=== PATIENT | male | born 1970 | race Hispanic/Latino ===

== ENCOUNTER 2018-09-16 02:08 | Emergency (ER) | payer OTHER ==
--- OUTSIDE RECORDS SUMMARY | 2018-09-16 02:10 | XMS REPORT ---
:1970 [facility] [address] [place] [address] Dr. Garcia [address] [place] [id number] Care Team Providers Name Role Phone UNKNOWN, REFFERING Primary Care Provider Unavailable TJ JAIN M.D. Unavailable Unavailable Problems This patient has no known problems. Allergies, Adverse Reactions, Alerts This patient has no known allergies or adverse reactions. Medications This patient has no known medications. Encounters Start End Encounter Admission Attending Care Care Encounter Date/Time Date/Time Type Type Clinicians Facility Department ID 2017-08-27 2017-08-28 [id number]:40:00 12:00:00 Danelle SPENCER Results Test Description Test Time Test Comments Text Results Atomic Results Result Comments POC Glucose, Blood 2017-08-28 09:29:00 Test Item Value Reference Range Comments POC Glucose (test code=POCGLUC) 194 mg/dL 70-115 Notify RN or MDIf you consider your patient critically ill, the Ruel Accu-Chek InformII metershould not be used for Glucose determinations.Draw a venous Glucose and send to the Main Lab for Analysis. [id number] 07:49:00 Test Item Value Reference Range Comments Phosphorus (test code=PO4) 3.1 mg/dL 2.70-4.50 Magnesium, [id number] 07:49:00 Test Item Value Reference Range Comments Magnesium (test code=MG) 2.0 mg/dL 1.7-2.5 Basic Metabolic [id number] 22:21:00 Test Item Value Reference Range Comments Sodium (test code=NA) 135 mmol/L 135-145 Potassium (test code=K) 3.6 mmol/L 3.5-5.1 Chloride (test code=CL) 97 mmol/L 98-105 Carbon Dioxide (test 29 mmol/L 22-29 code=CO2) Glucose (test code=GLU) 189 mg/dL 70-115 Blood Urea Nitrogen 26 mg/dL 6-20 (test code=BUN) Creatinine (test 0.9 mg/dL 0.7-1.2 code=CREAT) Calcium (test code=CA) 9.1 mg/dL 8.3-10.5 BUN/Creatinine Ratio 28.9 (test code=BCRATIO) Anion Gap (test 9 mmol/L 7-16 code=AGAP) Estimated GFR (test >60 mL/min/1.73m2 eGFR (estimated Glomerular code=GFR) Filtration Rate) is an estimated value,calculated from the patient's serum creatinine using the MDRD equation.It is NOT the patient's actual GFR. The eGFR provides a more clinicallyuseful measure of kidney disease than serum creatinine alone.This calculation takes sex and race into account, if the informationis provided. If the race is not provided, and the patient isAfrican-[place], multiply by 1.212. If sex is not provided, and thepatient is female, multiply by 0.742. Results for patients <18 years ofage have not been validated by the MDRD study and should be interpretedwith caution.eGFR Result Interpretation:eGFR > or=60 is in the Normal RangeeGFR < 60 may mean kidney diseaseeGFR < 15 may mean kidney failureRanges recommended by the National Kidney Foundation,http://nkdep.nih .gov POC Glucose, [id number] 20:51:00 Test Item Value Reference Range Comments POC Glucose (test 211 mg/dL 70-115 Notify RN or MDIf you consider code=POCGLUC) your patient critically ill, the Ruel Accu-Chek InformII metershould not be used for Glucose determinations.Draw a venous Glucose and send to the Main Lab for Analysis. [id number] 19:19:36LOCATION: [id number]: 47-year-old male with acute kidney injury. Clinical concern ishydronephrosis.COMMENT:Sonographic imaging of this patient's retroperitoneum was obtained andlimited fashion. The urinary bladder was not included in theexamination.The right kidney measures 11.8 x 6.2 x 5.4 cm with a 22 mm corticalthickness. The left kidney measures 12.0 x 6.6 x 6.0 cm with a 19 mmcortical thickness.There is no evidence of cyst , masses,calcifications, or evidence of hydronephrosis. Cortical echotexture inthe kidneys is unremarkable.IMPRESSION:Unremarkable sonographic examination of the kidneys.POC Glucose, [id number] 17:15:00 Test Item Value Reference Range Comments POC Glucose (test 214 mg/dL 70-115 Notify RN or MDIf you consider code=POCGLUC) your patient critically ill, the Ruel Accu-Chek InformII metershould not be used for Glucose determinations.Draw a venous Glucose and send to the Main Lab for Analysis. Basic Metabolic [id number] 15:06:00 Test Item Value Reference Range Comments Sodium (test code=NA) 136 mmol/L 135-145 Potassium (test code=K) 3.7 mmol/L 3.5-5.1 Chloride (test code=CL) 99 mmol/L 98-105 Carbon Dioxide (test 26 mmol/L 22-29 code=CO2) Glucose (test code=GLU) 153 mg/dL 70-115 Blood Urea Nitrogen 29 mg/dL 6-20 (test code=BUN) Creatinine (test 1.0 mg/dL 0.7-1.2 code=CREAT) Calcium (test code=CA) 9.2 mg/dL 8.3-10.5 BUN/Creatinine Ratio 29.0 (test code=BCRATIO) Anion Gap (test 11 mmol/L 7-16 code=AGAP) Estimated GFR (test >60 mL/min/1.73m2 eGFR (estimated Glomerular code=GFR) Filtration Rate) is an estimated value,calculated from the patient's serum creatinine using the MDRD equation.It is NOT the patient's actual GFR. The eGFR provides a more clinicallyuseful measure of kidney disease than serum creatinine alone.This calculation takes sex and race into account, if the informationis provided. If the race is not provided, and the patient isAfrican-B[place], multiply by 1.212. If sex is not provided, and thepatient is female, multiply by 0.742. Results for patients <18 years ofage have not been validated by the MDRD study and should be interpretedwith caution.eGFR Result Interpretation:eGFR > or=60 is in the Normal RangeeGFR < 60 may mean kidney diseaseeGFR < 15 may mean kidney failureRanges recommended by the National Kidney Foundation,http://nkdep.nih .gov POC Glucose, [id number] 11:25:00 Test Item Value Reference Range Comments POC Glucose (test 175 mg/dL 70-115 Notify RN or MDIf you consider code=POCGLUC) your patient critically ill, the Ruel Accu-Chek InformII metershould not be used for Glucose determinations.Draw a venous Glucose and send to the Main Lab for Analysis. POC Glucose, [id number] 08:09:00 Test Item Value Reference Range Comments POC Glucose (test 139 mg/dL 70-115 Notify RN or MDIf you consider code=POCGLUC) your patient critically ill, the Ruel Accu-Chek InformII metershould not be used for Glucose determinations.Draw a venous Glucose and send to the Main Lab for Analysis. Sed Rate ESR ([place])2017-08-27 07:44:00 Test Item Value Reference Range Comments ESR (test code=HESR) 20 mm/Hr 0-9 Thyroid Stimulating Hormone (TSH)2017-08-27 06:59:00 Test Item Value Reference Range Comments TSH (test code=TSH) 1.10 mIU/mL 0.270-4.200 CBC with [id number] 06:57:00 Test Item Value Reference Range Comments WBC (test code=WBC) 7.5 K/cumm 4.4-10.5 RBC (test code=RBC) 4.63 M/cumm 4.10-5.70 Hemoglobin (test code=HGB) 13.2 gm/dL 13.4-17.4 Hematocrit (test code=HCT) 39.3 % 38.7-52.0 MCV (test code=MCV) 84.9 fL 80-100 MCH (test code=MCH) 28.6 pg 27.0-32.5 MCHC (test code=MCHC) 33.7 g/dL 32.0-37.5 RDW (test code=RDW) 13.0 % 11.5-14.5 Platelet Count (test code=PLTCT) 268 K/cumm 140-440 MPV (test code=MPV) 7.4 fL Diff Method (test code=DIFFM) Auto Neutrophil (test code=NEUT) 63.0 % 36-70 Lymphocyte (test code=LYMPH) 25.7 % 12-44 Monocyte (test code=MONO) 8.4 % 0-11 Eosinophil (test code=EOS) 2.4 % 0-7 Basophil (test code=BASO) 0.5 % 0-2 Neutro Abs (test code=ANEUT) 4.7 K/cumm 1.6-7.4 Lymph Abs (test code=ALYMPH) 1.9 K/cumm 0.5-4.6 Waller Abs (test code=AMONO) 0.6 K/cumm 0.0-1.2 Eos Abs (test code=AEOS) 0.18 K/cumm 0.00-0.74 Baso Abs (test code=ABASO) 0.0 K/cumm 0.00-0.21 CK [id number] 06:56:00 Test Item Value Reference Range Comments CK (test code=CK) 320 U/L 39-308 Comprehensive Metabolic [id number] 06:56:00 Test Item Value Reference Range Comments Sodium (test code=NA) 137 mmol/L 135-145 Potassium (test code=K) 3.6 mmol/L 3.5-5.1 Chloride (test code=CL) 102 mmol/L 98-105 Carbon Dioxide (test 22 mmol/L 22-29 code=CO2) Glucose (test code=GLU) 151 mg/dL 70-115 Blood Urea Nitrogen (test 40 mg/dL 6-20 code=BUN) Creatinine (test 1.4 mg/dL 0.7-1.2 code=CREAT) Calcium (test code=CA) 9.1 mg/dL 8.3-10.5 Prot Total (test code=TP) 6.3 g/dL 6.4-8.3 Albumin (test code=ALB) 4.2 g/dL 3.5-5.2 A/G Ratio (test 2.0 Ratio code=AGRATIO) Globulin (test code=GLOB) 2.1 2.9-3.1 Bili Total (test 0.7 mg/dL 0.1-0.9 code=TBIL) Alk Phos (test 60 U/L 40-129 code=APHOS) AST (test code=AST) 15 U/L 1-40 ALT (test code=ALT) 14 U/L 1-41 BUN/Creatinine Ratio 28.6 (test code=BCRATIO) Anion Gap (test 13 mmol/L 7-16 code=AGAP) Estimated GFR (test 57 mL/min/1.73m2 eGFR (estimated Glomerular code=GFR) Filtration Rate) is an estimated value,calculated from the patient's serum creatinine using the MDRD equation.It is NOT the patient's actual GFR. The eGFR provides a more clinicallyuseful measure of kidney disease than serum creatinine alone.This calculation takes sex and race into account, if the informationis provided. If the race is not provided, and the patient isAfrican-[place], multiply by 1.212. If sex is not provided, and thepatient is female, multiply by 0.742. Results for patients <18 years ofage have not been validated by the MDRD study and should be interpretedwith caution.eGFR Result Interpretation:eGFR > or=60 is in the Normal RangeeGFR < 60 may mean kidney diseaseeGFR < 15 may mean kidney failureRanges recommended by the National Kidney Foundation,http://nkdep.nih .gov [id number] 06:56:00 Test Item Value Reference Range Comments Phosphorus (test code=PO4) 5.0 mg/dL 2.70-4.50 Magnesium, [id number] 06:56:00 Test Item Value Reference Range Comments Magnesium (test code=MG) 2.1 mg/dL 1.7-2.5 CK [id number] 06:56:00 Test Item Value Reference Range Comments CK (test code=CK) 320 U/L 39-308 CKMB (test code=CKMB) 5.5 ng/mL 0.0-4.9 CKMB% (test code=CKMBP) 1.7 % 0.0-3.4 C-Reactive Protein, [id number] 06:56:00 Test Item Value Reference Range Comments CRP (test code=CRP) 5.5 mg/L 0.0-5.0 Troponin [id number] 06:56:00 Test Item Value Reference Range Comments Troponin T (test code=SHAYY) <0.010 ng/mL 0.000-0.090 Glycosylated [id number] 06:36:00 Test Item Value Reference Range Comments HBA1c (test code=HBA1C) 7.1 % 4.8-5.9 POC Glucose, [id number] 01:20:00 Test Item Value Reference Range Comments POC Glucose (test 122 mg/dL 70-115 Notify RN or MDIf you consider code=POCGLUC) your patient critically ill, the Ruel Accu-Chek InformII metershould not be used for Glucose determinations.Draw a venous Glucose and send to the Main Lab for Analysis. Urinalysis [id number] 00:01:00 Test Item Value Reference Range Comments Color (test code=COLOR) Yellow Yellow,Straw,Pl yellow Clarity (test code=CLAR) Clear Clear Specific [place] (test code=SPGR) 1.010 1.001-1.035 pH (test code=PH) 5.0 5.0-9.0 Ketone (test code=KET) Negative mg/dL Negative Glucose (test code=GLUCUR) 50 mg/dL Negative Protein (test code=PROT) Negative mg/dL Negative Bilirubin (test code=BILI) Negative mg/dL Negative Occult Blood (test code=UDOB) Negative Negative Urobilinogen (test code=UROB) 0.2 mg/dL 0.2-1.0 Nitrite (test code=NIT) Negative Negative Leuk Esterase (test code=LEUK) Negative Negative Micros Exam (test code=MEXAM) Indicated Epithelial Cells (test code=EPI) None /LPF 0-30 WBC, Urine (test code=UWBC) 0-1 /HPF 0-5 RBC, Urine (test code=URBC) None Seen /HPF 0-5 Bacteria (test code=BACT) Few /HPF XR CHEST 1 [id number] 23:33:27LOCATION: [id number]: 47-year-old male who presents with malaise.COMMENT: After-hours service at 11:33 p.m.The examination was obtained at the bedside at 10:15 p.m.The lungs are clear, and well-aerated. The cardiac silhouette, lenore, andmediastinum are unremarkable. The skeleton and soft tissues areunremarkable. residential monitor leads are present.IMPRESSION: Unremarkable portable examination of the chest.CK [id number] 22:20:00 Test Item Value Reference Range Comments CK (test code=CK) 424 U/L 39-308 CBC with [id number] 21:38:00 Test Item Value Reference Range Comments WBC (test code=WBC) 12.5 K/cumm 4.4-10.5 RBC (test code=RBC) 4.67 M/cumm 4.10-5.70 Hemoglobin (test code=HGB) 13.6 gm/dL 13.4-17.4 Hematocrit (test code=HCT) 40.0 % 38.7-52.0 MCV (test code=MCV) 85.5 fL 80-100 MCH (test code=MCH) 29.0 pg 27.0-32.5 MCHC (test code=MCHC) 33.9 g/dL 32.0-37.5 RDW (test code=RDW) 13.0 % 11.5-14.5 Platelet Count (test code=PLTCT) 281 K/cumm 140-440 MPV (test code=MPV) 8.2 fL Diff Method (test code=DIFFM) Auto Neutrophil (test code=NEUT) 84.4 % 36-70 Lymphocyte (test code=LYMPH) 10.3 % 12-44 Monocyte (test code=MONO) 4.7 % 0-11 Eosinophil (test code=EOS) 0.3 % 0-7 Basophil (test code=BASO) 0.3 % 0-2 Neutro Abs (test code=ANEUT) 10.5 K/cumm 1.6-7.4 Lymph Abs (test code=ALYMPH) 1.3 K/cumm 0.5-4.6 Waller Abs (test code=AMONO) 0.6 K/cumm 0.0-1.2 Eos Abs (test code=AEOS) 0.03 K/cumm 0.00-0.74 Baso Abs (test code=ABASO) 0.0 K/cumm 0.00-0.21 Comprehensive Metabolic [id number] 21:04:00 Test Item Value Reference Range Comments Sodium (test code=NA) 133 mmol/L 135-145 Potassium (test code=K) 4.4 mmol/L 3.5-5.1 Chloride (test code=CL) 94 mmol/L 98-105 Carbon Dioxide (test 21 mmol/L 22-29 code=CO2) Glucose (test code=GLU) 203 mg/dL 70-115 Blood Urea Nitrogen (test 44 mg/dL 6-20 code=BUN) Creatinine (test 3.0 mg/dL 0.7-1.2 code=CREAT) Calcium (test code=CA) 9.8 mg/dL 8.3-10.5 Prot Total (test code=TP) 6.9 g/dL 6.4-8.3 Albumin (test code=ALB) 4.6 g/dL 3.5-5.2 A/G Ratio (test 2.0 Ratio code=AGRATIO) Globulin (test code=GLOB) 2.3 2.9-3.1 Bili Total (test 0.6 mg/dL 0.1-0.9 code=TBIL) Alk Phos (test 64 U/L 40-129 code=APHOS) AST (test code=AST) 21 U/L 1-40 ALT (test code=ALT) 17 U/L 1-41 BUN/Creatinine Ratio 14.7 (test code=BCRATIO) Anion Gap (test 18 mmol/L 7-16 code=AGAP) Estimated GFR (test 24 mL/min/1.73m2 eGFR (estimated Glomerular code=GFR) Filtration Rate) is an estimated value,calculated from the patient's serum creatinine using the MDRD equation.It is NOT the patient's actual GFR. The eGFR provides a more clinicallyuseful measure of kidney disease than serum creatinine alone.This calculation takes sex and race into account, if the informationis provided. If the race is not provided, and the patient isAfrican-[place], multiply by 1.212. If sex is not provided, and thepatient is female, multiply by 0.742. Results for patients <18 years ofage have not been validated by the MDRD study and should be interpretedwith caution.eGFR Result Interpretation:eGFR > or=60 is in the Normal RangeeGFR < 60 may mean kidney diseaseeGFR < 15 may mean kidney failureRanges recommended by the National Kidney Foundation,http://nkdep.nih .gov Magnesium, [id number] 21:04:00 Test Item Value Reference Range Comments Magnesium (test code=MG) 2.0 mg/dL 1.7-2.5 Troponin [id number] 21:04:00 Test Item Value Reference Range Comments Troponin T (test code=SHAYY) <0.010 ng/mL 0.000-0.090 POC Glucose, [id number] 20:29:00 Test Item Value Reference Range Comments POC Glucose (test 230 mg/dL 70-115 If you consider your patient code=POCGLUC) critically ill, the Ruel Accu-Chek InformII metershould not be used for Glucose determinations.Draw a venous Glucose and send to the Main Lab for Analysis.
--- OUTSIDE RECORDS SUMMARY | 2018-09-16 02:11 | XMS REPORT ---
:1970 Author Care Team Providers Name Role Phone LEONIDES BUCHANAN MD Orthopedic Surgeon [phone] JESÚS GILL MD Primary Care Provider [phone] LUIS PHILLIPS MD Annealing Operator [phone] TAURUS OROZCO DPM Filament Coil Winder [phone] ALICIA KRISHNAMURTHY MDmanager of corporate communications [phone] ZACHERY GAN Paper Novelty Maker [phone] Allergies Code Code System Name Reaction Severity Status Onset NKDA Medications Name Status Start Date Stop Date amlodipine 5 mg tablet Active Not available Take 1 tablet every day by oral route. Bromfed DM 2 mg-30 mg-10 mg/5 mL syrup Completed 07/23/2017 Take 10 mL 4 times a day by oral route for 5 days. Farxiga 10 mg tablet Active Not available TAKE 1 TABLET BY MOUTH EVERY DAY FOR 30 DAYS ibuprofen 600 mg tablet Active Not available Take 1 tablet 3 times a day by oral route. Janumet XR 50 mg-1,000 mg tablet,extended release Active Not available TAKE 1 TABLET BY MOUTH TWICE A DAY Janumet XR 50 mg-500 mg tablet,extended release Completed 05/13/2017 Take 1 tablet twice a day by oral route. Keflex 500 mg capsule Completed 07/23/2017 Take 1 capsule 3 times a day by oral route for 10 days. lisinopril 20 mg tablet Completed 09/03/2017 TAKE 1 TABLET BY MOUTH EVERY DAY Lyrica 75 mg capsule Active Not available Take 1 capsule twice a day by oral route. [place] 7.5 mg-325 mg tablet Active Not available Take 1 tablet every 4 hours by oral route. simvastatin 20 mg tablet Active Not available TAKE 1 TABLET BY MOUTH EVERY DAY simvastatin 40 mg tablet Active Not available Take 1 tablet every day by oral route. tramadol 50 mg tablet Active Not available Take 1 tablet every 4 hours by oral route. Problems Name Status Onset Date Source Acne Vulgaris Active 08/16/2015 Excessive Thirst Active 08/16/2015 Elevated Blood-pressure Reading without Active 08/16/2015 Diagnosis of Hypertension Type 2 Diabetes Mellitus Active 09/11/2015 Type 2 Diabetes Mellitus with Peripheral Unknown 09/11/2015 Angiopathy Onychomycosis of Toenails Active 11/30/2015 Bereavement Active 11/30/2015 Chronic Back Pain Active Procedures Date Name Performed by Knee Surgery Information not available Notes: Right Notes: MENISCUS REPAIR - RIGHT KNEE- 02/2015 STEROID INJECTION - L SPINE- 06/2015 Lab Results Date Name Specimen Result Interpretation Description Value Range Status Address 09/24/2017 CMP, Serum Alt 21 U/L 0-55 Final [place] or Plasma U/L [facility] Laboratory: [address] [place] Ast 20 U/L 5-34 Final [place] U/L [facility] Practice Laboratory: [address], [place] Bun 13.3 mg/dL 8.9-20 Final [place] .6 Family mg/dL Practice Laboratory: [address] [place] Alk Phos 74 unit/L 40-150 Final [place] unit/L Family Practice Laboratory: [address] [place] High Glucose 190 mg/dL 70-99 Final [place] mg/dL Family Practice Laboratory: [address] [place] Albumin 4.0 g/dL 3.5-5. Final [place] 0 g/dL Family Practice Laboratory: [address] [place] Creatinine 0.82 mg/dL 0.72-1 Final [place] .25 Family mg/dL Practice Laboratory: [address] [place] eGFR >60 >60 Final [place] Non- mL/min/1.7 mL/min Family Croatian 3m2 /1.73m Practice 2 Laboratory: [address] [place] Total 0.4 mg/dL 0.2-1. Final [place] Bilirubin 2 Family mg/dL Practice Laboratory: [address] [place] eGFR - >60 >60 Final [place] Croatian mL/min/1.7 mL/min Family 3m2 /1.73m Practice 2 Laboratory: [address] [place] Sodium 141 mEq/L 136-14 Final [place] 5 Family mEq/L Practice Laboratory: [address] [place] Potassium 4.4 mEq/L 3.5-5. Final [place] 1 Family mEq/L Practice Laboratory: [address] Chloride 107 mmol/L 98-107 Final [place] mmol/L Family Practice Laboratory: [address] [place] [address], [place] Total Protein 7.2 g/dL 6.4-8. Final [place] 3 g/dL Family Practice Laboratory: [address] Calcium 9.5 mg/dL 8.4-10 Final [place] .2 Family mg/dL Practice Laboratory: [address] [place] [address], [place] Co2 28.3 22.0-2 Final [place] mmol/L 9.0 Family mmol/L Practice Laboratory: [address] Anion Gap 6 calc Final [facility] Family Practice Laboratory: [address] cam[address] 09/24/2017 Lipid Hdl 41 mg/dL 40-60 Final [place] Panel, mg/dL Family Serum [facility] Laboratory: [facility]055 [facility] [address] High Triglyceride 170 mg/dL 0-149 Final [place] mg/dL Family Practice Laboratory: 9055 [facility] [address] VLDL Calc. 34 mg/dL Final [facility] Family Practice Laboratory: [address] cholesterol/HD 4.0 mg/dL Final [place] L Ratio Family Practice Laboratory: 9055 [facility] [address] non-HDL 124 mg/dL 0-160 Final [place] Cholesterol mg/dL Family Calc. Practice Laboratory: [address] Cholesterol 165 mg/dL 0-199 Final [place] mg/dL Family Practice Laboratory: [address] LDL Calc. 90 mg/dL 0-130 Final [place] mg/dL Family Practice Laboratory: [address] 09/24/2017 HbA1C High A1C W/eag 7.3 % 1.0-5. Final [place] (Hemoglobi 7 % Family n a1C), Practice Blood Laboratory: [address] Average Blood 163 mg/dL Final [facility] Glucose Family Practice Laboratory: [address] 09/03/2017 CK Normal Creatine 89 U/L 44-196 Final [place] (Creatine Kinase, Total U/L Family Kinase), Practice Total, Laboratory: Serum [address]055 [address] cam[address] 09/03/2017 CMP, Serum Alt 26 U/L 0-55 Final [place] or Plasma U/L Family Practice Laboratory: [address] [facility], [place] Ast 18 U/L 5-34 Final [place] U/L Family Practice Laboratory: [address], [place] Bun 16.3 mg/dL 8.9-20 Final [place] .6 Family mg/dL Practice Laboratory: [address], [place] Alk Phos 86 unit/L 40-150 Final [place] unit/L Family Practice Laboratory: [address], [place] High Glucose 152 mg/dL 70-99 Final [place] mg/dL Family Practice Laboratory: [address], [place] Albumin 4.3 g/dL 3.5-5. Final [place] 0 g/dL Family Practice Laboratory: [address], [place] Creatinine 0.80 mg/dL 0.72-1 Final [place] .25 Family mg/dL Practice Laboratory: [address], [place] eGFR >60 >60 Final [place] Non- mL/min/1.7 mL/min Family Croatian 3m2 /1.73m Practice 2 Laboratory: [address], [place] Total 0.4 mg/dL 0.2-1. Final [place] Bilirubin 2 Family mg/dL Practice Laboratory: [address], [place] eGFR - >60 >60 Final [place] Croatian mL/min/1.7 mL/min Family 3m2 /1.73m Practice 2 Laboratory: [address], [place] Sodium 138 mEq/L 136-14 Final [place] 5 Family mEq/L Practice Laboratory: [address], [place] Potassium 4.6 mEq/L 3.5-5. Final [place] 1 Family mEq/L Practice Laboratory: [address], [place] Chloride 104 mmol/L 98-107 Final [place] mmol/L Family Practice Laboratory: [address], [place] Total Protein 7.6 g/dL 6.4-8. Final [place] 3 g/dL Family Practice Laboratory: [address], [place] Calcium 9.5 mg/dL 8.4-10 Final [place] .2 Family mg/dL Practice Laboratory: [address], [place] Co2 22.6 22.0-2 Final [place] mmol/L 9.0 Family mmol/L Practice Laboratory: [address] [place] Anion Gap 11 calc Final [place] Family Practice Laboratory: [address] [place] 07/15/2017 CMP, Serum Alt 17 U/L 0-55 Final [place] or Plasma U/L Family Practice Laboratory: [address] [place], [place] Ast 14 U/L 5-34 Final [place] U/L Family Practice Laboratory: [address] [place] Bun 17.5 mg/dL 8.9-20 Final [place] .6 Family mg/dL Practice Laboratory: [address] Alk Phos 81 unit/L 40-150 Final [place] unit/L Family Practice Laboratory: [address] [place] High Glucose 289 mg/dL 70-99 Final [place] mg/dL Family Practice Laboratory: [address] Dunbar [place] Albumin 3.8 g/dL 3.5-5. Final [place] 0 g/dL Family Practice Laboratory: [address] [place] [address] [place] Creatinine 0.98 mg/dL 0.72-1 Final [place] .25 Family mg/dL Practice Laboratory: [address] [facility] eGFR >60 >60 Final [place] Non- mL/min/1.7 mL/min Family Croatian 3m2 /1.73m Practice 2 Laboratory: [address] [place] Total 0.8 mg/dL 0.2-1. Final [place] Bilirubin 2 Family mg/dL Practice Laboratory: [address] Dunbar [place] eGFR - >60 >60 Final [place] Croatian mL/min/1.7 mL/min Family 3m2 /1.73m Practice 2 Laboratory: [address] [facility] Sodium 139 mEq/L 136-14 Final [place] 5 Family mEq/L Practice Laboratory: [address] Potassium 4.4 mEq/L 3.5-5. Final [place] 1 Family mEq/L Practice Laboratory: [address] [place] Chloride 104 mmol/L 98-107 Final [place] mmol/L Family Practice Laboratory: [address] Olivoc[address] Dunbar [place] Total Protein 6.7 g/dL 6.4-8. Final [place] 3 g/dL Family Practice Laboratory: [address] Pallav[address]bar [place] Calcium 9.4 mg/dL 8.4-10 Final [place] .2 Family mg/dL Practice Laboratory: [address] Co2 24.5 22.0-2 Final [place] mmol/L 9.0 Family mmol/L Practice Laboratory: [address] Anion Gap 11 calc Final [place] Family Practice Laboratory: 9055 [facility] [place] [address], [place] 07/15/2017 Lipid Low Hdl 36 mg/dL 40-60 Final [place] Panel, mg/dL Family Serum Practice Laboratory: [address] High Triglyceride 256 mg/dL 0-149 Final [place] mg/dL Family Practice Laboratory: [address] VLDL Calc. 51 mg/dL Final [facility] Family Practice Laboratory: [address] cholesterol/HD 5.6 mg/dL Final [place] L Ratio Family Practice Laboratory: [address] High non-HDL 167 mg/dL 0-160 Final [place] Cholesterol mg/dL Family Calc. Practice Laboratory: 9055 [facility] [address] High Cholesterol 203 mg/dL 0-199 Final [place] mg/dL Family Practice Laboratory: [address] LDL Calc. 116 mg/dL 0-130 Final [place] mg/dL Family Practice Laboratory: 9055 [facility] [address] 07/15/2017 TSH, Serum Tsh 1.107 0.350- Final [place] or Plasma uIU/mL 4.940 Family uIU/mL Practice Laboratory: [address] 07/15/2017 HbA1C High A1C W/eag 9.2 % 1.0-5. Final [place] (Hemoglobi 7 % Family n a1C), Practice Blood Laboratory: [address] Average Blood 217 mg/dL Final [facility] Glucose Family Practice Laboratory: [address] 05/13/2017 Magnesium, Normal Magnesium 2.1 mg/dL 1.5-2. Final [place] Serum or 5 Family Plasma mg/dL Practice Laboratory: 9055 [facility] [address] 05/13/2017 CMP, Serum Alt 25 U/L 0-55 Final [place] or Plasma U/L Family Practice Laboratory: [address] Ast 17 U/L 5-34 Final [place] U/L Family Practice Laboratory: [address] [place] High Bun 22.1 mg/dL 8.9-20 Final [place] .6 Family mg/dL Practice Laboratory: [address], [place] Alk Phos 72 unit/L 40-150 Final [place] unit/L Family Practice Laboratory: [address], [place] High Glucose 261 mg/dL 70-99 Final [place] mg/dL Family Practice Laboratory: [address] [place], [place] Albumin 4.2 g/dL 3.5-5. Final [place] 0 g/dL Family Practice Laboratory: [address], [place] Creatinine 0.97 mg/dL 0.72-1 Final [place] .25 Family mg/dL Practice Laboratory: [address] [place], [place] eGFR >60 >60 Final [place] Non- mL/min/1.7 mL/min Family Croatian 3m2 /1.73m Practice 2 Laboratory: [address] [place] Total 0.8 mg/dL 0.2-1. Final [place] Bilirubin 2 Family mg/dL Practice Laboratory: [address] [place] eGFR - >60 >60 Final [place] Croatian mL/min/1.7 mL/min Family 3m2 /1.73m Practice 2 Laboratory: [address] [place] Sodium 137 mEq/L 136-14 Final [place] 5 Family mEq/L Practice Laboratory: [address], [place] Potassium 4.6 mEq/L 3.5-5. Final [place] 1 Family mEq/L Practice Laboratory: [address]ato [address] [place] Chloride 103 mmol/L 98-107 Final [place] mmol/L Family Practice Laboratory: [address] [place], [place] Total Protein 7.2 g/dL 6.4-8. Final [place] 3 g/dL Family Practice Laboratory: [address] Renato [address] [place] Calcium 9.5 mg/dL 8.4-10 Final [place] .2 Family mg/dL Practice Laboratory: [address] [place] Kumar, [place] Low Co2 21.5 22.0-2 Final [place] mmol/L 9.0 Family mmol/L Practice Laboratory: [address] [place] Anion Gap 13 calc Final [place] Family Practice Laboratory: [address] Pall[address] [place] 03/25/2017 CMP, Serum Alt 28 U/L 0-55 Final [place] or Plasma U/L Family Practice Laboratory: [address] [place], [place] Ast 18 U/L 5-34 Final [place] U/L Family Practice Laboratory: [address], [place] Bun 12.0 mg/dL 8.9-20 Final [place] .6 Family mg/dL Practice Laboratory: [address], [place] Alk Phos 99 unit/L 40-150 Final [place] unit/L Family Practice Laboratory: [address], [place] High Glucose 313 mg/dL 70-99 Final [place] mg/dL Family Practice Laboratory: [address], [place] Albumin 4.1 g/dL 3.5-5. Final [place] 0 g/dL Family Practice Laboratory: [address], [place] Creatinine 0.81 mg/dL 0.72-1 Final [place] .25 Family mg/dL Practice Laboratory: [address] [place] Kumar, [place] eGFR >60 >60 Final [place] Non- mL/min/1.7 mL/min Family Croatian 3m2 /1.73m Practice 2 Laboratory: [address], [place] Total 0.8 mg/dL 0.2-1. Final [place] Bilirubin 2 Family mg/dL Practice Laboratory: [address], [place] eGFR - >60 >60 Final [place] Croat[place] mL/min/1.7 mL/min Family 3m2 /1.73m Practice 2 Laboratory: [address] [place], [place] Low Sodium 135 mEq/L 136-14 Final [place] 5 Family mEq/L Practice Laboratory: [address], [place] Potassium 4.4 mEq/L 3.5-5. Final [place] 1 Family mEq/L Practice Laboratory: [address] Olivoc[address] [place], [place] Chloride 101 mmol/L 98-107 Final [place] mmol/L Family Practice Laboratory: [address], [place] Total Protein 6.8 g/dL 6.4-8. Final [place] 3 g/dL Family Practice Laboratory: [address] Oliv[address] [place], [place] Calcium 9.4 mg/dL 8.4-10 Final [place] .2 Family mg/dL Practice Laboratory: [address], [place] Co2 22.6 22.0-2 Final [place] mmol/L 9.0 Family mmol/L Practice Laboratory: [address] [place] Anion Gap 11 calc Final [facility] Family Practice Laboratory: [address] [place] 03/25/2017 HbA1C High A1C W/eag 12.5 % 1.0-5. Final [place] (Hemoglobi 7 % Family n a1C), Practice Blood Laboratory: [address] [place] Average Blood 312 mg/dL Final [facility] Glucose Family Practice Laboratory: [address] [place] 02/12/2017 CBC W/ Normal White Blood 7.0 3.8-10 Final [facility] Auto Diff Cell Count thousand/u .8 Family L thousa Practice nd/uL Laboratory: [address] [place] High Red Blood Cell 5.84 4.20-5 Final [facility] Count million/uL .80 Family millio Practice n/uL Laboratory: [address] [place] Normal Hemoglobin 15.5 g/dL 13.2-1 Final [place] 7.1 Family g/dL Practice Laboratory: [address] [place] Normal Hematocrit 48.3 % 38.5-5 Final [place] 0.0 % Family Practice Laboratory: [address] [place] Normal Mcv 82.7 fL 80.0-1 Final [place] 00.0 Family fL Practice Laboratory: [address] [place] Low Mch 26.6 pg 27.0-3 Final [facility] 3.0 pg Family Practice Laboratory: [address] [place] Normal Mchc 32.2 g/dL 32.0-3 Final [place] 6.0 Family g/dL Practice Laboratory: [address] [place] Normal Rdw 13.9 % 11.0-1 Final [place] 5.0 % Family Practice Laboratory: [address] [place] Normal Platelet Count 296 140-40 Final [facility] thousand/u 0 Family L thousa Practice nd/uL Laboratory: [address] [place] Normal Mpv 9.8 fL 7.5-12 Final [place] .5 fL Family Practice Laboratory: [address] [place] Normal Absolute 4676 1500-7 Final [place] Neutrophils cells/uL 800 Family cells/ Practice uL Laboratory: [address] Et[place] Kumar [place] Normal Absolute 1547 850-39 Final [facility] Lymphocytes cells/uL 00 Family cells/ Practice uL Laboratory: [address] [place] Normal Absolute 539 200-95 Final [facility] Monocytes cells/uL 0 Family cells/ Practice uL Laboratory: [address] [place] Normal Absolute 210 15-500 Final [facility] Eosinophils cells/uL cells/ Family uL Practice Laboratory: [address] [place] Normal Absolute 28 0-200 Final [facility] Basophils cells/uL cells/ Family uL Practice Laboratory: [address] [place] Normal Neutrophils 66.8 % Final [facility] Practice Laboratory: [address] [place] Normal Lymphocytes 22.1 % Final [facility] Practice Laboratory: [address] [place] Normal Monocytes 7.7 % Final [facility] Practice Laboratory: [address] [place] Normal Eosinophils 3.0 % Final [facility] Practice Laboratory: [address] [place] Normal Basophils 0.4 % Final [facility] Practice Laboratory: [address] [place] 02/12/2017 CMP, Serum Alt 30 U/L 0-55 Final [place] or Plasma U/L Family Practice Laboratory: [address] [facility] Ast 17 U/L 5-34 Final [facility] U/L Family Practice Laboratory: [address] [place] Bun 12 mg/dL 9-21 Final [place] mg/dL Family Practice Laboratory: [address] [place] Alk Phos 110 unit/L 40-150 Final [place] unit/L Family Practice Laboratory: [address] Renato [address] [place] High Glucose 316 mg/dL 70-99 Final [place] mg/dL Family Practice Laboratory: [address] [facility] Albumin 3.9 g/dL 3.5-5. Final [place] 0 g/dL Family Practice Laboratory: [address] [place] Creatinine 0.83 mg/dL 0.72-1 Final [place] .25 Family mg/dL Practice Laboratory: [address] Renato [address] eGFR >60 >60 Final [facility] Non- mL/min/1.7 mL/min Family Croatian 3m2 /1.73m Practice 2 Laboratory: [address] [place] Total 0.7 mg/dL 0.2-1. Final [place] Bilirubin 2 Family mg/dL Practice Laboratory: [address] Renato [place] [facility], [place] eGFR - >60 >60 Final Village [place] mL/min/1.7 mL/min Family 3m2 /1.73m Practice 2 Laboratory: [address], [place] Sodium 137 mEq/L 136-14 Final [place] 5 Family mEq/L Practice Laboratory: [address] [place] [address], [place] Potassium 4.5 mEq/L 3.5-5. Final [place] 1 Family mEq/L Practice Laboratory: [address] [place], [place] Chloride 102 mmol/L 98-107 Final [place] mmol/L Family Practice Laboratory: [address] [place] [address], [place] Total Protein 6.7 g/dL 6.4-8. Final [place] 3 g/dL Family Practice Laboratory: [address], [place] Calcium 9.4 mg/dL 8.4-10 Final [place] .2 Family mg/dL Practice Laboratory: [address] [place], [place] Co2 22.1 22.0-2 Final [place] mmol/L 9.0 Family mmol/L Practice Laboratory: [address] Anion Gap 13 calc Final [facility] Family Practice Laboratory: [address], [place] 02/12/2017 Lipid Hdl 45 mg/dL 40-60 Final [place] Panel, mg/dL Family Serum Practice Laboratory: [address] [facility] Triglyceride 125 mg/dL 0-149 Final [place] mg/dL Family Practice Laboratory: [address] VLDL Calc. 25 mg/dL Final [facility] Family Practice Laboratory: [address] [facility] cholesterol/HD 4 mg/dL Final [place] L Ratio Family Practice Laboratory: [address] [place] [address], [place] non-HDL 150 mg/dL 0-160 Final [facility] Cholesterol mg/dL Family Calc. Practice Laboratory: [address] [place] Cholesterol 195 mg/dL 0-199 Final [place] mg/dL Family Practice Laboratory: [address] [facility] LDL Calc. 125 mg/dL 0-130 Final [place] mg/dL Family Practice Laboratory: [address], [place] 02/12/2017 TSH, Serum Tsh 2.106 0.350- Final [place] or Plasma uIU/mL 4.940 Family uIU/mL Practice Laboratory: [address] 02/12/2017 PSA, Serum PSA, Total 0.33 NG/mL <4.00 Final [facility] or Plasma NG/mL [facility] Laboratory: [address] 02/12/2017 HbA1C High A1C W/eag 11.2 % 1.0-5. Final [facility] (Hemoglobi 7 % [facility] n a1C), Practice Blood Laboratory: [address] Average Blood 275 mg/dL Final [facility] Glucose [facility] Laboratory: [address] [place] [address], [place] Albumin:cr Type Urine 30 mg/L [facility] [place]ine Microlalbumin [place]: [address] [address], [place] Type Urine 200 mg/dL [facility] Creatinine [place]: [address], [place] Type A:C Ratio <30 mg/g [facility] (Normal) [place]: [address], [place] Albumin:cr Type Urine 150 mg/L [facility] [place]ine Microlalbumin [place]: [address] Ratio, [address], [place] Type Urine 200 mg/dL [facility] Creatinine [place]: [address], [place] Type A:C Ratio 30-300 [facility] mg/g [place]: [address] (Abnormal) [address], [place] Urinalysis Color Color yellow [facility] , Dipstick [place]: [address], [place] Color clear [facility] Appearance [place]: [address], [place] Color Glucose 500 [facility]: [address] Color negative [facility] Bilirubin [place]: [address], [place] Color Ketones negative [facility]: [address], [place] Color Specific 1.020 [facility] [place]: [address], [place] Color Blood negative [facility]: [address], [place] Color PH 5.5 [facility]: [address], [place] Color Protein 30 [facility]: [address], [place] Color 0.2 [facility] Urobilinogen [place]: [address], [place] Color Nitrites negative [facility]: [address], [place] Color negative [facility] Leukocytes [place]: [address], [place] Past Encounters 01/14/2018 [facility]: [address], [address], [place] [address], Ph. 12/17/2017 [facility]: [address], [address], [place] [address], Ph. [phone] 11/12/2017 Type 2 Diabetes Mellitus; Bereavement [facility]: [address], [address], [place] [address], Ph. [phone] 10/15/2017 [facility]: [address] [place], [address], [place] [address], Ph. 09/24/2017 Type 2 Diabetes Mellitus; Hypercholesterolemia; Body Mass Index 30+ - Obesity Jesús Gill MD: [id number], [facility] [address], [place] [address], Ph. 09/10/2017 Type 2 Diabetes Mellitus with Peripheral Angiopathy; Elevated Blood-pressure Reading without Diagnosis of Hypertension [facility]: [address] Melodie Air Button, [facility] [address], [place] [address], Ph. [phone] 09/09/2017 Renal Impairment Jesús Gill MD: [id number] [address], [facility] [address], [place] [address], Ph. 09/03/2017 Chronic Back Pain; Type 2 Diabetes Mellitus with Peripheral Angiopathy; Essential Hypertension; Hyperlipidemia; Renal Impairment Jesús Gill MD: [id number] [address], [facility] [address], [place] [address], Ph. 08/13/2017 Type 2 Diabetes Mellitus; Benign Essential Hypertension Scarlet Slo: [id number] [place], [facility] [address], [place] [address], Ph. 07/23/2017 Type 2 Diabetes Mellitus with Peripheral Angiopathy; Hyperlipidemia Jesús Gill MD: [id number] [facility], [facility] [address], [place] [address], Ph. 07/16/2017 Type 2 Diabetes Mellitus with Peripheral Angiopathy; Bereavement Scarlet Sol: [id number] [facility], [facility] [address], [place] [address], Ph. 07/15/2017 Chronic Back Pain; Type 2 Diabetes Mellitus with Peripheral Angiopathy; Elevated Blood-pressure Reading without Diagnosis of Hypertension; Body Mass Index 30+ - Obesity; Influenza Vaccination; Hyperlipidemia; Acute Maxillary Sinusitis Jesús Gill MD: [id number], [facility] [address], [place] [address], Ph. 06/25/2017 Type 2 Diabetes Mellitus; Elevated Blood-pressure Reading without Diagnosis of Hypertension Scarlet Sol: [id number] [facility], [address], [place] [address], Ph. 05/13/2017 Orthostatic Hypotension; Hypomagnesemia Jesús Gill MD: [id number] [facility], [facility] [address], [place] [address], Ph. 04/24/2017 Zo Moore: [id number] [facility] [address], [place] [address], Ph. 03/25/2017 Type 2 Diabetes Mellitus; Essential Hypertension; Hyperlipidemia Jesús Gill MD: [id number] [facility], [facility] [address], [place] [address], Ph. 02/12/2017 Adult Health Examination; Type 2 Diabetes Mellitus with Peripheral Angiopathy; Hyperlipidemia; Essential Hypertension Jesús Gill MD: [id number] [facility], [facility] [address], [place] [address], Ph. Social History Smoking Status Former Smoker Notes: occasional when drinking Vaccine List Vaccine Type Influenza, injectable, MDCK, quadrivalent 07/15/20170.5 mL Notes: 02/12/2017 patient did not have a flu shot this season - ([facility]) Plan of Care Patient Instructions Hypertension Problem: The patient has a diagnosis of Hypertension Goal: The patients condition will be managed in the outpatient setting and blood pressure will be within normal limits goal of <140/80. Interventions: 1. Encourage patient to monitor blood pressure and keep a log with readings. Bring readings to next scheduled appointment. 2. Encourage pt to exercise regularly 3-5 times a week for 30 min. Educate to stay at a healthy weight. Losing weight can lower your blood pressure 3. Educate patient/caregiver on dietary changes to make for hypertension such as limit/decrease sodium intake, limit/avoid processed or canned foods, pre- packaged foods, frozen dinners, fast food, and caffeinated drinks. Problem: The patient has a diagnosis of DIABETES Goal:The patients condition will be managed in the outpatient setting and the patients blood sugar will be within normal range. Interventions: -Explain risk factors of meterman complications of uncontrolled diabetes, which include: nerve damage to extremities, amputations, skin infections, kidney and heart dysfunction, dementia, cataracts and pneumonia. -Educate on an exercise routine. At least 30 min of aerobic exercise, 3-5 times a week. (unless an activity restriction from the provider) Problem: The patient has a diagnosis of DIABETES Goal:The patients condition will be managed in the outpatient setting and the patients blood sugar will be within normal range. Interventions: -Explain risk factors of mcc complications of uncontrolled diabetes, which include: nerve damage to extremities, amputations, skin infections, kidney and heart dysfunction, dementia, cataracts and pneumonia. -Educate on an exercise routine. At least 30 min of aerobic exercise, 3-5 times a week. (unless an activity restricted. -Educate patient to eat a low glycemic diet, divide your plate into 3 sections , 50% vegetables such as broccoli, lettuce, 1/4 protein such as chicken, fish, and 1/4 carbohydrates such as pasta, potatoes. Reminders Provider Appointments None recorded. Lab None recorded. Referral None recorded. Procedures None recorded. Surgeries None recorded. Imaging None recorded. Vitals 09/24/2017 04:15PM Est Patient Height Weight BMI Blood Pressure 6 ft 1 in 239 lbs 31.5 kg/m2 136/86 mm[Hg] 09/09/2017 03:45PM Est Patient Height Weight BMI Blood Pressure 6 ft 1 in 237 lbs 31.3 kg/m2 130/98 mm[Hg] 09/03/2017 09:00AM Est Patient Height Weight BMI Blood Pressure 6 ft 1 in 237 lbs 31.3 kg/m2 141/94 mm[Hg] 07/23/2017 04:15PM Work In Same Day Height Weight BMI Blood Pressure 6 ft 1 in 231 lbs 30.5 kg/m2 110/98 mm[Hg] 07/15/2017 03:00PM Est Patient Height Weight BMI Blood Pressure 6 ft 1 in 242 lbs 31.9 kg/m2 130/90 mm[Hg] 05/13/2017 04:00PM Est Patient Height Weight BMI Blood Pressure 6 ft 1 in 231 lbs 30.5 kg/m2 110/74 mm[Hg] 03/25/2017 11:30AM Work In Same Day Height Weight BMI Blood Pressure 6 ft 1 in 234 lbs 30.9 kg/m2 122/94 mm[Hg] 02/12/2017 08:45AM POINT OF CARE SPECIALIST/EST CPX Height Weight BMI Blood Pressure 6 ft 1 in 239 lbs 31.5 kg/m2 136/88 mm[Hg] 11/30/2015 Height Weight BMI Blood Pressure 6 ft 1 in 228 lbs 30.08 kg/m2 134/82 mm[Hg] 09/11/2015 Height Weight BMI Blood Pressure 6 ft 1 in 224 lbs 29.55 kg/m2 128/80 mm[Hg] 08/16/2015 Height Weight BMI Blood Pressure 6 ft 1 in 225 lbs 29.68 kg/m2 140/88 mm[Hg]
--- NOTE | 2018-09-16 03:27 | ER ---
Nurse's Notes [facility] Name: Delfino Benjamin Age: 48 yrs Sex: Male : 1970 Arrival Date: 09/16/2018 Time: 02:11 Bed 18 Private MD: Diagnosis: Sprain of other specified parts of right knee Presentation: 09/16 02:25 Presenting complaint: Patient states: fall from standing with impact to right knee, pt la1 weight bearing with limp. Transition of care: patient was not received from another setting of care. Onset of symptoms was September 16, 2018. Risk Assessment: Do you want to hurt yourself or someone else? Patient reports no desire to harm self or others. Initial Sepsis Screen: Does the patient meet any 2 criteria? No. Patient's initial sepsis screen is negative. Does the patient have a suspected source of infection? No. Patient's initial sepsis screen is negative. Care prior to arrival: None. 02:25 Method Of Arrival: Ambulatory la1 02:25 Acuity: MAKENZIE 4 la1 Historical: - Allergies: 02:27 No Known Allergies; la1 02:26 No Known Allergies; la1 - PMHx: 02:27 Diabetes - NIDDM; High Cholesterol; Hypertension; la1 02:26 Diabetes - NIDDM; High Cholesterol; Hypertension; la1 - Immunization history:: Adult Immunizations up to date, Adult Immunizations. - Social history:: Smoking status: Patient/guardian denies using tobacco, Smoking status: Patient/guardian denies using tobacco. - Ebola Screening: : No symptoms or risks identified at this time No symptoms or risks identified at this time. Screenin:28 Abuse screen: Denies threats or abuse. Denies injuries from another. Nutritional la1 screening: No deficits noted. Tuberculosis screening: No symptoms or risk factors identified. Fall Risk None identified. Assessment: 02:28 General: Appears in no apparent distress. Behavior is calm, cooperative. Pain: la1 Complains of pain in right knee. Neuro: Level of Consciousness is awake, alert, obeys commands, Oriented to person, place, time, situation. Cardiovascular: Capillary refill < 3 seconds Patient's skin is warm and dry. Respiratory: Airway is patent Trachea midline Respiratory effort is even, unlabored, Respiratory pattern is regular, symmetrical, Breath sounds are clear bilaterally. GI: No signs and/or symptoms were reported involving the gastrointestinal system. : No signs and/or symptoms were reported regarding the genitourinary system. Vital Signs: 02:27 BP 157 / 95; Pulse 98; Resp 16; Temp 97.3; Pulse Ox 98% on R/A; Weight 108.86 kg; la1 Height 6 ft. 1 in. (185.42 cm); Pain 5/10; 03:37 BP 155 / 74; Pulse 74; Resp 16; Pulse Ox 97% on R/A; la1 02:27 Body Mass Index 31.66 (108.86 kg, 185.42 cm) la1 ED Course: 02:11 Patient arrived in ED. ds1 02:13 Armin Paris MD is Attending Physician. 02:24 Isak Reyna RN is Primary Nurse. la1 02:26 Triage completed. la1 02:28 Arm band placed on right wrist. la1 02:28 Bed in low position. Call light in reach. la1 02:28 No provider procedures requiring assistance completed. Patient did not have IV access la1 during this emergency room visit. 03:04 Knee Right 3 View XRAY In Process Unspecified. EDMS 03:27 Dano Solomon MD is Referral Physician. Administered Medications: No medications were administered Outcome: 03:27 Discharge ordered by . 03:37 Discharged to home ambulatory. la1 03:37 Condition: stable 03:37 Discharge instructions given to patient, Instructed on discharge instructions, follow up and referral plans. Demonstrated understanding of instructions, follow-up care. 03:38 Patient left the ED. la1 Signatures: Dispatcher [employer] [facility] HassanBettina cooley ds Isak Reyna RN RN la1 Armin Paris MD MD
--- NOTE | 2018-09-16 03:27 | EDPHYS ---
Physician Documentation [facility] Name: Delfino Benjamin Age: 48 yrs Sex: Male : 1970 Arrival Date: 09/16/2018 Time: 02:11 Bed 18 Private MD: ED Physician Armin Paris HPI: 09/16 03:24 This 48 yrs old Male presents to ER via Ambulatory with complaints of Fall gs Injury, Knee Pain. 03:24 The patient presents with an injury. The complaints affect the right knee. Onset: The gs symptoms/episode began/occurred yesterday, at 19:00. Modifying factors: the symptoms are aggravated by movement, bending knee. Associated signs and symptoms: Pertinent negatives calf tenderness, numbness. Severity of symptoms: At their worst the symptoms were moderate, in the emergency department the symptoms are unchanged. The patient has not experienced similar symptoms in the past. 03:24 Context: resulted from the patient falling, while walking. gs Historical: - Allergies: 02:27 No Known Allergies; la1 02:26 No Known Allergies; la1 - PMHx: 02:27 Diabetes - NIDDM; High Cholesterol; Hypertension; la1 02:26 Diabetes - NIDDM; High Cholesterol; Hypertension; la1 - Immunization history:: Adult Immunizations up to date, Adult Immunizations. - Social history:: Smoking status: Patient/guardian denies using tobacco, Smoking status: Patient/guardian denies using tobacco. - Ebola Screening: : No symptoms or risks identified at this time No symptoms or risks identified at this time. ROS: 03:24 All other systems are negative. gs Exam: 03:24 Head/Face: Normocephalic, atraumatic. Eyes: Pupils equal round and reactive to light, gs extra-ocular motions intact. Lids and lashes normal. Conjunctiva and sclera are non-icteric and not injected. Cornea within normal limits. Periorbital areas with no swelling, redness, or edema. ENT: Nares patent. No nasal discharge, no septal abnormalities noted. Tympanic membranes are normal and external auditory canals are clear. Oropharynx with no redness, swelling, or masses, exudates, or evidence of obstruction, uvula midline. Mucous membranes moist. Cardiovascular: Regular rate and rhythm with a normal S1 and S2. No gallops, murmurs, or rubs. Normal PMI, no JVD. No pulse deficits. Respiratory: Lungs have equal breath sounds bilaterally, clear to auscultation and percussion. No rales, rhonchi or wheezes noted. No increased work of breathing, no retractions or nasal flaring. Abdomen/GI: Soft, non-tender, with normal bowel sounds. No distension or tympany. No guarding or rebound. No evidence of tenderness throughout. Skin: Warm, dry with normal turgor. Normal color with no rashes, no lesions, and no evidence of cellulitis. Neuro: Awake and alert, GCS 15, oriented to person, place, time, and situation. Cranial nerves II-XII grossly intact. Motor strength 5/5 in all extremities. Sensory grossly intact. Cerebellar exam normal. Normal gait. 03:24 Constitutional: The patient appears alert, awake. 03:24 Musculoskeletal/extremity: ROM: full active range of motion, full passive range of motion, Circulation is intact in all extremities. Sensation intact. Joints: tenderness. Vital Signs: 02:27 BP 157 / 95; Pulse 98; Resp 16; Temp 97.3; Pulse Ox 98% on R/A; Weight 108.86 kg; la1 Height 6 ft. 1 in. (185.42 cm); Pain 5/10; 03:37 BP 155 / 74; Pulse 74; Resp 16; Pulse Ox 97% on R/A; la1 02:27 Body Mass Index 31.66 (108.86 kg, 185.42 cm) la1 MDM: 02:37 Patient medically screened. gs 03:24 Differential diagnosis: closed fracture, contusion, tendonitis. Data reviewed: vital gs signs, nurses notes. Response to treatment: the patient's symptoms have mildly improved after treatment, and as a result, I will discharge patient. 09/16 02:38 Order name: Knee Right 3 View XRAY gs Administered Medications: No medications were administered Disposition: 09/16/18 03:27 Discharged to Home. Impression: Sprain of other specified parts of right knee. - Condition is Stable. - Discharge Instructions: Knee Sprain, [id number]. - Work release form, Medication Reconciliation Form, Thank You Letter, Antibiotic Education, Prescription Opioid Use form. - Follow up: Dano Solomon MD; When: 2 - 3 days; Reason: Re-evaluation by your physician. Signatures: Dispatcher [employer] EDMS Isak Reyna RN RN la1 Armin Paris MD MD gs Corrections: (The following items were deleted from the chart) 03:38 03:27 09/16/2018 03:27 Discharged to Home. Impression: Sprain of other specified parts la1 of right knee. Condition is Stable. Forms are Medication Reconciliation Form, Thank You Letter, Antibiotic Education, Prescription Opioid Use. Follow up: Dano Solomon; When: 2 - 3 days; Reason: Re-evaluation by your physician. gs
--- NOTE | 2018-09-16 07:39 | RAD REPORT ---
EXAM DESCRIPTION: RAD - Knee Right 3 View - 09/16/2018 3:04 am CLINICAL HISTORY: Right knee pain status post fall FINDINGS: 13 millimeter bony/calcific density lies adjacent to the medial femur. Likely is the seque la of trauma and could be acute or chronic. If clinically indicated further evaluation with MRI could be obtained. Otherwise no fracture or dislocation seen
[2018-09-16 12:46] VITALS: TEMP 97.3
[2018-09-16 12:47] VITALS: BP 155/74; O2SAT 97
== END 2018-09-16 03:38 | disposition home or self-care (01) ==
LOC: ER 02:08
DX: S83.8X1A Sprain of other specified parts of right knee, initial encounter (principal); W19.XXXA Unspecified fall, initial encounter; Y93.01 Activity, walking, marching and hiking; Y92.9 Unspecified place or not applicable; I10 Essential (primary) hypertension
CPT/HCPCS: 99283

== ENCOUNTER 2018-12-03 01:17 | Emergency (ER) | payer OTHER ==
--- OUTSIDE RECORDS SUMMARY | 2018-12-03 01:20 | XMS REPORT ---
:1970 [facility] [address] [place] [address] [address] [place] [address] Care Team Providers Name Role Phone UNKNOWN, [...] Facility Department ID 2017-08-27 2017-08-28 [facility] [id number] 00:40:00 12:00:00 Danelle SPENCER Results Test Description [...] send to the Main Lab for Analysis. [id number] 07:49:00 Test Item Value Reference Range Comments Phosphorus (test code=PO4) 3.1 mg/dL 2.70-4.50 Magnesium, [id number] 07:49:00 Test Item Value Reference Range Comments Magnesium (test code=MG) 2.0 mg/dL 1.7-2.5 Basic Metabolic [id number] 22:21:00 Test Item Value Reference Range Comments [...] race is not provided, and the patient isAfrican-Niuean, multiply by 1.212. If sex is not [...] the National Kidney Foundation,http://nkdep.nih .gov POC Glucose, [id number] 20:51:00 Test Item Value Reference Range Comments POC Glucose (test 211 mg/dL 70-115 Notify RN or MDIf you consider code=POCGLUC) your patient critically ill, the Ruel Accu-Chek InformII metershould not be used for Glucose determinations.Draw a venous Glucose and send to the Main Lab for Analysis. [id number] 19:19:36LOCATION: [id number]: 47-year-old male with acute kidney injury. Clinical [...] unremarkable.IMPRESSION:Unremarkable sonographic examination of the kidneys.POC Glucose, [id number] 17:15:00 Test Item Value Reference Range Comments POC Glucose (test 214 mg/dL 70-115 Notify RN or MDIf you consider code=POCGLUC) your patient critically ill, the Ruel Accu-Chek InformII metershould not be used for Glucose determinations.Draw a venous Glucose and send to the Main Lab for Analysis. Basic Metabolic [id number] 15:06:00 Test Item Value Reference Range Comments [...] race is not provided, and the patient isAfrican-Niuean, multiply by 1.212. If sex is not [...] the National Kidney Foundation,http://nkdep.nih .gov POC Glucose, [id number] 11:25:00 Test Item Value Reference Range Comments POC Glucose (test 175 mg/dL 70-115 Notify RN or MDIf you consider code=POCGLUC) your patient critically ill, the Ruel Accu-Chek InformII metershould not be used for Glucose determinations.Draw a venous Glucose and send to the Main Lab for Analysis. POC Glucose, [id number] 08:09:00 Test Item Value Reference Range Comments [...] (test code=TSH) 1.10 mIU/mL 0.270-4.200 CBC with [id number] 06:57:00 Test Item Value Reference Range Comments [...] Lymph Abs (test code=ALYMPH) 1.9 K/cumm 0.5-4.6 Pershing Abs (test code=AMONO) 0.6 K/cumm 0.0-1.2 Eos Abs (test code=AEOS) 0.18 K/cumm 0.00-0.74 Baso Abs (test code=ABASO) 0.0 K/cumm 0.00-0.21 CK [id number] 06:56:00 Test Item Value Reference Range Comments CK (test code=CK) 320 U/L 39-308 Comprehensive Metabolic [id number] 06:56:00 Test Item Value Reference Range Comments [...] race is not provided, and the patient isAfrican-Niuean, multiply by 1.212. If sex is not provided, and thepatient is female, multiply by 0.742. Results for patients <18 years ofage have not been validated by the MDRD study and should be interpretedwith caution.eGFR Result Interpretation:eGFR > or=60 is in the Normal RangeeGFR < 60 may mean kidney diseaseeGFR < 15 may mean kidney failureRanges recommended by the National Kidney Foundation,http://nkdep.nih .gov [id number] 06:56:00 Test Item Value Reference Range Comments Phosphorus (test code=PO4) 5.0 mg/dL 2.70-4.50 Magnesium, [id number] 06:56:00 Test Item Value Reference Range Comments Magnesium (test code=MG) 2.1 mg/dL 1.7-2.5 CK [id number] 06:56:00 Test Item Value Reference Range Comments CK (test code=CK) 320 U/L 39-308 CKMB (test code=CKMB) 5.5 ng/mL 0.0-4.9 CKMB% (test code=CKMBP) 1.7 % 0.0-3.4 C-Reactive Protein, [id number] 06:56:00 Test Item Value Reference Range Comments CRP (test code=CRP) 5.5 mg/L 0.0-5.0 Troponin [id number] 06:56:00 Test Item Value Reference Range Comments Troponin T (test code=SHAYY) <0.010 ng/mL 0.000-0.090 Glycosylated [id number] 06:36:00 Test Item Value Reference Range Comments HBA1c (test code=HBA1C) 7.1 % 4.8-5.9 POC Glucose, [id number] 01:20:00 Test Item Value Reference Range Comments POC Glucose (test 122 mg/dL 70-115 Notify RN or MDIf you consider code=POCGLUC) your patient critically ill, the Ruel Accu-Chek InformII metershould not be used for Glucose determinations.Draw a venous Glucose and send to the Main Lab for Analysis. Urinalysis [id number] 00:01:00 Test Item Value Reference Range Comments Color (test code=COLOR) Yellow Yellow,Straw,Pl yellow Clarity (test code=CLAR) Clear Clear Specific [place] (test code=SPGR) 1.010 1.001-1.035 pH (test code=PH) [...] (test code=BACT) Few /HPF XR CHEST 1 [id number] 23:33:27LOCATION: [id number]: 47-year-old male who presents with malaise.COMMENT: After-hours service at 11:33 p.m.The examination was obtained at the bedside at 10:15 p.m.The lungs are clear, and well-aerated. The cardiac silhouette, lenore, andmediastinum are unremarkable. The skeleton and soft tissues areunremarkable. playground monitor leads are present.IMPRESSION: Unremarkable portable examination of the chest.CK [id number] 22:20:00 Test Item Value Reference Range Comments CK (test code=CK) 424 U/L 39-308 CBC with [id number] 21:38:00 Test Item Value Reference Range Comments [...] Lymph Abs (test code=ALYMPH) 1.3 K/cumm 0.5-4.6 Pershing Abs (test code=AMONO) 0.6 K/cumm 0.0-1.2 Eos Abs (test code=AEOS) 0.03 K/cumm 0.00-0.74 Baso Abs (test code=ABASO) 0.0 K/cumm 0.00-0.21 Comprehensive Metabolic [id number] 21:04:00 Test Item Value Reference Range Comments [...] race is not provided, and the patient isAfrican-Niuean, multiply by 1.212. If sex is not provided, and thepatient is female, multiply by 0.742. Results for patients <18 years ofage have not been validated by the MDRD study and should be interpretedwith caution.eGFR Result Interpretation:eGFR > or=60 is in the Normal RangeeGFR < 60 may mean kidney diseaseeGFR < 15 may mean kidney failureRanges recommended by the National Kidney Foundation,http://nkdep.nih .gov Magnesium, [id number] 21:04:00 Test Item Value Reference Range Comments Magnesium (test code=MG) 2.0 mg/dL 1.7-2.5 Troponin [id number] 21:04:00 Test Item Value Reference Range Comments Troponin T (test code=SHAYY) <0.010 ng/mL 0.000-0.090 POC Glucose, [id number] 20:29:00 Test Item Value Reference Range Comments POC Glucose (test 230 mg/dL 70-115 If you consider your patient code=POCGLUC) critically ill, the Ruel Accu-Chek InformII metershould not be used for Glucose determinations.Draw a venous Glucose and send to the Main Lab for Analysis.
--- NOTE | 2018-12-03 03:06 | ER ---
Nurse's Notes [facility] Name: Delfino Benjamin Age: 48 yrs Sex: Male : 1970 Arrival Date: 12/03/2018 Time: 01:55 Bed 16 Private MD: Diagnosis: Influenza due to identified novel influenza A virus Presentation: 12/03 02:00 Presenting complaint: Patient states: that for 3 days he has had worsening of cough, fc congestion, nasal congestion and pain to his sinus area. Nasal drainage is clear. Transition of care: patient was not received from another setting of care. Onset of symptoms was November 30, 2018. Risk Assessment: Do you want to hurt yourself or someone else? Patient reports no desire to harm self or others. Initial Sepsis Screen: Does the patient meet any 2 criteria? HR > 90 bpm. Yes Does the patient have a suspected source of infection? No. Patient's initial sepsis screen is negative. Care prior to arrival: None. 02:00 Method Of Arrival: Ambulatory fc 02:00 Acuity: MAKENZIE 4 fc Triage Assessment: 02:15 General: Appears in no apparent distress. comfortable, Behavior is calm, cooperative, cc3 appropriate for age. Pain: Denies pain. EENT: No signs and/or symptoms were reported regarding the EENT system. Neuro: Level of Consciousness is awake, alert, obeys commands, Oriented to person, place, time, situation, Appropriate for age. Cardiovascular: Denies chest pain, Patient's skin is warm and dry. Respiratory: Airway is patent Respiratory effort is even, unlabored, Respiratory pattern is regular, symmetrical. GI: Abdomen is round non-distended. : No signs and/or symptoms were reported regarding the genitourinary system. Derm: No signs and/or symptoms reported regarding the dermatologic system. Musculoskeletal: Circulation, motion, and sensation intact. Range of motion: intact in all extremities. Historical: - Allergies: 02:04 No Known Allergies; fc - Home Meds: 02:04 Janumet XR 50-1,000 mg Oral TM24 1 tab twice a day [Active]; amlodipine 5 mg tab 1 tab fc once daily [Active]; [place] 10-325 mg Oral tab 1 tab tid prn [Active]; - PMHx: 02:04 Diabetes - NIDDM; Hypertension; High Cholesterol; Back pain; fc - PSHx: 02:04 knee surg; - Immunization history:: Last tetanus immunization: unknown, Flu vaccine is up to date. - Social history:: Smoking status: Patient/guardian denies using tobacco, Patient/guardian denies using alcohol, street drugs. - Ebola Screening: : Patient negative for fever greater than or equal to 101.5 degrees Fahrenheit, and additional compatible Ebola Virus Disease symptoms Patient denies exposure to infectious person Patient denies travel to an Ebola-affected area in the 21 days before illness onset. Screenin:05 Abuse screen: Denies threats or abuse. Nutritional screening: No deficits noted. Tuberculosis screening: No symptoms or risk factors identified. Fall Risk None identified. Assessment: 02:15 General: see triage assessment. cc3 03:30 Reassessment: Patient appears in no apparent distress at this time. Patient and/or cc3 family updated on plan of care and expected duration. Pain level reassessed. Patient is alert, oriented x 3, equal unlabored respirations, skin warm/dry/pink. Dr. Freitas discharged the patient home with prescription given. No IV cannula in situ. Patient left ER vitally stable and ambulatory. Vital Signs: 02:04 BP 141 / 84; Pulse 101; Resp 18; Temp 98.9(O); Pulse Ox 97% on R/A; Weight 108.86 kg (R); Height 6 ft. 1 in. (185.42 cm) (R); Pain 8/10; 03:15 BP 140 / 87; Pulse 98; Resp 19 S; Pulse Ox 97% on R/A; cc3 02:04 Body Mass Index 31.66 (108.86 kg, 185.42 cm) ED Course: 01:55 Patient arrived in ED. ag3 02:03 Triage completed. 02:04 Arm band placed on Patient placed in an exam room, on a stretcher. 02:05 Patient has correct armband on for positive identification. Bed in low position. Call light in reach. 02:06 Flu and/or RSV swab sent to lab. 02:15 Divina Lloyd is Primary Nurse. cc3 02:35 Phillip Freitas MD is Attending Physician. [facility] 03:30 No provider procedures requiring assistance completed. Patient did not have IV access cc3 during this emergency room visit. Administered Medications: 03:15 Drug: Tamiflu 75 mg Route: PO; cc3 03:30 Follow up: Response: No adverse reaction cc3 03:15 Drug: Motrin 600 mg Route: PO; cc3 03:30 Follow up: Response: No adverse reaction cc3 Outcome: 03:06 Discharge ordered by . lorraine 03:30 Discharged to home ambulatory. cc3 03:30 Condition: stable 03:30 Discharge instructions given to patient, Instructed on discharge instructions, follow up and referral plans. medication usage, Demonstrated understanding of instructions, follow-up care, medications, Prescriptions given X 3. 03:40 Patient left the ED. cc3 Signatures: Phillip Freitas MD MD cha Chretien, Felicia, RN RN Divina Lezama cc3 Lori Hendricks 3
--- NOTE | 2018-12-03 03:06 | EDPHYS ---
Physician Documentation [facility] Name: Delfino Benjamin Age: 48 yrs Sex: Male : 1970 Arrival Date: 12/03/2018 Time: 01:55 Bed 16 Private MD: ED Physician Phillip Freitas HPI: 12/03 03:00 This 48 yrs old Male presents to ER via Ambulatory with complaints of Cold lorraine Symptoms. 03:00 This 48 yrs old Male presents to ER via Ambulatory with complaints of Cold lorraine Symptoms. 03:00 The patient has experienced near-syncope, felt dizzy. The patient has experienced lorraine near-syncope. Onset: The symptoms/episode began/occurred just prior to arrival. Onset: The symptoms/episode began/occurred acutely, suddenly, gradually. Duration: This was a single episode, that lasted an unknown period of time. Context: occurred at home, occurred while the patient was asleep, at rest. Associated injury: The patient did not suffer any apparent associated injury, Head/face: Neck:. Historical: - Allergies: 02:04 No Known Allergies; fc - Home Meds: 02:04 Janumet XR 50-1,000 mg Oral TM24 1 tab twice a day [Active]; amlodipine 5 mg tab 1 tab fc once daily [Active]; [place] 10-325 mg Oral tab 1 tab tid prn [Active]; - PMHx: 02:04 Diabetes - NIDDM; Hypertension; High Cholesterol; Back pain; fc - PSHx: 02:04 knee surg; fc - Immunization history:: Last tetanus immunization: unknown, Flu vaccine is up to date. - Social history:: Smoking status: Patient/guardian denies using tobacco, Patient/guardian denies using alcohol, street drugs. - Ebola Screening: : Patient negative for fever greater than or equal to 101.5 degrees Fahrenheit, and additional compatible Ebola Virus Disease symptoms Patient denies exposure to infectious person Patient denies travel to an Ebola-affected area in the 21 days before illness onset. ROS: 03:01 Constitutional: Negative for fever, chills, and weight loss. lorraine 03:01 Eyes: Negative for injury, pain, redness, and discharge, ENT: Negative for injury, pain, and discharge, Neck: Negative for injury, pain, and swelling, Cardiovascular: Negative for chest pain, palpitations, and edema, Respiratory: Negative for shortness of breath, cough, wheezing, and pleuritic chest pain, Back: Negative for injury and pain, : Negative for injury, bleeding, discharge, and swelling, MS/Extremity: Negative for injury and deformity. 03:01 Constitutional: Positive for body aches, chills, fatigue. Exam: 03:01 Constitutional: This is a well developed, well nourished patient who is awake, alert, lorraine and in no acute distress. Head/Face: Normocephalic, atraumatic. Neck: Trachea midline, no thyromegaly or masses palpated, and no cervical lymphadenopathy. Supple, full range of motion without nuchal rigidity, or vertebral point tenderness. No Meningismus. Chest/axilla: Normal chest wall appearance and motion. Nontender with no deformity. No lesions are appreciated. Respiratory: Lungs have equal breath sounds bilaterally, clear to auscultation and percussion. No rales, rhonchi or wheezes noted. No increased work of breathing, no retractions or nasal flaring. Vital Signs: 02:04 BP 141 / 84; Pulse 101; Resp 18; Temp 98.9(O); Pulse Ox 97% on R/A; Weight 108.86 kg fc (R); Height 6 ft. 1 in. (185.42 cm) (R); Pain 8/10; 03:15 BP 140 / 87; Pulse 98; Resp 19 S; Pulse Ox 97% on R/A; cc3 02:04 Body Mass Index 31.66 (108.86 kg, 185.42 cm) MDM: 02:36 Patient medically screened. [facility] 03:01 Data reviewed: vital signs, nurses notes, lab test result(s), EKG, radiologic studies. [facility] 12/03 02:06 Order name: Flu; Complete Time: 02:59 Administered Medications: 03:15 Drug: Tamiflu 75 mg Route: PO; cc3 03:30 Follow up: Response: No adverse reaction cc3 03:15 Drug: Motrin 600 mg Route: PO; cc3 03:30 Follow up: Response: No adverse reaction cc3 Disposition: 12/03/18 03:06 Discharged to Home. Impression: Influenza due to identified novel influenza A virus. - Condition is Stable. - Discharge Instructions: Influenza, Adult. - Prescriptions for Cheratussin AC 10- 100 mg/5 mL Oral liquid - take 10 milliliter by ORAL route every 4 hours; 150 milliliter. Zithromax Z- Chalo 250 mg Oral Tablet - take 1 tablet by ORAL route as directed for 5 days Day 1 - take two (2) tablets one time. Day 2, 3, 4 , 5 take one (1) tablet once daily.; 6 tablet. Tamiflu 75 mg Oral Capsule - take 1 tablet by ORAL route every 12 hours for 5 days; 14 tablet. - Medication Reconciliation Form, Thank You Letter, Antibiotic Education, Prescription Opioid Use form. - Follow up: Private Physician; When: 2 - 3 days; Reason: Recheck today's complaints, Continuance of care, Re-evaluation by your physician. - Problem is new. - Symptoms have improved. Signatures: Dispatcher [employer] EDPhillip Brownlee MD MD cha Chretien, Felicia RN RN Divina Lezama cc3 Corrections: (The following items were deleted from the chart) 03:40 03:06 12/03/2018 03:06 Discharged to Home. Impression: Influenza due to identified cc3 novel influenza A virus. Condition is Stable. Forms are Medication Reconciliation Form, Thank You Letter, Antibiotic Education, Prescription Opioid Use. Follow up: Private Physician; When: 2 - 3 days; Reason: Recheck today's complaints, Continuance of care, Re-evaluation by your physician. Problem is new. Symptoms have improved. lorraine
[2018-12-03] MEDS ORDERED: OSELTAMIVIR 75 MG CAP ONE (03:15)
[2018-12-03] MEDS ORDERED: IBUPROFEN 200 MG TAB PO ONE (03:23)
[2018-12-03] MEDS ORDERED: IBUPROFEN 400 MG TAB ONE (03:23)
[2018-12-03 06:27] VITALS: BP 141/84; TEMP 98.9; O2SAT 97
== END 2018-12-03 03:40 | disposition home or self-care (01) ==
LOC: ER 01:17
DX: J10.1 Influenza due to other identified influenza virus with other respiratory manifestations (principal); I10 Essential (primary) hypertension; E78.00 Pure hypercholesterolemia, unspecified; E11.9 Type 2 diabetes mellitus without complications
CPT/HCPCS: 87804; 99283

== ENCOUNTER 2019-04-04 12:49 | Emergency (ER) | payer OTHER ==
--- OUTSIDE RECORDS SUMMARY | 2019-04-04 12:52 | XMS REPORT ---
:1970 [facility] [address] [place] [address] Dr. Garcia [address] [place] [id number] Care Team Providers Name Role Phone UNKNOWN, [...] Facility Department ID 2017-08-27 2017-08-28 [id number]:40:00 12:00:00 Danelle SPENCER Results Test Description [...] send to the Main Lab for Analysis. [id number] 07:49:00 Test Item Value Reference Range Comments Phosphorus (test code=PO4) 3.1 mg/dL 2.70-4.50 Magnesium, [id number] 07:49:00 Test Item Value Reference Range Comments Magnesium (test code=MG) 2.0 mg/dL 1.7-2.5 Basic Metabolic [id number] 22:21:00 Test Item Value Reference Range Comments [...] race is not provided, and the patient isAfrican-St Helenian, multiply by 1.212. If sex is not [...] the National Kidney Foundation,http://nkdep.nih .gov POC Glucose, [id number] 20:51:00 Test Item Value Reference Range Comments POC Glucose (test 211 mg/dL 70-115 Notify RN or MDIf you consider code=POCGLUC) your patient critically ill, the Ruel Accu-Chek InformII metershould not be used for Glucose determinations.Draw a venous Glucose and send to the Main Lab for Analysis. [id number] 19:19:36LOCATION: [id number]: 47-year-old male with acute kidney injury. Clinical [...] unremarkable.IMPRESSION:Unremarkable sonographic examination of the kidneys.POC Glucose, [id number] 17:15:00 Test Item Value Reference Range Comments POC Glucose (test 214 mg/dL 70-115 Notify RN or MDIf you consider code=POCGLUC) your patient critically ill, the Ruel Accu-Chek InformII metershould not be used for Glucose determinations.Draw a venous Glucose and send to the Main Lab for Analysis. Basic Metabolic [id number] 15:06:00 Test Item Value Reference Range Comments [...] race is not provided, and the patient isAfrican-St Helen[place], multiply by 1.212. If sex is not [...] the National Kidney Foundation,http://nkdep.nih .gov POC Glucose, [id number] 11:25:00 Test Item Value Reference Range Comments POC Glucose (test 175 mg/dL 70-115 Notify RN or MDIf you consider code=POCGLUC) your patient critically ill, the Ruel Accu-Chek InformII metershould not be used for Glucose determinations.Draw a venous Glucose and send to the Main Lab for Analysis. POC Glucose, [id number] 08:09:00 Test Item Value Reference Range Comments [...] (test code=TSH) 1.10 mIU/mL 0.270-4.200 CBC with [id number] 06:57:00 Test Item Value Reference Range Comments [...] Lymph Abs (test code=ALYMPH) 1.9 K/cumm 0.5-4.6 Bryan Abs (test code=AMONO) 0.6 K/cumm 0.0-1.2 Eos Abs (test code=AEOS) 0.18 K/cumm 0.00-0.74 Baso Abs (test code=ABASO) 0.0 K/cumm 0.00-0.21 CK [id number] 06:56:00 Test Item Value Reference Range Comments CK (test code=CK) 320 U/L 39-308 Comprehensive Metabolic [id number] 06:56:00 Test Item Value Reference Range Comments [...] race is not provided, and the patient isAfrican-St Helenian, multiply by 1.212. If sex is not provided, and thepatient is female, multiply by 0.742. Results for patients <18 years ofage have not been validated by the MDRD study and should be interpretedwith caution.eGFR Result Interpretation:eGFR > or=60 is in the Normal RangeeGFR < 60 may mean kidney diseaseeGFR < 15 may mean kidney failureRanges recommended by the National Kidney Foundation,http://nkdep.nih .gov [id number] 06:56:00 Test Item Value Reference Range Comments Phosphorus (test code=PO4) 5.0 mg/dL 2.70-4.50 Magnesium, [id number] 06:56:00 Test Item Value Reference Range Comments Magnesium (test code=MG) 2.1 mg/dL 1.7-2.5 CK [id number] 06:56:00 Test Item Value Reference Range Comments CK (test code=CK) 320 U/L 39-308 CKMB (test code=CKMB) 5.5 ng/mL 0.0-4.9 CKMB% (test code=CKMBP) 1.7 % 0.0-3.4 C-Reactive Protein, [id number] 06:56:00 Test Item Value Reference Range Comments CRP (test code=CRP) 5.5 mg/L 0.0-5.0 Troponin [id number] 06:56:00 Test Item Value Reference Range Comments Troponin T (test code=SHAYY) <0.010 ng/mL 0.000-0.090 Glycosylated [id number] 06:36:00 Test Item Value Reference Range Comments HBA1c (test code=HBA1C) 7.1 % 4.8-5.9 POC Glucose, [id number] 01:20:00 Test Item Value Reference Range Comments POC Glucose (test 122 mg/dL 70-115 Notify RN or MDIf you consider code=POCGLUC) your patient critically ill, the Ruel Accu-Chek InformII metershould not be used for Glucose determinations.Draw a venous Glucose and send to the Main Lab for Analysis. Urinalysis [id number] 00:01:00 Test Item Value Reference Range Comments Color (test code=COLOR) Yellow Yellow,Straw,Pl yellow Clarity (test code=CLAR) Clear Clear Specific [place] (test code=SPGR) 1.010 1.001-1.035 pH (test code=PH) [...] (test code=BACT) Few /HPF XR CHEST 1 [id number] 23:33:27LOCATION: [id number]: 47-year-old male who presents with malaise.COMMENT: After-hours service at 11:33 p.m.The examination was obtained at the bedside at 10:15 p.m.The lungs are clear, and well-aerated. The cardiac silhouette, lenore, andmediastinum are unremarkable. The skeleton and soft tissues areunremarkable. monitoring manager leads are present.IMPRESSION: Unremarkable portable examination of the chest.CK [id number] 22:20:00 Test Item Value Reference Range Comments CK (test code=CK) 424 U/L 39-308 CBC with [id number] 21:38:00 Test Item Value Reference Range Comments [...] Lymph Abs (test code=ALYMPH) 1.3 K/cumm 0.5-4.6 Bryan Abs (test code=AMONO) 0.6 K/cumm 0.0-1.2 Eos Abs (test code=AEOS) 0.03 K/cumm 0.00-0.74 Baso Abs (test code=ABASO) 0.0 K/cumm 0.00-0.21 Comprehensive Metabolic [id number] 21:04:00 Test Item Value Reference Range Comments [...] race is not provided, and the patient isAfrican-[place] Helenian, multiply by 1.212. If sex is not provided, and thepatient is female, multiply by 0.742. Results for patients <18 years ofage have not been validated by the MDRD study and should be interpretedwith caution.eGFR Result Interpretation:eGFR > or=60 is in the Normal RangeeGFR < 60 may mean kidney diseaseeGFR < 15 may mean kidney failureRanges recommended by the National Kidney Foundation,http://nkdep.nih .gov Magnesium, [id number] 21:04:00 Test Item Value Reference Range Comments Magnesium (test code=MG) 2.0 mg/dL 1.7-2.5 Troponin [id number] 21:04:00 Test Item Value Reference Range Comments Troponin T (test code=SHAYY) <0.010 ng/mL 0.000-0.090 POC Glucose, [id number] 20:29:00 Test Item Value Reference Range Comments POC Glucose (test 230 mg/dL 70-115 If you consider your patient code=POCGLUC) critically ill, the Ruel Accu-Chek InformII metershould not be used for Glucose determinations.Draw a venous Glucose and send to the Main Lab for Analysis.
--- NOTE | 2019-04-04 14:29 | RAD REPORT ---
EXAM DESCRIPTION: RAD - Foot Left 3 View - 04/04/2019 1:55 pm CLINICAL HISTORY: Left Foot pain FINDINGS: Deformity involves the first distal phalanx perhaps secondary to an old fracture. No acute fracture noted. Evaluation of the first IP joint is suboptimal on the lateral view secondary to overlying bony struct ures. If the patient has pain in this region then lateral view with better visualization of this kelly on would be recommended
--- NOTE | 2019-04-04 14:46 | EDPHYS ---
Physician Documentation [facility] Name: Delfino Benjamin Age: 48 yrs Sex: Male : 1970 Arrival Date: 04/04/2019 Time: 12:54 Bed 10 Private MD: ED Physician Armin Paris HPI: 04/04 13:58 This 48 yrs old Male presents to ER via Ambulatory with complaints of Left pm1 Great Toe Injury. 13:58 The patient presents with pain, that is acute. The complaints affect the left foot. pm1 Context: The problem was sustained at home, resulted from stubbing toe on the patient can fully bear weight, the patient is able to ambulate. Onset: The symptoms/episode began/occurred 2 day(s) ago. Modifying factors: The symptoms are alleviated by nothing, the symptoms are aggravated by Touching area. Associated signs and symptoms: Pertinent positives: Bruising, Pertinent negatives: numbness. Severity of symptoms: in the emergency department the symptoms are unchanged. The patient has experienced a previous episode, many years ago. The patient has not recently seen a physician. Pain to tip of his left great toe. Patient able to move L great toe full range of motion. Historical: - Allergies: 13:03 No Known Allergies; la1 - PMHx: 13:03 Back pain; Diabetes - NIDDM; High Cholesterol; Hypertension; la1 - Immunization history:: Adult Immunizations up to date. - Social history:: Smoking status: Patient/guardian denies using tobacco. - Ebola Screening: : No symptoms or risks identified at this time. ROS: 14:17 MS/extremity: Positive for pain, bruising to the tip of left great toe. Has deformed pm1 left great toe nail that is his baseline for damage many years ago, of the left first toe, Negative for decreased range of motion. 14:17 Constitutional: Negative for fever, chills, and weight loss, Eyes: Negative for injury, pain, redness, and discharge, ENT: Negative for injury, pain, and discharge, Neck: Negative for injury, pain, and swelling, Cardiovascular: Negative for chest pain, palpitations, and edema, Respiratory: Negative for shortness of breath, cough, wheezing, and pleuritic chest pain, Abdomen/GI: Negative for abdominal pain, nausea, vomiting, diarrhea, and constipation, Back: Negative for injury and pain, Skin: Negative for injury, rash, and discoloration, Neuro: Negative for headache, weakness, numbness, tingling, and seizure. Exam: 14:17 Constitutional: This is a well developed, well nourished patient who is awake, alert, pm1 and in no acute distress. Head/Face: Normocephalic, atraumatic. Neck: Trachea midline, no thyromegaly or masses palpated, and no cervical lymphadenopathy. Supple, full range of motion without nuchal rigidity, or vertebral point tenderness. No Meningismus. Chest/axilla: Normal chest wall appearance and motion. Nontender with no deformity. No lesions are appreciated. Cardiovascular: Regular rate and rhythm with a normal S1 and S2. No gallops, murmurs, or rubs. Normal PMI, no JVD. No pulse deficits. Respiratory: Lungs have equal breath sounds bilaterally, clear to auscultation and percussion. No rales, rhonchi or wheezes noted. No increased work of breathing, no retractions or nasal flaring. Abdomen/GI: Soft, non-tender, with normal bowel sounds. No distension or tympany. No guarding or rebound. No evidence of tenderness throughout. Back: No spinal tenderness. No costovertebral tenderness. Full range of motion. 14:17 Skin: Warm, dry with normal turgor. Normal color with no rashes, no lesions, and no evidence of cellulitis. 14:17 Musculoskeletal/extremity: Extremities: noted in the left first toe: bruising to the tip of left great toe, There is no evidence of decreased ROM, laceration, puncture, the left first toe Sensation intact. 14:17 Neuro: Orientation: is normal, Motor: is normal, moves all fours, Sensation: is normal, no obvious gross deficits. Vital Signs: 13:03 BP 157 / 99; Pulse 110; Resp 18; Temp 97.3; Pulse Ox 98% on R/A; Weight 108.86 kg; la1 Height 6 ft. 1 in. (185.42 cm); 13:03 Body Mass Index 31.66 (108.86 kg, 185.42 cm) la1 MDM: 13:31 Patient medically screened. pm1 14:27 Data reviewed: vital signs. Data interpreted: Pulse oximetry: on room air is 98 %. pm1 Interpretation: normal. 14:28 ED course: Patient offered pain medications, patient refused. pm1 14:42 ED course: Reviewed interpretation by radiologist. No pain present to left great toe IP pm1 joint, therefore no re-imaging required. Patient with pain to distal tip of left great toe. 14:42 Counseling: I had a detailed discussion with the patient and/or guardian regarding: the pm1 historical points, exam findings, and any diagnostic results supporting the discharge/admit diagnosis, radiology results, the need for outpatient follow up, to return to the emergency department if symptoms worsen or persist or if there are any questions or concerns that arise at home. 04/04 13:05 Order name: Foot Left 3 View XRAY; Complete Time: 14:41 la1 Administered Medications: No medications were administered Disposition: 15:23 Co-signature as Attending Physician, Armin Paris MD. Disposition: 04/04/19 14:46 Discharged to Home. Impression: Contusion of left great toe without damage to nail. - Condition is Stable. - Discharge Instructions: Foot Contusion. - Medication Reconciliation Form, Thank You Letter, Antibiotic Education, Prescription Opioid Use form. - Follow up: Emergency Department; When: As needed; Reason: Worsening of condition. Follow up: Mike Parikh DPM; When: 2 - 3 days; Reason: Recheck today's complaints, Continuance of care, Re-evaluation by your physician. - Problem is new. - Symptoms have improved. Signatures: Dispatcher [employer] EDMS Beena Zuluaga RN RN iw Isak Reyna RN RN la1 Karlos Medina, PRESIDENT AND CMO PRESIDENT AND CMO pm1 Armin Paris MD MD Corrections: (The following items were deleted from the chart) 15:06 14:46 04/04/2019 14:46 Discharged to Home. Impression: Contusion of left great toe iw without damage to nail. Condition is Stable. Forms are Medication Reconciliation Form, Thank You Letter, Antibiotic Education, Prescription Opioid Use. Follow up: Emergency Department; When: As needed; Reason: Worsening of condition. Follow up: Dr. Mike Parikh; When: 2 - 3 days; Reason: Recheck today's complaints, Continuance of care, Re-evaluation by your physician. Problem is new. Symptoms have improved. pm1
--- NOTE | 2019-04-04 14:46 | ER ---
Nurse's Notes [facility] Name: Delfino Benjamin Age: 48 yrs Sex: Male : 1970 Arrival Date: 04/04/2019 Time: 12:54 Bed 10 Private MD: Diagnosis: Contusion of left great toe without damage to nail Presentation: 04/04 13:03 Presenting complaint: Patient states: On Friday I stubbed my left great toe. Transition la1 of care: patient was not received from another setting of care. Onset of symptoms was April 04, 2019. Risk Assessment: Do you want to hurt yourself or someone else? Patient reports no desire to harm self or others. Initial Sepsis Screen: Does the patient meet any 2 criteria? No. Patient's initial sepsis screen is negative. Does the patient have a suspected source of infection? No. Patient's initial sepsis screen is negative. Care prior to arrival: None. 13:03 Method Of Arrival: Ambulatory la1 13:03 Acuity: MAKENZIE 4 la1 Historical: - Allergies: 13:03 No Known Allergies; la1 - PMHx: 13:03 Back pain; Diabetes - NIDDM; High Cholesterol; Hypertension; la1 - Immunization history:: Adult Immunizations up to date. - Social history:: Smoking status: Patient/guardian denies using tobacco. - Ebola Screening: : No symptoms or risks identified at this time. Screenin:05 Abuse screen: Denies threats or abuse. Nutritional screening: No deficits noted. la1 Tuberculosis screening: No symptoms or risk factors identified. Fall Risk None identified. Assessment: 13:04 General: Appears in no apparent distress. Behavior is calm, cooperative. Pain: la1 Complains of pain in left first toe and Left first toenail. Neuro: Level of Consciousness is awake, alert, obeys commands. Cardiovascular: Patient's skin is warm and dry. Respiratory: Airway is patent Respiratory effort is even, unlabored, Respiratory pattern is regular, symmetrical. GI: No signs and/or symptoms were reported involving the gastrointestinal system. : No signs and/or symptoms were reported regarding the genitourinary system. Musculoskeletal: Circulation, motion, and sensation intact. Capillary refill < 3 seconds, is brisk, Range of motion: intact in all extremities. Vital Signs: 13:03 BP 157 / 99; Pulse 110; Resp 18; Temp 97.3; Pulse Ox 98% on R/A; Weight 108.86 kg; la1 Height 6 ft. 1 in. (185.42 cm); 13:03 Body Mass Index 31.66 (108.86 kg, 185.42 cm) la1 ED Course: 12:54 Patient arrived in ED. as 13:03 Triage completed. la1 13:04 Arm band placed on left wrist. la1 13:05 Patient has correct armband on for positive identification. la1 13:30 Karlos Medina NP is PHCP. pm1 13:30 Armin Paris MD is Attending Physician. pm1 13:57 Foot Left 3 View XRAY In Process Unspecified. EDMS 14:45 Mike Parikh DPM is Referral Physician. pm1 15:06 Beena Zuluaga, RN is Primary Nurse. iw Administered Medications: No medications were administered Outcome: 14:46 Discharge ordered by MD. pm1 15:06 Patient left the ED. iw Signatures: Dispatcher [employer] EDMS Betsy Rutherford Irene, RN RN iw Isak Reyna RN RN la1 Karlos Medina NP B[employer]ING AND JOINING SUPERVISOR pm1
[2019-04-04 15:33] VITALS: BP 157/99; TEMP 97.3; O2SAT 98
== END 2019-04-04 15:06 | disposition home or self-care (01) ==
LOC: ER 12:49
DX: S90.112A Contusion of left great toe without damage to nail, initial encounter (principal); W22.8XXA Striking against or struck by other objects, initial encounter; Y93.89 Activity, other specified; Y92.009 Unspecified place in unspecified non-institutional (private) residence as the place of occurrence of the external cause; I10 Essential (primary) hypertension
CPT/HCPCS: 99282

== ENCOUNTER 2019-11-06 20:47 | Observation (INO) | payer OTHER ==
--- OUTSIDE RECORDS SUMMARY | 2019-11-06 20:50 | XMS REPORT ---
:1970 [facility] Address [address] [place] [address] Dr. Garcia [address] [place] [id number] Care Team Providers Name Role Phone UNKNOWN, [...] Facility Department ID 2017-08-27 2017-08-28 [id number] 00:40:00 12:00:00 Danelle SPENCER Results Test Description [...] send to the Main Lab for Analysis. [id number] 07:49:00 Test Item Value Reference Range Comments Phosphorus (test code=PO4) 3.1 mg/dL 2.70-4.50 Magnesium, [id number] 07:49:00 Test Item Value Reference Range Comments Magnesium (test code=MG) 2.0 mg/dL 1.7-2.5 Basic Metabolic [id number] 22:21:00 Test Item Value Reference Range Comments [...] race is not provided, and the patient isAfrican-Zambian, multiply by 1.212. If sex is not [...] the National Kidney Foundation,http://nkdep.nih .gov POC Glucose, [id number] 20:51:00 Test Item Value Reference Range Comments POC Glucose (test 211 mg/dL 70-115 Notify RN or MDIf you consider code=POCGLUC) your patient critically ill, the Ruel Accu-Chek InformII metershould not be used for Glucose determinations.Draw a venous Glucose and send to the Main Lab for Analysis. [id number] 19:19:36LOCATION: [id number]: 47-year-old male with acute kidney injury. Clinical [...] unremarkable.IMPRESSION:Unremarkable sonographic examination of the kidneys.POC Glucose, [id number] 17:15:00 Test Item Value Reference Range Comments POC Glucose (test 214 mg/dL 70-115 Notify RN or MDIf you consider code=POCGLUC) your patient critically ill, the Ruel Accu-Chek InformII metershould not be used for Glucose determinations.Draw a venous Glucose and send to the Main Lab for Analysis. Basic Metabolic [id number] 15:06:00 Test Item Value Reference Range Comments [...] race is not provided, and the patient isAfrican-Zambian, multiply by 1.212. If sex is not [...] the National Kidney Foundation,http://nkdep.nih .gov POC Glucose, [id number] 11:25:00 Test Item Value Reference Range Comments POC Glucose (test 175 mg/dL 70-115 Notify RN or MDIf you consider code=POCGLUC) your patient critically ill, the Ruel Accu-Chek InformII metershould not be used for Glucose determinations.Draw a venous Glucose and send to the Main Lab for Analysis. POC Glucose, [id number] 08:09:00 Test Item Value Reference Range Comments [...] (test code=TSH) 1.10 mIU/mL 0.270-4.200 CBC with [id number] 06:57:00 Test Item Value Reference Range Comments [...] Lymph Abs (test code=ALYMPH) 1.9 K/cumm 0.5-4.6 Leon Abs (test code=AMONO) 0.6 K/cumm 0.0-1.2 Eos Abs (test code=AEOS) 0.18 K/cumm 0.00-0.74 Baso Abs (test code=ABASO) 0.0 K/cumm 0.00-0.21 CK [id number] 06:56:00 Test Item Value Reference Range Comments CK (test code=CK) 320 U/L 39-308 Comprehensive Metabolic [id number] 06:56:00 Test Item Value Reference Range Comments [...] race is not provided, and the patient isAfrican-Zambian, multiply by 1.212. If sex is not provided, and thepatient is female, multiply by 0.742. Results for patients <18 years ofage have not been validated by the MDRD study and should be interpretedwith caution.eGFR Result Interpretation:eGFR > or=60 is in the Normal RangeeGFR < 60 may mean kidney diseaseeGFR < 15 may mean kidney failureRanges recommended by the National Kidney Foundation,http://nkdep.nih .gov [id number] 06:56:00 Test Item Value Reference Range Comments Phosphorus (test code=PO4) 5.0 mg/dL 2.70-4.50 Magnesium, [id number] 06:56:00 Test Item Value Reference Range Comments Magnesium (test code=MG) 2.1 mg/dL 1.7-2.5 CK [id number] 06:56:00 Test Item Value Reference Range Comments CK (test code=CK) 320 U/L 39-308 CKMB (test code=CKMB) 5.5 ng/mL 0.0-4.9 CKMB% (test code=CKMBP) 1.7 % 0.0-3.4 C-Reactive Protein, [id number] 06:56:00 Test Item Value Reference Range Comments CRP (test code=CRP) 5.5 mg/L 0.0-5.0 Troponin [id number] 06:56:00 Test Item Value Reference Range Comments Troponin T (test code=SHAYY) <0.010 ng/mL 0.000-0.090 Glycosylated [id number] 06:36:00 Test Item Value Reference Range Comments HBA1c (test code=HBA1C) 7.1 % 4.8-5.9 POC Glucose, [id number] 01:20:00 Test Item Value Reference Range Comments POC Glucose (test 122 mg/dL 70-115 Notify RN or MDIf you consider code=POCGLUC) your patient critically ill, the Ruel Accu-Chek InformII metershould not be used for Glucose determinations.Draw a venous Glucose and send to the Main Lab for Analysis. Urinalysis [id number] 00:01:00 Test Item Value Reference Range Comments Color (test code=COLOR) Yellow Yellow,Straw,Pl yellow Clarity (test code=CLAR) Clear Clear Specific [place] (test code=SPGR) 1.010 1.001-1.035 pH (test code=PH) [...] (test code=BACT) Few /HPF XR CHEST 1 [id number] 23:33:27LOCATION: [id number]: 47-year-old male who presents with malaise.COMMENT: After-hours service at 11:33 p.m.The examination was obtained at the bedside at 10:15 p.m.The lungs are clear, and well-aerated. The cardiac silhouette, lenore, andmediastinum are unremarkable. The skeleton and soft tissues areunremarkable. surveillance system monitor leads are present.IMPRESSION: Unremarkable portable examination of the chest.CK [id number] 22:20:00 Test Item Value Reference Range Comments CK (test code=CK) 424 U/L 39-308 CBC with [id number] 21:38:00 Test Item Value Reference Range Comments [...] Lymph Abs (test code=ALYMPH) 1.3 K/cumm 0.5-4.6 Leon Abs (test code=AMONO) 0.6 K/cumm 0.0-1.2 Eos Abs (test code=AEOS) 0.03 K/cumm 0.00-0.74 Baso Abs (test code=ABASO) 0.0 K/cumm 0.00-0.21 Comprehensive Metabolic [id number] 21:04:00 Test Item Value Reference Range Comments [...] race is not provided, and the patient isAfrican-Zambian, multiply by 1.212. If sex is not provided, and thepatient is female, multiply by 0.742. Results for patients <18 years ofage have not been validated by the MDRD study and should be interpretedwith caution.eGFR Result Interpretation:eGFR > or=60 is in the Normal RangeeGFR < 60 may mean kidney diseaseeGFR < 15 may mean kidney failureRanges recommended by the National Kidney Foundation,http://nkdep.nih .gov Magnesium, [id number] 21:04:00 Test Item Value Reference Range Comments Magnesium (test code=MG) 2.0 mg/dL 1.7-2.5 Troponin [id number] 21:04:00 Test Item Value Reference Range Comments Troponin T (test code=SHAYY) <0.010 ng/mL 0.000-0.090 POC Glucose, [id number] 20:29:00 Test Item Value Reference Range Comments POC Glucose (test 230 mg/dL 70-115 If you consider your patient code=POCGLUC) critically ill, the [place]uel Accu-Chek InformII metershould not be used for Glucose determinations.Draw a venous Glucose and send to the Main Lab for Analysis.
--- OUTSIDE RECORDS SUMMARY | 2019-11-06 20:51 | XMS REPORT | Encounter Summary ---
:1970 Author Care Team Providers Name Role Phone Jesús Brambila MD Primary Care Provider [phone] Berry Lal MD Bobbin Washer [phone] Yareli Soriano Lard Mixer [phone] Yoseph Neal DPIsak Machine Installer [phone] Robbin Macedo MD Orthopedic Surgeon [phone] Reason for Visit Chronic kidney disease due to type 2 diabetes mellitus; blood in urine Instructions 1. Blood in urine urinalysis, dipstick urinalysis complete, reflex culture 2. Type 2 diabetes mellitus with multiple complications Janumet XR 50 mg-1,000 mg tablet,extended release Farxiga 10 mg tablet microalbumin/creatinine, ratio, urine HbA1c (hemoglobin A1c), blood BMP, serum or plasma 3. Screening for malignant neoplasm of colon colonoscopy referral 4. Chronic kidney disease due to type 2 diabetes mellitus 5. Chronic back pain 6. Influenza vaccination Flublok Quad [id number] (PF) 180 mcg (45 mcg x 4)/0.5 mL IM syringe 7. Pneumococcal vaccination Pneumovax 23 25 mcg/0.5 mL injection syringe 8. Type 2 diabetes mellitus with peripheral angiopathy Discussion Note: None recorded.Patient educational handouts: No information available. Plan of Care Reminders Provider Appointments Est Patient Lacey Galan 09/29/2019 MD Vinh 8:30AM Lab Urinalysis, [facility] Family Dipstick 06/28/2019 Practice ([facility]) [place] Urinalysis [facility] Complete, Reflex Culture 06/28/2019 Practice Laboratory [facility] Family Microalbumin/creatinine, 06/28/2019 Practice Laboratory Ratio, Urine HbA1C [facility] (Hemoglobin a1C), Blood 06/28/2019 Practice Laboratory BMP, Serum or [facility] Plasma 06/28/2019 Practice Laboratory Referral Colonoscopy Referral 06/28/2019 Procedures None recorded. Surgeries None recorded. Imaging None recorded. Medications Name Start Date amlodipine 5 mg tablet Take 1 tablet every day by oral route. Farxiga 10 mg tablet TAKE 1 TABLET BY MOUTH EVERY DAY ibuprofen 600 mg tablet Take 1 tablet 3 times a day by oral route. Janumet XR 50 mg-1,000 mg tablet,extended release TAKE 1 TABLET BY MOUTH TWICE A DAY [place] 7.5 mg-325 mg tablet Take 1 tablet every 4 hours by oral route. OneTouch Delica Lancets 30 gauge USE ONCE DAILY OneTouch Ultra Blue Test Strip USE ONCE A DAY prednisone 5 mg tablet 06/28/2019 Take 1 po daily simvastatin 20 mg tablet TAKE 1 TABLET BY MOUTH ONCE A DAY Medications Administered None recorded. Vitals Height Weight BMI Blood Pressure 6 ft 1 in 233 lbs 30.7 kg/m2 128/80 mm[Hg] Lab Results Date Name Specimen Result Interpretation Description Value Range Status Address Urinalysis, Color Color dark yellow [facility] Dipstick [facility] ([facility]) [place]: [address], [place] Color cloudy [facility] Appearance [facility] [place]: [address], [place] Color Glucose 500 [facility] ([facility]) [place]: [address], [place] Color Bilirubin negative [facility] ([facility]) [place]: [address], [place] Color Ketones negative [facility] ([facility]) [place]: [address], [place] Color Specific 1.[address] [facility] ([facility]) [place]: [address] [place] Color Blood trace [facility] ([facility] [place]: [address] [place] Color PH 5.5 [facility] ([facility] [place]: [address] [place] Color Protein 100 [facility] ([facility] [place]: [address], [place] Color [address] [facility] Urobilinogen [facility] [place]: [address], [place] Color Nitrites negative [facility] ([facility]) [place]: [address], [place] Color negative [facility] ([facility]) [place]: [address], [place] Allergies Code Code System Name Reaction Severity Status Onset NKDA Problems Name Status Onset Date Source Acne Vulgaris Active 08/16/2015 Type 2 Diabetes Mellitus Active 09/11/2015 Onychomycosis of Toenails Active 11/30/2015 Diabetic Peripheral Neuropathy Active 07/31/2018 Type 2 Diabetes Mellitus with Multiple Active 07/31/2018 Complications Type 2 Diabetes Mellitus with Peripheral Active 07/31/2018 Angiopathy Chronic Kidney Disease Due to Type 2 Diabetes Active 07/31/2018 Mellitus Mixed Hyperlipidemia Active 06/28/2019 Hypertensive Disorder Active 06/28/2019 Chronic Back Pain Active Procedures Date Name Performed by Knee Surgery Information not available Vaccine List Vaccine Type Influenza, injectable, MDCK, quadrivalent 07/15/20170.5 mL influenza, injectable, quadrivalent, preservative free 07/31/20180.5 mL influenza, recombinant, quadrIvalent,injectable, preservative free 06/28/20190.5 mL pneumococcal polysaccharide PPV23 06/28/20190.5 mL Social History Tobacco Smoking Status Former Smoker (1 PPW) Past Encounters 06/28/2019 Blood in Urine; Type 2 Diabetes Mellitus with Multiple Complications; Screening for Malignant Neoplasm of Colon; Chronic Kidney Disease Due to Type 2 Diabetes Mellitus; Chronic Back Pain; Influenza Vacc ination; Pneumococcal Vaccination; Type 2 Diabetes Mellitus with Peripheral Angiopathy Lacey Justice MD: [id number], [address], [place] [address], Ph. History of Present Illness Note: Pt had hematuria/protenuria found in urine during physical. He cannot be cleared yet. Form to befilled out. <div>
</div><div& gt;Pt is not fasting. Medication refills. (Pt wants to speak with you in regards to vaccines.)</div>Review of Systems: ROS as noted in the HPI Review of Systems None recorded. Physical Exam Brief Abdominal Pain Exam Reported By: Patient Notes: General: well developed, well nourished, in no acute distress.

Eyes: PERRL/EOM intact, no conjunctival erythema/discharge/edema.

Ears: grossly normal hearing.

Lungs: clear bilaterally to auscultation without wheezing or rhonchi, good aeration. No retractions

CV: RRR, nl s1s2, no M/R/G

Extremities: no LE edema

Psych: mood congruent affect. Answers questions appropiately
--- OUTSIDE RECORDS SUMMARY | 2019-11-06 20:51 | XMS REPORT | Encounter Summary ---
:1970 Author Care Team Providers Name Role Phone Jesús Brambila MD Primary Care Provider [phone] Berry Lal MD Multimedia Production Assistant [phone] Yareli Soriano Multiple Knife Edge Trimmer Operator [phone] Yoseph Neal DPIsak Director Of Intercollegiate Athletics [phone] Robbin Macedo MD Orthopedic Surgeon [phone] Reason for Visit sinus symptoms; skin problem/rash Instructions 1. Upper respiratory infection fluticasone propionate 50 mcg/actuation nasal spray,suspension codeine 10 mg-guaifenesin 100 mg/5 mL oral liquid 2. Tinea corporis nystatin-triamcinolone 100,000 unit/g-0.1 % topical cream 3. Type 2 diabetes mellitus with multiple complications Farxiga 10 mg tablet Trulicity 0.75 mg/0.5 mL subcutaneous pen injector Discussion Note: None recorded.Patient educational handouts: No information available. Plan of Care Reminders Provider Appointments Est Patient Lacey Galan 09/29/2019 MD Vinh 8:30AM Lab None recorded. Referral None recorded. Procedures None recorded. Surgeries None recorded. Imaging None recorded. Medications Name Start Date amlodipine 5 mg tablet Take 1 tablet every day by oral route. codeine 10 mg-guaifenesin 100 mg/5 mL oral liquid Take 10 mL every 4 hours by oral route. Farxiga 10 mg tablet TAKE 1 TABLET BY MOUTH EVERY DAY fluticasone propionate 50 mcg/actuation nasal spray,suspension [place] 2 sprays every day by intranasal route. prn congestion ibuprofen 600 mg tablet Take 1 tablet 3 times a day by oral route. Janumet XR 50 mg-1,000 mg tablet,extended release TAKE 1 TABLET BY MOUTH TWICE A DAY [place] 7.5 mg-325 mg tablet Take 1 tablet every 4 hours by oral route. nystatin-triamcinolone 100,000 unit/g-0.1 % topical cream APPLY TO THE AFFECTED AREA(S) BY TOPICAL ROUTE 2 TIMES PER DAY IN THEMORNING AND EVENING prn rash OneTouch Delica Lancets 30 gauge USE ONCE DAILY OneTouch Ultra Blue Test Strip USE ONCE A DAY prednisone 5 mg tablet 06/28/2019 Take 1 po daily simvastatin 20 mg tablet TAKE 1 TABLET BY MOUTH ONCE A DAY Trulicity 0.75 mg/0.5 mL subcutaneous pen injector Inject 0.5 mL every week by subcutaneous route. Medications Administered None recorded. Vitals Height Weight BMI Blood Pressure 6 ft 1 in 234.8 lbs 31 kg/m2 126/80 mm[Hg] Lab Results Date Name Specimen Result Interpretation Description Value Range Status Address 06/28/2019 Microalbumin/creatinine, Microalbumin [address] [place] Ratio, Urine Random Urine ug/mL Family Practice Laboratory: [address] [place], Normal Norm Creatinine 110.3 20.0 Final [facility] al Random Urine mg/dL -370 Family .0 Practice mg/d Laboratory: L [address] [place] Normal High Microalbumin 251 Final [facility] /creatinine mcg/mg Family (Random creat Practice Urine) Ratio Laboratory: Calculated [address] [place] [place] 06/28/2019 Urinalysis Complete, Norm Color yellow yell Final [facility] Reflex Culture al ow Family Practice Laboratory: [address] [place], Normal Norm Appearance clear [place] Final [facility] al r Family Practice Laboratory: [address] [place], Normal Norm Specific 1.034 1.00 Final [facility] al [place] 1-1. [facility] 035 Practice Laboratory: [address] [place] Normal Norm Ph < or=5.0 5.0- Final [place] al 8.0 Family Practice Laboratory: [address] [place], Normal ABNO Glucose 3+ nega Final [facility] [address] [place], Normal Norm Bilirubin negative nega Final [facility] al tive [facility] Practice Laboratory: [address] [place], Normal Norm Ketones negative nega Final [facility] al tive [facility] Practice Laboratory: [address] [place], Normal Norm Occult Blood negative nega Final [facility]: [address] [place], Normal ABNO Protein 1+ nega Final [facility] Practice Laboratory: [address] [place], Normal Norm Nitrite negative nega [place] al tive Family Practice Laboratory: [address] [place], Normal Norm Leukocyte negative nega [place] al Esterase tive Family Practice Laboratory: [address] [facility], Normal Norm Wbc none < Final [place] al seen or=5 Family /hpf /hpf Practice Laboratory: [address] [facility] Norm Rbc none < Final [place] al seen or=2 Family /hpf /hpf Practice Laboratory: [address] [place], Normal Norm Squamous none < Final [place] al Epithelial seen or=5 Family Cells /hpf /hpf Practice Laboratory: [address] Normal Norm Bacteria none none [place] al seen seen Family /hpf /hpf Practice Laboratory: [address] [facility], Normal Norm Hyaline Cast none none [facility] [place] al seen seen Family /lpf /lpf Practice Laboratory: [address] [place] [address] Reflexive no [place] Urine Culture culture Family indicate Practice d Laboratory: [address] [facility] 06/28/2019 BMP, Serum or Plasma Bun 9.9 8.4- [place] mg/dL 25.0 Family mg/d Practice L Laboratory: [address] [place] [address] High Glucose 216 70-9 Final [place] mg/dL 9 Family mg/d Practice L Laboratory: [address] [place] [address] Creatinine 0.76 0.72 [facility] [place] mg/dL -1.2 Family 5 Practice mg/d Laboratory: L [address] [place] [address] eGFR >60 [facility] [place] Non- mL/min/1 Family [place] .73m2 Practice Laboratory: [address] [facility] eGFR - >60 [place] mL/min/1 Family [place] .73m2 Practice Laboratory: [address] [place] [address] Sodium 137 135- Final [place] mEq/L 145 Family mEq/ Practice L Laboratory: [address] Etienne KumarFormerly [facility] Potassium 4.2 3.5- [place] mEq/L 5.1 Family mEq/ Practice L Laboratory: [address] [facility] Chloride 104 98-1 [facility] [place] mmol/L 10 Family mmol Practice /L Laboratory: [address] [place] [address] Calcium 9.4 8.6- [place] mg/dL 10.4 Family mg/d Practice L Laboratory: [address] Co2 21.8 20.0 Final [facility] mmol/L -32. Family 0 Practice mmol Laboratory: /L [address] [place] [address], Normal Anion Gap 11 calc Final [facility] Laboratory: [address] [place] [address], Normal 06/28/2019 HbA1C (Hemoglobin a1C), High A1C W/eag 10.2 % 1.0- Final [facility] Blood 5.7 [facility] Practice Laboratory: [address] [place] [address], Normal Average 246 Final [facility] Blood Glucose mg/dL [facility] Laboratory: [address] [place] [address], Normal Urinalysis, Dipstick Color Color dark [facility] [place]: [address], [place] Color cloudy [facility] Appearance [place]: [address], [place] Color 500 [facility] Glucose [place]: [address], [place] Color negative [facility] Bilirubin [place]: [address] [place] Color negative [facility] Ketones [place]: [address], [place] Color 1.020 [facility] Specific [place]: [address] [place] Color Blood trace [facility]: [address], [place] Color PH 5.5 [facility]: [address] [place] Color 100 [facility] Protein [place]: [address] [place] Color 1 [facility] Urobilinogen [place]: [address] [place] Color negative [facility] Nitrites [place]: [address], [place] Color negative [facility] Leukocytes [place]: [address], [place] Allergies Code Code System Name Reaction Severity [...] Status Former Smoker (1 PPW) Past Encounters 07/02/2019 Upper Respiratory Infection; Tinea Corporis; Type 2 Diabetes Mellitus with Multiple Complications Lacey Justice MD: [id number] [facility], [address], [place] [address], Ph. 06/28/2019 Blood in Urine; Type 2 Diabetes Mellitus with Multiple Complications; Screening for Malignant Neoplasm of Colon; Chronic Kidney Disease Due to Type 2 Diabetes Mellitus; Chronic Back Pain; Influenza Vacc ination; Pneumococcal Vaccination; Type 2 Diabetes Mellitus with Peripheral Angiopathy Lacey Justice MD: [id number] [facility], [address], [place] [address], Ph. History of Present Illness Note: Pt c/o above x 1-2day(s)
+ nasal congestion, nasal/post drainage, cough
Deniesfever, productive cough, myalgia, sinus pressure/ pain, SOB/wheezing,
no sick contacts
flu vaccine UTD
<div>
</div><div>Pt c/o red, flaky, itchy areas on lower abd x 2 wks. looks better now.</div><div>same 4 mo. ago</ div>Review of Systems: ROS as noted in the HPI Review of Systems None recorded. Physical Exam Upper Respiratory Infection Exam Comprehensive Reported By: Patient Notes: General: well developed, well nourished, in no acute distress, alert.
<div>Eyes: PERRL/EOM intact, no conjunctival erythema/discharge/edema.
</div><div>Ears: grossly normal hearing.
</div><div>Nose: no deformity, (_y, clear) discharge noted, (y) nasal turbinate swelling
</div><div>Mouth: (n) post-nasal drip, (n) posterior pharyngeal erythema, no exudate/edema
</div><div>Neck: (n) cervical nodes, supple.
</div><div>Lungs: clear bilaterally to auscultation without wheezing or rhonchi, good aeration. No retractions
</div><div>CV: RRR, nl s1s2, no M/R/G
</div><div>Skin: erythematous patches w/ thin scaling along lower abd fold. </div>
--- OUTSIDE RECORDS SUMMARY | 2019-11-06 20:51 | XMS REPORT | Encounter Summary ---
:1970 Author Care Team Providers Name Role Phone Jesús Brambila MD Primary Care Provider [phone] Berry Lal MD Bar Steward [phone] Yareli Soriano Accounts Payable Clerk [phone] Yoseph Neal DPM [employer] [phone] Robbin Macedo MD Orthopedic Surgeon [phone] Reason for Visit Annual physical - male with PSA; chronic conditions Instructions 1. Adult health examination CBC w/ auto diff CMP, serum or plasma lipid panel, serum 2. Diabetic peripheral neuropathy 3. Type 2 diabetes mellitus with multiple complications HbA1c (hemoglobin A1c), blood 4. Body mass index 30+ - obesity body mass index: care instructions learning about healthy weight 5. Screening for malignant neoplasm of prostate PSA, serum or plasma 6. Vaccination for diphtheria, pertussis, and tetanus Adacel (Tdap Adolesn/Adult)(PF)2 Lf-(2.5-5-3-5)-5 Lf/0.5 mL IM syringe Discussion Note: None recorded. Plan of Care Reminders Provider Appointments Est 01/05/2020 Lacey Galan Patient 8:30AM MD Vinh Est on or around Lacey Fernandeza Patient 03/29/2020 MD Vinh Est CPX on or around Lacey Gtzolara 09/29/2020 MD Vinh Lab CBC W/ 09/29/2019 [facility] Auto Diff Practice Laboratory CMP, Serum 09/29/2019 [facility] or Plasma Practice Laboratory Lipid 09/29/2019 [facility] Panel, Serum Practice Laboratory PSA, Serum 09/29/2019 [facility] or Plasma Practice Laboratory HbA1C 09/29/2019 [facility] (Hemoglobin a1C), Practice Laboratory Blood Referral None recorded. Procedures None recorded. Surgeries None recorded. Imaging None recorded. Medications Name Start Date amlodipine 5 mg tablet Take 1 tablet every day by oral route. Farxiga 10 mg tablet TAKE 1 TABLET BY MOUTH EVERY DAY fluticasone propionate 50 mcg/actuation nasal spray,suspension SPRAY 2 SPRAYS INTO EACH NOSTRIL EVERY DAY Janumet XR 50 mg-1,000 mg tablet,extended release TAKE 1 TABLET BY MOUTH TWICE A DAY lisinopril 10 mg tablet Take 1 tablet every day by oral route. [place] 10 mg-325 mg tablet Take 1 tablet every 4 hours by oral route. nystatin-triamcinolone 100,000 unit/g-0.1 % topical cream APPLY TO THE AFFECTED AREA(S) BY TOPICAL ROUTE 2 TIMES PER DAY IN THEMORNING AND EVENING prn rash OneTouch Delica Lancets 30 gauge USE ONCE DAILY OneTouch Ultra Blue Test Strip USE ONCE A DAY simvastatin 20 mg tablet TAKE 1 TABLET BY MOUTH ONCE A DAY Trulicity 0.75 mg/0.5 mL subcutaneous pen injector INJECT 0.5 ML EVERY WEEK BY SUBCUTANEOUS ROUTE. Medications Administered None recorded. Vitals Height Weight BMI Blood Pressure 6 ft 1 in 237.2 lbs 31.3 kg/m2 132/86 mm[Hg] Results Lab Results None recorded. Allergies Code Code System Name Reaction Severity [...] 06/28/20190.5 mL pneumococcal polysaccharide PPV23 06/28/20190.5 mL Tdap 09/29/20190.5 mL Social History Tobacco Smoking Status Former Smoker (1 PPW) Past Encounters 09/29/2019 Adult Health Examination; Diabetic Peripheral Neuropathy; Type 2 Diabetes Mellitus with Multiple Complications; Body Mass Index 30+ - Obesity; Screening for Malignant Neoplasm of Prostate; Vaccination for Diphtheria, Pertussis, and Tetanus Lacey Justice MD: [id number] [facility], [address], [place] [address], Ph. History of Present Illness Note: pt presents for follow up of chronic conditions. pt is fasting. per pt tingling in feet.
Pt here for PE.
Eye exam- UTD, normal. & lt;/div><div>Pt mood is stable.</div><div></div>Pt doing well; no complaints.Review of Systems: ROS as noted in the HPI Review of Systems Comprehensive General Adult ROS Reported By: Patient Notes: Constitutional Symptoms: no fever, no weight loss, no weight gain, no fatigue, no malaiseEyes: no diplopia, no blurred vision, no redness, no discharge, no loss of visionEars, Nose, Mouth, Throat: no dysphagia, no otalgia, no deafness, no rhinorrheaCardiovascular: no chest pain, no SOB, exercise tolerated, no palpitationsRespiratory: same as CVS, no cough, no hemoptysisGastrointestinal: no NVD, no BPR, no dark stool, no constipation, no abdominal painGenitourinary: no dysuria, no frequency, no urgency, no nocturia, no incontinenceMusculoskeletal: no arthralgia, no myalgiaIntegumentary: (skin and/or breast): no rash, no hives, no breast pain, no mass, no nipple dcNeurological: no weakness, no headache, no seizure, no dizziness, no tingling, no numbnessPsychiatric: no anxiety, no depression, no insomniaEndocrine: no polyuria, no fatigue, no weight loss, no weight gainHematologic/Lymphatic: no bleeding, no bruising, no edema, no lumps (axilla neck)Allergic/Immunologic: no rash, no allergies, no fever, no chills Physical Exam Notes: General Appearance: Well appearing, well developed, well nourished, overwgt well hydrated, good color, and in no acute distress

Head: Normocephalic atraumatic

Eyes: Pupils equal/round/reactive to light, no scleral icterus, extraocular movements intact, no erythema, no discharge, normal RR, alignment within normal limits

Ears: Normal external shape, normal position, normal tympanic membranes, tympanic membranes flat, and normal landmarks

Nose: Nares patent and no discharge

Mouth: Moist mucous membranes, tongue normal, gingiva normal, palate normal, tonsils normal

Neck: Supple, FROM, no thyromegaly, no masses, no cervical lymphadenopathy

Chest Wall: No retractions

Lungs: CTA bilaterally, no wheezes/rales/rhonchi, and good air entry

Heart: Regular rate and regular rhythm, no murmur

Abdomen: soft, non-tender, non-distended, no HSM, and no mass

Musculoskeletal: No obvious deformity. Moves all 4 extremities, stable gait.

Extremities: Symmetric, no obvious defect, and no cyanosis/clubbing/edema. 2+ pulses in bilaterally

Neurologic: Alert/appropriate, normal strength, normal tone. Clear speech, aao x 3.

Skin: No rash. No jaundice.

Psych: Mood congruent affect, responds appropriately to questions.
[2019-11-06 21:30] LABS: Absolute Lymphocytes (CBC) 2.2 K/uL (0.7-4.9); Basophils % 1.1 % (0-1.3); Hematocrit 46.2 % (39.6-49.0); MPV 9.1 fL (7.6-11.3); RBC Red Blood Cell Count 5.58 M/uL (4.33-5.43)
[2019-11-06 21:48] LABS: ALT/SGPT 32 U/L (12-78); AST/SGOT 18 U/L (15-37); Albumin 3.7 g/dL (3.4-5.0); Alkaline Phosphatase 85 U/L (45-117); BUN Blood Urea Nitrogen 15 mg/dL (7-18); Bicarbonate 28 mmol/L (21-32); Bilirubin Direct 0.1 mg/dL (0-0.2); Bilirubin Total 0.3 mg/dL (0.2-1.0); Glucose Level 139 mg/dL (74-106); Lipase 919 U/L (73-393); Magnesium 1.9 mg/dL (1.8-2.4); Potassium 3.9 mmol/L (3.5-5.1); Protein, Total 7.3 g/dL (6.4-8.2); Sodium Level 139 mmol/L (136-145); Troponin (Emerg Dept Use Only) < 0.02 ng/mL (0.0-0.045)
[2019-11-06 21:48] LABS: Urine Blood 1+ (NEG); Urine Glucose 2+ (NEG); Urine Protein 2+ (NEG); Urine pH 5.5 (5.0-7.0)
[2019-11-06] MEDS ORDERED: KETOROLAC 30 MG/ML INJ ONE (22:06)
[2019-11-06] MEDS ORDERED: NA CHLORIDE 0.9% 1,000 ML ONE (22:06)
[2019-11-06] MEDS ORDERED: ONDANSETRON 4 MG/2 ML VIAL ONE (22:06)
[2019-11-06] MEDS ORDERED: FAMOTIDINE 20 MG/2 ML VIAL IV ONE (23:00)
--- NOTE | 2019-11-07 00:20 | EDPHYS ---
Physician Documentation [facility] Name: Delfino Benjamin Age: 49 yrs Sex: Male : 1970 Arrival Date: 11/06/2019 Time: 20:50 Bed 20 Private MD: out of town, doctor ED Physician Phillip Freitas HPI: 11/06 21:13 This 49 yrs old Male presents to ER via Ambulatory with complaints of Flank lorraine Pain, Pain under rib. 21:13 The patient complains of pain in the right mid back. The pain does not radiate. Onset: lorraine The symptoms/episode began/occurred today. Modifying factors: The symptoms are alleviated by nothing. the symptoms are aggravated by movement. Associated signs and symptoms: The patient has no apparent associated signs or symptoms. Severity of pain: At its worst the pain was moderate in the emergency department the pain is unchanged. The patient has experienced similar episodes in the past, a few times. Historical: - Allergies: 21:06 No Known Allergies; dm5 - Home Meds: 21:06 amlodipine 5 mg tab 1 tab once daily [Active]; Janumet XR 50-1,000 mg Oral TM24 1 tab dm5 twice a day [Active]; [place] 10-325 mg Oral tab 1 tab TID prn [Active]; simvastatin 20 mg Oral tab 1 tab once daily [Active]; Trulicity subcutaneous subcutaneous [Active]; - PMHx: 21:06 Back pain; Diabetes - NIDDM; High Cholesterol; Hypertension; dm5 - PSHx: 21:06 None; dm5 - Immunization history:: Adult Immunizations up to date. - Social history:: Smoking status: Patient/guardian denies using. - Family history:: not pertinent. - Ebola Screening: : Patient negative for fever greater than or equal to 101.5 degrees Fahrenheit, and additional compatible Ebola Virus Disease symptoms Patient denies exposure to infectious person. ROS: 21:13 Constitutional: Negative for fever, chills, and weight loss, Eyes: Negative for injury, lorraine pain, redness, and discharge, ENT: Negative for injury, pain, and discharge, Neck: Negative for injury, pain, and swelling, Cardiovascular: Negative for chest pain, palpitations, and edema, Respiratory: Negative for shortness of breath, cough, wheezing, and pleuritic chest pain, : Negative for injury, bleeding, discharge, and swelling, MS/Extremity: Negative for injury and deformity, Skin: Negative for injury, rash, and discoloration, Neuro: Negative for headache, weakness, numbness, tingling, and seizure. 21:13 Abdomen/GI: Positive for abdominal pain, of the anterior aspect of right lateral abdomen, posterior aspect of right lateral abdomen and right upper quadrant. Exam: 21:13 Constitutional: This is a well developed, well nourished patient who is awake, alert, lorraine and in no acute distress. Head/Face: Normocephalic, atraumatic. Eyes: Pupils equal round and reactive to light, extra-ocular motions intact. Lids and lashes normal. Conjunctiva and sclera are non-icteric and not injected. Cornea within normal limits. Periorbital areas with no swelling, redness, or edema. ENT: Nares patent. No nasal discharge, no septal abnormalities noted. Tympanic membranes are normal and external auditory canals are clear. Oropharynx with no redness, swelling, or masses, exudates, or evidence of obstruction, uvula midline. Mucous membranes moist. Neck: Trachea midline, no thyromegaly or masses palpated, and no cervical lymphadenopathy. Supple, full range of motion without nuchal rigidity, or vertebral point tenderness. No Meningismus. Chest/axilla: Normal chest wall appearance and motion. Nontender with no deformity. No lesions are appreciated. Cardiovascular: Regular rate and rhythm with a normal S1 and S2. No gallops, murmurs, or rubs. Normal PMI, no JVD. No pulse deficits. Abdomen/GI: Soft, non-tender, with normal bowel sounds. No distension or tympany. No guarding or rebound. No evidence of tenderness throughout. Male : Normal genitalia with no discharge or lesions. Skin: Warm, dry with normal turgor. Normal color with no rashes, no lesions, and no evidence of cellulitis. MS/ Extremity: Pulses equal, no cyanosis. Neurovascular intact. Full, normal range of motion. Neuro: Awake and alert, GCS 15, oriented to person, place, time, and situation. Cranial nerves II-XII grossly intact. Motor strength 5/5 in all extremities. Sensory grossly intact. Cerebellar exam normal. Normal gait. Psych: Awake, alert, with orientation to person, place and time. Behavior, mood, and affect are within normal limits. 21:13 Back: pain, that is mild, ROM is painful, normal spinal alignment noted, CVA tenderness, is absent, vertebral tenderness, is not appreciated. 22:20 Musculoskeletal/extremity: DVT Exam: No signs of deep vein thrombosis. no pain, no lorraine swelling, no tenderness, negative Homans' sign noted on exam, no appreciated bluish discoloration, no erythema, no increased warmth. Vital Signs: 21:06 BP 180 / 105; Pulse 87; Resp 18; Temp 97.8(TE); Pulse Ox 100% on R/A; Weight 104.33 kg dm5 (R); Height 6 ft. 1 in. (185.42 cm); Pain 8/10; 21:40 BP 167 / 98; Pulse 87; Resp 18; Pulse Ox 100% on R/A; wh 23:30 BP 172 / 88; Pulse 84; Resp 18; Pulse Ox 99% on R/A; wh 11/07 00:30 BP 159 / 93; Pulse 72; Resp 18; Pulse Ox 99% ; 11/06 21:06 Body Mass Index 30.34 (104.33 kg, 185.42 cm) dm5 MDM: 11/06 20:53 Patient medically screened. [facility] 21:13 Data reviewed: vital signs, nurses notes, lab test result(s), EKG, radiologic studies, lorraine plain films. 11/06 21:12 Order name: Basic Metabolic Panel; Complete Time: 21:59 [facility] 11/06 21:12 Order name: CBC with Diff; Complete Time: 21:59 [facility] 11/06 21:12 Order name: LFT's; Complete Time: 21:59 [facility] 11/06 21:12 Order name: Magnesium; Complete Time: 21:59 [facility] 11/06 21:12 Order name: Troponin (emerg Dept Use Only); Complete Time: 21:59 [facility] 11/06 21:12 Order name: Lipase; Complete Time: 21:59 [facility] 11/06 21:13 Order name: Urine Culture [facility] 11/06 21:45 Order name: Urine Dipstick--Ancillary (enter results); Complete Time: 21:59 lt1 11/07 01:09 Order name: Basic Metabolic Panel [facility]TN 11/07 01:09 Order name: Basic Metabolic Panel [facility] 11/07 01:09 Order name: CBC with Automated Diff [facility] 11/07 01:09 Order name: CBC with Automated Diff [facility] 11/07 01:09 Order name: Lipase [facility] 11/07 01:09 Order name: Lipase [facility] 11/06 21:12 Order name: XRAY Chest (1 view) [facility] 11/06 21:12 Order name: EKG; Complete Time: 21:13 [facility] 11/06 21:12 Order name: Cardiac monitoring; Complete Time: 21:35 [facility] 11/06 22:02 Order name: CT Abd/Pelvis - PO and IV Contrast [facility] 11/07 01:09 Order name: NPO [facility] 11/07 01:09 Order name: Liver (Hepatic) Function [facility] 11/07 01:09 Order name: Liver (Hepatic) Function [facility] 11/07 08:24 Order name: Glucose, Ancillary Testing [facility] 11/07 11:05 Order name: Glucose, Ancillary Testing [facility] 11/06 21:12 Order name: EKG - Nurse/Tech; Complete Time: 21:35 [facility] 11/06 21:12 Order name: IV Saline Lock; Complete Time: 21:33 [facility] 11/06 21:12 Order name: Labs collected and sent; Complete Time: 21:33 [facility] 11/06 21:12 Order name: O2 Per Protocol; Complete Time: 21:33 [facility] 11/06 21:12 Order name: O2 Sat Monitoring; Complete Time: 21:33 [facility] 11/06 21:13 Order name: Urine Dipstick-Ancillary (obtain specimen); Complete Time: 21:35 [facility] Administered Medications: 22:03 Drug: NS 0.9% 1000 ml Route: IV; Rate: 1 bolus; Site: right antecubital; 11/07 00:47 Follow up: Response: No adverse reaction; IV Status: Completed infusion 00:49 Follow up: Response: No adverse reaction; IV Status: Completed infusion 11/06 22:05 Drug: TORadol 30 mg Route: IVP; Site: right antecubital; 11/07 00:49 Follow up: Response: No adverse reaction; Pain is decreased 11/06 22:07 Drug: Zofran 4 mg Route: IVP; Site: right antecubital; 11/07 00:49 Follow up: Response: No adverse reaction; Pain is decreased 00:49 Follow up: Response: No adverse reaction; Nausea is decreased 11/06 23:03 Drug: Pepcid 20 mg Route: IVP; Site: right antecubital; 11/07 00:48 Follow up: Response: No adverse reaction 00:46 Drug: Zosyn 3.375 grams Route: IVPB; Infused Over: 60 mins; Site: left antecubital; 00:50 Follow up: Response: No adverse reaction; IV Status: Infusion continued upon admission 00:48 Not Given (Patient Refused): morphine 2 mg IVP once; (PAIN>8) RASS on ADMN: Combtv4, wh Very Agttd3, Agttd2, Rstlss1, AlertClm0, Drwsy-1, LtSdtn-2, ModSdtn-3, DpSdtn-4, UnArsble-5 x2 00:48 Not Given (Patient Refused): Zofran 4 mg IVP once; over 2 minutes Disposition: 11/07/19 00:20 Hospitalization ordered by Shayne Porter for Observation. Preliminary diagnosis are Cholelithiasis, Abdominal tenderness, Type 2 diabetes mellitus. - Bed requested for Telemetry/MedSurg (observation). - Status is Observation. bp - Condition is Stable. - Problem is new. - Symptoms have improved. UTI on Admission? No Signatures: Dispatcher [employer] EDMS Patricia Barney, RN RN dm5 Paula Zeng RN RN dw Tiffany Vallecillo RN RN aa1 Phillip Freitas MD MD cha Habalo, Winsy Mike Choudhary RN RN bp Corrections: (The following items were deleted from the chart) 00:20 00:20 Hospitalization Ordered by Shayne Porter MD for Observation. Preliminary aa1 diagnosis is Cholelithiasis; Abdominal tenderness; Type 2 diabetes mellitus. Bed requested for Telemetry/MedSurg (observation). Status is Observation. Condition is Stable. Problem is new. Symptoms have improved. UTI on Admission? No. lorraine 12:49 00:20 11/07/2019 00:20 Hospitalization Ordered by Shayne Porter MD for Observation. dw Preliminary diagnosis is Cholelithiasis; Abdominal tenderness; Type 2 diabetes mellitus. Bed requested for [facility] ER HOLD. Status is Observation. Condition is Stable. Problem is new. Symptoms have improved. UTI on Admission? No. aa1 14:54 12:49 11/07/2019 00:20 Hospitalization Ordered by Shayne Porter MD for Observation. bp Preliminary diagnosis is Cholelithiasis; Abdominal tenderness; Type 2 diabetes mellitus. Bed requested for Telemetry/MedSurg (observation). Status is Observation. Condition is Stable. Problem is new. Symptoms have improved. UTI on Admission? No. dw
--- NOTE | 2019-11-07 00:20 | ER ---
Nurse's Notes [facility] Name: Delfino Benjamin Age: 49 yrs Sex: Male : 1970 Arrival Date: 11/06/2019 Time: 20:50 Bed 20 Private MD: out of town, doctor Diagnosis: Cholelithiasis;Abdominal tenderness;Type 2 diabetes mellitus Presentation: 11/06 21:01 Presenting complaint: Patient states: pain in right flank for 2 days, worse today after dm5 work. Pain rated at 8/10. Pt also reports pain in anterior chest on left side. States this feels like when his gallbladder was hurting. Pt has known gall stone and is schedule to have surgery related to this. Pt denies nausea, vomiting or urinary symptoms. 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 Transition of care: patient was not received from another setting of care. Onset of symptoms was November 04, 2019. Risk Assessment: Do you want to hurt yourself or someone else? Patient reports no desire to harm self or others. Initial Sepsis Screen: Does the patient meet any 2 criteria? No. Patient's initial sepsis screen is negative. Does the patient have a suspected source of infection? No. Patient's initial sepsis screen is negative. 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 21:01 Method Of Arrival: Ambulatory dm5 21:01 Acuity: MAKENZIE 3 dm5 Historical: - Allergies: 21:06 No Known Allergies; dm5 - Home Meds: 21:06 amlodipine 5 mg tab 1 tab once daily [Active]; Janumet XR 50-1,000 mg Oral TM24 1 tab dm5 twice a day [Active]; [place] 10-325 mg Oral tab 1 tab TID prn [Active]; simvastatin 20 mg Oral tab 1 tab once daily [Active]; Trulicity subcutaneous subcutaneous [Active]; - PMHx: 21:06 Back pain; Diabetes - NIDDM; High Cholesterol; Hypertension; dm5 - PSHx: 21:06 None; dm5 - Immunization history:: Adult Immunizations up to date. - Social history:: Smoking status: Patient/guardian denies using. - Family history:: not pertinent. - Ebola Screening: : Patient negative for fever greater than or equal to 101.5 degrees Fahrenheit, and additional compatible Ebola Virus Disease symptoms Patient denies exposure to infectious person. Screenin:37 Abuse screen: Denies threats or abuse. Denies injuries from another. Nutritional wh screening: No deficits noted. Tuberculosis screening: No symptoms or risk factors identified. Fall Risk None identified. Assessment: 21:35 General: Appears in no apparent distress. Behavior is calm, cooperative, appropriate wh for age. Pain: Complains of pain in diaphragm and right mid back Pain radiates to right mid back Pain currently is 6 out of 10 on a pain scale. Quality of pain is described as aching, Pain began 2-3 days ago. Neuro: Level of Consciousness is awake, alert, obeys commands, Oriented to person, place, time, situation, Appropriate for age. Cardiovascular: Heart tones S1 S2 Rhythm is regular. Respiratory: Airway is patent Respiratory effort is even, unlabored, Respiratory pattern is regular, symmetrical, Breath sounds are clear bilaterally. GI: Abdomen is flat, non-distended, Abd is soft and non tender X 4 quads. : No signs and/or symptoms were reported regarding the genitourinary system. EENT: No signs and/or symptoms were reported regarding the EENT system. Derm: Skin is intact, is healthy with good turgor, Skin is pink, warm \T\ dry. normal. Musculoskeletal: Circulation, motion, and sensation intact. 22:55 Reassessment: Patient appears in no apparent distress at this time. No changes from previously documented assessment. Patient and/or family updated on plan of care and expected duration. Pain level reassessed. Patient is alert, oriented x 3, equal unlabored respirations, skin warm/dry/pink. 11/07 00:25 Reassessment: Patient appears in no apparent distress at this time. No changes from previously documented assessment. Patient and/or family updated on plan of care and expected duration. Pain level reassessed. Patient is alert, oriented x 3, equal unlabored respirations, skin warm/dry/pink. Patient denies pain at this time. Patient states feeling better. Patient states symptoms have improved. Vital Signs: 11/06 21:06 BP 180 / 105; Pulse 87; Resp 18; Temp 97.8(TE); Pulse Ox 100% on R/A; Weight 104.33 kg dm5 (R); Height 6 ft. 1 in. (185.42 cm); Pain 8/10; 21:40 BP 167 / 98; Pulse 87; Resp 18; Pulse Ox 100% on R/A; 23:30 BP 172 / 88; Pulse 84; Resp 18; Pulse Ox 99% on R/A; 11/07 00:30 BP 159 / 93; Pulse 72; Resp 18; Pulse Ox 99% ; 11/06 21:06 Body Mass Index 30.34 (104.33 kg, 185.42 cm) 5 ED Course: 11/06 20:50 Patient arrived in ED. es 20:50 out of town, doctor is Private Physician. es 20:53 Phillip Freitas MD is Attending Physician. lorraine 21:03 Ash Abraham is Primary Nurse. 21:04 Triage completed. dm5 21:06 Arm band placed on Patient placed in an exam room. dm5 21:33 Inserted saline lock: 20 gauge in right antecubital area, using aseptic technique. jd2 Blood collected. 21:40 Patient has correct armband on for positive identification. Bed in low position. Call light in reach. Side rails up X 1. pvc monitor on. Pulse ox on. NIBP on. 21:43 XRAY Chest (1 view) In Process Unspecified. EDMS 23:31 CT Abd/Pelvis - PO and IV Contrast In Process Unspecified. EDMS 11/07 00:19 Shayne Porter MD is Hospitalizing Provider. lorraine 00:52 No provider procedures requiring assistance completed. Patient admitted, IV remains in place. Administered Medications: 11/06 22:03 Drug: NS 0.9% 1000 ml Route: IV; Rate: 1 bolus; Site: right antecubital; 11/07 00:47 Follow up: Response: No adverse reaction; IV Status: Completed infusion 00:49 Follow up: Response: No adverse reaction; IV Status: Completed infusion 11/06 22:05 Drug: TORadol 30 mg Route: IVP; Site: right antecubital; 11/07 00:49 Follow up: Response: No adverse reaction; Pain is decreased 11/06 22:07 Drug: Zofran 4 mg Route: IVP; Site: right antecubital; 11/07 00:49 Follow up: Response: No adverse reaction; Pain is decreased 00:49 Follow up: Response: No adverse reaction; Nausea is decreased 11/06 23:03 Drug: Pepcid 20 mg Route: IVP; Site: right antecubital; 11/07 00:48 Follow up: Response: No adverse reaction 00:46 Drug: Zosyn 3.375 grams Route: IVPB; Infused Over: 60 mins; Site: left antecubital; 00:50 Follow up: Response: No adverse reaction; IV Status: Infusion continued upon admission 00:48 Not Given (Patient Refused): morphine 2 mg IVP once; (PAIN>8) RASS on ADMN: Combtv4, wh Very Agttd3, Agttd2, Rstlss1, AlertClm0, Drwsy-1, LtSdtn-2, ModSdtn-3, DpSdtn-4, UnArsble-5 x2 00:48 Not Given (Patient Refused): Zofran 4 mg IVP once; over 2 minutes Outcome: 00:20 Decision to Hospitalize by Provider. lorraine 00:52 Admitted to ER Hold. Please see [facility] for further documentation. 00:52 Condition: stable 00:52 Instructed on the need for admit. 14:54 Patient left the ED. bp Signatures: Dispatcher [employer] Patricia Samuels, RN RN Phillip Cooper MD MD cha Salyer, Edna es Donley, Jonika jd2 Habalo, Winsy Mike Choudhary RN RN bp
[2019-11-07] MEDS ORDERED: PIPER/TAZO/NS 3.375gm 3.375 GM/100 ML BAG ONE ×3 (00:56→12:36)
[2019-11-07] MEDS ORDERED: D50W 25 GM/50 ML SYRINGE/VIAL IV PRN (01:07)
[2019-11-07] MEDS ORDERED: ONDANSETRON 4 MG/2 ML VIAL IV PRN (01:07)
[2019-11-07] MEDS ORDERED: ACETAMINOPHEN 325 MG TABLET PO PRN (01:07)
[2019-11-07] MEDS: NA CHLORIDE 0.9% 1,000 ML IV SCH ×2 (01:07→09:07)
[2019-11-07] MEDS ORDERED: GLUCAGON 1 MG/VIAL IM PRN (01:07)
[2019-11-07] MEDS ORDERED: MORPHINE 4 MG/ML SYR IV PRN ×2 (01:07→16:29)
[2019-11-07 01:48] VITALS: BMI 30.3
[2019-11-07] MEDS ORDERED: NA CHLORIDE 0.9% 1,000 ML ONE ×2 (03:36→10:34)
[2019-11-07] MEDS: PIPER/TAZO/NS 3.375gm 3.375 GM/100 ML BAG IVPB SCH ×4 (05:52→18:32)
[2019-11-07] MEDS: INSULIN -REGULAR HUMAN 50 UNIT/0.5 ML ML SQ SCH ×2 (07:30→11:01)
[2019-11-07] MEDS ORDERED: FAMOTIDINE 20 MG/2 ML VIAL IV SCH (09:00)
--- NOTE | 2019-11-07 09:06 | RAD REPORT ---
EXAM DESCRIPTION: RAD - Chest Single View - 11/06/2019 9:43 pm CLINICAL HISTORY: Chest pain COMPARISON: April 2017 TECHNIQUE: AP portable chest image was obtained 2 hours . FINDINGS: Lung volumes are low. No focal lung parenchymal process seen. Heart and vasculature are no rmal. No measurable pleural effusion and no pneumothorax. No acute bony abnormality seen. No acute ao rtic findings suspected. IMPRESSION: Limited shallow inspiration film showing no acute cardiopulmonary finding.
[2019-11-07] MEDS ORDERED: FAMOTIDINE 20 MG/2 ML VIAL IV ONE (10:34)
--- NOTE | 2019-11-07 14:00 | EKG ---
Test Date: 2019-11-06 Test Time: 21:34:21 Technical Sourcing Recruiter: MARLON MEASUREMENT RESULTS: Intervals: Rate: 85 NM: 156 QRSD: 98 QT: 376 QTc: 447 [place]: P: 8 NM: 156 QRS: 0 T: 36 INTERPRETIVE STATEMENTS: Sinus rhythm with frequent premature ventricular complexes Otherwise normal ECG Compared to ECG 05/12/2017 20:46:38 ST (T wave) deviation no longer present Electronically Signed On 11-07-19 13:58:56 LARD REFINER by Juma Haynes
--- NOTE | 2019-11-07 14:11 | P.HP ---
Date of Service: 11/07/19 PC: This 49-year-old male presents emergency room with severe right upper quadrant abdominal pain for diagnosis and treatment. HPC: Patient been having this pain off and on for last few years. Pain intensified to the point Re could no longer stand it had the seek medical attention. PMH: Type 2 diabetes, back issues PSHx: Negative SOC: No known allergies SYS REVIEW: No cough, wheeze, shortness of breath. No chest pain or palpitations. Denies any urinary complaints O/E awake alert vital signs are stable HEENT: Nonicteric Chest: Chest movement equal bilaterally ABD: Mild right upper quadrant tenderness at the moment LOCO: Intact DATA: CT scan demonstrates large stone in neck of gallbladder IMPRESSION: Cholecystitis with cholelithiasis, biliary colic PLAN: I will take him to the operating room for laparoscopic possible open cholecystectomy with a cholangiogram. The risks of this procedure have been discussed. The possibility of bleeding, infection, injury to bile ducts blood vessels intestines has been described. The possible need for an open and/or further surgeries and procedures was discussed. He understands and wants us to proceed.
[2019-11-07] MEDS ORDERED: propofoL 200 MG/20 ML VIAL IV ONE (14:32)
[2019-11-07] MEDS ORDERED: FENTANYL CITR 100 MCG/2 ML ONE (14:35)
[2019-11-07] MEDS ORDERED: LIDOCAINE 2% MPF 5 ML VIAL ONE ×2 (14:36)
[2019-11-07] MEDS ORDERED: ROCURONIUM 50 MG/5 ML VIAL IV ONE (14:36)
[2019-11-07] MEDS ORDERED: KETOROLAC 30 MG/ML INJ ONE (15:00)
[2019-11-07] MEDS ORDERED: ONDANSETRON 4 MG/2 ML VIAL ONE (15:00)
[2019-11-07] MEDS ORDERED: dexAMETHasone 10 MG/ML VIAL ONE (15:00)
[2019-11-07] MEDS ORDERED: GLYCOPYRROLATE 0.2 MG/ML SYR ONE (15:40)
[2019-11-07] MEDS ORDERED: NEOSTIGMINE 1 MG/ML -5 ML ONE (15:40)
[2019-11-07] MEDS ORDERED: Ringers Lactate 1,000 ML IV ONE (16:05)
--- NOTE | 2019-11-07 16:19 | P.OP ---
Preoperative diagnosis: Cholecystitis with cholelithiasis, biliary, Postoperative diagnosis: The same Primary procedure: Laparoscopic cholecystectomy Secondary procedure: Cholangiogram Anesthesia: General Estimated blood loss: Less than 20 cc Specimen: 1 gallbladder and contents Operative Technique: The patient was brought to the operating room placed supine on the table. After the induction of adequate general endotracheal anesthesia, the area of the abdomen is prepped with a DuraPrep solution, and draped in the usual aseptic manner. A subumbilical incision was made. This brought down through the skin and subcutaneous tissue. The Visiport was used to enter the peritoneal cavity and created pneumoperitoneum to approximately 12 mm of mercury. Under direct vision a 5 mm trocar was placed in the upper midline, and 2 other 5 mm trocars on the right lateral side. The patient's head was then elevated and rolled towards the chain forming machine operator's side. We could see a markedly distended gallbladder. There was a stone visible and Rahat's pouch. It was necessary to aspirate the contents from the gallbladder so that we could place a grasper on the gallbladder itself.. A grasper was placed on the fundus of the gallbladder. Another 1 was placed down by Rahat's pouch. Applying lateral traction we were able to dissect and expose the cystic duct and artery. The artery was dealt with 1st. It was clipped and divided in the usual manner. A clip was then placed between the gallbladder and the cystic duct. An opening was made into the cystic duct. We attempted then to pass the cholangiocath into the cystic duct. There were some valve set at there were we cut out. We finally got the catheter in. A cholangiogram demonstrated good flow contrast into the duodenum, no filling defects were noted. Clips were now placed on the distal portion of the cystic duct. The cystic duct was then divided. The gallbladder was now dissected free from the liver bed, placed into an Endo-Catch, and brought out through the umbilical trocar site. It was necessary to cut the fascia at the umbilical trocar site due to the size of the stone. The gallbladder fossa was inspected to ensure adequate hemostasis. It was irrigated with a saline solution and the irrigant aspirated from the peritoneal cavity. 0.25% Marcaine was aerosolized into the right upper quadrant and the gallbladder fossa. The umbilical trocar site was now approximated with an Endo Close and an absorbable sutures. It was necessary to use for sutures to pull this together. The pneumoperitoneum was then collapsed, the suture tied, and bryanna applied to the skin. A further 0.25% Marcaine was injected around are incision sites. At the end of the procedure the patient was in a stable condition when sent to the recovery room. Needle sponge instrument count were correct. 1 specimen was sent for histopathology. Complications: None Transferred to: Recovery Room Condition: Good
[2019-11-07] MEDS ORDERED: HYDROCODONE/APAP 7.5/325 MG TAB PO PRN (16:29)
--- NOTE | 2019-11-07 18:51 | RAD REPORT ---
EXAM DESCRIPTION: RAD - Cholangiogram Oper-Xray Or - 11/07/2019 5:44 pm FINDINGS: There were 2 portable C-arm views submitted from an intraoperative cholangiogram. No suspi cious or unexpected finding. Assessment is limited when only selected images are available. Fluoro time was 0.2 minutes.
[2019-11-08] MEDS: PIPER/TAZO/NS 3.375gm 3.375 GM/100 ML BAG IVPB SCH ×2 (00:27→09:11)
[2019-11-08 09:32] VITALS: O2SAT 97
--- NOTE | 2019-11-08 14:24 | RAD REPORT ---
EXAM DESCRIPTION: CT - Abdomen Pelvis W Contrast - 11/06/2019 11:31 pm CLINICAL HISTORY: 49 years Male ABD PAIN COMPARISON: None TECHNIQUE: Images were obtained in axial, sagittal, and coronal planes. Intravenous contrast was adm inistered. Oral contrast was administered. This exam was performed according to our departmental dose-optimization program which includes use of Automated Exposure Control, adjustment of the mA and/or kV according to patient size and/or use of i terative reconstruction technique. FINDINGS: No abnormality involving the liver, spleen, pancreas, or adrenal glands bilaterally. 2.2 c m gallstone in region of the neck of gallbladder. No obstructing renal calcifications bilaterally. No hydronephrosis bilaterally. Unremarkable bladder. Mildly enlarged prostate gland. Mildly distended appendix with no secondary signs for appendicitis. Air is seen within the appendix. No bowel obstruction, perforation, or inflammation. Marked constipation. Calcification abdominal aorta with no dilatation seen. No adenopathy or abnormal fluid collections se en. Atelectatic change right lung base. No acute osseous abnormality. IMPRESSION: Large 2.2 cm gallstone in region of the neck of gallbladder. No obstructing renal calcifications bilaterally. No hydronephrosis bilaterally. Mildly distended appendix with no inflammatory changes noted. Electronically signed by: Chela Cooper MD 11/06/2019 11:56 PM TICKET SELLER Due to temporary technical issues with the PACS/Fluency reporting system, reports are being signed by the in house radiologist as a courtesy to ensure prompt reporting. The interpreting radiologist is f ully responsible for the content of the report.
[2019-11-08 14:37] VITALS: BP 137/75; TEMP 99.1
== END 2019-11-08 13:42 | disposition home or self-care (01) ==
LOC: ER 20:47 → ERHOLD 11-07 00:25 → 2ND 11-07 13:38
PROVIDERS: ADMIT Surgery; ATTEND Surgery
PROC: BF00YZZ Plain Radiography of Bile Ducts using Other Contrast (ICD-10-PCS; 2019-11-07)
PROC: 0FT44ZZ Resection of Gallbladder, Percutaneous Endoscopic Approach (ICD-10-PCS; principal; 2019-11-07 15:00)
DX: K80.10 Calculus of gallbladder with chronic cholecystitis without obstruction (principal); E11.9 Type 2 diabetes mellitus without complications
CPT/HCPCS: 96361; 93005; 87088; 85025; 87086; 80048; 36415; 83735; 82947 ×6; 80076; 88304; 81003; 84484; 83690; 74177; 74300; 71045; 96375; 96374; 99285; 47563; Q9967; J2704; J3010; J2543 ×4; J1100; J2710; G0378 ×4; J7120; J7030 ×3; J2405 ×2

== ENCOUNTER 2020-06-03 08:56 | Emergency (ER) | payer OTHER ==
--- OUTSIDE RECORDS SUMMARY | 2020-06-03 08:58 | XMS REPORT | Clinical Summary ---
:1970 Author Organization [facility] Address [address] [place] [address] Care Team Providers Name Role Phone Lacey Justice MD Primary Care Provider Allergies No Known Allergies Medications Medication Sig Dispensed Refills Start Date End Date Status simvastatin Take 20 mg by 0 Acti ve (ZOCOR) 20 MG mouth nightly. tablet SITagliptin-metf Take 1 tablet by 0 Active ormin (Janumet mouth 2 (two) XR) 50-1,000 mg times a day. tablet, ER multiphase 24 hr lisinopriL Take 10 mg by 0 Activ e (PRINIVIL) 10 mg mouth daily. tablet HYDROcodone-acet Take 1 tablet by 0 01/21/2020 Active aminophen mouth every 8 (NORCO) 10-325 (eight) hours as mg per tablet needed. Trulicity 0.75 INJECT 0.5 ML 0 11/25/2019 Active mg/0.5 mL pen EVERY WEEK BY injector SUBCUTANEOUS ROUTE. NIFEdipine XL Take 1 tablet (60 90 tablet 3 03/09/2020 0 Active (PROCARDIA XL) mg total) by 21 60 MG 24 hr mouth daily. tablet amLODIPine Take 5 mg by 0 03/07/20 Discon tinued (NORVASC) 5 mg mouth daily. 20 tablet NIFEdipine XL Take 1 tablet (60 30 tablet 11 03/07/2020 0 Discontinued (PROCARDIA XL) mg total) by 20 (R eorder) 60 MG 24 hr mouth daily. 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 Last Assessment & Plan: Given presentation and risk factors will proceed with stress testing Encounters Date Type Specialty Care Team Description 03/09/2020 Refill Cardiology Mina Howard Reftoro Humphrey MA 03/07/2020 Office Visit Aaron Morfin, Shortness of breath (Primary Dx); Essential hyper tension, benign; Pure hyperchole sterolemia 03/07/2020 Travel 02/22/2020 Office Visit Aaron Morfin, Dyspnea, u nspecified type (Primary Dx); 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 ) after 06/03/2019 Social History Tobacco Use Types Packs/Day Years Used Date Former Smoker Smokeless Tobacco: Never Used Alcohol Use Drinks/Week oz/Week Comments Yes occasional Alcohol Habits Answer Date Recorded How often do you have a drink containing alcohol? Never 02/22/2020 How many drinks containing alcohol do you have on a typical Not asked day when you are drinking? How often do you have six or more drinks on one occasion? No t asked Sex Assigned at Date Recorded Not on file Job Start Date Occupation Industry Not on file Not on file Not on file Travel History Travel Start Travel End No recent travel history available. Last Filed Vital Signs Vital Sign Reading Time Taken Comments Blood Pressure 149/90 03/07/2020 10:32 AM CDT [facility] Pulse 96 03/07/2020 10:32 AM CDT Temperature - - Respiratory Rate - - Oxygen Saturation - - Inhaled Oxygen Concentration - - Weight 108 kg (237 lb) 03/07/2020 10:31 AM CDT Height 185.4 cm (6' 1") 03/07/2020 10:31 AM CDT Body Mass Index 31.27 03/07/2020 10:31 AM CDT Plan of Treatment Health Maintenance Due Date Last Done Comments DIABETIC RETINAL EYE EXAM 1970 DIABETIC FOOT EXAM 1979 URINE MICROALBUMIN 1979 COLONOSCOPY SCREENING 2019 SHINGLES VACCINES (#1) 2019 INFLUENZA VACCINE 06/20/2020 Procedures Procedure Name Priority Date/Time Associated Diagnosis Comme nts NM MYOCARDIAL Routine 03/07/2020 10:20 Atherosclerosis of Resu lts for this PERFUSION REST AM CDT galena coronary artery pro cedure are in STRESS 1 DAY of galena heart with the res ults angina pectoris with section . documented spasm (HCC) CV STRESS TEST Routine 03/07/2020 10:20 Atherosclerosis of NUCLEAR CARDIO AM CDT galena coronary artery of galena heart with angina pectoris with documented spasm (HCC) TTE COMPLETE, WO Routine 03/07/2020 8:56 Shortness of breath Results for this CONTRAST, W DOPPLER AM CDT procedur e are in ([id number]) the results section. ECG 12-LEAD Routine 02/22/2020 10:04 Dyspnea, unspecified Res ults for this AM CDT type procedure are i n the results section. [id number] Routine 01/05/2020 after 06/03/2019 Results Nm myocardial perfusion (03/07/2020 10:20 AM CDT) Pathologist Sig nature Target HR 170.00 bpm [facility] Exercise duration (sec) 0 sec [facility] Resting HR 74 BPM [facility] Resting BP 178/93 mmHg [facility] Percent HR 90.00 % [facility] Exercise duration (min) 9 min [facility] Estimated workload 10.4 METS [facility] Post Peak HR 153 bpm [facility] Post Peak BP 226/103 mmHg [facility] Max Predicted Heart Rate 170 BPM [facility] Angina Score 0.[address] Deviation (Except aVR) 0.0 mm [facility] Graham TM Score Calc 9.00 [facility] Stress Exercise Time Mins 9.0 mins [facility] Specimen Narrative Performed At This result has an attachment that is no t available. [facility] Study Quality: good. There are no perfusion defects. The study is normal. This study result indicates a low risk of cardiac d eath, or nonfatal infarction, over the ensuing year. SPECT images demonstrate a normal perfusion study. Normal left ventricular systolic function. No evidence of ischemia. Normal LV systolic function. Performing Organization Address City/State/Zipcode Phone Number [facility] [address] [place] [address] Transthoracic Echocardiogram Complete, (w Contrast, Strain and 3D if needed) (03/07/2020 8:56 AM CDT) Pathologist Sig nature IVS,d 1.11 cm [facility] EF 53.91 % [facility] LVPWD,d 1.02 cm [facility] MV valve area p 1/2 method 4.15 cm2 [facility] E/A ratio 1.08 [facility] E wave decelartion time 183.00 msec [facility] LVOT Diam,S 2.60 cm [facility] LVOT area 5.31 cm2 [facility] MV Peak E Lonnie 0.67 m/s [facility] MV stenosis pressure 1/2 time 53.07 ms [facility] MV Peak A Lonnie 0.62 m/s [facility] BSA 2.30 m2 [facility] BSA Mora 2.37 m2 [facility] BSA Haycock 2.37 m2 [facility] IVS/LVPW,2D 1.09 [facility] LV,d 5.50 cm [facility] LV,s 3.95 cm [facility] BMI 31.00 kg/m2 [facility] MV E A ratio 1.07 [facility] LV SYS VOL 67.94 ml [facility] LV MENDOZA VOL 147.42 ml [facility] LA Vol MOD A4C 47.50 ml [facility] LV SI Teich 2D 34.49 ml/m2 [facility] LV SV Teich 2D 79.48 ml [facility] LV Vol s Teich PSAX 67.94 ml [facility] AoV Cusp sep 2.30 [facility] Aortic Root 3.50 cm [facility] LA Ao Ratio Mmode 1.23 [facility] LV FS Cube 2D 28.18 [facility] LV FS Teich 2D 28.18 [facility] LV EF,2D 62.96 % [facility] MV AE ratio 0.93 [facility] Pt Size 185.42 [facility] Pt Wt 106.60 [facility] LV SI Cube 2D 45.45 ml/m2 [facility] LV SV Cube 2D 104.75 ml [facility] LV vol d cube 2D 166.38 ml [facility] LV vol s cube 2D 61.63 ml [facility] Specimen Narrative Performed At This result has an attachment that is no t available. [facility] Left ventricular systolic function is normal. Left Ventricular ejection fraction is 60 - 65%. Normal left ventricular size with preserved systolic a nd diastolic function and no regionality. Normal right sided chambe rs. Performing Organization Address [facility] Phone Number [facility] [address] [place] [address] ECG 12 lead (02/22/2020 10:04 AM CDT) Pathologist Sig nature Ventricular rate 76 [facility] Atrial rate 76 [facility] LA interval 170 [facility] QRSD interval 100 [facility] QT interval 382 [facility] QTC interval 429 [facility] P axis 1 24 [facility] QRS axis 1 29 [facility] T wave axis 21 [facility] EKG impression Sinus rhythm with [facility] occasional premature ventricular complexes-Otherwise normal ECG-No previous ECGs available-Electronicall y Signed By Aaron Diaz MD (2024) on 02/22/2020 11:48:25 AM Specimen Narrative Performed At This result has an attachment that is no t available. Performing Organization Address [facility] Phone Number [employer] [facility] [address] [place] [address] Miscellaneous Lab Result (01/05/2020) Specimen Blood Narrative Performed At This result has an attachment that is no t available. after 06/03/2019 Advance Directives For more information, please contact: [phone] Type Date Recorded Patient Client Experience Specialist Explanati on Advance Directives, Living Will and Medical Power of Dental Hygienist Mobile Coordinator
--- OUTSIDE RECORDS SUMMARY | 2020-06-03 09:00 | XMS REPORT | Continuity of Care Document ---
:1970 Author Organization [facility] t Address [address] [place] [address] Care Team Providers Name Role Phone UNKNOWN Primary Care Physician Unavailable Lee CHENEY Attending Clinician Unavailable Joe GUZMAN Attending Clinician Provider Attending Clinician TJ JAIN M.D. Attending Clinician Unavailable TJ JAIN M.D. Admitting Clinician Unavailable Payers Payer Name Policy Type Policy Number Effective Date Expiration Date S walt CIGNACIGNA OPEN xxxxxxxxxxx 2010 [facility] ACCESS/NETWORKxx 00:00:00 Methodis t 1-PresentHMO Problems Condition Condition Condition Status Onset Resolution Last Treating Co mments Source Name Details Category Date Date Treatment Clinician Date Shortness Shortness Disease Active Last Sylvester ston of breath of breath 5-05 Assessmen M ethodi 00:00: t & Plan: Noninvasi ve testing is unremarka ble Essential Essential Disease Active Last Sylvester ston hypertensi hypertensi 5-05 Assessmen Methodi on, benign on, benign 00:00: t & Plan: I have discussed the case with his nephrolog ist (Yareli Christianson) who suggested switching amlodipin e to nifedical 60 mg and continue same dose of lisinopri l Pure Pure Disease Active [facility] hyperchole hyperchole 5-05 Assessmen Methodi sterolemia sterolemia 00:00: t & Plan: On statin Anxiety Anxiety Problem Active [facility] attack Attack 3-18 Family 00:00: Practic 00 e Dyspnea at Dyspnea at Problem Active [facility] rest Rest 3-18 Family 00:00: Practic 00 e Body mass Body Mass Problem Active Jono emil index 30+ Index 30+ 1-23 Fami ly - obesity - Obesity 00:00: Prac tic 00 e History of History of Problem Active [facility] cholecyste Cholecyste 1- Christine piña ctomy ctomy 00:00: Practic 00 e Mixed Mixed Problem Active [facility] hyperlipid Hyperlipid 06-28 Christine piña emia emia 00:00: Practic 00 e Hypertensi Hypertensi Problem Active [facility] ve ve 06-28 Family disorder Disorder 00:00: Practi c 00 e Diabetic Diabetic Problem Active 2017-10 [facility] peripheral Peripheral 0-12 Christine piña neuropathy Neuropathy 00:00: Pr actic 00 e Type 2 Type 2 Problem Active 2017-10 [facility] diabetes Diabetes 0-12 Family mellitus Mellitus 00:00: Practi c with with 00 e multiple Multiple complicati Complicati ons ons Type 2 Type 2 Problem Active 2017-10 [facility] diabetes Diabetes 0-12 Family mellitus Mellitus 00:00: Practi c with with 00 e peripheral Peripheral angiopathy Angiopathy Chronic Chronic Problem Active 2017-10 [facility] kidney Kidney 0-12 Family disease Disease 00:00: Practic due to Due to 00 e type 2 Type 2 diabetes Diabetes mellitus Mellitus 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 of sis of 2-11 Family toenails Toenails 00:00: Practi c 00 e Type 2 Type 2 Problem Active 2014-10 [facility] diabetes Diabetes 1-23 Family mellitus Mellitus 00:00: Practi c 00 e Acne Acne Problem Active 2014-10 [facility] vulgaris Vulgaris 0-28 Family 00:00: Practic 00 e Chronic Chronic Problem Active [facility] back pain Back Pain Fami ly Practic e History of Past Illness Condition Condition Condition Status Onset Resolution Last Treating Co mments Source Name Details Category Date Date Treatment Clinician Date Atheroscle Atheroscle Disease Resolve 2020-03-07 2020-03-07 Maikol rossis of d 5-05 00:00:00 11:08:17 [place]: st coronary coronary 00 artery of artery of [place] heart with heart with angina angina pectoris pectoris with with documented documented spasm spasm Allergies, Adverse Reactions, Alerts This patient has no known allergies or adverse reactions. Social History Social Habit Start Date Stop Date Quantity Comments Source History [facility] Alcohol Std Cheondoism Drinks History [facility] Alcohol Binge [place]ism Sex Assigned At [facility] Alcohol intake 2020-03-07 2020-03-07 Current drinker of Parveen jacob 00:00:00 00:00:00 alcohol (finding) Methodi st History SDAR 2020-02-22 2020-02-22 1 [facility] Alcohol Frequency 00:00:00 00:00:[address] Alcohol Comment 2020-02-22 2020-02-22 occasional Lassiter 00:00:00 00:00:00 Cheondoism Smoking Status Start Date Stop Date Source Former smoker 2020-03-07 00:00:00 2020-03-07 00:00:00 [facility] Medications Ordered Filled Start Stop Current Ordering Indication Dosage Frequency Signature Comments Components Source Medication Medication Date Date Medication? Clinician (SIG) Name Name NIFEdipine 2020- Yes 60mg QD Take 1 [place] XL 5-21 -21 tablet (60 Methodi (PROCARDIA 00:00: 23:59 mg total) s t XL) 60 MG 00 :00 by mouth 24 hr daily. tablet amLODIPine 2019- No 5mg QD Take 5 mg [place] (NORVASC) 5 -07 03-19 by mouth Met hodi mg tablet 11:14: 00:[address] 12 :00 NIFEdipine 2020- No 60mg QD Take 1 [place] XL -19 -21 tablet (60 Methodi (PROCARDIA 00:00: 00:00 mg total) s t XL) 60 MG 00 :00 by mouth 24 hr daily. tablet lisinopriL Yes 10mg QD Take 10 mg [place] (PRINIVIL) 5-05 by mouth Metho di 10 mg 10:17: daily. st tablet 12 SITagliptin 2019-0 Yes 1{tbl} Q.5D Take 1 Parveen jacob -metformin 5-05 tablet by Meth kennedy (Janumet 10:00: mouth 2 st XR) 26 (two) 50-1,000 mg times a tablet, ER day. multiphase 24 hr simvastatin 2019-0 Yes 20mg QD Take 20 mg Lassiter (ZOCOR) 20 5-05 by mouth Metho di MG tablet 10:00: nightly. st 16 HYDROcodone 2019-0 Yes 1{tbl} Q8H Take 1 [place] -acetaminop 4-03 tablet by Met myriam vu (NORCO) 00:00: mouth st 10-325 mg 00 every 8 per tablet (eight) hours as needed. Trulicity 2019-0 Yes INJECT 0.5 [place] 0.75 mg/0.5 2-06 ML EVERY Meth kennedy mL pen 00:00: WEEK BY st injector 00 SUBCUTANEO US ROUTE. amlodipine amlodipine No amlodipine [facility] 5 mg tablet 5 mg tablet 5 mg F amily Take 1 Take 1 tablet Practic tablet tablet Take 1 e every day every day tablet by oral by oral every day route. route. by oral route. codeine 10 codeine 10 No 10mL Q4H codeine 10 [facility] mg-guaifene mg-guaifene mg-guaifen Family sin 100 sin 100 esin 100 Pract ic mg/5 mL mg/5 mL mg/5 mL e oral liquid oral liquid oral Take 10 mL Take 10 mL liquid every 4 every 4 Take 10 mL hours by hours by every 4 oral route. oral route. hours by prn cough prn cough oral route. prn cough Farxiga 10 Farxiga 10 No Farxiga 10 [facility] mg tablet mg tablet mg tablet Family TAKE 1 TAKE 1 TAKE 1 Practic TABLET BY TABLET BY TABLET BY e MOUTH EVERY MOUTH EVERY MOUTH DAY DAY EVERY DAY fluticasone fluticasone No fluticason [facility] propionate propionate e Fam erik 50 50 propionate Practic mcg/actuati mcg/actuati 50 e on nasal on nasal mcg/actuat spray,suspe spray,suspe ion nasal nsion SPRAY nsion SPRAY spray,susp 2 SPRAYS 2 SPRAYS ension INTO EACH INTO EACH SPRAY 2 NOSTRIL NOSTRIL SPRAYS EVERY DAY EVERY DAY INTO EACH NOSTRIL EVERY DAY Janumet XR Janumet XR No Janumet XR [facility] 50 mg-1,000 50 mg-1,000 50 F amily mg mg mg-1,000 Practic tablet,exte tablet,exte mg e nded nded tablet,ext release release ended TAKE 1 TAKE 1 release TABLET BY TABLET BY TAKE 1 MOUTH TWICE MOUTH TWICE TABLET BY A DAY A DAY MOUTH TWICE A DAY lisinopril lisinopril No 1 Q1D lisinopril [facility] 10 mg 10 mg 10 mg Family tablet Take tablet Take tablet Practic 1 tablet 1 tablet Take 1 e every day every day tablet by oral by oral every day route. route. by oral route. [place] 10 [place] 10 No 1 Q4H [place] 10 Jono emil mg-325 mg mg-325 mg mg-325 mg Family tablet Take tablet Take tablet Practic 1 tablet 1 tablet Take 1 e every 4 every 4 tablet hours by hours by every 4 oral route. oral route. hours by oral route. nystatin-tr nystatin-tr No nystatin-t [facility] iainolone iainolone riainolo Family 100,000 100,000 ne 100,000 Pra ctic unit/g-0.1 unit/g-0.1 unit/g-0.1 e % topical % topical % topical cream APPLY cream APPLY cream TO THE TO THE APPLY TO AFFECTED AFFECTED THE AREA(S) BY AREA(S) BY AFFECTED TOPICAL TOPICAL AREA(S) BY ROUTE 2 ROUTE 2 TOPICAL TIMES PER TIMES PER ROUTE 2 DAY IN DAY IN TIMES PER THEMORNING THEMORNING DAY IN AND EVENING AND EVENING THEMORNING prn rash prn rash AND EVENING prn rash OneTouch OneTouch No OneTouch Jono emil Delica Delica Delica Family Lancets 30 Lancets 30 Lancets 30 Practic gauge USE gauge USE gauge USE e ONCE DAILY ONCE DAILY ONCE DAILY OneTouch OneTouch No OneTouch Jnoo emil Ultra Blue Ultra Blue Ultra Blue Family Test Strip Test Strip Test Strip Practic USE ONCE A USE ONCE A USE ONCE A e DAY DAY DAY simvastatin simvastatin No simvastati [facility] 20 mg 20 mg n 20 mg Family tablet TAKE tablet TAKE tablet Practic 1 TABLET BY 1 TABLET BY TAKE 1 e MOUTH ONCE MOUTH ONCE TABLET BY A DAY A DAY MOUTH ONCE A DAY Trulicity Trulicity No ulicity [facility] 0.75 mg/0.5 0.75 mg/0.5 0.75 F amily mL mL mg/0.5 mL Practic subcutaneou subcutaneou subcutaneo e s pen s pen us pen injector injector injector INJECT 0.5 INJECT 0.5 INJECT 0.5 ML EVERY ML EVERY ML EVERY WEEK BY WEEK BY WEEK BY SUBCUTANEOU SUBCUTANEOU SUBCUTANEO S ROUTE. S ROUTE. US ROUTE. Immunizations Ordered Immunization Filled Immunization Date Status Commen ts Source Name Name Tdap Tdap 2019-09-29 Completed [facility] Family 10:43:16 Practice pneumococcal pneumococcal 2019-06-28 Completed [facility] Fa ayana polysaccharide PPV23 polysaccharide PPV23 10:36:33 Practice influenza, influenza, 2019-06-28 Completed [facility] Family recombinant, recombinant, 10:35:56 Practice quadrIvalent,injectab quadrIvalent,injectab le, preservative free le, preservative free influenza, influenza, 2018-07-31 Completed [facility] injectable, injectable, 17:15:59 Practice quadrivalent, quadrivalent, preservative free preservative free Influenza, Influenza, 2017-07-15 Completed [facility] injectable, MDCK, injectable, MDCK, 16:38:00 Practice quadrivalent quadrivalent Vital Signs Vital Name Observation Time Observation Value Comments Source BP Diastolic 2020-01-05 00:00:00 82 mm[Hg] [facility] Height 2020-01-05 00:00:00 73 [in_i] [facility] BMI (Body Mass 2020-01-05 00:00:00 31.3 kg/m2 [facility] BP Systolic 2020-01-05 00:00:00 130 mm[Hg] [facility] Body Weight 2020-01-05 00:00:00 237 [lb_av] [facility] BP Diastolic 2019-11-11 00:00:00 96 mm[Hg] [facility] Height 2019-11-11 00:00:00 73 [in_i] [facility] BMI (Body Mass 2019-11-11 00:00:00 31.5 kg/m2 [facility] BP Systolic 2019-11-11 00:00:00 158 mm[Hg] [facility] Body Weight 2019-11-11 00:00:00 239 [lb_av] [facility] BP Diastolic 2019-09-29 00:00:00 86 mm[Hg] [facility] Height 2019-09-29 00:00:00 73 [in_i] [facility] BMI (Body Mass 2019-09-29 00:00:00 31.3 kg/m2 [facility] BP Systolic 2019-09-29 00:00:00 132 mm[Hg] [facility] Body Weight 2019-09-29 00:00:00 237.2 [lb_av] [facility] BP Diastolic 2019-07-02 00:00:00 80 mm[Hg] [facility] Height 2019-07-02 00:00:00 73 [in_i] [facility] BMI (Body Mass 2019-07-02 00:00:00 31 kg/m2 [facility] BP Systolic 2019-07-02 00:00:00 126 mm[Hg] [facility] Body Weight 2019-07-02 00:00:00 234.8 [lb_av] [facility] BP Diastolic 2019-06-28 00:00:00 80 mm[Hg] [facility] Height 2019-06-28 00:00:00 73 [in_i] [facility] BMI (Body Mass 2019-06-28 00:00:00 30.7 kg/m2 [facility] BP Systolic 2019-06-28 00:00:00 128 mm[Hg] [facility] Body Weight 2019-06-28 00:00:00 233 [lb_av] [facility] Systolic blood 2020-03-07 10:32:00 149 mm[Hg] [facility] [place] pressure Diastolic blood 2020-03-07 10:32:00 90 mm[Hg] [facility] [place] pressure Heart rate 2020-03-07 10:32:00 96 /min [facility] Body height 2020-03-07 10:31:00 185.4 cm [facility] Body weight 2020-03-07 10:31:00 107.502 kg [facility] [place] BMI 2020-03-07 10:31:00 31.27 kg/m2 [facility] BP Diastolic 2017-09-24 00:00:00 86 mm[Hg] [facility] Height 2017-09-24 00:00:00 73 [in_i] [facility] BMI (Body Mass 2017-09-24 00:00:00 31.5 kg/m2 [facility] BP Systolic 2017-09-24 00:00:00 136 mm[Hg] [facility] Body Weight 2017-09-24 00:00:00 239 [lb_av] [facility] BP Diastolic 2017-09-09 00:00:00 98 mm[Hg] [facility] Height 2017-09-09 00:00:00 73 [in_i] [facility] BMI (Body Mass 2017-09-09 00:00:00 31.3 kg/m2 [facility] BP Systolic 2017-09-09 00:00:00 130 mm[Hg] [facility] Body Weight 2017-09-09 00:00:00 237 [lb_av] [facility] BP Diastolic 2017-09-03 00:00:00 94 mm[Hg] [facility] Height 2017-09-03 00:00:00 73 [in_i] [facility] BMI (Body Mass 2017-09-03 00:00:00 31.3 kg/m2 [facility] BP Systolic 2017-09-03 00:00:00 141 mm[Hg] [facility] Body Weight 2017-09-03 00:00:00 237 [lb_av] [facility] BP Diastolic 2017-07-23 00:00:00 98 mm[Hg] [facility] Height 2017-07-23 00:00:00 73 [in_i] [facility] BMI (Body Mass 2017-07-23 00:00:00 30.5 kg/m2 [facility] BP Systolic 2017-07-23 00:00:00 110 mm[Hg] [facility] Body Weight 2017-07-23 00:00:00 231 [lb_av] [facility] BP Diastolic 2017-07-15 00:00:00 90 mm[Hg] [facility] Height 2017-07-15 00:00:00 73 [in_i] [facility] BMI (Body Mass 2017-07-15 00:00:00 31.9 kg/m2 [facility] BP Systolic 2017-07-15 00:00:00 130 mm[Hg] [facility] Body Weight 2017-07-15 00:00:00 242 [lb_av] [facility] BP Diastolic 2017-05-13 00:00:00 74 mm[Hg] [facility] Height 2017-05-13 00:00:00 73 [in_i] [facility] BMI (Body Mass 2017-05-13 00:00:00 30.5 kg/m2 [facility] BP Systolic 2017-05-13 00:00:00 110 mm[Hg] [facility] Body Weight 2017-05-13 00:00:00 231 [lb_av] [facility] BP Diastolic 2017-03-25 00:00:00 94 mm[Hg] [facility] Height 2017-03-25 00:00:00 73 [in_i] [facility] BMI (Body Mass 2017-03-25 00:00:00 30.9 kg/m2 [facility] BP Systolic 2017-03-25 00:00:00 122 mm[Hg] [facility] Body Weight 2017-03-25 00:00:00 234 [lb_av] [facility] BP Diastolic 2017-02-12 00:00:00 88 mm[Hg] [facility] Height 2017-02-12 00:00:00 73 [in_i] [facility] BMI (Body Mass 2017-02-12 00:00:00 31.5 kg/m2 [facility] BP Systolic 2017-02-12 00:00:00 136 mm[Hg] [facility] Body Weight 2017-02-12 00:00:00 239 [lb_av] [facility] BP Diastolic 2015-11-30 00:00:00 82 mm[Hg] [facility] Height 2015-11-30 00:00:00 73 [in_i] [facility] BMI (Body Mass 2015-11-30 00:00:00 30.08 kg/m2 [facility] BP Systolic 2015-11-30 00:00:00 134 mm[Hg] [facility] Body Weight 2015-11-30 00:00:00 228 [lb_av] [facility] BP Diastolic 2015-09-11 00:00:00 80 mm[Hg] [facility] Height 2015-09-11 00:00:00 73 [in_i] [facility] BMI (Body Mass 2015-09-11 00:00:00 29.55 kg/m2 [facility] BP Systolic 2015-09-11 00:00:00 128 mm[Hg] [facility] Body Weight 2015-09-11 00:00:00 224 [lb_av] [facility] BP Diastolic 2015-08-16 00:00:00 88 mm[Hg] [facility] Height 2015-08-16 00:00:00 73 [in_i] [facility] BMI (Body Mass 2015-08-16 00:00:00 29.68 kg/m2 [facility] BP Systolic 2015-08-16 00:00:00 140 mm[Hg] [facility] Body Weight 2015-08-16 00:00:00 225 [lb_av] [facility] Procedures Procedure Date / Time Performing Clinician Source Performed CV STRESS TEST NUCLEAR 2020-03-07 10:20:26 Aaron Diaz CARDIO NM MYOCARDIAL PERFUSION 2020-03-07 10:20:26 Aaron Diaz Sylvester ston Cheondoism REST STRESS 1 DAY TTE COMPLETE, WO CONTRAST, 2020-03-07 08:56:01 Aaron Diaz W DOPPLER ([id number]) ECG 12-LEAD 2020-02-22 10:04:51 Aaron Diaz Met hodist [id number] 2020-01-05 00:00:00 ProviderVladimir Laparoscopic 2019-11-07 00:00:00 [facility] Tavon landers Cholecystectomy Practice Gastrointestinal Surgery 2019-10-20 00:00:00 Jono [facility] Knee Surgery [facility] Plan of Care Planned Activity Planned Date Details Comments Source Future Scheduled Test 2020-06-20 INFLUENZA VACCINE H el Mayes 00:00:00 [code = INFLUENZA VACCINE] Diagnostic Test 2020-01-09 TSH, serum or plasma [facility] Pending 00:00:00 [code = TSH, serum or Practi ce plasma] Diagnostic Test 2020-01-05 CMP, serum or plasma Vill [facility] Family Pending 00:00:00 [code = CMP, serum or Practi ce plasma] Diagnostic Test 2020-01-05 HbA1c (hemoglobin [facility] Pending 00:00:00 A1c), blood [code = Practice HbA1c (hemoglobin A1c), blood] Diagnostic Test 2020-01-05 lipase, serum or [facility] Family Pending 00:00:00 plasma [code = Practice lipase, serum or plasma] Diagnostic Test 2020-01-05 CBC w/ auto diff [facility] Pending 00:00:00 [code = CBC w/ auto Practice diff] Future Scheduled Test 2019 COLONOSCOPY SCREENING Lass[facility] 00:00:00 [code = COLONOSCOPY SCREENING] Future Scheduled Test 2019 SHINGLES VACCINES H el Mayes 00:00:00 (#1) [code = SHINGLES VACCINES (#1)] Future Scheduled Test 1979 DIABETIC FOOT EXAM Maikol Mayes 00:00:00 [code = DIABETIC FOOT EXAM] Future Scheduled Test 1979 URINE MICROALBUMIN [facility] 00:00:00 [code = URINE MICROALBUMIN] Future Scheduled Test 1969 DIABETIC RETINAL EYE [facility] 00:00:00 EXAM [code = DIABETIC RETINAL EYE EXAM] Future Appointment 2020-10-04 Sajan Boateng 08:15:00 [id number] [facility]; Practice [address], [place] [address] Encounters Start End Encounter Admission Attending Care Care Encounter Source Date/Time Date/Time Type Type Clinicians Facility Department ID 2020-03-07 2020-03-07 Outpatient JOE, [facility] [id number] [facility] 00:00:00 00:00:[id number] 2020-03-07 2020-03-07 Outpatient JOE, [facility] [id number] 00:00:00 00:00:00 AARON [address] 2020-03-07 2020-03-07 [facility] [id number] 00:00:00 00:00:[address] AARON [address] 2020-02-22 2020-02-22 Outpatient JOE, [facility] [id number] [facility] 00:00:00 00:00:[address] 2020-01-05 2020-01-05 [place] [facility] [place] - [id number] [facility] 00:00:00 00:00:00 Angelia Justice [facility] - Pract amarilis MD: [id number] [facility], [address], [place] [address] , Ph. 2019-11-11 2019-11-11 [place] [facility] [place] - [id number] [facility] 00:00:00 00:00:00 Angelia Guerrero [facility] Vinh Medical - Pract amarilis MD: [id number] [facility], [address], [place] [address] , Ph. 2019-09-29 2019-09-29 [place] [facility] [place] - [id number] [facility] 00:00:00 00:00:00 Angelia Justice [facility] - Pract amarilis MD: [id number] ALFORDHOU_[address] [facility], [address], [place] [address] , Ph. 2019-07-02 2019-07-02 [facility] [place] - [id number] [facility] 00:00:00 00:00:00 [facility] Vinh, Family Practic MD: [id number] Practice - e [facility], [place] [address], [place] [address] , Ph. 2019-06-28 2019-06-28 [place] [facility] [place] - [id number] [facility] 00:00:00 00:00:00 [facility] Vinh, Family Practic MD: [id number] Practice - e [facility], [place] [address], [place] [address] , Ph. 2018-01-14 2018-01-14 [facility] [place] - [id number] V illage 00:00:00 00:00:00 Sol: [facility] [address], Practice - e [address], [facility] [address] , Ph. 2017-12-17 2017-12-17 [facility] [place] - [id number] V illage 00:00:00 00:00:00 Sol: [facility] [address], Practice - e [address], Care [facility] [place] [address] , Ph. 2017-11-12 2017-11-12 [facility] [place] - [id number] V illage 00:00:00 00:00:00 Sol: [facility] [address], Practice - e [address], [facility] [place] [place] [address] , Ph. 2017-10-15 2017-10-15 [facility] [place] - [id number] V illage 00:00:00 00:00:00 Sol: [facility] [address], Practice - e [address], [facility] [place] [address] , Ph. 2017-09-24 2017-09-24 Jesús GONZALEZ [place] - [id number] V illage 00:00:00 00:00:00 Yolanda Brambila MD: [id number] Family Practi c Practice - [address], [facility] [address], [place] [address] , Ph. 2017-09-10 2017-09-10 Scarlet [facility] [place] - [id number] V illage 00:00:00 00:00:00 Sol: Yolanda Famil y [address], Practice - e [address] [place] [address] , Ph. 2017-09-09 2017-09-09 Jesús GONZALEZ [place] - [id number] V illage 00:00:00 00:00:00 Yolanda Brambila MD: [id number] Family Practi c Practice - [address], [facility] [address], [place] [address] , Ph. 2017-09-03 2017-09-03 Jesús GONZALEZ [place] - [id number] V illage 00:00:00 00:00:00 Yolanda Brambila MD: [id number] Family Practi c Practice - [address], [facility], [place] [address] , Ph. 2017-08-27 2017-08-28 [facility] [id number] 00:40:00 12:00:00 TJ alfred M.D. [facility] 2017-08-13 2017-08-13 Scarlet [facility] [place] - [id number] V illage 00:00:00 00:00:00 Sol: Yolanda Famil y [address], Practice - e [address] [address] , Ph. 2017-07-23 2017-07-23 Jesús GONZALEZ [place] - [id number] V illage 00:00:00 00:00:00 Kosta, Yolanda landers MD: [id number] Family Practi c [address] Practice - [address], [facility] [address], [place] [address] , Ph. 2017-07-16 2017-07-16 Scarlet [facility] [place] - [id number] V illage 00:00:00 00:00:00 Sol: [facility] [address], Practice - e [address], [facility] [address] , Ph. 2017-07-15 2017-07-15 Jesús Mathur [facility] [place] - [id number] V illage 00:00:00 00:00:00 KostaYolanda MD: [id number] Family Practi c SW Practice - [address], [place], [place] [address] , Ph. 2017-06-25 2017-06-25 Scarlet [facility] [place] - [id number] V illage 00:00:00 00:00:00 Sol: [facility] [address], Practice - e [address], [facility] [address] , Ph. 2017-05-13 2017-05-13 Jesús Mathur [facility] [place] - [id number] V illage 00:00:00 00:00:00 Yolanda Brambila MD: [id number] Family Practi c SW [address] - [address], [facility] [address], [place] [address] , Ph. 2017-04-24 2017-04-24 Zo [facility] [place] - [id number] [facility] 00:00:00 00:00:00 Oscar: [facility] [address], Practice - e [address], [place] [address] , Ph. 2017-03-25 2017-03-25 Jesús Mathur [facility] [place] - [id number] V illage 00:00:00 00:00:00 Yolanda Brambila MD: [id number] [facility] caden [facility] [address], [place] [address] , Ph. 2017-02-12 2017-02-12 Jesús Mathur [facility] - [id number] V illage 00:00:00 00:00:00 Yolanda Brambila MD: [id number] [facility] - [facility] [address], [place] [address] , Ph. Results Test Description Test Time Test Comments Results Result Comments Source ECG 12 lead 2020-02-22 11:48:26 Test Item Value Reference Range Interpretation Comme nts Ventricular rate (test code = 253) 76 Atrial rate (test code = 255) 76 GA interval (test code = 266) 170 QRSD interval (test code = 260) 100 QT interval (test code = 264) 382 QTC interval (test code = 265) 429 P axis 1 (test code = 267) 24 QRS axis 1 (test code = 268) 29 T wave axis (test code = 270) 21 EKG impression (test code = 273) Sinus rhythm with occasional marcial ture ventricular complexes-Otherwise normal ECG-No previous ECGs available- [facility] Reflex Culture panel - [id number] 00:00:00 Test Item Value Reference Range Interpretation Comments color (test code = yellow yellow color) appearance (test code = clear clear appearance) specific gravity (test 1.034 1.001-1.035 code = specific gravity) pH (test code = pH) < or = 5.0 5.0-8.0 glucose (test code = 3+ negative A glucose) bilirubin (test code = negative negative bilirubin) ketones (test code = negative negative ketones) occult blood (test code negative negative = occult blood) protein (test code = 1+ negative A protein) nitrite (test code = negative negative nitrite) leukocyte esterase (test negative negative code = leukocyte esterase) WBC (test code = WBC) none seen < or = 5 RBC (test code = RBC) none seen < or = 2 squamous epithelial none seen < or = 5 cells (test code = squamous epithelial cells) bacteria (test code = none seen none seen bacteria) hyaline cast (test code none seen none seen = hyaline cast) reflexive urine culture no culture indicated (test code = reflexive urine culture) [facility] metabolic 2000 panel - Serum or [id number] 00:00:00 Test Item Value Reference Range Interpretation Comments BUN (test code = BUN) 9.9 mg/dL 8.4-25.0 glucose (test code = glucose) 216 mg/dL 70-99 H creatinine (test code = 0.76 mg/dL 0.72-1.25 creatinine) eGFR non- (test >60 code = eGFR non-) eGFR - (test >60 code = eGFR - ) sodium (test code = sodium) 137 mEq/L 135-145 potassium (test code = potassium) 4.2 mEq/L 3.5-5.1 chloride (test code = chloride) 104 mmol/L 98-110 calcium (test code = calcium) 9.4 mg/dL 8.6-10.4 CO2 (test code = CO2) 21.8 mmol/L 20.0-32.0 anion gap (test code = anion gap) 11 calc [facility] Ratio[facility] in [id number] 00:00:00 Test Item Value Reference Range Interpretation Comments microalbumin random urine 277 ug/mL (test code = microalbumin random urine) creatinine random urine 110.3 mg/dL 20.0-370.0 (test code = creatinine random urine) microalbumin/creatinine 251 mcg/mg creat H (random urine) ratio calculated (test code = microalbumin/creatinine (random urine) ratio calculated) [facility]/Hemoglobin.total in [id number] 00:00:00 Test Item Value Reference Range Interpretation Comments Hemoglobin A1c/Hemoglobin.total in 10.2 % 1.0-5.7 H Blood (test code = 4548-4) average blood glucose (test code = 246 mg/dL average blood glucose) [facility]/Hemoglobin.total in [id number] 18:01:00 Test Item Value Reference Range Interpretation Comments A1C w/EAG (test code = A1C w/EAG) 7.3 % 1.0-5.7 H average blood glucose (test code = 163 mg/dL average blood glucose) [facility] 1999 [facility] - Serum or Plasma 2017-09-25 17:45:00 Test Item Value Reference Range Interpretation Comments ALT (test code = ALT) 21 U/L 0-55 AST (test code = AST) 20 U/L 5-34 BUN (test code = BUN) 13.3 mg/dL 8.9-20.6 alk phos (test code = alk phos) 74 unit/L 40-150 glucose (test code = glucose) 190 mg/dL 70-99 H albumin (test code = albumin) 4.0 g/dL 3.5-5.0 creatinine (test code = 0.82 mg/dL 0.72-1.25 creatinine) eGFR non- (test >60 >60 code = eGFR non-) total bilirubin (test code = 0.4 mg/dL 0.2-1.2 total bilirubin) eGFR - (test >60 >60 code = eGFR - ) sodium (test code = sodium) 141 mEq/L 136-145 potassium (test code = potassium) 4.4 mEq/L 3.5-5.1 chloride (test code = chloride) 107 mmol/L 98-107 total protein (test code = total 7.2 g/dL 6.4-8.3 protein) calcium (test code = calcium) 9.5 mg/dL 8.4-10.2 CO2 (test code = CO2) 28.3 mmol/L 22.0-29.0 anion gap (test code = anion gap) 6 calc [facility] - Serum or [id number] 17:45:00 Test Item Value Reference Range Interpretation Comments HDL (test code = HDL) 41 mg/dL 40-60 triglyceride (test code = 170 mg/dL 0-149 H triglyceride) VLDL calc. (test code = VLDL calc.) 34 mg/dL cholesterol/HDL ratio (test code = 4.0 mg/dL cholesterol/HDL ratio) non-HDL cholesterol calc. (test 124 mg/dL 0-160 code = non-HDL cholesterol calc.) cholesterol (test code = 165 mg/dL 0-199 cholesterol) LDL calc. (test code = LDL calc.) 90 mg/dL 0-130 [facility] kinase [Enzymatic activity/volume] in Serum or [id number] 05:49:00 Test Item Value Reference Range Interpretation Comments creatine kinase, total (test code = 89 U/L 44-196 creatine kinase, total) [facility] 2000 [facility] - Serum or Plasma 2017-09-03 17:44:00 Test Item Value Reference Range Interpretation Comments ALT (test code = ALT) 26 U/L 0-55 AST (test code = AST) 18 U/L 5-34 BUN (test code = BUN) 16.3 mg/dL 8.9-20.6 alk phos (test code = alk phos) 86 unit/L 40-150 glucose (test code = glucose) 152 mg/dL 70-99 H albumin (test code = albumin) 4.3 g/dL 3.5-5.0 creatinine (test code = 0.80 mg/dL 0.72-1.25 creatinine) eGFR non- (test >60 >60 code = eGFR non-) total bilirubin (test code = 0.4 mg/dL 0.2-1.2 total bilirubin) eGFR - (test >60 >60 code = eGFR - ) sodium (test code = sodium) 138 mEq/L 136-145 potassium (test code = potassium) 4.6 mEq/L 3.5-5.1 chloride (test code = chloride) 104 mmol/L 98-107 total protein (test code = total 7.6 g/dL 6.4-8.3 protein) calcium (test code = calcium) 9.5 mg/dL 8.4-10.2 CO2 (test code = CO2) 22.6 mmol/L 22.0-29.0 anion gap (test code = anion gap) 11 calc [facility]POC Glucose, [id number] 09:29:00 Test Item Value Reference Range Interpretation Comments POC Glucose (test 194 mg/dL 70-115 H Notify RN or MDIf you code = POCGLUC) consider you r patient critically ill, the Ruel Accu-Chek InformII metershould not be used for Glucose determinations. Draw a venous Glucose and send to the Main Lab for Analysis. [id number] 07:49:00 Test Item Value Reference Range Interpretation Comments Phosphorus (test code = PO4) 3.1 mg/dL 2.70-4.50 N Magnesium, [id number] 07:49:00 Test Item Value Reference Range Interpretation Comments Magnesium (test code = MG) 2.0 mg/dL 1.7-2.5 N Basic Metabolic [id number] 22:21:00 Test Item Value Reference Range Interpretation Comments Sodium (test code = 135 mmol/L 135-145 N NA) Potassium (test 3.6 mmol/L 3.5-5.1 N code = K) Chloride (test code 97 mmol/L 98-105 L = CL) Carbon Dioxide 29 mmol/L 22-29 N (test code = CO2) Glucose (test code 189 mg/dL 70-115 H = GLU) Blood Urea Nitrogen 26 mg/dL 6-20 H (test code = BUN) Creatinine (test 0.9 mg/dL 0.7-1.2 N code = CREAT) Calcium (test code 9.1 mg/dL 8.3-10.5 N = CA) BUN/Creatinine 28.9 Ratio (test code = BCRATIO) Anion Gap (test 9 mmol/L 7-16 N code = AGAP) Estimated GFR (test >60 eGFR (es timated code = GFR) mL/min/1.73m2 Glomerular Rafiq tration Rate) is an est imated value,calculate d from the patient's s aurelia creatinine usin g the MDRD equation.I t is NOT the patient 's actual GFR. The eGFR provides a more clinicallyusefu l measure of kidn ey disease than se rum creatinine alone.This calculation jeovany es sex and race into account, if the informationis provided. If th e race is not provided , and the patient isAfrican-Ameri can, multiply by 1.2 12. If sex is not prov ided, and thepatient is female, multipl y by 0.742. Results for patients <18 ye ars ofage have not been validated by th e MDRD study and shoul d be interpretedwith caution.eGFR Re sult Interpretation: eGFR > or = 60 is in t he Normal RangeeGF R < 60 may mean kidney diseaseeGFR < 1 5 may mean kidney failureRange s recommended by the National Kidney Foundation,http ://nkd ep.nih.gov POC Glucose, [id number] 20:51:00 Test Item Value Reference Range Interpretation Comments POC Glucose (test 211 mg/dL 70-115 H Notify RN or MDIf you code = POCGLUC) consider you r patient critically ill, the Ruel Accu-Chek InformII metershould not be used for Glucose determinations. Draw a venous Glucose and send to the Main Lab for Analysis. [id number] 19:19:36LOCATION: [id number]: 47-year-old male with acute kidney injury. Clinical concern ishydronephrosis.COMMENT:Sonographic imaging of this patient's retroperitoneum was obtained andlimited fashion. The urinary bladder was not included in theexamination.The right kidney measures 11.8 x 6.2 x 5.4 cm with a 22 mm corticalthickness. The left kidney measures 12.0 x 6.6 x 6.0 cm with a 19 mmcortical thickness.There is no evidence of cyst, masses,calcifications, or evidence of hydronephrosis. Cortical echotexture inthe kidneys is unremarkable.IMPRESSION:Unremarkable sonographic examination of the kidneys.POC Glucose, [id number] 17:15:00 Test Item Value Reference Range Interpretation Comments POC Glucose (test 214 mg/dL 70-115 H Notify RN or MDIf you code = POCGLUC) consider you r patient critically ill, the Ruel Accu-Chek InformII metershould not be used for Glucose determinations. Draw a venous Glucose and send to the Main Lab for Analysis. Basic Metabolic [id number] 15:06:00 Test Item Value Reference Range Interpretation Comments Sodium (test code = 136 mmol/L 135-145 N NA) Potassium (test 3.7 mmol/L 3.5-5.1 N code = K) Chloride (test code 99 mmol/L 98-105 N = CL) Carbon Dioxide 26 mmol/L 22-29 N (test code = CO2) Glucose (test code 153 mg/dL 70-115 H = GLU) Blood Urea Nitrogen 29 mg/dL 6-20 H (test code = BUN) Creatinine (test 1.0 mg/dL 0.7-1.2 N code = CREAT) Calcium (test code 9.2 mg/dL 8.3-10.5 N = CA) BUN/Creatinine 29.0 Ratio (test code = BCRATIO) Anion Gap (test 11 mmol/L 7-16 N code = AGAP) Estimated GFR (test >60 eGFR (es timated code = GFR) mL/min/1.73m2 Glomerular Rafiq tration Rate) is an est imated value,calculate d from the patient's s aurelia creatinine usin g the MDRD equation.I t is NOT the patient 's actual GFR. The eGFR provides a more clinicallyusefu l measure of kidn ey disease than se rum creatinine alone.This calculation jeovany es sex and race into account, if the informationis provided. If th e race is not provided , and the patient isAfrican-Ameri can, multiply by 1.2 12. If sex is not prov ided, and thepatient is female, multipl y by 0.742. Results for patients <18 ye ars ofage have not been validated by th e MDRD study and shoul d be interpretedwith caution.eGFR Re sult Interpretation: eGFR > or = 60 is in t he Normal RangeeGF R < 60 may mean kidney diseaseeGFR < 1 5 may mean kidney failureRange s recommended by the National Kidney Foundation,http ://nkd ep.nih.gov POC Glucose, [id number] 11:25:00 Test Item Value Reference Range Interpretation Comments POC Glucose (test 175 mg/dL 70-115 H Notify RN or MDIf you code = POCGLUC) consider you r patient critically ill, the Ruel Accu-Chek InformII metershould not be used for Glucose determinations. Draw a venous Glucose and send to the Main Lab for Analysis. POC Glucose, [id number] 08:09:00 Test Item Value Reference Range Interpretation Comments POC Glucose (test 139 mg/dL 70-115 H Notify RN or MDIf you code = POCGLUC) consider you r patient critically ill, the Ruel Accu-Chek InformII metershould not be used for Glucose determinations. Draw a venous Glucose and send to the Main Lab for Analysis. Sed Rate ESR ([place])2017-08-27 07:44:00 Test Item Value Reference Range Interpretation Comments ESR (test code = HESR) 20 mm/Hr 0-9 H Thyroid Stimulating Hormone (TSH)2017-08-27 06:59:00 Test Item Value Reference Range Interpretation Comments TSH (test code = TSH) 1.10 mIU/mL 0.270-4.200 N CBC with [id number] 06:57:00 Test Item Value Reference Range Interpretation Comments WBC (test code = WBC) 7.5 K/cumm 4.4-10.5 N RBC (test code = RBC) 4.63 M/cumm 4.10-5.70 N Hemoglobin (test code = HGB) 13.2 gm/dL 13.4-17.4 L Hematocrit (test code = HCT) 39.3 % 38.7-52.0 N MCV (test code = MCV) 84.9 fL 80-100 N MCH (test code = MCH) 28.6 pg 27.0-32.5 N MCHC (test code = MCHC) 33.7 g/dL 32.0-37.5 N RDW (test code = RDW) 13.0 % 11.5-14.5 N Platelet Count (test code = 268 K/cumm 140-440 N PLTCT) MPV (test code = MPV) 7.4 fL Diff Method (test code = DIFFM) Auto Neutrophil (test code = NEUT) 63.0 % 36-70 N Lymphocyte (test code = LYMPH) 25.7 % 12-44 N Monocyte (test code = MONO) 8.4 % 0-11 N Eosinophil (test code = EOS) 2.4 % 0-7 N Basophil (test code = BASO) 0.5 % 0-2 N Neutro Abs (test code = ANEUT) 4.7 K/cumm 1.6-7.4 N Lymph Abs (test code = ALYMPH) 1.9 K/cumm 0.5-4.6 N Terry Abs (test code = AMONO) 0.6 K/cumm 0.0-1.2 N Eos Abs (test code = AEOS) 0.18 K/cumm 0.00-0.74 N Baso Abs (test code = ABASO) 0.0 K/cumm 0.00-0.21 N CK [id number] 06:56:00 Test Item Value Reference Range Interpretation Comments CK (test code = CK) 320 U/L 39-308 H Comprehensive Metabolic [id number] 06:56:00 Test Item Value Reference Range Interpretation Comments Sodium (test code = 137 mmol/L 135-145 N NA) Potassium (test 3.6 mmol/L 3.5-5.1 N code = K) Chloride (test code 102 mmol/L 98-105 N = CL) Carbon Dioxide 22 mmol/L 22-29 N (test code = CO2) Glucose (test code 151 mg/dL 70-115 H = GLU) Blood Urea Nitrogen 40 mg/dL 6-20 H (test code = BUN) Creatinine (test 1.4 mg/dL 0.7-1.2 H code = CREAT) Calcium (test code 9.1 mg/dL 8.3-10.5 N = CA) Prot Total (test 6.3 g/dL 6.4-8.3 L code = TP) Albumin (test code 4.2 g/dL 3.5-5.2 N = ALB) A/G Ratio (test 2.0 Ratio code = AGRATIO) Globulin (test code 2.1 2.9-3.1 L = GLOB) Bili Total (test 0.7 mg/dL 0.1-0.9 N code = TBIL) Alk Phos (test code 60 U/L 40-129 N = APHOS) AST (test code = 15 U/L 1-40 N AST) ALT (test code = 14 U/L 1-41 N ALT) BUN/Creatinine 28.6 Ratio (test code = BCRATIO) Anion Gap (test 13 mmol/L 7-16 N code = AGAP) Estimated GFR (test 57 eGFR (es timated code = GFR) mL/min/1.73m2 Glomerular Rafiq tration Rate) is an est imated value,calculate d from the patient's s aurelia creatinine usin g the MDRD equation.I t is NOT the patient 's actual GFR. The eGFR provides a more clinicallyusefu l measure of kidn ey disease than se rum creatinine alone.This calculation jeovany es sex and race into account, if the informationis provided. If th e race is not provided , and the patient isAfrican-Ameri can, multiply by 1.2 12. If sex is not prov ided, and thepatient is female, multipl y by 0.742. Results for patients <18 ye ars ofage have not been validated by th e MDRD study and shoul d be interpretedwith caution.eGFR Re sult Interpretation: eGFR > or = 60 is in t he Normal RangeeGF R < 60 may mean kidney diseaseeGFR < 1 5 may mean kidney failureRange s recommended by the National Kidney Foundation,http ://nkd ep.nih.gov [id number] 06:56:00 Test Item Value Reference Range Interpretation Comments Phosphorus (test code = PO4) 5.0 mg/dL 2.70-4.50 H Magnesium, [id number] 06:56:00 Test Item Value Reference Range Interpretation Comments Magnesium (test code = MG) 2.1 mg/dL 1.7-2.5 N CK [id number] 06:56:00 Test Item Value Reference Range Interpretation Comments CK (test code = CK) 320 U/L 39-308 H CKMB (test code = CKMB) 5.5 ng/mL 0.0-4.9 H CKMB% (test code = CKMBP) 1.7 % 0.0-3.4 N C-Reactive Protein, [id number] 06:56:00 Test Item Value Reference Range Interpretation Comments CRP (test code = CRP) 5.5 mg/L 0.0-5.0 H Troponin [id number] 06:56:00 Test Item Value Reference Range Interpretation Comments Troponin T (test code = SHAYY) <0.010 ng/mL 0.000-0.090 N Glycosylated [id number] 06:36:00 Test Item Value Reference Range Interpretation Comments HBA1c (test code = HBA1C) 7.1 % 4.8-5.9 H POC Glucose, [id number] 01:20:00 Test Item Value Reference Range Interpretation Comments POC Glucose (test 122 mg/dL 70-115 H Notify RN or MDIf you code = POCGLUC) consider you r patient critically ill, the Ruel Accu-Chek InformII metershould not be used for Glucose determinations. Draw a venous Glucose and send to the Main Lab for Analysis. Urinalysis [id number] 00:01:00 Test Item Value Reference Range Interpretation Comments Color (test code = COLOR) Yellow Yellow,Straw,Pl N yellow Clarity (test code = Clear Clear N CLAR) Specific [place] (test 1.010 1.001-1.035 N code = SPGR) pH (test code = PH) 5.0 5.0-9.0 N Ketone (test code = KET) Negative mg/dL Negative N Glucose (test code = 50 mg/dL Negative A GLUCUR) Protein (test code = Negative mg/dL Negative N PROT) Bilirubin (test code = Negative mg/dL Negative N BILI) Occult Blood (test code = Negative Negative N UDOB) Urobilinogen (test code = 0.2 mg/dL 0.2-1.0 N UROB) Nitrite (test code = NIT) Negative Negative N Leuk Esterase (test code Negative Negative N = LEUK) Micros Exam (test code = Indicated MEXAM) Epithelial Cells (test None /LPF 0-30 A code = EPI) WBC, Urine (test code = 0-1 /HPF 0-5 A UWBC) RBC, Urine (test code = None Seen /HPF 0-5 A URBC) Bacteria (test code = Few /HPF BACT) XR CHEST 1 [id number] 23:33:27LOCATION: [id number]: 47-year-old male who presents with malaise.COMMENT: After-hours service at 11:33 p.m.The examination was obtained at the bedside at 10:15 p.m.The lungs are clear, and well-aerated. The cardiac silhouette, lenore, andmediastinum are unremarkable. The skeleton and soft tissues areunremarkable. licensed vocational nurse leads are present.IMPRESSION:Unremarkable portable examination of the chest.CK Total 2017-08-26 22:20:00 Test Item Value Reference Range Interpretation Comments CK (test code = CK) 424 U/L 39-308 H CBC with [id number] 21:38:00 Test Item Value Reference Range Interpretation Comments WBC (test code = WBC) 12.5 K/cumm 4.4-10.5 H RBC (test code = RBC) 4.67 M/cumm 4.10-5.70 N Hemoglobin (test code = HGB) 13.6 gm/dL 13.4-17.4 N Hematocrit (test code = HCT) 40.0 % 38.7-52.0 N MCV (test code = MCV) 85.5 fL 80-100 N MCH (test code = MCH) 29.0 pg 27.0-32.5 N MCHC (test code = MCHC) 33.9 g/dL 32.0-37.5 N RDW (test code = RDW) 13.0 % 11.5-14.5 N Platelet Count (test code = 281 K/cumm 140-440 N PLTCT) MPV (test code = MPV) 8.2 fL Diff Method (test code = DIFFM) Auto Neutrophil (test code = NEUT) 84.4 % 36-70 H Lymphocyte (test code = LYMPH) 10.3 % 12-44 L Monocyte (test code = MONO) 4.7 % 0-11 N Eosinophil (test code = EOS) 0.3 % 0-7 N Basophil (test code = BASO) 0.3 % 0-2 N Neutro Abs (test code = ANEUT) 10.5 K/cumm 1.6-7.4 H Lymph Abs (test code = ALYMPH) 1.3 K/cumm 0.5-4.6 N Terry Abs (test code = AMONO) 0.6 K/cumm 0.0-1.2 N Eos Abs (test code = AEOS) 0.03 K/cumm 0.00-0.74 N Baso Abs (test code = ABASO) 0.0 K/cumm 0.00-0.21 N Comprehensive Metabolic [id number] 21:04:00 Test Item Value Reference Range Interpretation Comments Sodium (test code = 133 mmol/L 135-145 L NA) Potassium (test 4.4 mmol/L 3.5-5.1 N code = K) Chloride (test code 94 mmol/L 98-105 L = CL) Carbon Dioxide 21 mmol/L 22-29 L (test code = CO2) Glucose (test code 203 mg/dL 70-115 H = GLU) Blood Urea Nitrogen 44 mg/dL 6-20 H (test code = BUN) Creatinine (test 3.0 mg/dL 0.7-1.2 H code = CREAT) Calcium (test code 9.8 mg/dL 8.3-10.5 N = CA) Prot Total (test 6.9 g/dL 6.4-8.3 N code = TP) Albumin (test code 4.6 g/dL 3.5-5.2 N = ALB) A/G Ratio (test 2.0 Ratio code = AGRATIO) Globulin (test code 2.3 2.9-3.1 L = GLOB) Bili Total (test 0.6 mg/dL 0.1-0.9 N code = TBIL) Alk Phos (test code 64 U/L 40-129 N = APHOS) AST (test code = 21 U/L 1-40 N AST) ALT (test code = 17 U/L 1-41 N ALT) BUN/Creatinine 14.7 Ratio (test code = BCRATIO) Anion Gap (test 18 mmol/L 7-16 H code = AGAP) Estimated GFR (test 24 eGFR (es timated code = GFR) mL/min/1.73m2 Glomerular Rafiq tration Rate) is an est imated value,calculate d from the patient's s aurelia creatinine usin g the MDRD equation.I t is NOT the patient 's actual GFR. The eGFR provides a more clinicallyusefu l measure of kidn ey disease than se rum creatinine alone.This calculation jeovany es sex and race into account, if the informationis provided. If th e race is not provided , and the patient isAfrican-Ameri can, multiply by 1.2 12. If sex is not prov ided, and thepatient is female, multipl y by 0.742. Results for patients <18 ye ars ofage have not been validated by th e MDRD study and shoul d be interpretedwith caution.eGFR Re sult Interpretation: eGFR > or = 60 is in t he Normal RangeeGF R < 60 may mean kidney diseaseeGFR < 1 5 may mean kidney failureRange s recommended by the National Kidney Foundation,http ://nkd ep.nih.gov Magnesium, [id number] 21:04:00 Test Item Value Reference Range Interpretation Comments Magnesium (test code = MG) 2.0 mg/dL 1.7-2.5 N Troponin [id number] 21:04:00 Test Item Value Reference Range Interpretation Comments Troponin T (test code = SHAYY) <0.010 ng/mL 0.000-0.090 N POC Glucose, [id number] 20:29:00 Test Item Value Reference Range Interpretation Comments POC Glucose (test 230 mg/dL 70-115 H If you con chrome 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 Draw a venous Glucose and send to the Main Lab for Analysis. Comprehensive metabolic 2000 panel - Serum or [id number] 10:39:00 Test Item Value Reference Range Interpretation Comments ALT (test code = ALT) 17 U/L 0-55 AST (test code = AST) 14 U/L 5-34 BUN (test code = BUN) 17.5 mg/dL 8.9-20.6 alk phos (test code = alk phos) 81 unit/L 40-150 glucose (test code = glucose) 289 mg/dL 70-99 H albumin (test code = albumin) 3.8 g/dL 3.5-5.0 creatinine (test code = 0.98 mg/dL 0.72-1.25 creatinine) eGFR non- (test >60 >60 code = eGFR non-) total bilirubin (test code = 0.8 mg/dL 0.2-1.2 total bilirubin) eGFR - (test >60 >60 code = eGFR - ) sodium (test code = sodium) 139 mEq/L 136-145 potassium (test code = potassium) 4.4 mEq/L 3.5-5.1 chloride (test code = chloride) 104 mmol/L 98-107 total protein (test code = total 6.7 g/dL 6.4-8.3 protein) calcium (test code = calcium) 9.4 mg/dL 8.4-10.2 CO2 (test code = CO2) 24.5 mmol/L 22.0-29.0 anion gap (test code = anion gap) 11 [facility] - Serum or [id number] 10:39:00 Test Item Value Reference Range Interpretation Comments HDL (test code = HDL) 36 mg/dL 40-60 L triglyceride (test code = 256 mg/dL 0-149 H triglyceride) VLDL calc. (test code = VLDL calc.) 51 mg/dL cholesterol/HDL ratio (test code = 5.6 mg/dL cholesterol/HDL ratio) non-HDL cholesterol calc. (test 167 mg/dL 0-160 H code = non-HDL cholesterol calc.) cholesterol (test code = 203 mg/dL 0-199 H cholesterol) LDL calc. (test code = LDL calc.) 116 mg/dL 0-130 [facility]Un[facility]/volume] in Serum or [id number] 10:39:00 Test Item Value Reference Range Interpretation Comments TSH (test code = TSH) 1.107 uIU/mL 0.350-4.940 [facility] HospitalHem[facility] A1c/Hemoglobin.total in [id number] 16:53:00 Test Item Value Reference Range Interpretation Comments A1C w/EAG (test code = A1C w/EAG) 9.2 % 1.0-5.7 H average blood glucose (test code = 217 mg/dL average blood glucose) [facility] 2000 [facility] - Serum or Plasma 2017-05-15 09:38:00 Test Item Value Reference Range Interpretation Comments ALT (test code = ALT) 25 U/L 0-55 AST (test code = AST) 17 U/L 5-34 BUN (test code = BUN) 22.1 mg/dL 8.9-20.6 H alk phos (test code = alk phos) 72 unit/L 40-150 glucose (test code = glucose) 261 mg/dL 70-99 H albumin (test code = albumin) 4.2 g/dL 3.5-5.0 creatinine (test code = 0.97 mg/dL 0.72-1.25 creatinine) eGFR non- (test >60 >60 code = eGFR non-) total bilirubin (test code = 0.8 mg/dL 0.2-1.2 total bilirubin) eGFR - (test >60 >60 code = eGFR - ) sodium (test code = sodium) 137 mEq/L 136-145 potassium (test code = potassium) 4.6 mEq/L 3.5-5.1 chloride (test code = chloride) 103 mmol/L 98-107 total protein (test code = total 7.2 g/dL 6.4-8.3 protein) calcium (test code = calcium) 9.5 mg/dL 8.4-10.2 CO2 (test code = CO2) 21.5 mmol/L 22.0-29.0 L anion gap (test code = anion gap) 13 calc [facility]] in Serum or [id number] 00:46:00 Test Item Value Reference Range Interpretation Comments magnesium (test code = magnesium) 2.1 mg/dL 1.5-2.5 [facility] A[facility]/Hemoglobin.total in [id number] 12:12:00 Test Item Value Reference Range Interpretation Comments A1C w/EAG (test code = A1C w/EAG) 12.5 % 1.0-5.7 H average blood glucose (test code = 312 mg/dL average blood glucose) [facility] metabolic 1999 panel - Serum or Plasma 2017-03-26 10:13:00 Test Item Value Reference Range Interpretation Comments ALT (test code = ALT) 28 U/L 0-55 AST (test code = AST) 18 U/L 5-34 BUN (test code = BUN) 12.0 mg/dL 8.9-20.6 alk phos (test code = alk phos) 99 unit/L 40-150 glucose (test code = glucose) 313 mg/dL 70-99 H albumin (test code = albumin) 4.1 g/dL 3.5-5.0 creatinine (test code = 0.81 mg/dL 0.72-1.25 creatinine) eGFR non- (test >60 >60 code = eGFR non-) total bilirubin (test code = 0.8 mg/dL 0.2-1.2 total bilirubin) eGFR - (test >60 >60 code = eGFR - ) sodium (test code = sodium) 135 mEq/L 136-145 L potassium (test code = potassium) 4.4 mEq/L 3.5-5.1 chloride (test code = chloride) 101 mmol/L 98-107 total protein (test code = total 6.8 g/dL 6.4-8.3 protein) calcium (test code = calcium) 9.4 mg/dL 8.4-10.2 CO2 (test code = CO2) 22.6 mmol/L 22.0-29.0 anion gap (test code = anion gap) 11 calc [facility] metabolic 1999 panel - Serum or Plasma 2017-02-13 09:43:00 Test Item Value Reference Range Interpretation Comments ALT (test code = ALT) 30 U/L 0-55 AST (test code = AST) 17 U/L 5-34 BUN (test code = BUN) 12 mg/dL 9-21 alk phos (test code = alk phos) 110 unit/L 40-150 glucose (test code = glucose) 316 mg/dL 70-99 H albumin (test code = albumin) 3.9 g/dL 3.5-5.0 creatinine (test code = 0.83 mg/dL 0.72-1.25 creatinine) eGFR non- (test >60 >60 code = eGFR non-) total bilirubin (test code = 0.7 mg/dL 0.2-1.2 total bilirubin) eGFR - (test >60 >60 code = eGFR - ) sodium (test code = sodium) 137 mEq/L 136-145 potassium (test code = potassium) 4.5 mEq/L 3.5-5.1 chloride (test code = chloride) 102 mmol/L 98-107 total protein (test code = total 6.7 g/dL 6.4-8.3 protein) calcium (test code = calcium) 9.4 mg/dL 8.4-10.2 CO2 (test code = CO2) 22.1 mmol/L 22.0-29.0 anion gap (test code = anion gap) 13 calc [facility]Lip[facility] 1996 panel - Serum or [id number] 09:43:00 Test Item Value Reference Range Interpretation Comments HDL (test code = HDL) 45 mg/dL 40-60 triglyceride (test code = 125 mg/dL 0-149 triglyceride) VLDL calc. (test code = VLDL calc.) 25 mg/dL cholesterol/HDL ratio (test code = 4 mg/dL cholesterol/HDL ratio) non-HDL cholesterol calc. (test 150 mg/dL 0-160 code = non-HDL cholesterol calc.) cholesterol (test code = 195 mg/dL 0-199 cholesterol) LDL calc. (test code = LDL calc.) 125 mg/dL 0-130 [facility] HospitalThyrotropin [Units/volume] in Serum or [id number] 09:43:00 Test Item Value Reference Range Interpretation Comments TSH (test code = TSH) 2.106 uIU/mL 0.350-4.940 [facility]Prostate specific Ag [Mass/volume] in Serum or Plasma 2017-02-13 09:43:00 Test Item Value Reference Range Interpretation Comments PSA, total (test code = PSA, 0.33 NG/mL <4.00 total) [facility]CBC [facility] Auto Differential panel - [id number] 06:29:00 Test Item Value Reference Range Interpretation Comments white blood cell count (test 7.0 thousand/uL 3.8-10.8 code = white blood cell count) red blood cell count (test 5.84 million/uL 4.20-5.80 H code = red blood cell count) hemoglobin (test code = 15.5 g/dL 13.2-17.1 hemoglobin) hematocrit (test code = 48.3 % 38.5-50.0 hematocrit) MCV (test code = MCV) 82.7 fL 80.0-100.0 MCH (test code = MCH) 26.6 pg 27.0-33.0 L MCHC (test code = MCHC) 32.2 g/dL 32.0-36.0 RDW (test code = RDW) 13.9 % 11.0-15.0 platelet count (test code = 296 thousand/uL 140-400 platelet count) MPV (test code = MPV) 9.8 fL 7.5-12.5 absolute neutrophils (test 4676 cells/uL 0956-4026 code = absolute neutrophils) absolute lymphocytes (test 1547 cells/uL 850-3900 code = absolute lymphocytes) absolute monocytes (test code 539 cells/uL 200-950 = absolute monocytes) absolute eosinophils (test 210 cells/uL 15-500 code = absolute eosinophils) absolute basophils (test code 28 cells/uL 0-200 = absolute basophils) neutrophils (test code = 66.8 % neutrophils) lymphocytes (test code = 22.1 % lymphocytes) monocytes (test code = 7.7 % monocytes) eosinophils (test code = 3.0 % eosinophils) basophils (test code = 0.4 % basophils) [facility] HospitalHemoglobin A1c/Hemoglobin.total in [id number] 16:32:00 Test Item Value Reference Range Interpretation Comments A1C w/EAG (test code = A1C w/EAG) 11.2 % 1.0-5.7 H average blood glucose (test code = 275 mg/dL average blood glucose) [facility]
[2020-06-03] MEDS ORDERED: IBUPROFEN 200 MG TAB PO ONE (09:28)
[2020-06-03] MEDS ORDERED: IBUPROFEN 400 MG TAB ONE (09:29)
--- NOTE | 2020-06-03 10:14 | EDPHYS ---
Physician Documentation [facility] Name: Delfino Benjamin Age: 50 yrs Sex: Male : 1970 Arrival Date: 06/03/2020 Time: 08:58 Bed 20 Private MD: out of town, doctor ED Physician Phillip Freitas HPI: 06/03 09:31 This 50 yrs old Male presents to ER via Ambulatory with complaints of Fall lorraine Injury. 09:31 Details of fall: The patient fell from an upright position, while walking. Onset: The lorraine symptoms/episode began/occurred just prior to arrival, this morning. Associated injuries: The patient sustained medial aspect of right knee, decreased range of motion, painful injury, swelling, medial aspect of left thigh and left quadriceps, contusion, decreased range of motion, swelling. Historical: - Allergies: 09:07 No Known Allergies; ss - PMHx: 09:07 Back pain; Diabetes - NIDDM; High Cholesterol; Hypertension; ss - PSHx: 09:07 None; ss - Immunization history:: Adult Immunizations unknown. - Social history:: Smoking status: Patient denies any tobacco usage or history of. ROS: 10:07 Constitutional: Negative for fever, chills, and weight loss, Eyes: Negative for injury, lorraine pain, redness, and discharge, ENT: Negative for injury, pain, and discharge, Neck: Negative for injury, pain, and swelling, Cardiovascular: Negative for chest pain, palpitations, and edema, Respiratory: Negative for shortness of breath, cough, wheezing, and pleuritic chest pain, Abdomen/GI: Negative for abdominal pain, nausea, vomiting, diarrhea, and constipation, Back: Negative for injury and pain, : Negative for injury, bleeding, discharge, and swelling, Skin: Negative for injury, rash, and discoloration, Neuro: Negative for headache, weakness, numbness, tingling, and seizure, Psych: Negative for depression, anxiety, suicide ideation, homicidal ideation, and hallucinations, Allergy/Immunology: Negative for hives, rash, and allergies, Endocrine: Negative for neck swelling, polydipsia, polyuria, polyphagia, and marked weight changes, Hematologic/Lymphatic: Negative for swollen nodes, abnormal bleeding, and unusual bruising. 10:07 MS/extremity: Positive for decreased range of motion, pain, swelling, tenderness, of the medial aspect of right knee, left distal medial thigh contusion. Exam: 10:08 Constitutional: This is a well developed, well nourished patient who is awake, alert, lorraine and in no acute distress. Head/Face: Normocephalic, atraumatic. Eyes: Pupils equal round and reactive to light, extra-ocular motions intact. Lids and lashes normal. Conjunctiva and sclera are non-icteric and not injected. Cornea within normal limits. Periorbital areas with no swelling, redness, or edema. ENT: Nares patent. No nasal discharge, no septal abnormalities noted. Tympanic membranes are normal and external auditory canals are clear. Oropharynx with no redness, swelling, or masses, exudates, or evidence of obstruction, uvula midline. Mucous membranes moist. Neck: Trachea midline, no thyromegaly or masses palpated, and no cervical lymphadenopathy. Supple, full range of motion without nuchal rigidity, or vertebral point tenderness. No Meningismus. Chest/axilla: Normal chest wall appearance and motion. Nontender with no deformity. No lesions are appreciated. Cardiovascular: Regular rate and rhythm with a normal S1 and S2. No gallops, murmurs, or rubs. Normal PMI, no JVD. No pulse deficits. Respiratory: Lungs have equal breath sounds bilaterally, clear to auscultation and percussion. No rales, rhonchi or wheezes noted. No increased work of breathing, no retractions or nasal flaring. Abdomen/GI: Soft, non-tender, with normal bowel sounds. No distension or tympany. No guarding or rebound. No evidence of tenderness throughout. Back: No spinal tenderness. No costovertebral tenderness. Full range of motion. Male : Normal genitalia with no discharge or lesions. Skin: Warm, dry with normal turgor. Normal color with no rashes, no lesions, and no evidence of cellulitis. Neuro: Awake and alert, GCS 15, oriented to person, place, time, and situation. Cranial nerves II-XII grossly intact. Motor strength 5/5 in all extremities. Sensory grossly intact. Cerebellar exam normal. Normal gait. Psych: Awake, alert, with orientation to person, place and time. Behavior, mood, and affect are within normal limits. 10:08 Musculoskeletal/extremity: ROM: full active range of motion, full passive range of motion, limited active range of motion due to pain, in the medial aspect of right knee, DVT Exam: negative Homans' sign noted on exam, no appreciated bluish discoloration, no erythema, no increased warmth, pain, swelling, tenderness. 10:15 Musculoskeletal/extremity: Extremities: grossly normal except: noted in the medial lorraine aspect of right knee: pain, swelling, tenderness, neg Vita, no lateral instability, nv intact. Vital Signs: 09:06 BP 191 / 112; Pulse 90; Resp 17; Temp 98.0(O); Pulse Ox 100% on R/A; Weight 61.23 kg; ss Height 6 ft. 1 in. (185.42 cm); Pain 8/10; 10:00 BP 161 / 96; Pulse 87; Resp 18; Pulse Ox 99% on R/A; em 09:06 Body Mass Index 17.81 (61.23 kg, 185.42 cm) ss MDM: 08:59 Patient medically screened. lorraine 10:09 Differential diagnosis: abrasion, contusion, fracture, multiple trauma, sprain, strain. lorraine Data reviewed: vital signs, nurses notes, radiologic studies, plain films. Data interpreted: patient monitor: rate is 90 beats/min, rhythm is regular, Pulse oximetry: on room air is 100 %. Test interpretation: by ED physician or midlevel provider: plain radiologic studies. Counseling: I had a detailed discussion with the patient and/or guardian regarding: the historical points, exam findings, and any diagnostic results supporting the discharge/admit diagnosis, the presence of at least one elevated blood pressure reading (>120/80) during this emergency department visit, radiology results, the need for outpatient follow up, for definitive care, a orthopedic surgeon. Medical screen evaluation completed. [facility] emergency medical condition absent. 06/03 09:05 Order name: XRAY Knee RIGHT 3 view 06/03 09:14 Order name: Ice pack; Complete Time: 09:18 06/03 10:07 Order name: Barron wrap-joint; Complete Time: 10:29 lorraine Administered Medications: 09:19 Drug: Motrin 600 mg Route: PO; em 10:29 Follow up: Response: No adverse reaction; Marked relief of symptoms; Pain is decreased em Disposition: 06/03/20 10:13 Discharged to Home. Impression: Essential (primary) hypertension, Type 2 diabetes mellitus, Pain in right knee, Pain in left leg - contusion. - Condition is Stable. - Discharge Instructions: Joint Pain, Type 2 Diabetes Mellitus, Diagnosis, Adult, Hypertension, Musculoskeletal Pain, Knee Pain, Hypertension, [id number], Type 2 Diabetes Mellitus, Diagnosis, Adult, Ekyn-mu-Bway, Knee Pain, Ytiy-fj-Dois, Joint Pain, [id number]. - Prescriptions for Ibuprofen 600 mg Oral Tablet - take 1 tablet by ORAL route every 8 hours As needed take with food; 21 tablet. Tylenol- Codeine #3 300-30 mg Oral Tablet - take 2 tablet by ORAL route every 6 hours As needed; 30 tablet. - Work release form, Medication Reconciliation Form, Thank You Letter, Antibiotic Education, Prescription Opioid Use form. - Follow up: Private Physician; When: 2 - 3 days; Reason: Recheck today's complaints, Continuance of care, Re-evaluation by your physician. Follow up: Jamarcus Herrera MD; When: 2 - 3 days; Reason: Recheck today's complaints, Re-evaluation by your physician. - Problem is new. - Symptoms have improved. Signatures: Dispatcher [employer] Phillip Bean MD MD cha Munoz, Edgar, RN RN em Smirch, Shelby, RN RN ss Corrections: (The following items were deleted from the chart) 10:30 10:13 06/03/2020 10:13 Discharged to Home. Impression: Essential (primary) em hypertension; Type 2 diabetes mellitus; Pain in right knee; Pain in left leg - contusion. Condition is Stable. Forms are Medication Reconciliation Form, Thank You Letter, Antibiotic Education, Prescription Opioid Use. Follow up: Private Physician; When: 2 - 3 days; Reason: Recheck today's complaints, Continuance of care, Re-evaluation by your physician. Follow up: Jamarcus Herrera; When: 2 - 3 days; Reason: Recheck today's complaints, Re-evaluation by your physician. Problem is new. Symptoms have improved. lorraine
--- NOTE | 2020-06-03 10:14 | ER ---
Nurse's Notes [facility] Name: Delfino Benjamin Age: 50 yrs Sex: Male : 1970 Arrival Date: 06/03/2020 Time: 08:58 Bed 20 Private MD: out of town, doctor Diagnosis: Essential (primary) hypertension;Type 2 diabetes mellitus;Pain in right knee;Pain in left leg-contusion Presentation: 06/03 09:06 Chief complaint: Patient states: R knee pain and L thigh pain after missing step on ss ladder 3 hours ago. PT ambulated with steady gait to exam room. Coronavirus screen: Client denies travel out of the [place] in the last 14 days. Ebola Screen: Patient denies exposure to infectious person. Patient denies travel to an Ebola-affected area in the 21 days before illness onset. Initial Sepsis Screen: Does the patient meet any 2 criteria? HR > 90 bpm. No. Patient's initial sepsis screen is negative. Does the patient have a suspected source of infection? No. Patient's initial sepsis screen is negative. Risk Assessment: Do you want to hurt yourself or someone else? Patient reports no desire to harm self or others. Onset of symptoms was June 03, 2020. 09:06 Method Of Arrival: Ambulatory ss 09:06 Acuity: MAKENZIE 4 ss Historical: - Allergies: 09:07 No Known Allergies; ss - PMHx: 09:07 Back pain; Diabetes - NIDDM; High Cholesterol; Hypertension; ss - PSHx: 09:07 None; ss - Immunization history:: Adult Immunizations unknown. - Social history:: Smoking status: Patient denies any tobacco usage or history of. Screenin:04 Abuse screen: Denies threats or abuse. Nutritional screening: No deficits noted. em Tuberculosis screening: No symptoms or risk factors identified. Fall Risk None identified. Assessment: 09:06 General: Appears in no apparent distress. comfortable, Behavior is calm, cooperative, em appropriate for age. Pain: Complains of pain in right knee and left quadriceps Pain currently is 8 out of 10 on a pain scale. Neuro: Level of Consciousness is awake, alert, obeys commands, Oriented to person, place, time, situation, Appropriate for age. Cardiovascular: Capillary refill < 3 seconds Patient's skin is warm and dry. Respiratory: Airway is patent Respiratory effort is even, unlabored, Respiratory pattern is regular, symmetrical. GI: Abdomen is flat. Derm: Skin is intact, is healthy with good turgor, Skin is pink, warm \T\ dry. Musculoskeletal: Capillary refill < 3 seconds, Range of motion: limited in right knee. 10:25 Reassessment: Patient appears in no apparent distress at this time. Patient and/or em family updated on plan of care and expected duration. Pain level reassessed. Patient is alert, oriented x 3, equal unlabored respirations, skin warm/dry/pink. Patient states feeling better. Vital Signs: 09:06 BP 191 / 112; Pulse 90; Resp 17; Temp 98.0(O); Pulse Ox 100% on R/A; Weight 61.23 kg; ss Height 6 ft. 1 in. (185.42 cm); Pain 8/10; 10:00 BP 161 / 96; Pulse 87; Resp 18; Pulse Ox 99% on R/A; em 09:06 Body Mass Index 17.81 (61.23 kg, 185.42 cm) ED Course: 08:58 Patient arrived in ED. ds1 08:58 out of town, doctor is Private Physician. ds1 08:59 Phillip Freitas MD is Attending Physician. [facility] 08:59 Conor Arambula, RN is Primary Nurse. em 09:04 Patient has correct armband on for positive identification. Call light in reach. Pulse em ox on. NIBP on. 09:04 No provider procedures requiring assistance completed. Patient did not have IV access em during this emergency room visit. 09:07 Triage completed. 09:07 Arm band placed on right wrist. 09:26 XRAY Knee RIGHT 3 view In Process Unspecified. EDMS 10:12 Jamarcus Herrera MD is Referral Physician. lorraine Administered Medications: 09:19 Drug: Motrin 600 mg Route: PO; em 10:29 Follow up: Response: No adverse reaction; Marked relief of symptoms; Pain is decreased em Outcome: 10:13 Discharge ordered by . lorraine 10:29 Discharged to home ambulatory. em 10:29 Condition: good 10:29 Discharge instructions given to patient, Instructed on discharge instructions, follow up and referral plans. no drinking with medication, no driving heavy equipment, medication usage, Demonstrated understanding of instructions, follow-up care, medications, Prescriptions given X 2. 10:30 Patient left the ED. em Signatures: Dispatcher [employer] Phillip Bean MD MD cha Munoz, Edgar, RN RN Bettina Hoff dsJamee Power RN RN ss
[2020-06-03 10:35] VITALS: TEMP 98
[2020-06-03 10:36] VITALS: BP 161/96; O2SAT 99
--- NOTE | 2020-06-03 12:18 | RAD REPORT ---
EXAM DESCRIPTION: RAD - Knee Right 3 View - 06/03/2020 9:26 am CLINICAL HISTORY: PAIN COMPARISON: Knee Right 3 View dated 09/16/2018; Knee Right 2 View dated 12/01/2014 FINDINGS: No acute fracture or dislocation seen. No suprapatellar joint effusion seen. Evidence of p revious MCL injury.
== END 2020-06-03 10:30 | disposition home or self-care (01) ==
LOC: ER 08:56
DX: S80.12XA Contusion of left lower leg, initial encounter (principal); I10 Essential (primary) hypertension; E11.9 Type 2 diabetes mellitus without complications; W19.XXXA Unspecified fall, initial encounter; Y93.01 Activity, walking, marching and hiking; Y92.9 Unspecified place or not applicable
CPT/HCPCS: 99284

== ENCOUNTER 2023-07-29 22:39 | Emergency (ER) | payer OTHER ==
--- OUTSIDE RECORDS SUMMARY | 2023-07-29 22:47 | XMS REPORT | Continuity of Care Document ---
:1970 Author Organization [facility] t Address [address] [facility] [address] [place] [address] Care Team Providers Name Role Phone Lacey Justice MD Primary Care Physician [phone] Doctor Unassigned, [place] Attending Clinician Unavailable NORMAN MCWILLIAMS Attending Clinician Unavailable NORMAN MCWILLIAMS Attending Clinician Unavailable Lise Anne Attending Clinician RADIOLOGY Attending Clinician Unavailable Radiology Attending Clinician Unavailable CATRINA POTTER Attending Clinician Unavailable CATRINA POTTER Attending Clinician Unavailable oCdy Corbett PT Attending Clinician Unavailable LEONIDES BUCHANAN Attending Clinician Unavailable ELISA GILBERT Attending Clinician Unavailable HIRAL BOSS Attending Clinician Unavailable LUIS DURHAM Attending Clinician Unavailable Luis Durham MD Attending Clinician Lacey Justice MD Attending Clinician Mirna Attending Clinician Unavailable Evelia Olmos MA Attending Clinician Unavailable Yandel Galindo MD Attending Clinician Joe GUZMAN, Aaron Attending Clinician Malik Ponce MD Attending Clinician MALIK PONCE Attending Clinician Unavailable MIRANDA AMEZCUA D.O. Attending Clinician Unavailable MAHAMED ANDERSON M.D. Attending Clinician Unavailable TJ JAIN M.D., Ney SPENCER RAJESH Koroma M.D. Admitting Clinician Unavailable CATRINA POTTER Admitting Clinician Unavailable HIRAL BOSS Admitting Clinician Unavailable Mirna Admitting Clinician Unavailable MALIK PONCE Admitting Clinician Unavailable TJ JAIN M.D., TJ Admitting Clinician Unavailable Payers Payer Name Policy Type Policy Number Effective Date Expiration Date Kirstin godoy CIGNA II [id number] 2020 00:00:00 CIGNA [facility] [id number] 2010 00:00:00 Problems Condition Condition Condition Status Onset Resolution Last Treating Co mments Source Name Details Category Date Date Treatment Clinician Date Tachycardi Tachycardi Disease Active Last M ethodi a a [address] 00:00: t & Plan: Hospita 00 Formattin l g of this note might be different from the original. Will substitut e lisinopri l with metoprolo l Localized Localized Disease Active Last Met hodi edema edema [address] 00:00: t & Plan: Hospita 00 Formattin l g of this note might be different from the original. He will undergo venous surgery in the near future Preop Preop Disease Active Last Methodi cardiovasc cardiovasc [address] ular exam ular exam 00:00: t & Plan: H ospita 00 Formattin l g of this note might be different from the original. OK to proceed with surgery at low periop CV risk; form completed ; see Media tab for details Tinea Tinea Problem Active [facility] corporis Corporis 4-14 Family 00:00: Practic 00 e Anxiety Anxiety Problem Active [facility] 4-14 Family 00:00: Practic 00 e Intermitte Intermitte Problem Active [facility] nt 4-14 Family dysphagia Dysphagia 00:00: Prac tic 00 e COVID-19 Covid-19 Problem Active [facility] 1-06 Family 00:00: Practic 00 e Obesity Obesity Problem Active 2019-10 [place] 2-16 Family 00:00: Practic 00 e Edema of Edema of Problem Active 2019-10 [place] [facility] lower leg Lower Leg 2-16 Fami ly 00:00: Practic 00 e Shortness Shortness Disease Active Last Met hodi of breath of breath 5-05 Assessmen s t 00:00: t & Plan: Hospita Formattin l g of this note might be different from the original. Noninvasi ve testing is unremarka ble Essential Essential Disease Active Last Met hodi hypertensi hypertensi 5-[address] on, benign on, benign 00:00: t & Plan: Hospita Formattin l g of this note might be different from the original. 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 On statin Anxiety Anxiety Problem Active [place] [...] of Problem Active [facility] cholecyste Cholecyste 1-23 Fa ayana ctomy ctomy 00:00: Practic 00 e Mixed Mixed Problem Active [facility] hyperlipid Hyperlipid 9- Fa ayana emia emia 00:00: Practic 00 e Hypertensi Hypertensi Problem Active [facility] ve ve 06-28 Family disorder Disorder 00:00: Practi c 00 e Diabetic Diabetic Problem Active 2017-10 [facility] peripheral Peripheral 0-12 Fa ayana neuropathy Neuropathy 00:00: Pr actic 00 e Multiple Multiple Problem Active 2017-10 [place] [facility] complicati Complicati 0-12 Fa ayana ons due to ons Due to 00:00: Pr actic type 2 Type 2 00 e diabetes Diabetes mellitus Mellitus Type 2 Type 2 Problem Active 2017-10 [facility] diabetes Diabetes 0-12 Family mellitus Mellitus 00:00: Practi c with with 00 e peripheral Peripheral angiopathy Angiopathy Chronic Chronic Problem Active 2017-10 [facility] kidney Kidney 0-12 Family disease Disease 00:00: Practic due to Due to 00 e type 2 Type 2 diabetes Diabetes mellitus Mellitus 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 of sis of 2-11 Family toenails Toenails 00:00: Practi c 00 e Acne Acne Problem Active 2014-10 [facility] vulgaris Vulgaris 0-28 Family 00:00: Practic 00 e Acute pain Acute pain Problem Active [facility] T of left of left Physici shoulder shoulder ans Periscapul Periscapul Problem Active U T ar pain ar pain Physici ans Cervical Cervical Problem Active [facility] pain pain Physici ans No known No known Disease Unive rs active active ity of problems problems [facility] Chronic Chronic Problem Active [place] back pain Back Pain Fami ly Practic e Allergies, Adverse Reactions, Alerts Allergy Allergy Status Severity Reaction(s) Onset Inactive Treating Comm ents Source Name Type Date Date Clinician NO KNOWN Drug Active Univers ALLERGIE Class ity of [facility] Social History Social Habit Start Date Stop Date Quantity Comments Source History SDOH [facility] Alcohol Std Drinks Hospit al History SDMI [facility]inge [facility] Gender identity [facility] [place] [facility] Sexual orientation [facility] History of tobacco Current smoker [facility] Tobacco use and 2023-05-02 2023-05-02 Smokeless tobacco Un iversity of exposure 00:00:00 00:00:00 non-user [facility] Exposure to 2022-12-09 2022-12-19 Not sure University SARS-CoV-2 (event) 00:00:00 03:17:00 [facility] History SDOH 2020-03-07 2020-03-07 1 [place] Alcohol Frequency 00:00:00 00:00:00 Hospita l Alcohol intake 2020-03-07 2020-03-07 Current drinker [facility] 00:00:00 00:00:00 of alcohol Hospital (finding) History of Social 2020-03-07 2020-03-[address] function 00:00:00 00:00:00 Hospital Alcohol Comment 2020-02-22 2020-02-22 occasional [facility] 00:00:00 00:00:00 Hospital Sex Ass[birth year] At [birth year] [facility] 00:00:00 00:00:00 Hospital Smoking Status Start Date Stop Date Source Tobacco smoking [facility] xa consumption unknown Medical Bran ch Never smoked tobacco [facility] Ex-smoker 2020-02-22 00:00:00 2020-02-[address] [place] 00:00:00 Medications Ordered Filled Start Stop Current Ordering Indication Dosage Frequency Signature Comments Components Source Medication Medication Date Date Medication? Clinician (SIG) Name Name NIFEdipine No 20mg 20 mg, Univ ers (ADALAT) 7 07-14 Oral, ONCE ity of capsule 20 21:00: 20:21 [place], [place] :[place] dose, On Medical Fri Branch 05/02/23 at 1600, Routine tamsulosin Yes Take by Univ ers 0.4 mg 24 7-14 mouth ity of hr capsule 14:06: daily. [address] tamsulosin 0 Yes Take by Univ ers 0.4 mg 24 7-14 mouth ity of hr capsule 14:06: daily. [address] tamsulosin Yes Take by Univ ers 0.4 mg 24 7-14 mouth ity of hr capsule 14:06: daily. [address] tamsulosin Yes Take by Univ ers 0.4 mg 24 7-14 mouth ity of hr capsule 14:06: daily. [address] albuterol Yes INHALE 2 Univ ers 90 7-14 PUFFS BY ity of mcg/actuati 13:53: MOUTH [place] on inhaler 39 EVERY 6 Medica l HOURS Branch NEEDED FOR WHEEZE/SANDRA RTNESS OF BREATH FOR 2 WEEKS HYDROcodone Yes TAKE 1 TO U nivers -acetaminop 7-14 2 TABLETS ity of hen 10-325 13:53: BY MOUTH [place] as mg tablet 39 EVERY 6 Medical HOURS Branch NEEDED FOR PAIN albuterol Yes INHALE 2 Univ ers 90 7-14 PUFFS BY ity of mcg/actuati 13:53: MOUTH [place] on inhaler 39 EVERY 6 Medica l HOURS Branch NEEDED FOR WHEEZE/SANDRA RTNESS OF BREATH FOR 2 WEEKS HYDROcodone Yes TAKE 1 TO U nivers -acetaminop 7-14 2 TABLETS ity of hen 10-325 13:53: BY MOUTH [place] as mg tablet 39 EVERY 6 Medical HOURS Branch NEEDED FOR PAIN albuterol 0 Yes INHALE 2 Univ ers 90 7-14 PUFFS BY ity of mcg/actuati 13:53: MOUTH [place] on inhaler 39 EVERY 6 Medica l HOURS Branch NEEDED FOR WHEEZE/SANDRA RTNESS OF BREATH FOR 2 WEEKS HYDROcodone 0 Yes TAKE 1 TO U nivers -acetaminop 7-14 2 TABLETS ity of hen 10-325 13:53: BY MOUTH [place] as mg tablet 39 EVERY 6 Medical HOURS Branch NEEDED FOR PAIN albuterol 0 Yes INHALE 2 Univ ers 90 7-14 PUFFS BY ity of mcg/actuati 13:53: MOUTH [place] on inhaler 39 EVERY 6 Medica l HOURS Branch NEEDED FOR WHEEZE/SANDRA RTNESS OF BREATH FOR 2 WEEKS HYDROcodone 0 Yes TAKE 1 TO U nivers -acetaminop 7-14 2 TABLETS ity of hen 10-325 13:53: BY MOUTH [place] as mg tablet 39 EVERY 6 Medical HOURS Branch NEEDED FOR PAIN cyclobenzap 0 Yes TAKE ONE Un [place] [facility] 10 mg 6-28 (1) ity of tablet 00:00: TABLET(S) BY MOUTH Medical THREE Branch TIMES A DAY NEEDED FOR SPASM. metoprolol 2022-0 Yes 50mg Take 1 Unive rs succinate 6-28 tablet by ity o f XL 50 mg 24 00:00: mouth [place] hr tablet 00 the Medical morning. Branch cyclobenzap Yes TAKE ONE Un [place] 10 mg 6-28 (1) ity of tablet 00:00: TABLET(S) 00 BY MOUTH Medical THREE Branch TIMES A DAY NEEDED FOR SPASM. metoprolol 2022-0 Yes 50mg Take 1 Unive rs succinate 6-28 tablet by ity o f XL 50 mg 24 00:00: [place] tablet 00 the Medical morning. Branch cyclobenzap 0 Yes TAKE ONE Un [place] [facility] 10 mg 6-28 (1) ity of tablet 00:00: TABLET(S) 00 BY MOUTH Medical THREE Branch TIMES A DAY NEEDED FOR SPASM. metoprolol 2023-0 Yes 50mg Take 1 Unive rs succinate 6-28 tablet by ity o f XL 50 mg 24 00:00: [place] tablet 00 the Medical morning. Branch cyclobenzap 0 Yes TAKE ONE Un [place] [facility] 10 mg 6-28 (1) ity of tablet 00:00: TABLET(S) 00 BY MOUTH Medical THREE Branch TIMES A DAY NEEDED FOR SPASM. metoprolol 0 Yes 50mg Take 1 Unive rs succinate 6-28 tablet by ity o f XL 50 mg 24 00:00: [place] tablet 00 the morning. Branch amitriptyli 0 Yes 10mg Take 1 Univ ers ne 10 mg 6-23 tablet by ity of tablet 00:00: mouth at [place] [address] bedtime. Medical Branch amitriptyli 2022-0 Yes 10mg Take 1 Univ ers ne 10 mg 6-23 tablet by ity of tablet 00:00: mouth at [place] [address] bedtime. Medical Branch amitriptyli 2022-0 Yes 10mg Take 1 Univ ers ne 10 mg 6-23 tablet by ity of tablet 00:00: mouth at [place] [address] bedtime. Medical Branch amitriptyli 0 Yes 10mg Take 1 Univ ers ne 10 mg 6-23 tablet by ity of tablet 00:00: mouth at [place] [address] bedtime. Medical Branch NOVOLOG Yes INJECT 20 Unive rs FLEXPEN 6-22 UNITS ity of U-100 00:00: UNDER THE [place] INSULIN 100 00 SKIN THREE Me dical unit/mL (3 TIMES A Branch mL) DAY BEFORE injection EACH MEAL TRESIBA Yes INJECT 92 Unive rs FLEXTOUCH 6-22 UNITS ity of U-200 200 00:00: UNDER THE [place] as unit/mL (3 00 SKIN EVERY Med ical mL) In DAY FOR 30 Branc h DAYS losartan 50 2022-0 Yes 50mg Take 1 Univ ers mg tablet 6-22 tablet by ity o f 00:00: mouth in [place] 00 the morning. Branch NOVOLOG Yes INJECT 20 Unive rs FLEXPEN 6-22 UNITS ity of U-100 00:00: UNDER THE [place] INSULIN 100 00 SKIN THREE Me dical unit/mL (3 TIMES A Branch mL) DAY BEFORE injection EACH MEAL TRESIBA Yes INJECT 92 Unive rs FLEXTOUCH 6-22 UNITS ity of U-200 200 00:00: UNDER THE [place] as unit/mL (3 00 SKIN EVERY Med ical mL) In DAY FOR 30 Branc h DAYS losartan 50 2022-0 Yes 50mg Take 1 Univ ers mg tablet 6-22 tablet by ity o f 00:00: mouth in [place] the Medical morning. Branch NOVOLOG Yes INJECT 20 Unive rs FLEXPEN 6-22 UNITS ity of U-100 00:00: UNDER THE [place] INSULIN 100 00 SKIN THREE Me dical unit/mL (3 TIMES A Branch mL) DAY BEFORE injection EACH MEAL TRESIBA Yes INJECT 92 Unive rs FLEXTOUCH 6-22 UNITS ity of U-200 200 00:00: UNDER THE [place] as unit/mL (3 00 SKIN EVERY Med ical mL) InPn DAY FOR 30 Branc h DAYS losartan 50 0 Yes 50mg Take 1 Univ ers mg tablet 6-22 tablet by ity o f 00:00: mouth in [place] 00 the Medical morning. Branch NOVOLOG Yes INJECT 20 Unive rs FLEXPEN 6-22 UNITS ity of U-100 00:00: UNDER THE [place] INSULIN 100 00 SKIN THREE Me dical unit/mL (3 TIMES A Branch mL) DAY BEFORE injection EACH MEAL TRESIBA Yes INJECT 92 Unive rs FLEXTOUCH 6-22 UNITS ity of U-200 200 00:00: UNDER THE [place] as unit/mL (3 00 SKIN EVERY Med ical mL) In DAY FOR 30 Branc h DAYS losartan 50 0 Yes 50mg Take 1 Univ ers mg tablet 6-22 tablet by ity o f 00:00: mouth in [place] the Medical morning. Branch gadobenate 2022- No [id number] .2mL/kg 0.2 mL/kg, Univers dimeglumine 02-16-30 Intravenou i ty of (MULTIHANCE 17:00: 17:00 s, ONCE, 1 [place] -20 mL) 00 :00 dose, On Medical injection Sun Branch 0.2 mL/kg 02/16/23 at 1200, Routine NaCl 0.9% 2022- No 1500mL at 999 Uni vers (NS) bolus 3-02 03-02 mL/hr, ity of infusion 11:45: 15:39 1,500 mL, Rich as 1,500 mL 00 :00 IV Medical Piggyback, Branch ONCE, 1 dose, On [place] 12/19/22 at 0545, STAT metoprolol 2022- No 25mg 25 mg, Univ ers tartrate 12-19 Oral, ity of (LOPRESSOR) 11:15: 13:13 ONCE, 1 [place] tablet 25 00 :00 dose, On Medica l mg [facility] 12/19/22 Branch at 0515, Routine labetaloL 2022- No 20mg 20 mg, Unive rs (NORMODYNE) 12-19 Slow IV ity of injection 10:30: 10:24 Push, [place] 20 mg 00 :00 ONCE, 1 Medical dose, On Branch Gwen 12/19/22 at 0430, ESTEBAN ondansetron 2022- No 4mg 4 mg, Slow Univers (ZOFRAN 12-19 IV Push, ity of (PF)) 10:15: 09:40 ONCE, 1 [place] injection 4 00 :00 dose, On Medi alyson mg [facility] 12/19/22 Branch at 0415, ESTEBAN iopamidol 2022- No [id number] 80mL 80 mL, Univers (ISOVUE 12-19 Intravenou ity o f 370-500 mL) 10:08: 10:09 s, ONCE, 1 [place] injection 00 :00 dose, On Medica l 80 mL [facility] 12/19/22 Branch at 0415, Routine morpHINE (4 No 4mg 4 mg, Slow Univers mg/mL) 12-19 IV Push, ity of injection 4 09:30: 09:39 ONCE, 1 [place] mg 00 :00 dose, On Medical [facility] 12/19/22 Branch at 0330, STAT ondansetron 2022- No [id number] 4mg Take 1 Univers 4 mg 12-19 tablet by ity of disintegrat 00:00: 04:59 [place] ing tablet 00 :00 every 8 Medica l (eight) Branch hours as needed for Nausea and Vomiting (N/V) for up to 30 days. metoprolol Yes 50mg QD Take 1 [facility] di succinate 8-26 tablet (50 st XL 13:19: mg total) Hospita (TOPROL-XL) 59 by mouth l 50 mg 24 hr daily. tablet fluticasone Yes Inhale. Met hodi /umeclidin/ - st vil[facility] 13:19: Hospita (TRELEGY 59 l ELLIPTA INHL) insulin Yes Inject Methodi aspart 06-[address] (NOVOLOG 13:19: skin. Hospita FLEXPEN 59 l U-100 INSULIN SUBQ) simvastatin Yes 20mg QD Take 20 mg [facility] (ZOCOR) 20 06-[address] MG tablet 13:12: nightly. Hosp pepe 13 l SITagliptin Yes 1{tbl} Q.5D Take 1 Me thodi -metformin 06-[address] (Janumet 13:12: mouth 2 Hospit a XR) 13 (two) l 50-1,000 mg times a tablet, ER day. multiphase 24 hr cyclobenzap Yes 5mg Take 5 mg M ethodi rine 06-[address] (FLEXERIL) 13:12: as needed Ho spita 5 mg tablet 13 for muscle l spasms. ketorolac 2021- No 30mg 30 mg, Unive rs (TORADOL) 06-01-13 Slow IV ity of injection 16:15: 15:07 Push, [place] 30 mg 00 :00 ONCE, 1 Medical dose, On Branch 06/01/22 at 1115, Routine ibuprofen 2021- No [id number] 800mg Take 1 Univers 800 mg 06-01 08-14 tablet by ity of tablet 00:00: 04:59 mouth [place] 00 :00 now for 1 Medical dose. [place] atorvastati Yes 40mg Take 1 Univ ers n 40 mg 7-26 tablet by ity of tablet 00:00: mouth. [address] atorvastati 0 Yes 40mg Take 1 Univ ers n 40 mg 7-26 tablet by ity of tablet 00:00: mouth. [address] atorvastati 0 Yes 40mg Take 1 Univ ers n 40 mg 7-26 tablet by ity of tablet 00:00: mouth. [address] atorvastati 0 Yes 40mg Take 1 Univ ers n 40 mg 7-26 tablet by ity of tablet 00:00: mouth. [address] atorvastati Yes 40mg QD Take 1 Meth kennedy n (LIPITOR) 7-26 tablet (40 st 40 mg 00:00: mg total) Hospita tablet 00 by mouth l daily. Tresiba Yes INJECT 92 Metho di FlexTouch 7-[address] U-200 200 00:00: UNDER THE Hos glenis unit/mL (3 00 SKIN EVERY l mL) DAY subcutaneou s pen loratadine Yes 10mg QD Take 1 Metho di (CLARITIN) 5-31 tablet (10 st 10 mg 00:00: mg total) Hospita tablet 00 by mouth l daily. losartan Yes 50mg QD Take 1 Methodi (COZAAR) 50 5-31 tablet (50 st MG tablet 00:00: mg total) Hos glenis 00 by mouth l daily. terbinafine Yes TAKE 1 Meth kennedy HCL 5-[address] (LamiSIL) 00:00: (250 MG) Hosp pepe 250 mg 00 BY ORAL l tablet ROUTE ONCE DAILY FOR TOENAILS furosemide Yes 40mg Q.5D Take 1 Metho di (LASIX) 40 5-19 tablet (40 st mg tablet 00:00: mg total) Hos glenis 00 by mouth 2 l (two) times a day. bromphenira Yes [id number] 5mL Take 5 mL Univers mine-pseudo 1-06 by mouth 4 it y of ephedrine-D 00:00: (four[place] M (BROMFED 00 times Medical DM) 2-30-10 daily as Bran ch mg/5 mL needed for syrup Cold symptoms. bromphenira 0 Yes [id number] 5mL Take 5 mL Univers mine-pseudo 1-06 by mouth 4 it y of ephedrine-D 00:00: (four[place] M (BROMFED 00 times Medical DM) 2-30-10 daily as Bran ch mg/5 mL needed for syrup Cold symptoms. bromphenira 0 Yes [id number] 5mL Take 5 mL Univers mine-pseudo 1-06 by mouth 4 it y of ephedrine-D 00:00: (four[place] M (BROMFED 00 times Medical DM) 2-30-10 daily as Bran ch mg/5 mL needed for syrup Cold symptoms. bromphenira 2-0 Yes [id number] 5mL Take 5 mL Univers mine-pseudo 1-06 by mouth 4 it y of ephedrine-D 00:00: (four[place] M (BROMFED 00 times Medical DM) 2-30-10 daily as Bran ch mg/5 mL needed for syrup Cold symptoms. bromphenira 2022-0 Yes [id number] 5mL Take 5 mL Univers mine-pseudo 1-06 by mouth 4 it y of ephedrine-D 00:00: (four) [place] M (BROMFED 00 times Medical DM) 2-30-10 daily as Bran ch mg/5 mL needed for syrup Cold symptoms. bromphenira 2-0 Yes [id number] 5mL Take 5 mL Univers mine-pseudo 1-06 by mouth 4 it y of ephedrine-D 00:00: (four[place] M (BROMFED 00 times Medical DM) 2-30-10 daily as Bran ch mg/5 mL needed for syrup Cold symptoms. bromphenira 2021-0 Yes [id number] 5mL Take 5 mL Univers mine-pseudo 1-06 by mouth 4 it y of ephedrine-D 00:00: (four) [place] M (BROMFED 00 times Medical DM) 2-30-10 daily as Bran ch mg/5 mL needed for syrup Cold symptoms. bromphenira 2021-0 Yes [id number] 5mL Take 5 mL Univers mine-pseudo 1-06 by mouth 4 it y of ephedrine-D 00:00: (four) [place] M (BROMFED 00 times Medical DM) 2-30-10 daily as Bran ch mg/5 mL needed for syrup Cold symptoms. bromphenira 2021-0 Yes 5mL Take 5 mL M ethodi mine-pseudo 1-[address] eph-DM 00:00: Hospita 2-30-10 00 l mg/5 mL syrup NIFEdipine 2020-0 Yes 60mg QD Take 1 [facility] di ER 8-18 tablet (60 st (PROCARDIA- 00:00: mg total) H ospita XL) 60 MG 00 by mouth l 24 hr daily. tablet NIFEdipine 2020-0 Yes 60mg QD Take 1 Meth[facility] di ER 8-18 tablet (60 st (PROCARDIA- 00:00: mg total) H ospita XL) 60 MG 00 by mouth l 24 hr daily. tablet NIFEdipine Yes 60mg QD Take 1 [facility] di ER 8-18 tablet (60 st (PROCARDIA- 00:00: mg total) H ospita XL) 60 MG 00 by mouth l 24 hr daily. tablet metoprolol 2021- No 50mg QD Take 1 Meth kennedy succinate -06 06-19 tablet (50 st XL 00:00: 04:59 mg total) Hospita (TOPROL-XL) 00 :00 by mouth l 50 mg 24 hr daily. tablet metoprolol 0 2021- No 50mg QD Take 1 Meth kennedy succinate 06-06-19 tablet (50 st XL 00:00: 04:59 mg total) Hospita (TOPROL-XL) 00 :00 by mouth l 50 mg 24 hr daily. tablet NIFEdipine 2020-2020- No TAKE 1 Meth kennedy XL 7-16 08-[address] (PROCARDIA 00:00: 00:00 MOUTH Hospi ta XL) 60 MG 00 :00 EVERY DAY l 24 hr tablet NIFEdipine 2020- No TAKE 1 Meth kennedy XL 7-16 08-[address] (PROCARDIA 00:00: 00:00 MOUTH Hospi ta XL) 60 MG 00 :00 EVERY DAY l 24 hr tablet lisinopriL 0 2020- No 10mg QD Take 10 mg Methodi (PRINIVIL) 5-18 05-[address] 10 mg 15:37: 00:00 daily. Hospita tablet 46 :00 l lisinopriL 2020-0 2020- No 10mg QD Take 10 mg [facility]i (PRINIVIL) 5-18 05-[address] 10 mg 15:37: 00:00 daily. Hospita tablet 46 :00 l cyclobenzap 2020-0 Yes 5mg Take 5 mg M ethodi rine 5-[address] (FLEXERIL) 15:17: as needed Ho spita 5 mg tablet 05 for muscle l spasms. cyclobenzap 2020-0 Yes 5mg Take 5 mg M ethodi rine 5-[address] (FLEXERIL) 15:17: as needed Ho spita 5 mg tablet 05 for muscle l spasms. simvastatin 2021-0 Yes 20mg QD Take 20 mg [facility] (ZOCOR) 20 5-[address] MG tablet 15:15: nightly. Hosp pepe 50 l SITagliptin Yes 1{tbl} Q.5D Take 1 Me thodi -metformin 5-[address] ( 15:15: mouth 2 Hospit a XR) 50 (two) l 50-1,000 mg times a tablet, ER day. multiphase 24 hr simvastatin Yes 20mg QD Take 20 mg [facility] (ZOCOR) 20 5-[address] MG tablet 15:15: nightly. Hosp pepe 50 l SITagliptin Yes 1{tbl} Q.5D Take 1 Me thodi -metformin 5-[address] ( 15:15: mouth 2 Hospit a XR) 50 (two) l 50-1,000 mg times a tablet, ER day. multiphase 24 hr metoprolol 2020- No 50mg QD Take 1 Meth kennedy succinate -06 06-18 tablet (50 st XL 00:00: 00:00 mg total) Hospita (TOPROL-XL) 00 :00 by mouth l 50 mg 24 hr daily. tablet metoprolol 2020- No 50mg QD Take 1 Meth kennedy succinate -18 -18 tablet (50 st XL 00:00: 00:00 mg total) Hospita (TOPROL-XL) 00 :00 by mouth l 50 mg 24 hr daily. tablet NIFEdipine No 60mg QD Take 1 Meth kennedy XL 03-09-16 tablet (60 st (PROCARDIA 00:00: 00:00 mg total) H ospita XL) 60 MG 00 :00 by mouth l 24 hr daily. tablet NIFEdipine 2020- No 60mg QD Take 1 Meth kennedy XL - 07-16 tablet (60 st (PROCARDIA 00:00: 00:00 mg total) H ospita XL) 60 MG 00 :00 by mouth l 24 hr daily. tablet HYDROcodone Yes 1{tbl} Q8H Take 1 Me thodi -acetaminop 4-[address] hen (NORCO) 00:00: mouth Hospi ta 10-325 mg 00 every 8 l per tablet (eight) hours as needed. HYDROcodone 2020-0 Yes 1{tbl} Q8H Take 1 Me thodi -acetaminop 4-[address] hen (NORCO) 00:00: mouth Hospi ta 10-325 mg 00 every 8 l per tablet (eight) hours as needed. HYDROcodone 2020-0 Yes 1{tbl} Q8H Take 1 Me thodi -acetaminop 4-[address] hen (NORCO) 00:00: mouth Hospi ta 10-325 mg 00 every 8 l per tablet (eight) hours as needed. Trulicity 2020-0 Yes INJECT 0.5 Me thodi 0.75 mg/0.5 2-[address] mL pen 00:00: WEEK BY Hospita injector 00 SUBCUTANEO l US ROUTE. Trulicity 2020-0 Yes INJECT 0.5 Me thodi 0.75 mg/0.5 2-[address] mL pen 00:00: WEEK BY Hospita injector 00 SUBCUTANEO l US ROUTE. Trulicity 2020-0 Yes INJECT 0.5 Me thodi 0.75 mg/0.5 2-[address] mL pen 00:00: WEEK BY Hospita injector 00 SUBCUTANEO l US ROUTE. albuterol albuterol No albuterol [place] sulfate HFA sulfate HFA sulfate Family 90 90 HFA 90 Practic mcg/actuati mcg/actuati mcg/actuat e on aerosol on aerosol ion inhaler inhaler aerosol INHALE 2 INHALE 2 inhaler PUFFS BY PUFFS BY INHALE 2 MOUTH EVERY MOUTH EVERY PUFFS BY 6 HOURS 6 HOURS MOUTH NEEDED FOR NEEDED FOR EVERY 6 WHEEZE/SHOR WHEEZE/SHOR HOURS TNESS OF TNESS OF NEEDED FOR BREATH FOR BREATH FOR WHEEZE/SANDRA 2 WEEKS 2 WEEKS RTNESS OF BREATH FOR 2 WEEKS aspirin 81 aspirin 81 No aspirin 81 [place] mg chewable mg chewable mg F amily tablet TAKE tablet TAKE chewable Practic 1 TABLET BY 1 TABLET BY tablet e MOUTH EVERY MOUTH EVERY TAKE 1 DAY DAY TABLET BY MOUTH EVERY DAY dexamethaso dexamethaso No dexamethas [place] ne 2 mg ne 2 mg one 2 mg Famil y tablet TAKE tablet TAKE tablet Practic 1 TABLET BY 1 TABLET BY TAKE 1 e MOUTH EVERY MOUTH EVERY TABLET BY 8 HOURS 8 HOURS MOUTH WITH FOOD WITH FOOD EVERY 8 HOURS WITH FOOD famotidine famotidine No famotidine [facility] 20 mg 20 mg 20 mg Family tablet TAKE tablet TAKE tablet Practic 1 TABLET BY 1 TABLET BY TAKE 1 e MOUTH EVERY MOUTH EVERY TABLET BY 12 HOURS 12 HOURS MOUTH FOR 10 DAYS FOR 10 DAYS EVERY 12 HOURS FOR 10 DAYS [facility] 10 [facility] 10 No [facility] 10 [place] [facility] mg tablet mg tablet mg tablet Family TAKE 1 TAKE 1 TAKE 1 Practic TABLET BY TABLET BY TABLET BY e MOUTH EVERY MOUTH EVERY MOUTH DAY DAY EVERY DAY fluticasone fluticasone No fluticason [facility] propionate propionate e Fam erik 50 50 propionate Practic mcg/actuati mcg/actuati 50 e on nasal on nasal mcg/actuat spray,suspe spray,suspe ion nasal nsion SPRAY nsion SPRAY spray,susp 2 SPRAYS 2 SPRAYS ension INTO EACH INTO EACH SPRAY 2 NOSTRIL NOSTRIL SPRAYS EVERY DAY EVERY DAY INTO EACH NOSTRIL EVERY DAY Guaiatussin Guaiatussin No Guaiatussi [facility] AC 10 AC 10 n AC 10 Family mg-100 mg/5 mg-100 mg/5 mg-100 Practic mL oral mL oral mg/5 mL e liquid TAKE liquid TAKE oral BY MOUTH 2 BY MOUTH 2 liquid TEASPOONFUL TEASPOONFUL TAKE BY S EVERY 4 S EVERY 4 MOUTH 2 HOURS HOURS TEASPOONFU LS EVERY 4 HOURS hydrocodone hydrocodone No hydrocodon [facility] 10 10 e 10 Family mg-acetamin mg-acetamin mg-acetami Practic ophen 325 ophen 325 nophen 325 e mg tablet mg tablet mg tablet TAKE 1 TO 3 TAKE 1 TO 3 TAKE 1 TO TABLETS BY TABLETS BY 3 TABLETS MOUTH EVERY MOUTH EVERY BY MOUTH 6 HOURS 6 HOURS EVERY 6 NEEDED FOR NEEDED FOR HOURS PAIN PAIN NEEDED FOR PAIN Janumet XR Janumet XR No Janumet XR [facility] 50 mg-1,000 50 mg-1,000 50 F amily mg mg mg-1,000 Practic tablet,exte tablet,exte mg e nded nded tablet,ext release release ended TAKE 1 TAKE 1 release TABLET BY TABLET BY TAKE 1 MOUTH TWICE MOUTH TWICE TABLET BY A DAY A DAY MOUTH TWICE A DAY lisinopril lisinopril No 1 Q1D lisinopril [facility] 10 mg 10 mg 10 mg Family tablet Take tablet Take tablet Practic 1 tablet 1 tablet Take 1 e every day every day tablet by oral by oral every day route. route. by oral route. nifedipine nifedipine No nifedipine [facility] ER 60 mg ER 60 mg ER 60 mg Fam erik tablet,exte tablet,exte tablet,ext Practic nded nded ended e release 24 release 24 release 24 hr TAKE 1 hr TAKE 1 hr TAKE 1 TABLET BY TABLET BY TABLET BY MOUTH EVERY MOUTH EVERY MOUTH DAY DAY EVERY DAY nystatin-tr nystatin-tr No nystatin-t [facility] iainolone iainolone riamcinolo Family 100,000 100,000 ne 100,000 Pra ctic unit/g-0.1 unit/g-0.1 unit/g-0.1 e % topical % topical % topical cream APPLY cream APPLY cream TO THE TO THE APPLY TO AFFECTED AFFECTED THE AREAS 2 AREAS 2 AFFECTED TIMES A DAY TIMES A DAY AREAS 2 IN THE IN THE TIMES A MORNING AND MORNING AND DAY IN THE EVENING EVENING MORNING NEEDED FOR NEEDED FOR AND RASH RASH EVENING NEEDED FOR RASH OneTouch OneTouch No OneTouch Jono emil Delica Delica [facility] Family Lancets 30 Lancets 30 Lancets 30 Practic gauge USE gauge USE gauge USE e ONCE DAILY ONCE DAILY ONCE DAILY OneTouch OneTouch No OneTouch Jono emil Ultra Blue Ultra Blue Ultra Blue Family Test Strip Test Strip Test Strip Practic USE ONCE A USE ONCE A USE ONCE A e DAY DAY DAY simvastatin [facility]atin [facility] mg 20 mg n 20 mg Family tablet TAKE tablet TAKE tablet Practic 1 TABLET BY 1 TABLET BY TAKE 1 e MOUTH ONCE MOUTH ONCE TABLET BY A DAY A DAY MOUTH ONCE A DAY Trulicity Trulicity No [facility] 0.75 mg/0.5 0.75 mg/0.5 0.75 F amily mL mL mg/0.5 mL Practic subcutaneou subcutaneou subcutaneo e s pen s pen us pen injector injector injector INJECT 0.5 INJECT 0.5 INJECT 0.5 ML EVERY ML EVERY ML EVERY WEEK BY WEEK BY WEEK BY SUBCUTANEOU SUBCUTANEOU SUBCUTANEO S ROUTE. S ROUTE. US ROUTE. No known No Univers medications ity of [facility] Immunizations Ordered Immunization Filled Immunization Date Status Commen ts Source Name Name HIB 4 Dose Schedule 2022-08-23 Completed Unive rsity of 00:00:00 [facility] HIB 4 Dose Schedule 2022-08-23 Completed Unive rsity of 00:00:00 [facility] HIB 4 Dose Schedule 2022-08-23 Completed Unive rsity of 00:00:00 [facility] Pneumococcal 20 2022-08-19 Completed Universit y of Conjugate, PCV20 00:00:00 [facility] dical (Prevnar 20) Branch Pneumococcal 20 2022-08-19 Completed Universit y of Conjugate, PCV20 00:00:00 [facility] dical (Prevnar 20) Branch Pneumococcal 20 2022-08-19 Completed Universit y of Conjugate, PCV20 00:00:00 [facility] dical (Prevnar 20) Branch zoster recombinant zoster recombinant 2021-02-28 Completed [facility] 11:07:47 [facility] Zoster Vaccine 2021-02-28 Completed University of Recombinant 00:00:00 [facility] Zoster Vaccine 2021-02-28 Completed University of Recombinant 00:00:00 [facility] Zoster Vaccine 2021-02-28 Completed University of Recombinant 00:00:00 [facility] influenza, influenza, 2020-10-04 Completed [facility] Family recombinant, recombinant, 10:16:00 Practice quadrIvalent,injecta quadrIvalent,inject ble, preservative able, preservative free free Influenza Virus 2020-10-04 Completed Universit y of Vaccine Recomb Quad 00:00:00 [facility], Preserv and ABX Branc h Free 18-64 YRS Influenza Virus 2020-10-04 Completed Universit y of Vaccine Recomb Quad 00:00:00 [facility] IM, Preserv and ABX Branc h Free 18-64 YRS Influenza Virus 2020-10-04 Completed Universit y of Vaccine Recomb Quad 00:00:00 [facility] IM, Preserv and ABX Branc h Free 18-64 YRS Tdap Tdap 2019-09-29 Completed [facility] Family 10:43:16 Practice TDAP 2019-09-29 Completed University of 00:00:00 [facility] TDAP 2019-09-29 Completed University of 00:00:00 [facility] TDAP 2019-09-29 Completed University of 00:00:00 [facility] pneumococcal pneumococcal 2019-06-28 Completed [facility] Fa ayana polysaccharide PPV23 polysaccharide 10:36:33 Practice PPV23 influenza, influenza, 2019-06-28 Completed [facility] Family recombinant, recombinant, 10:35:56 Practice quadrIvalent,injecta quadrIvalent,inject ble, preservative able, preservative free free Influenza Virus 2019-06-28 Completed Universit y of Vaccine Recomb Quad 00:00:00 [facility] IM, Preserv and ABX Branc h Free 18-64 YRS Pneumococcal 2019-06-28 Completed University o f Polysaccharide, 00:00:00 [facility] PPSV23 (PNEUMOVAX) Branch Influenza Virus 2019-06-28 Completed Universit y of Vaccine Recomb Quad 00:00:00 [facility] IM, Preserv and ABX Branc h Free [age] YRS Pneumococcal 2019-06-28 Completed University o f Polysaccharide, 00:00:00 [place] [facility] PPSV23 (PNEUMOVAX) Branch Influenza Virus 2019-06-28 Completed Universit y of Vaccine Recomb Quad 00:00:00 [facility] IM, Preserv and ABX Branc h Free 1865 YRS Pneumococcal 2019-06-28 Completed University o f Polysaccharide, 00:00:00 [place] [facility] PPSV23 (PNEUMOVAX) Branch influenza, influenza, 2018-07-31 Completed [facility] injectable, injectable, 17:15:59 Practice quadrivalent, quadrivalent, preservative free preservative free Influenza Virus 2018-07-31 Completed Universit y of Vaccine Quad IM 3+ 00:00:00 [facility] Influenza Virus 2018-07-31 Completed Universit y of Vaccine Quad IM 3+ 00:00:00 [facility] Influenza Virus 2018-07-31 Completed Universit y of Vaccine Quad IM 3+ 00:00:00 [facility] Influenza, Influenza, 2017-07-15 Completed [facility] injectable, MDCK, injectable, MDCK, 16:38:00 Practice quadrivalent quadrivalent Flu Injectable MDCK 2017-07-15 Completed Unive rsity of Quadrivalent 00:00:00 [facility] Flu Injectable MDCK 2017-07-15 Completed Unive rsity of Quadrivalent 00:00:00 [facility] Flu Injectable MDCK 2017-07-15 Completed Unive rsity of Quadrivalent 00:00:00 [facility] Influenza Virus Unknown Completed Universit y of Vaccine Recomb Quad [facility] IM, Preserv and ABX Branc h Free Influenza Virus Unknown Completed Universit y of Vaccine Recomb Quad [facility] IM, Preserv and ABX Branc h Free 1865 HIB 4 Dose Schedule Unknown Completed Unive rsity of [facility] Flu Injectable MDCK Unknown Completed [facility]ive rsity of Quadrivalent [facility] Influenza Virus Unknown Completed Universit y of Vaccine Quad IM 3+ [facility] YRS Branch Pneumococcal 20 Unknown Completed Universit y of Conjugate, PCV20 [facility] dical (Prevnar 20) Branch Pneumococcal Unknown Completed [place] [facility] Polysaccharide, [facility] ical PPSV23 (PNEUMOVAX) Branch TDAP Unknown Completed [facility] Zoster Vaccine Unknown Completed [facility] Vital Signs Vital Name Observation Time Observation Value Comments Source Systolic blood 2023-05-02 20:50:00 103 mm[Hg] Univer sity of [facility] Diastolic blood 2023-05-02 20:50:00 58 mm[Hg] Unive rsity of [facility] Heart rate 2023-05-02 20:50:00 88 /min Universi ty [facility] Body temperature 2023-05-02 20:50:00 36.67 Daphney [facility] Respiratory rate 2023-05-02 20:50:00 18 /min [facility] Oxygen saturation in 2023-05-02 20:50:00 95 /min [facility] Arterial blood by [facility] Pulse oximetry Branch Body height 2023-05-02 20:02:00 185.4 cm Universi ty [facility] Body weight 2023-05-02 20:02:00 122.471 kg General acute hospital BMI 2023-05-02 20:02:00 35.62 kg/m2 Universi [facility] Systolic blood 2023-05-02 18:53:00 208 mm[Hg] Univer sity of [facility] Diastolic blood 2023-05-02 18:53:00 106 mm[Hg] Unive rsity of [facility] Heart rate 2023-05-02 18:47:00 96 /min Universi ty [facility] Body temperature 2023-05-02 18:47:00 36.44 Daphney [facility] 2023-05-02 18:47:00 22 /min [facility] Body height 2023-05-02 18:47:00 185.4 cm Universi ty [facility] Body weight 2023-05-02 18:47:00 123.197 kg Universi ty [facility] BMI 2023-05-02 18:47:00 35.83 kg/m2 Universi ty [facility] Oxygen saturation in 2023-05-02 18:47:00 99 /min University of Arterial blood by [facility] Pulse oximetry Branch Systolic blood 2022-12-19 15:00:00 167 mm[Hg] Univer sity of pressure [facility] Diastolic blood 2022-12-19 15:00:00 99 mm[Hg] Unive rsity of pressure [facility] Heart rate 2022-12-19 15:00:00 80 /min Universi ty [facility] Body temperature 2022-12-19 15:00:00 36.67 Daphney Univ ersity of [facility] Respiratory rate 2022-12-19 15:00:00 18 /min Univ ersity of [facility] Oxygen saturation in 2022-12-19 15:00:00 98 /min University of Arterial blood by [facility] Pulse oximetry Branch Body height 2022-12-19 09:19:00 185.4 cm [facility]i ty [facility] Body weight 2022-12-19 09:19:00 113.399 kg [facility] BMI 2022-12-19 09:19:00 32.98 kg/m2 [facility] Systolic blood 2022-06-01 19:32:00 164 mm[Hg] Univer sity of pressure [facility] Diastolic blood 2022-06-01 19:32:00 79 mm[Hg] Unive rsity of pressure [facility] Heart rate 2022-06-01 19:32:00 67 /min [facility]i ty [facility] Body temperature 2022-06-01 19:32:00 36.72 Daphney Univ ersity of [facility] Respiratory rate 2022-06-01 19:32:00 17 /min Univ ersity of [facility] Oxygen saturation in 2022-06-01 19:32:00 97 /min University of Arterial blood by [facility] Pulse oximetry Branch Body height 2022-06-01 14:55:00 185.4 cm [facility]i ty [facility] Body weight 2022-06-01 14:55:00 113.399 kg [facility] BMI 2022-06-01 14:55:00 32.98 kg/m2 [facility] Oxygen saturation in 2021-10-26 00:13:00 96 /min University of Arterial blood by [facility] Pulse oximetry Branch Systolic blood 2021-10-26 00:12:00 184 mm[Hg] Univer sity of pressure [facility] Diastolic blood 2021-10-26 00:12:00 106 mm[Hg] Unive rsity of pressure [facility] Heart rate 2021-10-26 00:12:00 98 /min Universi ty [facility] Body temperature 2021-10-26 00:12:00 36.89 Daphney Univ ersity of [facility] Respiratory rate 2021-10-26 00:12:00 17 /min Univ ersity of [facility] Body height 2021-10-26 00:12:00 185.4 cm [facility] Body weight 2021-10-26 00:12:00 108.863 kg [facility] BMI 2021-10-26 00:12:00 31.66 kg/m2 [facility] Height 2021-02-28 00:00:00 73 [in_i] [facility] Practice Systolic blood 2021-02-20 08:09:00 131 mm[Hg] Univer sity of pressure [facility] Diastolic blood 2021-02-20 08:09:00 77 mm[Hg] Unive rsity of pressure [facility] Heart rate 2021-02-20 08:09:00 92 /min [facility]i ty [facility] Body temperature 2021-02-20 08:09:00 36.56 Daphney Univ ersity [facility] Respiratory rate 2021-02-20 08:09:00 18 /min Univ ersity of [facility] Body height 2021-02-20 08:09:00 180.3 cm [facility] Body weight 2021-02-20 08:09:00 88.451 kg [facility] BMI 2021-02-20 08:09:00 27.20 kg/m2 [facility] Oxygen saturation in 2021-02-20 08:09:00 98 /min University of Arterial blood by [facility] Pulse oximetry Branch BP Diastolic 2021-01-31 00:00:00 84 mm[Hg] [facility] Height 2021-01-31 00:00:00 73 [in_i] [facility] BMI (Body Mass 2021-01-31 00:00:00 31.9 kg/m2 [facility] BP Systolic 2021-01-31 00:00:00 160 mm[Hg] [facility] Body Weight 2021-01-31 00:00:00 242 [lb_av] [facility] Height 2020-10-25 00:00:00 73 [in_i] [facility] BMI (Body Mass 2020-10-25 00:00:00 31.9 kg/m2 [facility] Body Weight 2020-10-25 00:00:00 242 [lb_av] [facility] BP Diastolic 2020-10-04 00:00:00 92 mm[Hg] [facility] Height 2020-10-04 00:00:00 73 [in_i] [facility] BMI (Body Mass 2020-10-04 00:00:00 31.9 kg/m2 [facility] BP Systolic 2020-10-04 00:00:00 142 mm[Hg] [facility] Body Weight 2020-10-04 00:00:00 242 [lb_av] [facility] BP Diastolic 2020-01-05 00:00:00 82 mm[Hg] [facility] Height 2020-01-05 00:00:00 73 [in_i] [facility] BMI (Body Mass 2020-01-05 00:00:00 31.3 kg/m2 [facility] BP Systolic 2020-01-05 00:00:00 130 mm[Hg] [facility] Body Weight 2020-01-05 00:00:00 237 [lb_av] [facility] BP Diastolic 2019-11-11 00:00:00 96 mm[Hg] [facility] Height 2019-11-11 00:00:00 73 [in_i] [facility] BMI (Body Mass 2019-11-11 00:00:00 31.5 kg/m2 [facility] BP Systolic 2019-11-11 00:00:00 158 mm[Hg] [facility] Body Weight 2019-11-11 00:00:00 239 [lb_av] [facility] BP Diastolic 2019-09-29 00:00:00 86 mm[Hg] [facility] Height 2019-09-29 00:00:00 73 [in_i] [facility] BMI (Body Mass 2019-09-29 00:00:00 31.3 kg/m2 [facility] BP Systolic 2019-09-29 00:00:00 132 mm[Hg] [facility] Body Weight 2019-09-29 00:00:00 237.2 [lb_av] [facility] BP Diastolic 2019-07-02 00:00:00 80 mm[Hg] [facility] Height 2019-07-02 00:00:00 73 [in_i] [facility] BMI (Body Mass 2019-07-02 00:00:00 31 kg/m2 [facility] BP Systolic 2019-07-02 00:00:00 126 mm[Hg] [facility] Body Weight 2019-07-02 00:00:00 234.8 [lb_av] [facility] BP Diastolic 2019-06-28 00:00:00 80 mm[Hg] [facility] Height 2019-06-28 00:00:00 73 [in_i] [facility] BMI (Body Mass 2019-06-28 00:00:00 30.7 kg/m2 [facility] BP Systolic 2019-06-28 00:00:00 128 mm[Hg] [facility] Body Weight 2019-06-28 00:00:00 233 [lb_av] [facility] Systolic blood 2021-03-06 20:13:00 167 mm[facility]Hg[facility] Diastolic blood 2021-03-06 20:13:00 97 mm[Hg] [facility] pressure Heart rate 2021-03-06 20:13:00 112 /min [facility] Body height 2021-03-06 20:13:00 185.4 cm [facility] Body weight 2021-03-06 20:13:00 107.502 kg [facility] BMI 2021-03-06 20:13:00 31.27 kg/m2 [facility] Heart Rate 2021-02-15 09:58:00 82 /min [facility] Systolic blood 2021-02-15 09:58:00 196 mm[Hg] [facility] pressure Diastolic blood 2021-02-15 09:58:00 108 mm[Hg] [facility] Weight 2021-02-15 09:58:00 241 [lb_av] [facility] BP Diastolic 2017-09-24 00:00:00 86 mm[Hg] [facility] BP Diastolic 2015-09-11 00:00:00 80 mm[Hg] [facility] Practice Height 2015-09-11 00:00:00 73 [in_i] [facility] Practice BMI (Body Mass 2015-09-11 00:00:00 29.55 kg/m2 [facility] Family Index) Practice BP Systolic 2015-09-11 00:00:00 128 mm[Hg] [facility] Body Weight 2015-09-11 00:00:00 224 [lb_av] [facility] Practice BP Diastolic 2015-08-16 00:00:00 88 mm[Hg] [facility] Practice Height 2015-08-16 00:00:00 73 [in_i] [facility] Practice BMI (Body Mass 2015-08-16 00:00:00 29.68 kg/m2 [facility] Family Index) Practice BP Systolic 2015-08-16 00:00:00 140 mm[Hg] [facility] Practice Body Weight 2015-08-16 00:00:00 225 [lb_av] [facility] Procedures Procedure Date / Time Performing Clinician Source Performed EKG-12 LEAD 2023-05-02 21:09:43 Norman Mcwilliams [facility] TROPONIN I 2023-05-02 20:17:00 Norman Mcwilliams [facility] BASIC METABOLIC PANEL (NA, 2023-05-02 20:17:00 Norman Mcwilliams [facility] K, CL, CO2, GLUCOSE, BUN, Medica l Branch CREATININE, CA) CBC WITH DIFF 2023-05-02 20:17:00 Norman Mcwilliams [facility] CONSENT/REFUSAL FOR 2023-05-02 19:56:06 Doctor Unassigned, [facility] DIAGNOSIS AND TREATMENT [facility] Branch POCT GLUCOSE(AGE >30DAYS) 2023-05-02 19:13:00 Lise Osborn [facility] POCT GLUCOSE (AUTOMATED) 2023-05-02 19:02:00 Lise Osborn [facility] URINALYSIS 2022-12-19 12:33:00 Catrina Potter [facility] EKG-12 LEAD 2022-12-19 11:04:09 [facility] ABDOMEN PELVIS W 2022-12-19 10:13:20 Catrina Potter [facility] LACTIC ACID WHOLE BLOOD 2022-12-19 09:39:00 Catrina Potter [facility] AMYLASE 2022-12-19 09:38:00 [facility] LIPASE 2022-12-19 09:38:00 [facility] TROPONIN I 2022-12-19 09:38:00 [facility] HEPATIC FUNCTION PANEL 2022-12-19 09:38:00 aCtrina Potter [facility] ([id number]) (ALB,T.PRO,BILI [facility] T,BU/BC,ALT,AST,ALK PHOS) BASIC METABOLIC PANEL (NA, 2022-12-19 09:38:00 Catrina Potter [facility] K, CL, CO2, GLUCOSE, BUN, Medica l Branch CREATININE, CA) CBC WITH DIFF 2022-12-19 09:38:00 Catrina Potter [facility] EXTRA TUBE LT. BLUE 2022-12-19 09:38:00 Catrina Potter [facility] CONSENT/REFUSAL FOR 2022-12-19 09:26:53 Doctor Unassigned, [facility] DIAGNOSIS AND TREATMENT [facility] POCT GLUCOSE (AUTOMATED) 2022-12-19 09:21:00 Catrina Potter [facility] CT ABDOMEN PELVIS WO 2022-06-01 17:51:10 Hiral Boss [facility] CONTRAST [facility] AMYLASE 2022-06-01 15:29:00 Hiral Boss [facility] LIPASE 2022-06-01 15:29:00 Hiral Boss [facility] TROPONIN I 2022-06-01 15:29:00 Hiral Boss [facility] COMP. METABOLIC PANEL 2022-06-01 15:29:00 Hiral Boss [facility] ([id number]) Medical [place] CBC WITH DIFF 2022-06-01 15:29:00 Hiral Boss [facility] URINALYSIS 2022-06-01 15:29:00 Hiral Boss [facility] CONSENT/REFUSAL FOR 2022-06-01 14:24:15 Doctor Noemi [facility] DIAGNOSIS AND TREATMENT [facility] [place] RAPID INFLUENZA A/B 2021-10-26 00:25:00 Luis Durham [facility] Medical Branch COVID-19 (ID NOW RAPID 2021-10-26 00:25:00 Marva [facility] TESTING) Medical Branch CONSENT/REFUSAL FOR 2021-10-25 23:21:23 Doctor Franklin [facility] DIAGNOSIS AND TREATMENT [facility] [place] ECG 12-LEAD 2021-03-06 19:21:56 Aaron [address] [facility] ABDOMEN PELVIS WO 2021-02-20 08:57:00 Malik Ponce [facility] CONTRAST Medical Branch LIPASE 2021-02-20 08:27:00 Rosario [facility] HEPATIC FUNCTION PANEL 2021-02-20 08:27:00 [id number] (ALB,T.PRO,BILI Medical Branch T,BU/BC,ALT,AST,ALK PHOS) BASIC METABOLIC PANEL (NA, 2021-02-20 08:27:00 Malik Ponce [facility] K, CL, CO2, GLUCOSE, BUN, Medica l Branch CREATININE, CA) CBC WITH DIFF 2021-02-20 08:27[facility]US[facility] FOR 2021-02-20 08:03:29 Doctor Noemi [facility] DIAGNOSIS AND TREATMENT [facility] [place] AUTHORIZATION FOR RELEASE 2020-06-16 05:01:00 Doctor Franklin [facility] Medical [place] MR KNEE RIGHT WO CONTRAST 2020-06-12 17:02:[address] [facility] MR FEMUR LEFT WO CONTRAST 2020-06-12 17:01:[address] [facility] Laparoscopic 2019-11-07 00:00:00 [facility] Chole[facility] Practice Gastrointestinal Surgery 2019-10-20 00:00:00 Jono stein [facility] Knee Surgery [facility] Plan of Care Planned Activity Planned Date Details Comments Source Future Scheduled 2023-06-25 Screening for [facility] Test 18:58:44 malignant neoplasm of colon (procedure) [code = 453209650] Future Scheduled 2023-06-25 Screening for [facility] Test 18:58:44 malignant neoplasm of colon (procedure) [code = 668918033] Future Scheduled 2023-06-25 Screening for [facility] Test 18:58:44 malignant neoplasm of colon (procedure) [code = [id number]] Future Scheduled 2023-06-25 COVID-19 VACCINE (#1) [facility] 18:58:44 [code = COVID-19 VACCINE (#1)] Future Scheduled 2023-06-25 Pneumococcal Vaccine: [facility] Test 18:58:44 Pediatrics (0 to 5 Years) and At-Risk Patients (6 to 64 Years) (1 - PCV) [code = Pneumococcal Vaccine: Pediatrics (0 to 5 Years) and At-Risk Patients (6 to 64 Years) (1 - PCV)] Future Scheduled 2023-06-25 [facility] Test 18:58:44 (procedure) [code = [id number]] Future Scheduled 2023-06-25 Screening for [facility] [facility] Test 18:58:44 malignant neoplasm of colon (procedure) [code = 131136989] Future Scheduled 2023-06-25 Screening for [facility] Test 18:58:44 malignant neoplasm of colon (procedure) [code = 180274092] Future Scheduled 2023-06-25 SHINGLES VACCINES (1 [facility] 18:58:44 of 2) [code = SHINGLES VACCINES (1 of 2)] Future Scheduled 2023-06-25 INFLUENZA VACCINE (#1) [facility] 18:58:44 [code = INFLUENZA VACCINE (#1)] Future Scheduled 2021-11-20 COVID-19 VACCINE (1) [facility] 15:21:39 [code = COVID-19 VACCINE (1)] Future Scheduled 2021-11-20 Hepatitis C screening [facility] Test 15:21:39 (procedure) [code = 463737972] Future Scheduled 2021-11-20 [facility]COPY SCREENING [facility] 15:21:39 [code = COLONOSCOPY SCREENING] Future Scheduled 2021-11-20 SHINGLES VACCINES (#1) [facility] Test 15:21:39 [code = SHINGLES VACCINES (#1)] Future Scheduled 2021-11-20 INFLUENZA VACCINE [facility] Test 15:21:39 [code = INFLUENZA VACCINE] Future Scheduled 2021-11-20 COVID-19 VACCINE (1) Met [facility] Test 15:21:39 [code = COVID-19 VACCINE (1)] Future Scheduled 2021-11-20 Hepatitis C screening [facility] Test 15:21:39 (procedure) [code = 789880828] Future Scheduled 2021-11-20 COLONOSCOPY SCREENING [facility] Test 15:21:39 [code = COLONOSCOPY SCREENING] Future Scheduled 2021-11-20 SHINGLES VACCINES (#1) [facility] Test 15:21:39 [code = SHINGLES VACCINES (#1)] Future Scheduled 2021-11-20 INFLUENZA VACCINE [facility] Test 15:21:39 [code = INFLUENZA VACCINE] Encounters Start End Encounter Admission Attending Care Care Encounter Source Date/Time Date/Time Type Type Clinicians Facility Department ID 2023-08-19 2023-08-19 Outpatient R [facility] [id number] Univers 09:00:00 09:00:00 ity of [facility] 2023-05-05 2023-05-05 Patient Doctor ROMIE 1.2.840.114 [id number] Univers 00:00:00 00:00:00 Secure Msg Unassigned, HADLEY 350.1.13.10 ity of [facility] 4.2.7.2.686 Rich as [id number] [address] 2023-05-02 2023-05-02 Emergency X NORMAN MCWILLIAMS [facility] ERT [id number] Univers 15:06:00 16:49:00 NORMAN MCWILLIAMS i ty of [facility] 2023-05-02 2023-05-02 Emergency OMI Mcwilliams 1.2.651.603 [id number] Univers 15:06:00 16:49:00 Norman [facility] 350.1.13.10 it [place] of [place] [id number] [facility] [address] ([facility]) 2023-05-02 2023-05-02 Office Irena [facility] 1.2.840.114 [id number] Univers 13:30:00 14:00:00 Visit Lise [facility] 350.1.13.10 i ty of [place] - [id number] [facility] [address] 2023-05-02 2023-05-02 Outpatient R IRENA [facility] [id number] Univers 13:30:00 13:30:00 LISE ity o f [facility] 2023-02-16 2023-02-16 Outpatient R RADIOLOGY [facility] [id number] Univers 10:00:01 23:59:00 ity of [facility] 2023-02-16 2023-02-16 Hospital Radiology [facility] 1.2.840.114 [id number] Univers 10:00:01 23:59:00 Encounter HEALTH 350.1.13.10 [place] [id number] [facility] [address] ([facility]) 2023-02-04 2023-02-04 Outpatient R RADIOLOGY [facility] [id number] Univers 11:15:00 11:15:00 ity of [facility] 2022-12-19 2022-12-19 Emergency X ALI, AMIR [facility] ERT [id number] Univers 03:23:00 09:40:00 ALI, AMIR ity [facility] 2022-12-19 2022-12-19 Emergency Ali, Amir [facility] 1.2.840.114 [id number] Univers 03:23:00 09:40:00 HEALTH 350.1.13.10 it [place] [id number] [facility] [address] ([facility]) 2022-10-17 2022-10-17 Documentat Cody Corbett 1.2.840.1 [id number] Methodi 00:00:00 00:00:00 ion M 41617.1.[address] 3.430.2.7 Hospit a .3.910047 l .8 2022-07-12 2022-07-12 Outpatient BUCHANAN, [facility] [id number] [place] 00:00:00 00:00:00 LEONIDES 904 Method i 2022-07-08 2022-07-08 Outpatient BUCHANAN, [facility] [id number] [place] 00:00:00 00:00:00 LEONIDES 901 Method i 2022-07-05 2022-07-05 Outpatient BUCHANAN, [facility] [id number] [place] 00:00:00 00:00:00 LEONIDES 900 Method i 2022-07-01 2022-07-01 Outpatient BUCHANAN, [facility] [id number] [place] 00:00:00 00:00:00 LEONIDES 897 Method i 2022-06-26 2022-06-26 Outpatient BUCHANAN, [facility] [id number] [place] 00:00:00 00:00:00 LEONIDES 918 Method i 2022-06-14 2022-06-14 Outpatient GILBERT, [facility] [id number] [place] 00:00:00 00:00:00 ELISA 548 Method i 2022-06-14 2022-06-14 Outpatient GILBERT, [facility] [id number] [place] 00:00:00 00:00:00 ELISA 682 Method i 2022-06-01 2022-06-01 Emergency [facility] [id number] Univers 09:47:00 14:35:00 HIRAL mtz o f [facility] 2022-06-01 2022-06-01 [facility] 1.2.957.942 [id number] [facility] 09:47:00 14:35:00 [facility] 350.1.13.10 ity of [place] 4.2.7.2.686 [facility] [id number] [address] ([facility]) 2021-10-25 2021-10-25 Emergency [facility] [id number] Univers 18:12:00 21:12:00 LUIS mtz [facility] 2021-10-25 2021-10-25 Emergency [facility] 1.2.805.062 [id number] Univers 18:12:00 21:12:00 [facility] 350.1.13.10 it y of [place] 4.2.7.2.686 [place] [id number] [place] [address] [address] ([facility]) 2021-06-26 2021-06-26 Orders Vinh, 1.2.840.1 [id number] Methodi 00:00:00 00:00:00 Only Lacey Freitas 68289.1.1 437 s t 3.430.2.7 Hospit a .3.848799 l .8 2021-06-06 2021-06-06 Outpatient Retiera_A VFP VFP 1736 43-202 Village 03:51:00 03:51:00 22060 Family Practic e 2021-06-06 2021-06-06 Refill Evelia Olmos 1.2.840.1 [id number] Methodi 00:00:00 00:00:[address] 3.430.2.7 Hospit a .3.491004 l .8 2021-05-04 2021-05-04 Refill Galindo, 1.2.840.1 [id number] Methodi 00:00:00 00:00:00 Yandel Estevez 71836.1.1 629 s t 3.430.2.7 Hospit a .3.218323 l .8 2021-03-06 2021-03-06 Office Diaz, 1.2.840.1 [id number] Methodi 14:56:31 15:47:50 Visit Aaron [address]276.1.[address] 3.430.2.7 Hospit a .3.199006 l .8 2021-03-06 2021-03-06 Travel 1.2.840.1 1.2.833.996 [id number] Methodi 00:00:00 00:00:[address] 3.430.2.7 0.2.7.3.698 Ho spita .3.317590 084.8 l .8 2021-03-01 2021-03-01 Outpatient Reichman_A VFP VFP 1735 [facility] 07:44:00 07:44:00 48207 Family Practic e 2021-02-28 2021-02-28 Lacey Reichman_A VFP [place] - 246818 [facility] 00:00:00 00:00:00 [facility] 73371 Family Vinh, Medical - Pract amarilis MD: [id number] VM_HOU_Suga e r [facility], [address], [place] [address] , Ph. 2021-02-26 2021-02-26 Outpatient Reichman_A VFP VFP 1735 [facility] 06:06:00 06:06:00 13709 Family Practic e 2021-02-20 2021-02-20 [facility] 1.2.840.114 [id number] Univers 03:08:00 04:53:00 [facility] 350.1.13.10 it y of [place] 4.2.7.2.686 [facility] [id number] [address] ([facility]) 2021-02-20 2021-02-20 Emergency X [facility] ERT [id number] Univers 03:08:00 04:53:00 MALIK ity [facility] 2021-02-15 2021-02-15 AppointADRIANO [facility] [id number] [place] 08:00:00 08:00:00 t; MIRANDA AMEZCUA D.O. at [facility] Emery Mota ans D.ONegrito [facility] 2021-02-06 2021-02-06 Outpatient Reichman_A VFP VFP 1735 [facility] 08:09:00 08:09:00 08782 Family Practic e 2021-01-31 2021-01-31 ADRIANO Sung UTP [id number] 60 [place] 14:45:00 14:45:00 t; Troy IRBY i, M.D. ans ROBERT, M.D. 2021-01-31 2021-01-31 Lacey Reichman_A VFP [place] - 992219 -[address] [place] [address] 00:00:00 00:00:00 [facility] 48222 Family Vinh, Medical - Pract amarilis GUZMAN: [id number] [facility], [address], [place] [address] , Ph. 2021-01-29 2021-01-29 Outpatient Reichman_A VFP VFP 1736 43-202 [place] 01:02:00 01:02:00 97184 Family Practic e 2021-01-28 2021-01-28 Outpatient VFP VFP [id number] 202 [facility] 07:03:00 07:03:00 44148 Family Practic e 2020-12-25 2020-12-25 Outpatient Reichman_A VFP VFP 1736 43-202 [place] 01:01:00 01:01:00 48391 Family Practic e 2020-11-20 2020-11-20 Outpatient Reichman_A VFP VFP 1736 43-202 [place] 01:02:00 01:02:00 18546 Family Practic e 2020-10-29 2020-10-29 Outpatient Reichman_A VFP VFP 1736 43-202 [place] 10:47:00 10:47:00 09535 Family Practic e 2020-10-25 2020-10-25 Lacey Reichman_A VFP [place] 739649 -202 [facility] 00:00:00 00:00:00 [facility] 05681 Family Vinh, Medical - Pract amarilis GUZMAN: [id number] [facility], [address], [place] [address] , Ph. 2020-10-16 2020-10-16 Outpatient Reichman_A VFP VFP 1736 43-202 [place] 01:03:00 01:03:00 20262 Family Practic e 2020-10-10 2020-10-10 Outpatient Reichman_A VFP VFP 1736 43-202 [place] 02:10:00 02:10:00 00040 Family Practic e 2020-10-04 2020-10-04 Lacey Reichman_A VFP [place] - 037034 [facility] 00:00:00 00:00:00 [facility] 39356 Family Adejunj, Medical - Pract amarilis GUZMAN: [id number] VM_HOU_Suga e SW r [facility], [address], [place] [address] , Ph. 2020-08-30 2020-08-30 ADRIANO Sung UTP [id number] [place] 13:45:00 13:45:00 t; Troy IRBY i, M.D. ans ROBERT, M.D. 2020-08-29 2020-08-29 Outpatient Reichman_A VFP VFP 1735 [facility] 05:12:00 05:12:00 68852 Family [facility] e 2020-06-16 2020-06-16 Orders Doctor ROMIE 1.2.840.114 [id number] Univers 00:00:00 00:00:00 Only Unassigned, HADLEY 350.1.13.10 ity of [facility] 4.2.7.2.686 Rich as [id number] [address] 2020-06-12 2020-06-12 [facility] Radiology [facility] 1.2.840.114 [id number] Univers 08:40:09 23:59:00 Encounter SPECIALTY 350.1.13.10 it[place] of [place] AT [id number] Ca dic[address] 2020-06-12 2020-06-12 [facility] Radiology [place] 1.2.840.114 [id number] Univers 08:39:30 08:39:30 Encounter SPECIALTY 350.1.13.10 it[place] of [place] AT [id number] Ca dic[address] 2020-06-12 2020-06-12 Outpatient R RADIOLOGY [facility] [id number] Univers 00:00:00 00:00:00 ity of [facility] 2020-04-26 2020-04-26 ADRIANO Sung UTP [id number] 50 [place] 14:45:00 14:45:00 t; Troy IRBY i, M.D. ans ROBERT, M.D. 2020-04-19 2020-04-19 Outpatient Reichman_A VFP VFP 173 [facility] 10:17:00 10:17:00 21282 Family Practic e 2020-04-10 2020-04-10 Outpatient Reichman_A VFP VFP 1736 43-202 [facility] 01:14:00 01:14:00 02736 Family Practic e 2020-03-29 2020-03-29 Appointonofre ANDERSONADRIANO UTP [id number] 93 [place] 14:00:00 14:00:00 t; Troy IRBY i, M.D. ans ROBERT, M.D. 2020-03-07 2020-03-07 Outpatient DIAZ, [facility] [id number] [place] 00:00:00 00:00:00 AARON [address] 2020-03-07 2020-03-07 Outpatient JOE, [facility] [id number] [place] [address] 00:00:00 00:00:00 AARON [address] 2020-03-07 2020-03-07 Outpatient JOE, [facility] [id number] [address] [place] [address] 00:00:00 00:00:00 AARON [address] 2020-02-22 2020-02-22 Outpatient Reichman_A VFP VFP 1736 43 [facility] 06:38:00 06:38:00 61485 Family Practic e 2020-02-22 2020-02-22 Outpatient JOE, [facility] [id number] [address] [place] [address] 00:00:00 00:00:00 AARON [address] 2020-01-18 2020-01-18 Outpatient Reichman_A VFP VFP 1736 [id number] [facility] 09:04:00 09:04:00 43843 Family Practic e 2020-01-05 2020-01-05 Lacey Reichman_A VFP [place] - [id number] [address] 00:00:00 00:00:00 [place] [address] Family Adejumo, Medical - Pract amarilis GUZMAN: [id number] [facility], [address], [place] [address] , Ph. 2019-12-23 2019-12-23 Outpatient Reichman_A VFP VFP 1736 [id number] [facility] 02:38:00 02:38:00 26479 Family Practic e 2019-12-13 2019-12-13 Outpatient Reichman_A VFP VFP 6 43-202 [facility] 04:38:00 04:38:00 97295 Family Practic e 2019-11-11 2019-11-11 Lacey Reichman_A P [place] - 391780 -202 [facility] 00:00:00 00:00:00 [facility] 32878 Family Adejumo, Medical - Pract ic MD: [id number] VM_HOU_Suga e r [facility], [address], [place] [address] , Ph. 2019-10-25 2019-10-25 Outpatient Reichman_A VFP VFP 6 [id number] [facility] 02:38:00 02:38:00 71872 Family Practic e 2019-09-29 2019-09-29 Lacey VFP [place] - 569620-[address] [place] [address] 00:00:00 00:00:00 [facility] 39750 Family Adejumo, Medical - Pract amarilis MD: [id number] [facility], [address], [place] [address] , Ph. 2019-07-02 2019-07-02 Lacey VFP [place] - 134278-[address] [place] [address] 00:00:00 00:00:00 [facility] 82028 Family Adejumo, Family Practic MD: [id number] Practice - e [facility] 175, [place] [address] , Ph. 2019-06-28 2019-06-28 Lacey VFP [place] - 082902-[address] [place] [address] 00:00:00 00:00:00 [facility] 74156 Family Adejumo, Family Practic MD: [id number] Practice - e [facility] [address], [place] [address] , Ph. 2018-01-14 2018-01-14 [facility] [place] - 122058-283 [facility] 00:00:00 00:00:00 Benedict: [facility] 50578 Famil y [address], Practice - e [address], [facility] [address] , Ph. 2017-12-17 2017-12-17 [facility] [place] - 406235-348 [facility] 00:00:00 00:00:00 Sol: [place] [address] Famil y [address], Practice - e [address], [facility] [address] , Ph. 2017-11-12 2017-11-12 [facility] [place] - 960744-833 [facility] 00:00:00 00:00:00 Sol: [place] [address] Famil y [address], Practice - e [address], [facility] [address] , Ph. 2017-10-15 2017-10-15 [facility] [place] - 112767-458 [facility] 00:00:00 00:00:00 Sol: [facility] 29216 Famil y [address], Practice - e [address], [facility] [address] , Ph. 2017-09-24 2017-09-24 [facility] [place] - 949764-570 [facility] 00:00:00 00:00:00 Kosta, [facility] 27127 Tavon landers MD: [id number] Family Practi c SW [address] - [address], [place] [address], [place] [address] , Ph. 2017-09-10 2017-09-10 [facility] [place] - 118848-424 [facility] 00:00:00 00:00:00 Sol: [facility] 95826 Famil y [address], Practice - e [address], [facility] [address] , Ph. 2017-09-09 2017-09-09 [facility] [place] - 336524-155 [facility] 00:00:00 00:00:00 Kosta [facility] 96839 Tavon landers MD: [id number] Family Practi c SW Practice - [address], [place] [address], [place] [address] , Ph. 2017-09-03 2017-09-03 [facility] [place] - 743965-639 [facility] 00:00:00 00:00:00 [facility] [address] Tavon landers MD: [id number] Family Practi c SW Practice - [address], [facility] 175, [place] [address] , Ph. 2017-08-27 2017-08-[address] [facility] [id number] [address] 00:40:00 12:00:00 TJ rai M.D. [facility] 2017-08-13 2017-08-13 [facility] [place] - 291682-410 [facility] 00:00:00 00:00:00 Benedict: [facility] 33023 Famil y [address], Practice - e [address], [facility] [address] , Ph. 2017-07-23 2017-07-23 [facility] [place] - 634179-860 [facility] 00:00:00 00:00:00 [facility] 07603 Tavon landers MD: [id number] Family Practi c SW Practice - [address], [place] [address], [place] [address] , Ph. 2017-07-16 2017-07-16 [facility] [place] - 494570-294 [facility] 00:00:00 00:00:00 Benedict: [facility] 85974 Famil y [address], Practice - e [address], [place] [address] , Ph. 2017-07-15 2017-07-15 [facility] [place] - 752685-638 [facility] 00:00:00 00:00:00 [facility] 96445 Tavon landers MD: [id number] Family Practi c SW Practice - e Free[address], [facility] [address], [place] [address] , Ph. 2017-06-25 2017-06-25 [facility] [place] - 247899-052 [facility] 00:00:00 00:00:00 Sol: [facility] 75516 Famil y [address], Practice - e [address], [facility] [place] [address] , Ph. 2017-05-13 2017-05-13 [facility] [place] - 742624-309 [facility] 00:00:00 00:00:00 [facility] [address] Tavon landers MD: [id number] Family Practi c SW Practice - e Freeway, [facility] [address], [place] [address] , Ph. 2017-04-24 2017-04-24 [facility] [place] - 823553-[address] [place] [address] 00:00:00 00:00:00 Oscar: [facility] 69264 Famil y [address], Practice - e [address], [place] [address] , Ph. 2017-03-25 2017-03-25 [facility] [place] - 536823-224 [facility] 00:00:00 00:00:00 [facility] 46619 Tavon landers MD: [id number] Family Practi c Practice - e Freeway, [place] [address], [place] [address] , Ph. 2017-02-12 2017-02-12 [facility] [place] - 145367-707 [facility] 00:00:00 00:00:00 [facility] 888[address] Tavon landers MD: [id number] Family Practi c SW Practice - e Freeway, [place] [address], [place] [address] , Ph. Results Test Description Test Time Test Comments Results Result Comments Source TROPONIN I 2023-05-02 20:54:50 Test Item Value Reference Range Interpretation Comme nts TROPONIN I (test code = 0158344863) 0.017 ng/mL <=0.034 ALLEY (test code = ALLEY) Reference (Normal) Range (defined by the 99th percentile reference limit): <= 0.034 ng/mL Note: Cardiac troponin begins to rise 3-4 hours after the onset of ischemia. Repeat in 4-6 hours if the sample was drawn within 3-4 hours of the onset of the symptom and found normal. Diagnosis of myocardial injury is made with acute changes in cTn concentrations with at least one serial sample above the 99th percentile upper reference limit (URL), taken together with the patient's clinical presentation. Biotin has been reported to cause a negative bias, interpret results relative to patient's use of biotin. Lab Interpretation (test code = Normal 38771-0) [facility] (NA, K, CL, CO2, GLUCOSE, BUN, CREATININE, CA)2023-05-02 20:46:06 Test Item Value Reference Range Interpretation Comments NA (test code = 133 mmol/L 135-145 L 7053718133) K (test code = 4.8 mmol/L 3.5-5.0 3681894287) CL (test code = 100 mmol/L 98-108 9114175609) CO2 TOTAL (test code = 23 mmol/L 23-31 1099929108) AGAP (test code = 10 2-16 3576836756) BUN (test code = 26 mg/dL 7-23 H 7248929896) GLUCOSE (test code = 280 mg/dL 70-110 H 3435332466) CREATININE (test code = 0.95 mg/dL 0.60-1.25 6864640896) CALCIUM (test code = 8.5 mg/dL 8.6-10.6 L 6488778165) eGFR (test code = 82.9 mL/min/1.73m2 2607085644) ALLEY (test code = ALLEY) Association of Glomerular Filtration Rate (GFR) and Staging of Kidney Disease* + --+ --+ ------+| GFR (mL/min/1.73 m2) ?| With Kidney Damage ?| ?Without Kidney Damage+ --------+ --------+ +| ?>90 ?| ?Stage one ?| ? Normal ?+ ---+ ---+ -------+| ?60-89 ?| ?Stage two ?| ? Decreased GFR ? + --+ --+ ------+| ?30-59 ?| ?Stage three ?| ? Stage three ? + --+ --+ ------+| ?15-29 ?| ?Stage four ? | ? Stage four ?+ ---+ ---+ -------+| ?<15 (or dialysis) ? ?| ?Stage five ? | ? Stage five ?+ ---+ ---+ -------+ *Each stage assumes the associated GFR level has been in effect for at least three months. ?Stages 1 to 5, with or without kidney disease, indicate chronic kidney disease. Notes: Determination of stages one and two (with eGFR >59mL/min/1.73 m2) requires estimation of kidney damage for at least three months as defined by structural or functional abnormalities of the kidney, manifested by either:Pathological abnormalities or Markers of kidney damage (including abnormalities in the composition of the blood or urine or abnormalities in imaging tests). Lab Interpretation Abnormal (test code = 52802-7) [facility] WITH [id number] 20:31:20 Test Item Value Reference Range Interpretation Comments WBC (test code = 9.51 See_Comment [Automated 3103-2) message] The sy stem which generated this result transmitted reference range : 4.20 - 10.70 10*3/?L. The reference range was not used to interpret this result as normal/abnormal . RBC (test code = 5.42 See_Comment [Automated 559-8) message] The sy stem which generated this result transmitted reference range : 4.26 - 5.52 10*6/?L. The reference range was not used to interpret this result as normal/abnormal . HGB (test code = 14.6 g/dL 12.2-16.4 718-7) HCT (test code = 44.0 % 38.4-49.3 4544-3) MCV (test code = 81.2 fL 81.7-95.6 L 787-2) MCH (test code = 26.9 pg 26.1-32.7 785-6) MCHC (test code = 33.2 g/dL 31.2-35.0 786-4) RDW-SD (test code = 38.5 fL 38.5-51.6 77034-3) RDW-CV (test code = 13.2 % 12.1-15.4 788-0) PLT (test code = 327 See_Comment [Automated 777-3) message] The sy stem which generated this result transmitted reference range : 150 - 328 10*3/ ?L. The reference r mitchell was not used to interpret this result as normal/abnormal . MPV (test code = 10.7 fL 9.8-13.0 90668-0) NRBC/100 WBC (test 0.0 See_Comment [Automat ed code = 6420394150) message] The system which generated this result transmitted reference range : 0.0 - 10.0 /100 WBCs. The refer ence range was not u sed to interpret th is result as normal/abnormal . NRBC x10^3 (test code See_Comment [Auto mated = [id number]) message] The s ystem which generated this result transmitted reference range : 10*3/?L. The reference range was not used to interpret this result as normal/abnormal . GRAN MAT (NEUT) % 61.4 % (test code = 770-8) IMM GRAN % (test code 0.40 % = [id number]) LYMPH % (test code = 21.6 % 736-9) MONO % (test code = 10.0 % 5905-5) EOS % (test code = 5.9 % 713-8) BASO % (test code = 0.7 % 706-2) GRAN MAT x10^3(ANC) 5.84 10*3/uL 1.99-6.95 (test code = [id number]) IMM GRAN x10^3 (test 0.04 10*3/uL 0.00-0.06 code = [id number]) LYMPH x10^3 (test code 2.05 10*3/uL 1.09-3.23 = 731-0) MONO x10^3 (test code 0.95 10*3/uL 0.36-1.02 = 742-7) EOS x10^3 (test code = 0.56 10*3/uL 0.06-0.53 H 711-2) BASO x10^3 (test code 0.07 10*3/uL 0.01-0.09 = 704-7) Lab Interpretation Abnormal (test code = 80063-5) [facility] GLUCOSE (AUTOMATED)2023-05-02 19:14:50 Test Item Value Reference Range Interpretation Comments POCT GLU (test code = [id number]) 292 mg/dL 70-110 H Lab Interpretation (test code = Abnormal 78748-7) [place] [facility] ([facility]ATED)2023-05-02 19:14:50 Test Item Value Reference Range Interpretation Comments POCT GLU (test code = 9641090104) 292 mg/dL 70-110 H Lab Interpretation (test code = Abnormal 85268-8) [facility] GLUCOSE(AGE >30DAYS)2023-05-02 19:14:00 Test Item Value Reference Range Interpretation Comments POCT Glu (age>30days) (test code = 292 mg/dL 70-110 A 3342) Lab Interpretation (test code = Abnormal 25018-7) [facility] GLUCOSE(AGE >30DAYS)2023-05-02 19:14:00 Test Item Value Reference Range Interpretation Comments POCT Glu (age>30days) (test code = 292 mg/dL 70-110 A 3342) Lab Interpretation (test code = Abnormal 59301-6) [facility] [id number] 10:08:34 Test Item Value Reference Range Interpretation Comments TROPONIN I (test code = <=0.034 3385833224) ALLEY (test code = ALLEY) Reference (Normal) Range (defined by the 99th percentile reference limit): <= 0.034 ng/mL Note: Cardiac troponin begins to rise 3-4 hours after the onset of ischemia. Repeat in 4-6 hours if the sample was drawn within 3-4 hours of the onset of the symptom and found normal. Diagnosis of myocardial injury is made with acute changes in cTn concentrations with at least one serial sample above the 99th percentile upper reference limit (URL), taken together with the patient's clinical presentation. Biotin has been reported to cause a negative bias, interpret results relative to patient's use of biotin. Lab Interpretation Normal (test code = 85115-1) [facility]23[facility]02 09:56:55 Test Item Value Reference Range Interpretation Comments LIPASE (test code = 6852476609) 44 U/L 0-220 Lab Interpretation (test code = Normal 73529-9) [facility]2023-03-02 09:56:55 Test Item Value Reference Range Interpretation Comments ASHIA (test code = 8459578038) 47 U/L 35-110 Lab Interpretation (test code = Normal 29162-2) [facility]OL[facility] PANEL (NA, K, CL, CO2, GLUCOSE, BUN, CREATININE, CA)2022-12-19 09:56:55 Test Item Value Reference Range Interpretation Comments NA (test code = 138 mmol/L 135-145 7391041340) K (test code = 4.2 mmol/L 3.5-5.0 3186878450) CL (test code = 103 mmol/L 98-108 6399037933) CO2 TOTAL (test code = 27 mmol/L 23-31 1303403202) AGAP (test code = 8 2-16 5857076217) BUN (test code = 14 mg/dL 7-23 1990201218) GLUCOSE (test code = 118 mg/dL 70-110 H 1916843684) CREATININE (test code = 0.82 mg/dL 0.60-1.25 0468632064) CALCIUM (test code = 9.3 mg/dL 8.6-10.6 4898187468) eGFR (test code = 98.3 mL/min/1.73m2 9868907404) ALLEY (test code = ALLEY) Association of Glomerular Filtration Rate (GFR) and Staging of Kidney Disease* + --+ --+ ------+| GFR (mL/min/1.73 m2) ?| With Kidney Damage ?| ?Without Kidney Damage+ --------+ --------+ +| ?>90 ?| ?Stage one ?| ? Normal ?+ ---+ ---+ -------+| ?60-89 ?| ?Stage two ?| ? Decreased GFR ? + --+ --+ ------+| ?30-59 ?| ?Stage three ?| ? Stage three ? + --+ --+ ------+| ?15-29 ?| ?Stage four ? | ? Stage four ?+ ---+ ---+ -------+| ?<15 (or dialysis) ? ?| ?Stage five ? | ? Stage five ?+ ---+ ---+ -------+ *Each stage assumes the associated GFR level has been in effect for at least three months. ?Stages 1 to 5, with or without kidney disease, indicate chronic kidney disease. Notes: Determination of stages one and two (with eGFR >59mL/min/1.73 m2) requires estimation of kidney damage for at least three months as defined by structural or functional abnormalities of the kidney, manifested by either:Pathological abnormalities or Markers of kidney damage (including abnormalities in the composition of the blood or urine or abnormalities in imaging tests). Lab Interpretation Abnormal (test code = 05781-4) [facility]HEP[facility] FUN[facility] PANEL (23752) (ALB,T.PRO,BILI T,BU/BC,ALT,AST,ALK PHOS)2022-12-19 09:56:55 Test Item Value Reference Range Interpretation Comments TOTAL BILI (test code = 2326935520) 0.8 mg/dL 0.1-1.1 BILI UNCON (test code = 4698918245) 0.6 mg/dL 0.1-1.1 BILI CONJ (test code = 1372962267) 0.0 mg/dL 0.0-0.3 T PROTEIN (test code = 5854547503) 7.2 g/dL 6.3-8.2 ALBUMIN (test code = 8105945512) 4.2 g/dL 3.5-5.0 ALK PHOS (test code = 6287424519) 89 U/L 34-122 ALTv (test code = 1742-6) 38 U/L 5-50 AST(SGOT) (test code = 6613142894) 41 U/L 13-40 H Lab Interpretation (test code = Abnormal 60302-4) [facility] with [id number] 09:45:29 Test Item Value Reference Range Interpretation Comments WBC (test code = 11.07 See_Comment H [Automated 2190-2) message] The sy stem which generated this result transmitted reference range : 4.20 - 10.70 10*3/?L. The reference range was not used to interpret this result as normal/abnormal . RBC (test code = 5.76 See_Comment H [Automated 159-8) message] The sy stem which generated this result transmitted reference range : 4.26 - 5.52 10*6/?L. The reference range was not used to interpret this result as normal/abnormal . HGB (test code = 15.6 g/dL 12.2-16.4 718-7) HCT (test code = 47.0 % 38.4-49.3 4544-3) MCV (test code = 81.6 fL 81.7-95.6 L 787-2) MCH (test code = 27.1 pg 26.1-32.7 785-6) MCHC (test code = 33.2 g/dL 31.2-35.0 786-4) RDW-SD (test code = 39.5 fL 38.5-51.6 89017-1) RDW-CV (test code = 13.4 % 12.1-15.4 788-0) PLT (test code = 416 See_Comment H [Automated 777-3) message] The sy stem which generated this result transmitted reference range : 150 - 328 10*3/ ?L. The reference r mitchell was not used to interpret this result as normal/abnormal . MPV (test code = 10.6 fL 9.8-13.0 58112-9) NRBC/100 WBC (test 0.0 See_Comment [Automat ed code = 4834011669) message] The system which generated this result transmitted reference range : 0.0 - 10.0 /100 WBCs. The refer ence range was not u sed to interpret th is result as normal/abnormal . NRBC x10^3 (test code See_Comment [Auto mated = 2879051447) message] The s ystem which generated this result transmitted reference range : 10*3/?L. The reference range was not used to interpret this result as normal/abnormal . GRAN MAT (NEUT) % 67.7 % (test code = 770-8) IMM GRAN % (test code 0.50 % = 1742713564) LYMPH % (test code = 21.0 % 736-9) MONO % (test code = 7.4 % 5905-5) EOS % (test code = 2.9 % 713-8) BASO % (test code = 0.5 % 706-2) GRAN MAT x10^3(ANC) 7.49 10*3/uL 1.99-6.95 H (test code = 3440887918) IMM GRAN x10^3 (test 0.05 10*3/uL 0.00-0.06 code = 9556092336) LYMPH x10^3 (test code 2.33 10*3/uL 1.09-3.23 = 731-0) MONO x10^3 (test code 0.82 10*3/uL 0.36-1.02 = 742-7) EOS x10^3 (test code = 0.32 10*3/uL 0.06-0.53 711-2) BASO x10^3 (test code 0.06 10*3/uL 0.01-0.09 = 704-7) Lab Interpretation Abnormal (test code = 71081-7) [facility] StationLaflic Acid Whole [id number] 09:44:58 Test Item Value Reference Range Interpretation Comments LACTIC ACID (test code = 1.24 mmol/L 0.50-2.20 8720118336) Lab Interpretation (test code = Normal 05942-5) [facility] StationP[facility] GLUCOSE (AUTOMATED)2022-12-19 09:23:14 Test Item Value Reference Range Interpretation Comments POCT GLU (test code = 8129320008) 113 mg/dL 70-110 H Lab Interpretation (test code = Abnormal 30409-6) [facility] StationTROPONIN [id number] 16:19:48 Test Item Value Reference Interpretation Comments Range TROPONIN I (test 0.006 ng/mL See_Comment [Automated code = 1207581149) message] The system which generated this result transmitted reference range : <=0.034. The reference range was not used to interpret this result as normal/abnormal . ALLEY (test code = Reference (Normal) ALLEY) Range (defined by the 99th percentile reference limit): <= 0.034 ng/mL Note: Cardiac troponin begins to rise 3-4 hours after the onset of ischemia. Repeat in 4-6 hours if the sample was drawn within 3-4 hours of the onset of the symptom and found normal. Diagnosis of myocardial injury is made with acute changes in cTn concentrations with at least one serial sample above the 99th percentile upper reference limit (URL), taken together with the patient's clinical presentation. Biotin has been reported to cause a negative bias, interpret results relative to patient's use of biotin. Lab Interpretation Normal (test code = 91528-2) [facility] StationAM[facility]2022-08-13 16:08:29 Test Item Value Reference Range Interpretation Comments ASHIA (test code = 3802311620) 40 U/L 35-110 Lab Interpretation (test code = Normal 34187-8) [facility] StationL[facility]2022-08-13 16:08:29 Test Item Value Reference Range Interpretation Comments LIPASE (test code = 2051821500) 108 U/L 0-220 Lab Interpretation (test code = Normal 47094-0) [facility] StationCOMP. METABOLIC PANEL (94551)2022-06-01 16:08:29 Test Item Value Reference Range Interpretation Comments NA (test code = 136 mmol/L 135-145 3284068926) K (test code = 4.3 mmol/L 3.5-5 0431561103) CL (test code = 103 mmol/L 98-108 0265200848) CO2 TOTAL (test code = 25 mmol/L 23-31 8476813941) AGAP (test code = 2-16 2073367414) BUN (test code = 13 mg/dL 7-23 3447341677) GLUCOSE (test code = 199 mg/dL 70-110 H 4648962784) CREATININE (test code = 0.72 mg/dL 0.6-1.25 1151350526) TOTAL BILI (test code = 0.6 mg/dL 0.1-1.3 4894048150) CALCIUM (test code = 9.3 mg/dL 8.6-10.6 4263746280) T PROTEIN (test code = 6.9 g/dL 6.3-8.2 0688335559) ALBUMIN (test code = 4.1 g/dL 3.5-5 7819299305) ALK PHOS (test code = 112 U/L 34-122 9432378167) ALTv (test code = 92 U/L 5-50 H 1742-6) AST(SGOT) (test code = 44 U/L 13-40 H 8075827958) eGFR (test code = mL/min/1.73m2 9934684518) ALLEY (test code = ALLEY) Association of Glomerular Filtration Rate (GFR) and Staging of Kidney Disease* + --+ --+ ------+| GFR (mL/min/1.73 m2) ?| With Kidney Damage ?| ?Without Kidney Damage+ --------+ --------+ +| ?>90 ?| ?Stage one ?| ? Normal ?+ ---+ ---+ -------+| ?60-89 ?| ?Stage two ?| ? Decreased GFR ? + --+ --+ ------+| ?30-59 ?| ?Stage three ?| ? Stage three ? + --+ --+ ------+| ?15-29 ?| ?Stage four ? | ? Stage four ?+ ---+ ---+ -------+| ?<15 (or dialysis) ? ?| ?Stage five ? | ? Stage five ?+ ---+ ---+ -------+ *Each stage assumes the associated GFR level has been in effect for at least three months. ?Stages 1 to 5, with or without kidney disease, indicate chronic kidney disease. Notes: Determination of stages one and two (with eGFR >59mL/min/1.73 m2) requires estimation of kidney damage for at least three months as defined by structural or functional abnormalities of the kidney, manifested by either:Pathological abnormalities or Markers of kidney damage (including abnormalities in the composition of the blood or urine or abnormalities in imaging tests). Lab Interpretation Abnormal (test code = 09881-9) [facility] WITH [id number] 15:54:28 Test Item Value Reference Range Interpretation Comments WBC (test code = See_Comment [Automated 1567-2) message] The sy stem which generated this result transmitted reference range : 4.20 - 10.70 10*3/?L. The reference range was not used to interpret this result as normal/abnormal . RBC (test code = See_Comment [Automated 251-8) message] The sy stem which generated this result transmitted reference range : 4.26 - 5.52 10*6/?L. The reference range was not used to interpret this result as normal/abnormal . HGB (test code = 14.3 g/dL 12.2-16.4 718-7) HCT (test code = 41.2 % 38.4-49.3 4544-3) MCV (test code = 81.3 fL 81.7-95.6 L 787-2) MCH (test code = 28.2 pg 26.1-32.7 785-6) MCHC (test code = 34.7 g/dL 31.2-35 786-4) RDW-SD (test code = 37.7 fL 38.5-51.6 L 26694-0) RDW-CV (test code = 13.0 % 12.1-15.4 788-0) PLT (test code = See_Comment H [Automated 777-3) message] The sy stem which generated this result transmitted reference range : 150 - 328 10*3/ ?L. The reference r mitchell was not used to interpret this result as normal/abnormal . MPV (test code = 10.5 fL 9.8-13 75551-9) NRBC/100 WBC (test See_Comment [Automat ed code = 2942919695) message] The system which generated this result transmitted reference range : 0.0 - 10.0 /100 WBCs. The refer ence range was not u sed to interpret th is result as normal/abnormal . NRBC x10^3 (test code See_Comment [Auto mated = 8316618280) message] The s ystem which generated this result transmitted reference range : 10*3/?L. The reference range was not used to interpret this result as normal/abnormal . GRAN MAT (NEUT) % 66.9 % (test code = 770-8) IMM GRAN % (test code 0.70 % = 3493666599) LYMPH % (test code = 19.8 % 736-9) MONO % (test code = 7.7 % 5905-5) EOS % (test code = 4.2 % 713-8) BASO % (test code = 0.7 % 706-2) GRAN MAT x10^3(ANC) 6.12 10*3/uL 1.99-6.95 (test code = 0061327243) IMM GRAN x10^3 (test 0.06 10*3/uL 0-0.06 code = 6178236031) LYMPH x10^3 (test code 1.81 10*3/uL 1.09-3.23 = 731-0) MONO x10^3 (test code 0.70 10*3/uL 0.36-1.02 = 742-7) EOS x10^3 (test code = 0.38 10*3/uL 0.06-0.53 711-2) BASO x10^3 (test code 0.06 10*3/uL 0.01-0.09 = 704-7) Lab Interpretation Abnormal (test code = 27737-9) [facility] 12 [id number] 22:27:31 Test Item Value Reference Range Interpretation Comments Ventricular rate (test code = 253) Atrial rate (test code = 255) IA interval (test code = 266) QRSD interval (test code = 260) QT interval (test code = 264) QTC interval (test code = 265) P axis 1 (test code = 267) QRS axis 1 (test code = 268) T wave axis (test code = 270) EKG impression (test Sinus code = 273) tachycardia-Otherwise normal ECG-In automated comparison with ECG of 22-FEB-2020 10:04,-premature ventricular complexes are no longer present-Vent. rate has increased BY 38 BPM- [facility] 12 [id number] 22:27:31 Test Item Value Reference Range Interpretation Comments Ventricular rate (test code = 253) Atrial rate (test code = 255) IA interval (test code = 266) QRSD interval (test code = 260) QT interval (test code = 264) QTC interval (test code = 265) P axis 1 (test code = 267) QRS axis 1 (test code = 268) T wave axis (test code = 270) EKG impression (test Sinus code = 273) tachycardia-Otherwise normal ECG-In automated comparison with ECG of 22-FEB-2020 10:04,-premature ventricular complexes are no longer present-Vent. rate has increased BY 38 BPM- [facility] ABDOMEN PELVIS WO [id number] 09:17:571. ?No renal stones or hydronephrosis. 2. ?Normal appendix. 3. ?Prior cholecystectomy. RL: 6200 AFC:13909Wpf of report. ORDERING PHYSICIAN: MALIK PONCE CLINICAL HISTORY:Renal colic. TECHNIQUE:CT of the abdomen and pelvis without intravenous contrast. Exam wasperformed with radiation as low as reasonably achievable (ALARA)principles. COMPARISON:None. FINDINGS:The lung bases and heart are unremarkable. No free air in the abdomen. Large amount of fluid in the stomach andproximal small bowel. No transition point to suggest bowel obstruction.Normal appendix. No signs of colonic obstruction or inflammation. Liver size and contour are normal. Cholecystectomy. No biliary ductdilatation. Spleen, pancreas and adrenal glands are unremarkable. Normalsize of kidneys. Mild nonspecific perinephric fat stranding bilaterally. Norenal stones or hydronephrosis. Unremarkable bladder. The abdominal aorta and IVC are normal size. No pathologically enlarg edabdominal, pelvic or inguinal lymph nodes. Mild degenerative changes of spine and hips. No acute osseous abnormality. [facility], Radiant Results Inft User - 02/20/2021 4:19 AM CDTORDERING PHYSICIAN: MALIK PONCECLINICAL HISTORY:Renal colic.TECHNIQUE:CT of the abdomen and pelvis without intravenous contrast. Exam wasperformed with radiation as low as reasonably achievable (ALARA)principles.COMPARISON:None.FINDINGS:The lung bases and heart are unremarkable.No free air in the abdomen. Large amount of fluid in the stomach andproximal small bowel. No transition point to suggest bowel obstruction.Normal appendix. No signs of colonic obstruction or inflammation.Liver size and contour are normal. Cholecystectomy. No biliary ductdilatation. Spleen, pancreas and adrenal glands are unremarkable. Normalsize of kidneys. Mild nonspecific perinephric fat stranding bilaterally. Norenal stones or hydronephrosis. U nremarkable bladder.The abdominal aorta and IVC are normal size. No pathologically enlargedabdominal, pelvic or inguinal lymph nodes.Mild degenerative changes of spine and hips. No acute osseous abnorma lity.IMPRESSION1. No renal stones or hydronephrosis.2. Normal appendix.3. Prior cholecystectomy. RL:6200 AFC: 34033Kla of report. [facility] (NA, K, CL, CO2, GLUCOSE, BUN, CREATININE, CA)2021-02-20 08:46:51 Test Item Value Reference Range Interpretation Comments NA (test code = 135 mmol/L 135-145 6154364851) K (test code = 4.3 mmol/L 3.5-5.0 0374959790) CL (test code = 100 mmol/L 98-108 9039741847) CO2 TOTAL (test code = 26 mmol/L 23-31 6990600737) AGAP (test code = 2-16 1858684046) BUN (test code = 24 mg/dL 7-23 H 0590431646) GLUCOSE (test code = 202 mg/dL 70-110 H 3515002635) CREATININE (test code = 0.96 mg/dL 0.60-1.25 6075225941) CALCIUM (test code = 9.4 mg/dL 8.6-10.6 6477683665) eGFR (test code = mL/min/1.73m2 6031493709) ALLEY (test code = ALLEY) Association of Glomerular Filtration Rate (GFR) and Staging of Kidney Disease* + --+ --+ ------+| GFR (mL/min/1.73 m2) ?| With Kidney Damage ?| ?Without Kidney Damage+ --------+ --------+ +| ?>90 ?| ?Stage one ?| ? Normal ?+ ---+ ---+ -------+| ?60-89 ?| ?Stage two ?| ? Decreased GFR ? + --+ --+ ------+| ?30-59 ?| ?Stage three ?| ? Stage three ? + --+ --+ ------+| ?15-29 ?| ?Stage four ? | ? Stage four ?+ ---+ ---+ -------+| ?<15 (or dialysis) ? ?| ?Stage five ? | ? Stage five ?+ ---+ ---+ -------+ *Each stage assumes the associated GFR level has been in effect for at least three months. ?Stages 1 to 5, with or without kidney disease, indicate chronic kidney disease. Notes: Determination of stages one and two (with eGFR >59mL/min/1.73 m2) requires estimation of kidney damage for at least three months as defined by structural or functional abnormalities of the kidney, manifested by either:Pathological abnormalities or Markers of kidney damage (including abnormalities in the composition of the blood or urine or abnormalities in imaging tests). Lab Interpretation Abnormal (test code = 15247-0) [facility] (ALB, T.PRO, BILI T, BU/BC, ALT, AST, ALK PHOS)2021-02-20 08:46:51 Test Item Value Reference Range Interpretation Comments TOTAL BILI (test code = 8180416781) 0.4 mg/dL 0.1-1.1 BILI UNCON (test code = 6108805749) 0.3 mg/dL 0.1-1.1 BILI CONJ (test code = 9254645443) 0.0 mg/dL 0.0-0.3 T PROTEIN (test code = 5276596574) 6.9 g/dL 6.3-8.2 ALBUMIN (test code = 7116084386) 4.4 g/dL 3.5-5.0 ALK PHOS (test code = 6472337574) 72 U/L 34-122 ALTv (test code = 1742-6) 27 U/L 5-50 AST(SGOT) (test code = 6471799501) 25 U/L 13-40 Lab Interpretation (test code = Normal 49431-9) [facility] StationLipase [id number] 08:46:51 Test Item Value Reference Range Interpretation Comments LIPASE (test code = 6869257119) 244 U/L 0-220 H Lab Interpretation (test code = Abnormal 84886-9) [facility] StationCBC with [id number] 08:33:11 Test Item Value Reference Range Interpretation Comments WBC (test code = See_Comment [Automated 5214-2) message] The sy stem which generated this result transmitted reference range : 4.20 - 10.70 10*3/?L. The reference range was not used to interpret this result as normal/abnormal . RBC (test code = See_Comment [Automated 013-8) message] The sy stem which generated this result transmitted reference range : 4.26 - 5.52 10*6/?L. The reference range was not used to interpret this result as normal/abnormal . HGB (test code = 13.8 g/dL 12.2-16.4 718-7) HCT (test code = 40.8 % 38.4-49.3 4544-3) MCV (test code = 83.1 fL 81.7-95.6 787-2) MCH (test code = 28.1 pg 26.1-32.7 785-6) MCHC (test code = 33.8 g/dL 31.2-35.0 786-4) RDW-SD (test code = 40.8 fL 38.5-51.6 99470-0) RDW-CV (test code = 13.5 % 12.1-15.4 788-0) PLT (test code = See_Comment [Automated 777-3) message] The sy stem which generated this result transmitted reference range : 150 - 328 10*3/ ?L. The reference r mitchell was not used to interpret this result as normal/abnormal . MPV (test code = 9.9 fL 9.8-13.0 84097-9) NRBC/100 WBC (test See_Comment [Automat ed code = 9353279052) message] The system which generated this result transmitted reference range : 0.0 - 10.0 /100 WBCs. The refer ence range was not u sed to interpret th is result as normal/abnormal . NRBC x10^3 (test code <0.01 See_Comment [Auto mated = 6489815037) message] The s ystem which generated this result transmitted reference range : 10*3/?L. The reference range was not used to interpret this result as normal/abnormal . GRAN MAT (NEUT) % 71.5 % (test code = 770-8) IMM GRAN % (test code 0.90 % = 6401113154) LYMPH % (test code = 13.1 % 736-9) MONO % (test code = 9.6 % 5905-5) EOS % (test code = 4.3 % 713-8) BASO % (test code = 0.6 % 706-2) GRAN MAT x10^3(ANC) 7.31 10*3/uL 1.99-6.95 H (test code = 3691730054) IMM GRAN x10^3 (test 0.09 10*3/uL 0.00-0.06 H code = 2370679880) LYMPH x10^3 (test code 1.34 10*3/uL 1.09-3.23 = 731-0) MONO x10^3 (test code 0.98 10*3/uL 0.36-1.02 = 742-7) EOS x10^3 (test code = 0.44 10*3/uL 0.06-0.53 711-2) BASO x10^3 (test code 0.06 10*3/uL 0.01-0.09 = 704-7) Lab Interpretation Abnormal (test code = 84209-4) [facility] Station[facility] function 1999 panel - Serum or Plasma 2021-02-02 08:24:00 Test Item Value Reference Range Interpretation Comments ALT (test code = ALT) 22 U/L 0-55 AST (test code = AST) 19 U/L 5-34 alk phos (test code = alk phos) 98 unit/L 40-150 albumin (test code = albumin) 4.3 g/dL 3.4-5.1 total bilirubin (test code = total 0.4 mg/dL 0.2-1.2 bilirubin) indirect bilirubin (calculated) 0.2 0.0-1.2 (test code = indirect bilirubin (calculated)) direct bilirubin (test code = 0.2 mg/dL 0.0-0.5 direct bilirubin) total protein (test code = total 7.2 g/dL 6.1-8.2 protein) [facility] metabolic 1999 panel - Serum or [id number] 08:15:00 Test Item Value Reference Range Interpretation Comments BUN (test code = BUN) 17.2 mg/dL 8.4-25.0 glucose (test code = glucose) 156 mg/dL 70-99 H creatinine (test code = 0.79 mg/dL 0.72-1.25 creatinine) eGFR non- (test >60 code = eGFR non-) eGFR - (test >60 code = eGFR - ) sodium (test code = sodium) 140 mEq/L 135-145 potassium (test code = potassium) 4.9 mEq/L 3.5-5.3 chloride (test code = chloride) 104 mmol/L 98-110 calcium (test code = calcium) 9.7 mg/dL 8.4-10.4 CO2 (test code = CO2) 28.6 mmol/L 20.0-32.0 anion gap (test code = anion gap) 7 [facility] or [id number] 08:15:00 Test Item Value Reference Range Interpretation Comments HDL (test code = HDL) 50 mg/dL triglyceride (test code = 96 mg/dL <150 triglyceride) VLDL (calculated) (test code = VLDL 19 mg/dL (calculated)) cholesterol/HDL ratio (test code = 3.3 mg/dL cholesterol/HDL ratio) non-HDL cholesterol (calculated) 115 mg/dL <160 (test code = non-HDL cholesterol (calculated)) cholesterol (test code = 165 mg/dL <200 cholesterol) Cholesterol in LDL [Mass/volume] in 96 mg/dL <130 Serum or Plasma (test code = 2089-1) [facility]Parathyrin.intact [Mass/volume] in Serum or Plasma 2021-02-01 10:27:00 Test Item Value Reference Range Interpretation Comments parathyroid hormone, intact (test 24 pg/mL code = parathyroid hormone, intact) [facility] HospitalHem[facility] A1c/Hemoglobin.total in Thpwb7300-87-00 09:03:00 Test Item Value Reference Range Interpretation Comments Hemoglobin A1c/Hemoglobin.total in 7.4 % 1.0-5.7 H Blood (test code = 4548-4) average blood glucose (calculation) 166 mg/dL (test code = average blood glucose (calculation)) [facility]CBC W Auto Differential panel - [id number] 11:03:00 Test Item Value Reference Range Interpretation Comments WBC (test code = WBC) 8.32 x10*3/?L 4.23-9.07 RBC (test code = RBC) 5.50 10*12/L 4.63-6.08 hemoglobin (test code = 15.10 g/dL 13.70-17.50 hemoglobin) hematocrit (test code = 46.7 % 40.1-51.0 hematocrit) MCV (test code = MCV) 84.9 fL 80.0-100.0 MCH (test code = MCH) 27.5 pg 25.7-32.2 MCHC (test code = MCHC) 32.3 g/dL 32.3-36.5 RDW-SD (test code = RDW-SD) 45.2 fL 35.1-43.9 H platelet count (test code = 367.0 k/uL 163.0-337.0 H platelet count) MPV (test code = MPV) 11.3 fL 7.5-11.5 neut% (test code = neut%) 63.6 % 34.0-67.9 lymph% (test code = lymph%) 20.9 % 21.8-53.1 L mon% (test code = mon%) 10.6 % 5.3-12.2 eos% (test code = eos%) 4.1 % 0.8-7.0 baso% (test code = baso%) 0.8 % 0.2-1.2 neut# (test code = neut#) 5.3 x10*3/?L 1.8-5.4 lymph# (test code = lymph#) 1.7 x10*3/?L 1.3-3.6 mon# (test code = mon#) 0.9 x10*3/?L 0.3-0.8 H eos# (test code = eos#) 0.34 x10*3/?L 0.04-0.54 baso# (test code = baso#) 0.07 x10*3/?L 0.01-0.08 [facility] 2000 [facility] - Serum or Plasma 2020-10-05 08:56:00 Test Item Value Reference Range Interpretation Comments ALT (test code = ALT) 37 U/L 0-55 AST (test code = AST) 21 U/L 5-34 BUN (test code = BUN) 18.7 mg/dL 8.4-25.0 alk phos (test code = alk phos) 101 unit/L 40-150 glucose (test code = glucose) 172 mg/dL 70-99 H albumin (test code = albumin) 4.1 g/dL 3.4-5.1 creatinine (test code = 0.95 mg/dL 0.72-1.25 creatinine) eGFR non- (test >60 code = eGFR non-) total bilirubin (test code = 0.4 mg/dL 0.2-1.2 total bilirubin) eGFR - (test >60 code = eGFR - ) sodium (test code = sodium) 141 mEq/L 135-145 potassium (test code = potassium) 5.0 mEq/L 3.5-5.3 chloride (test code = chloride) 106 mmol/L 98-110 total protein (test code = total 7.2 g/dL 6.1-8.2 protein) calcium (test code = calcium) 9.8 mg/dL 8.6-10.4 CO2 (test code = CO2) 23.2 mmol/L 20.0-32.0 anion gap (test code = anion gap) 12 calc [facility] 1996 panel - Serum or [id number] 08:56:00 Test Item Value Reference Range Interpretation Comments HDL (test code = HDL) 44 mg/dL triglyceride (test code = 203 mg/dL <150 H triglyceride) VLDL (calculated) (test code = VLDL 41 mg/dL (calculated)) cholesterol/HDL ratio (test code = 4.9 mg/dL cholesterol/HDL ratio) non-HDL cholesterol (calculated) 170 mg/dL <160 H (test code = non-HDL cholesterol (calculated)) cholesterol (test code = 214 mg/dL <200 H cholesterol) Cholesterol in LDL [Mass/volume] in 129 mg/dL <130 Serum or Plasma (test code = 2089-1) [facility] HospitalThyrotropin [Units/volume] in Serum or [id number] 08:56:00 Test Item Value Reference Range Interpretation Comments TSH (test code = TSH) 2.866 uIU/mL 0.350-4.940 [facility] HospitalPSA, serum or [id number] 08:56:00 Test Item Value Reference Range Interpretation Comments PSA, total (test code = PSA, 0.22 NG/mL <4.00 total) [facility] HospitalMicroalbumin/Creatinine [Mass Ratio] in [id number] 17:59:00 Test Item Value Reference Range Interpretation Comments microalbumin random urine 498 ug/mL (test code = microalbumin random urine) creatinine random urine 48.1 mg/dL 20.0-370.0 (test code = creatinine random urine) microalbumin/creatinine 1035 mcg/mg creat H (random urine) ratio calculated (test code = microalbumin/creatinine (random urine) ratio calculated) [facility] HospitalHemoglobin A1c/Hemoglobin.total in [id number] 17:09:00 Test Item Value Reference Range Interpretation Comments Hemoglobin A1c/Hemoglobin.total in 7.9 % 1.0-5.7 H Blood (test code = 4548-4) average blood glucose (calculated) 180 mg/dL (test code = average blood glucose (calculated)) [facility] HospitalUrinalysis macro (dipstick) panel - [id number] 09:18:00 Test Item Value Reference Range Interpretation Comments Color Color (test code = Color light yellow Color) Color Appearance (test code = clear Color Appearance) Color Glucose (test code = Color 500 Glucose) Color Bilirubin (test code = negative Color Bilirubin) Color Ketones (test code = Color negative Ketones) Color Specific [place] (test 1.030 code = Color Specific [place]) Color Blood (test code = Color trace Blood) Color PH (test code = Color PH) 6.5 Color Protein (test code = Color 100 Protein) Color Urobilinogen (test code = 0.2 Color Urobilinogen) Color Nitrites (test code = negative Color Nitrites) Color Leukocytes (test code = negative Color Leukocytes) [facility] FEMUR LEFT WO [id number] 17:16:27 Mid to distal lateral thigh subcutaneous edema/contusion. Grade 1 strain of the vastus lateralis muscle. EXAM: MR FEMUR LEFT WO CONTRAST HISTORY: Contusion, left femur TECHNIQUE: Multiplanar, multisequence MR imaging of the left femur were obtainedwithout IV contrast. COMPARISON: None. FINDINGS: No focal marrow signal intensity abnormality is seen. No large hip or kneejoint effusion is present. Subcutaneous and fascial edema is seen along the lateral aspect of the midto distal thigh. No organized fluid collection is seen. Feathery edema is present within the vastus lateralis muscle. [facility], Radiant Results Inft User - 06/12/2020 12:17 PM CDTEXAM:MR FEMUR LEFT WO CONTRASTHISTORY:Contusion, left femur TECHNIQUE:Multiplanar, multisequence MR imaging of the left femur were obtainedwithout IV contrast.COMPARISON:None.FINDINGS: No focal marrow signal intensity abnormality is seen. No large hip or kneejoint effusion is present.Subcutaneous and fascial edema is seen along the lateral aspect of the midto distal thigh. No organized fluid collection is seen.Feathery edema is present within the vastus lateralis muscle.IMPRESSIONMid to distal lateral thigh subcutaneous edema/contusion.Grade 1 strain of the vastus lateralis muscle. [facility] [id number] 17:11:16 Medial femoral condyle contusion. Grade 1-2 sprain of the proximal medial collateral ligament. 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 EXAM: MRI RIGHT KNEE COMPARISON: None. HISTORY: Contusion TECHNIQUE AND FINDINGS: 3T OR 1.5T multiplanar multiweighted MR imaging of the right ?knee wasperformed without IV contrast. BONE AND JOINT: Alignment is anatomic. Mild tricompartmental osteophytosis is noted. Marrowedema compatible with contusion is seen in the medial femoral condyle. Nodisplaced fracture is seen. A trace joint effusion is present. Grade 3-4chondral fissuring is seen along the medial femoral condyle.. MENISCI: No discrete lateral or medial meniscus tear is seen. LIGAMENTS AND TENDONS:Fluid is seen within and tracking along the proximal MCL. The ACL, PCL, patellar retinacula and lateral collateral ligamentouscomplex are intact.The extensor mechanism and popliteus tendon are normal in morphology andsignal intensity. SOFT TISSUES:Prominent medial subcutaneous edemais seen with mild capsular edema. Trace fluid is present in the expected location of a Sparrow's cyst.[facility], Radiant Results Inft 06/12/2020 12:12 PM CDTEXAM:MRI RIGHT KNEECOMPARISON:None.HISTORY: ContusionTECHNIQUE AND FINDINGS:3T OR 1.5T multiplanar multiweighted MR imaging of the right knee wasperformed without IV contrast.BONE AND JOINT:Alignment is anatomic. Mild tricompartmental osteophytosis is noted. Marrowedema compatible with contusion is seen in the medial femoral condyle. Nodisplaced fracture is seen. A trace joint effusion is present. Grade 3-4chondral fissuring is seen along the medial femoral condyle..MENISCI:No discrete lateral or medial meniscus tear is seen.LIGAMENTS AND TENDONS:Fluid is seen within and tracking along the proximal MCL.The ACL, PCL, patellar retinacula and lateral collateral ligamentouscomplex are intact.The extensor mechanism and popliteus tendon are normal in morphology andsignal intensity.SOFT TISSUES:Prominent medial subcutaneous edema is seen with mild capsular edema.Trace fluid is present in the expected location of a Saprrow's cyst.IMPRESSIONMedial femoral condyle contusion.Grade 1-2 sprain of the proximal medial collateral ligament.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 [facility] StationUrinalysis complete W Reflex Culture panel - [id number] 00:00:00 Test Item Value Reference Range Interpretation [...] indicated (test code = reflexive urine culture) [facility] 2000 panel - Serum or [id number] 00:00:00 Test Item Value Reference Range Interpretation [...] gap (test code = anion gap) 11 [facility]Mass Ratio] in [id number] 00:00:00 Test Item Value Reference Range Interpretation Comments microalbumin random urine 277 ug/mL (test code = microalbumin random urine) creatinine random urine 110.3 mg/dL 20.0-370.0 (test code = creatinine random urine) microalbumin/creatinine 251 mcg/mg creat H (random urine) ratio calculated (test code = microalbumin/creatinine (random urine) ratio calculated) [facility] HospitalHemoglobin A1c/Hemoglobin.total in [id number] 00:00:00 Test Item Value Reference Range Interpretation Comments Hemoglobin A1c/Hemoglobin.total in 10.2 % 1.0-5.7 H Blood (test code = 4548-4) average blood glucose (test code = 246 mg/dL average blood glucose) [facility] HospitalHemoglobin A1c/Hemoglobin.total in [id number] 18:01:00 Test Item Value Reference Range Interpretation Comments A1C w/EAG (test code = A1C w/EAG) 7.3 % 1.0-5.7 H average blood glucose (test code = 163 mg/dL average blood glucose) [facility]Com[facility] 2000 panel - Serum or Plasma 2017-09-25 17:45:00 [...] (test code = anion gap) 6 calc [facility] HospitalLipid 1995 panel - Serum or [id number] 17:45:00 Test Item Value Reference Range Interpretation [...] code = LDL calc.) 90 mg/dL 0-130 [facility] HospitalCreatine kinase [Enzymatic activity/volume] in Serum or [id number] 05:49:00 Test Item Value Reference Range Interpretation Comments creatine kinase, total (test code = 89 U/L 44-196 creatine kinase, total) [facility]Com[facility] 1999 panel - Serum or Plasma 2017-09-03 17:44:00 [...] gap (test code = anion gap) 11 [facility] Glucose, [id number] 09:29:00 Test Item Value Reference Range Interpretation Comments POC Glucose (test 194 mg/dL 70-115 H Notify RN or MDIf you code = POCGLUC) consider you r patient critically ill, the [place]uel Accu-Chek InformII metershould not be used for Glucose determinations. Draw a venous Glucose and send to the Main Lab for Analysis. [id number] 07:49:00 Test Item Value Reference Range Interpretation Comments Phosphorus (test code = PO4) 3.1 mg/dL 2.70-4.50 N Magnesium, [id number] 07:49:00 Test Item Value Reference Range Interpretation Comments Magnesium (test code = MG) 2.0 mg/dL 1.7-2.5 N Basic Metabolic [id number] 22:21:00 Test Item Value Reference Range Interpretation [...] National Kidney Foundation,http ://nkd ep.nih.gov POC Glucose, [id number] 20:51:00 Test Item Value Reference Range Interpretation Comments POC Glucose (test 211 mg/dL 70-115 H Notify RN or MDIf you code = POCGLUC) consider you r patient critically ill, the [place] Accu-Chek InformII metershould not be used for Glucose determinations. Draw a venous Glucose and send to the Main Lab for Analysis. [id number] 19:19:36LOCATION: [id number]: 47-year-old male with acute kidney injury. Clinical [...] unremarkable.IMPRESSION:Unremarkable sonographic examination of the kidneys.POC Glucose, [id number] 17:15:00 Test Item Value Reference Range Interpretation Comments POC Glucose (test 214 mg/dL 70-115 H Notify RN or MDIf you code = POCGLUC) consider you r patient critically ill, the [place]uel Accu-Chek InformII metershould not be used for Glucose determinations. Draw a venous Glucose and send to the Main Lab for Analysis. Basic Metabolic [id number] 15:06:00 Test Item Value Reference Range Interpretation [...] National Kidney Foundation,http ://nkd ep.nih.gov POC Glucose, [id number] 11:25:00 Test Item Value Reference Range Interpretation Comments POC Glucose (test 175 mg/dL 70-115 H Notify RN or MDIf you code = POCGLUC) consider you r patient critically ill, the [place] Accu-Chek InformII metershould not be used for Glucose determinations. Draw a venous Glucose and send to the Main Lab for Analysis. POC Glucose, [id number] 08:09:00 Test Item Value Reference Range Interpretation [...] TSH) 1.10 mIU/mL 0.270-4.200 N CBC with [id number] 06:57:00 Test Item Value Reference Range Interpretation [...] code = ALYMPH) 1.9 K/cumm 0.5-4.6 N [place] Abs (test code = AMONO) 0.6 K/cumm 0.0-1.2 N Eos Abs (test code = AEOS) 0.18 K/cumm 0.00-0.74 N Baso Abs (test code = ABASO) 0.0 K/cumm 0.00-0.21 N CK [id number] 06:56:00 Test Item Value Reference Range Interpretation Comments CK (test code = CK) 320 U/L 39-308 H Comprehensive Metabolic [id number] 06:56:00 Test Item Value Reference Range Interpretation [...] by the National Kidney Foundation,http ://nkd ep.nih.gov [id number] 06:56:00 Test Item Value Reference Range Interpretation Comments Phosphorus (test code = PO4) 5.0 mg/dL 2.70-4.50 H Magnesium, [id number] 06:56:00 Test Item Value Reference Range Interpretation Comments Magnesium (test code = MG) 2.1 mg/dL 1.7-2.5 N CK [id number] 06:56:00 Test Item Value Reference Range Interpretation Comments CK (test code = CK) 320 U/L 39-308 H CKMB (test code = CKMB) 5.5 ng/mL 0.0-4.9 H CKMB% (test code = CKMBP) 1.7 % 0.0-3.4 N C-Reactive Protein, [id number] 06:56:00 Test Item Value Reference Range Interpretation Comments CRP (test code = CRP) 5.5 mg/L 0.0-5.0 H Troponin [id number] 06:56:00 Test Item Value Reference Range Interpretation Comments Troponin T (test code = SHAYY) <0.010 ng/mL 0.000-0.090 N Glycosylated [id number] 06:36:00 Test Item Value Reference Range Interpretation Comments HBA1c (test code = HBA1C) 7.1 % 4.8-5.9 H POC Glucose, [id number] 01:20:00 Test Item Value Reference Range Interpretation Comments POC Glucose (test 122 mg/dL 70-115 H Notify RN or MDIf you code = POCGLUC) consider you r patient critically ill, the [place] Accu-Chek InformII metershould not be used for Glucose determinations. Draw a venous Glucose and send to the Main Lab for Analysis. Urinalysis [id number] 00:01:00 Test Item Value Reference Range Interpretation Comments Color (test code = COLOR) Yellow Yellow,Straw,Pl N yellow Clarity (test code = Clear Clear N CLAR) Specific [place] (test 1.010 1.001-1.035 N code = SPGR) [...] = Few /HPF BACT) XR CHEST 1 [id number] 23:33:27LOCATION: [id number]: 47-year-old male who presents with malaise.COMMENT: After-hours service at 11:33 p.m.The examination was obtained at the bedside at 10:15 p.m.The lungs are clear, and well-aerated. The cardiac silhouette, lenore, andmediastinum are unremarkable. The skeleton and soft tissues areunremarkable. monitoring specialist leads are present.IMPRESSION:Unremarkable portable examination of the chest.CK Total 2017-08-26 22:20:00 Test Item Value Reference Range Interpretation Comments CK (test code = CK) 424 U/L 39-308 H CBC with [id number] 21:38:00 Test Item Value Reference Range Interpretation [...] code = ALYMPH) 1.3 K/cumm 0.5-4.6 N [place] Abs (test code = AMONO) 0.6 K/cumm 0.0-1.2 N Eos Abs (test code = AEOS) 0.03 K/cumm 0.00-0.74 N Baso Abs (test code = ABASO) 0.0 K/cumm 0.00-0.21 N Comprehensive Metabolic [id number] 21:04:00 Test Item Value Reference Range Interpretation [...] validated by th e MDRD study and lulu painter be interpretedwith caution.eGFR Re sult Interpretation: eGFR > or = 60 is in t he Normal RangeeGF R < 60 may mean kidney diseaseeGFR < 1 5 may mean kidney failureRange s recommended by the National Kidney Foundation,http ://nkd ep.nih.gov Magnesium, [id number] 21:04:00 Test Item Value Reference Range Interpretation Comments Magnesium (test code = MG) 2.0 mg/dL 1.7-2.5 N Troponin [id number] 21:04:00 Test Item Value Reference Range Interpretation Comments Troponin T (test code = SHAYY) <0.010 ng/mL 0.000-0.090 N POC Glucose, [id number] 20:29:00 Test Item Value Reference Range Interpretation Comments POC Glucose (test 230 mg/dL 70-115 H If you con design assistant your code = POCGLUC) patient crit ically ill, the [place] Accu- Chek InformII meters hould not be used for Glu cose determinations. Draw a venous Glucose and send to the Main Lab for Analysis. Comprehensive metabolic 2000 panel - Serum or [id number] 10:39:00 Test Item Value Reference Range Interpretation [...] (test code = anion gap) 11 calc [facility] HospitalLipid 1995 panel - Serum or [id number] 10:39:00 Test Item Value Reference Range Interpretation [...] code = LDL calc.) 116 mg/dL 0-130 [facility] HospitalThyrotropin [Units/volume] in Serum or [id number] 10:39:00 Test Item Value Reference Range Interpretation Comments TSH (test code = TSH) 1.107 uIU/mL 0.350-4.940 [facility] HospitalHemoglobin A1c/Hemoglobin.total in [id number] 16:53:00 Test Item Value Reference Range Interpretation Comments A1C w/EAG (test code = A1C w/EAG) 9.2 % 1.0-5.7 H average blood glucose (test code = 217 mg/dL average blood glucose) [facility]Com[facility] 1999 panel - Serum or Plasma 2017-05-15 09:38:00 [...] (test code = anion gap) 13 calc [facility] HospitalMagnesium [Mass/volume] in Serum or [id number] 00:46:00 Test Item Value Reference Range Interpretation Comments magnesium (test code = magnesium) 2.1 mg/dL 1.5-2.5 [facility] HospitalHemoglobin A1c/Hemoglobin.total in [id number] 12:12:00 Test Item Value Reference Range Interpretation Comments A1C w/EAG (test code = A1C w/EAG) 12.5 % 1.0-5.7 H average blood glucose (test code = 312 mg/dL average blood glucose) [facility]Com[facility] 2000 panel - Serum or Plasma 2017-03-26 10:13:00 [...] gap (test code = anion gap) 11 [facility] - Serum or Plasma 2017-02-13 09:43:00 [...] gap (test code = anion gap) 13 [facility] 1996 panel - Serum or [id number] 09:43:00 Test Item Value Reference Range Interpretation [...] code = LDL calc.) 125 mg/dL 0-130 [facility] HospitalThyrotropin [Units/volume] in Serum or [id number] 09:43:00 Test Item Value Reference Range Interpretation Comments TSH (test code = TSH) 2.106 uIU/mL 0.350-4.940 [facility] HospitalProstate specific Ag [Mass/volume] in Serum or Plasma 2017-02-13 09:43:00 Test Item Value Reference Range Interpretation Comments PSA, total (test code = PSA, 0.33 NG/mL <4.00 total) [facility] HospitalCBC W Auto Differential panel - [id number] 06:29:00 Test Item Value Reference Range Interpretation [...] fL 7.5-12.5 absolute neutrophils (test 4676 cells/uL 4251-0112 code = absolute neutrophils) absolute lymphocytes (test [...] basophils (test code = 0.4 % basophils) [facility] HospitalHemoglobin A1c/Hemoglobin.total in [id number] 16:32:00 Test Item Value Reference Range Interpretation Comments A1C w/EAG (test code = A1C w/EAG) 11.2 % 1.0-5.7 H average blood glucose (test code = 275 mg/dL average blood glucose) [facility]"
[2023-07-29] MEDS ORDERED: NA CHLORIDE 0.9% 1,000 ML ONE (23:43)
[2023-07-30 00:07] LABS: Absolute Lymphocytes (CBC) 1.7 K/uL (0.7-4.9); Hematocrit 41.2 % (39.6-49.0); Lymphocytes % 19.9 % (15.3-44.8); MCV 81.4 fL (80-100); MPV 8.7 fL (7.6-11.3); Platelets 301 thou/uL (152-406); RBC Red Blood Cell Count 5.06 M/uL (4.33-5.43)
[2023-07-30 00:13] LABS: Potassium 3.8 mEq/L (3.5-5.1)
--- NOTE | 2023-07-30 00:50 | ER ---
Nurse's Notes [facility] Name: Delfino Benjamin Age: 53 yrs Sex: Male : 1970 Arrival Date: 07/29/2023 Time: 22:39 Bed 11 Private MD: Diagnosis: Acute sinusitis, unspecified;Hyperglycemia, unspecified Presentation: 07/29 22:57 Chief complaint: Sinus congestion, sore throat, and cough x 4 days, fever a few days hb ago. Coronavirus screen: Client presents with at least one sign or symptom that may indicate coronavirus-19. Provider contacted for isolation considerations. Ebola Screen: No symptoms or risks identified at this time. Initial Sepsis Screen: Does the patient meet any 2 criteria? No. Patient's initial sepsis screen is negative. Does the patient have a suspected source of infection? No. Patient's initial sepsis screen is negative. Risk Assessment: Do you want to hurt yourself or someone else? Patient reports no desire to harm self or others. Onset of symptoms was July 25, 2023. 22:57 Method Of Arrival: Ambulatory hb 22:57 Acuity: MAKENZIE 3 hb Historical: - Allergies: 22:58 No Known Allergies; hb - Home Meds: 23:44 amlodipine 5 mg tab 1 tab once daily [Active]; Janumet XR 50-1 Oral TM24 1 tab twice a hb day [Active]; [place] 10-325 mg Oral tab 1 tab TID prn [Active]; simvastatin 20 mg Oral tab 1 tab once daily [Active]; Trulicity subcutaneous [Active]; - PMHx: 22:58 Back pain; Back pain; Diabetes - NIDDM; Diabetes - NIDDM; High Cholesterol; hb Hypertension; - Immunization history:: Adult Immunizations up to date. - Social history:: Smoking status: Patient denies any tobacco usage or history of. Screenin:43 [facility] ED Fall Risk Assessment (Adult) Score/Fall Risk Level 0 - 2 = Low Risk hb Oriented to surroundings, Maintained a safe environment. Abuse screen: Denies threats or abuse. Denies injuries from another. Nutritional screening: No deficits noted. Tuberculosis screening: No symptoms or risk factors identified. Assessment: 23:43 General: Appears in no apparent distress. Behavior is calm, cooperative. Pain: Pain hb currently is 3 out of 10 on a pain scale. Neuro: Level of Consciousness is awake, alert, obeys commands, Oriented to person, place, time, situation. Cardiovascular: Patient's skin is warm and dry. Respiratory: Reports cough that is Respiratory effort is even, unlabored, Respiratory pattern is regular, symmetrical. GI: No signs and/or symptoms were reported involving the gastrointestinal system. : No signs and/or symptoms were reported regarding the genitourinary system. EENT: Reports nasal congestion. Derm: Skin is pink, warm \T\ dry. Musculoskeletal: No signs and/or symptoms reported regarding the musculoskeletal system. Vital Signs: 22:57 BP 192 / 107; Pulse 112; Resp 18; Temp 99.2(O); Pulse Ox 99% on R/A; Weight 117.93 kg; hb Height 6 ft. 1 in. ; Pain 12/27; 07/30 01:11 BP 182 / 97; Pulse 75; Resp 16; Pulse Ox 98% ; bp 07/29 22:57 Body Mass Index 34.30 (117.93 kg, 185.42 cm) hb 07/29 22:57 Pain Scale: Adult hb ED Course: 07/29 22:43 Patient arrived in ED. mr 22:44 Marcos Phoebe, [facility] kb 22:44 Phillip Freitas MD is Attending Physician. kb 22:58 Triage completed. hb 22:58 Arm band placed on. hb 23:12 Strep Sent. hb 23:12 Flu Sent. hb 23:25 Kathia Rosa, RN is Primary Nurse. hb 23:40 Inserted saline lock: 20 gauge in right antecubital area, using aseptic technique. hb Blood collected. 23:42 Strep Sent. hb 23:42 SARS-COV-2 RT PCR Sent. hb 23:42 Flu Sent. hb 23:43 Patient has correct armband on for positive identification. Provided Education on: . hb 23:43 Basic Metabolic Panel Sent. hb 23:43 CBC with Diff Sent. hb 07/30 01:11 No provider procedures requiring assistance completed. IV discontinued, intact, bp bleeding controlled, No redness/swelling at site. Pressure dressing applied. Administered Medications: 07/29 23:43 Drug: NS 0.9% IV 1000 ml IV at 1000 ml once Route: IV; Rate: 1000 ml; Site: right hb antecubital; 07/30 01:11 Follow up: IV Status: Completed infusion; IV Intake: 1000ml bp Medication: 07/29 23:43 VIS not applicable for this client. hb Intake: 07/30 01:11 IV: 1000ml; Total: 1000ml. bp Outcome: 00:50 Discharge ordered by . osmar 01:11 Discharged to home ambulatory, bp 01:11 Condition: stable 01:11 Discharge instructions given to patient, Instructed on discharge instructions, follow up and referral plans. Demonstrated understanding of instructions, follow-up care, 01:12 Patient left the ED. bp Signatures: Phoebe Rodríguez, ELECTRICIAN RESEARCH-C ELECTRICIAN RESEARCH-Madina Knapp, Reg Reg mr Kathia Rosa, RN RN hb Mike Choudhary, RN RN bp
--- NOTE | 2023-07-30 00:50 | EDPHYS ---
Physician Documentation [facility] Name: Delfino Benjamin Age: 53 yrs Sex: Male : 1970 Arrival Date: 07/29/2023 Time: 22:39 Bed 11 Private MD: ED Physician Phillip Freitas HPI: 07/29 23:10 This 53 yrs old Male presents to ER via Ambulatory with complaints of Sinus kb Congestion. 23:10 The patient or guardian reports cough, that is intermittent, described as mild. Onset: kb The symptoms/episode began/occurred 4 day(s) ago. Severity of symptoms: At their worst the symptoms were mild, moderate, in the emergency department the symptoms are unchanged. Modifying factors: The symptoms are alleviated by nothing, the symptoms are aggravated by nothing. Associated signs and symptoms: Pertinent positives: rhinorrhea, sore throat. The patient has not experienced similar symptoms in the past. The patient has not recently seen a physician. Pt reports sinus congestion, sore throat and cough for 4 days. States he had a low grade fever on Friday. Reports history of hypertension and diabetes that is poorly controlled.. Historical: - Allergies: 22:58 No Known Allergies; hb - Home Meds: 23:44 amlodipine 5 mg tab 1 tab once daily [Active]; Janumet XR 50-1 Oral TM24 1 tab twice a hb day [Active]; [place] 10-325 mg Oral tab 1 tab TID prn [Active]; simvastatin 20 mg Oral tab 1 tab once daily [Active]; Trulicity subcutaneous [Active]; - PMHx: 22:58 Back pain; Back pain; Diabetes - NIDDM; Diabetes - NIDDM; High Cholesterol; hb Hypertension; - Immunization history:: Adult Immunizations up to date. - Social history:: Smoking status: Patient denies any tobacco usage or history of. ROS: 23:10 Constitutional: Negative for fever, chills, and weight loss, kb 23:10 ENT: Positive for rhinorrhea, sinus congestion, sore throat, 23:10 Respiratory: Positive for cough, 23:10 All other systems are negative, Exam: 23:10 Constitutional: This is a well developed, well nourished patient who is awake, alert, kb and in no acute distress. Head/Face: Normocephalic, atraumatic. ENT: Moist Mucous membranes Cardiovascular: Regular rate Respiratory: Respirations even and unlabored. No increased work of breathing. Talking in full sentences Abdomen/GI: Soft, non-tender. No distention Skin: Warm, dry with normal turgor. Normal color. MS/ Extremity: Pulses equal, no cyanosis. Neurovascular intact. Full, normal range of motion. Neuro: Awake and alert, GCS 15, oriented to person, place, time, and situation. Moves all extremities. Normal gait. Vital Signs: 22:57 BP 192 / 107; Pulse 112; Resp 18; Temp 99.2(O); Pulse Ox 99% on R/A; Weight 117.93 kg; hb Height 6 ft. 1 in. ; Pain 12/27; 07/30 01:11 BP 182 / 97; Pulse 75; Resp 16; Pulse Ox 98% ; bp 07/29 22:57 Body Mass Index 34.30 (117.93 kg, 185.42 cm) hb 07/29 22:57 Pain Scale: Adult hb MDM: 07/29 22:45 Patient medically screened. 23:10 Differential Diagnosis: Influenza Upper Respiratory Infection Sinusitis Pharyngitis. Data reviewed: vital signs, nurses notes. 07/30 00:46 Counseling: I had a detailed discussion with the patient and/or guardian regarding the historical points, exam findings, and any diagnostic results supporting the discharge/admit diagnosis, lab results, the need for outpatient follow up, a family practitioner, to return to the emergency department if symptoms worsen or persist or if there are any questions or concerns that arise at home. 00:55 I considered the following discharge prescriptions or medication management in the emergency department I discussed and recommended Over The Counter medications, Antibiotics: At this time antibiotics are not recommended. 07/29 22:54 Order name: Flu; Complete Time: 00:45 kb 07/29 22:54 Order name: SARS-COV-2 RT PCR; Complete Time: 00:43 kb 07/29 22:54 Order name: Strep; Complete Time: 00:45 kb 07/29 23:06 Order name: CBC with Diff; Complete Time: 00:10 kb 07/29 23:06 Order name: Basic Metabolic Panel; Complete Time: 00:14 kb 07/29 23:18 Order name: Glucose, Ancillary Testing; Complete Time: 23:19 EDMS 07/30 00:48 Order name: Throat Culture EDUT 07/30 01:07 Order name: Glucose, Ancillary Testing EDUT 07/29 22:54 Order name: Blood Glucose Level; Complete Time: 23:12 kb 07/29 23:06 Order name: IV Start; Complete Time: 23:42 kb 07/30 00:47 Order name: Blood Glucose Level; Complete Time: 00:57 kb Administered Medications: 07/29 23:43 Drug: NS 0.9% IV 1000 ml IV at 1000 ml once Route: IV; Rate: 1000 ml; Site: right hb antecubital; 07/30 01:11 Follow up: IV Status: Completed infusion; IV Intake: 1000ml bp Disposition Summary: 07/30/23 00:50 Discharge Ordered Notes: Location: Home kb Condition: Stable kb Diagnosis - Acute sinusitis, unspecified kb - Hyperglycemia, unspecified kb Followup: kb - With: Emergency Department - When: As needed - Reason: Worsening of condition Followup: kb - With: Private Physician - When: 2 - 3 days - Reason: Recheck today's complaints, Continuance of care, Re-evaluation by your physician Discharge Instructions: - Discharge Summary Sheet kb - Sinusitis, Adult, [id number] kb Forms: - Medication Reconciliation Form kb - Thank You Letter kb - Antibiotic Education kb - Prescription Opioid Use kb - Patient Portal Instructions kb - Leadership Thank You Letter kb Signatures: Dispatcher [employer] Phoebe Perez, MARY-Bunny HERNANDEZ-Kathia Wade, RN RN Mike Osorio RN bp
[2023-07-30 02:29] VITALS: TEMP 99.2
[2023-07-30 02:30] VITALS: BP 182/97; O2SAT 98
== END 2023-07-30 01:12 | disposition home or self-care (01) ==
LOC: ER 22:39
DX: J01.90 Acute sinusitis, unspecified (principal); E11.65 Type 2 diabetes mellitus with hyperglycemia; Z79.4 Long term (current) use of insulin; Z20.822 Contact with and (suspected) exposure to COVID-19
CPT/HCPCS: 87070; 85025; 80048; 36415; 82947 ×2; 87081; 87635; 87804 ×2; J7030

== ENCOUNTER 2024-08-15 16:35 | Emergency (ER) | payer OTHER ==
--- NOTE | 2024-08-15 18:13 | RAD REPORT ---
EXAMINATION: LUMBAR SPINE MULTIPLE VIEWS CLINICAL INDICATION: Male, 54 years old. SWELLING TECHNIQUE: Multiple views of the lumbar spine were obtained. COMPARISON: No prior exam. FINDINGS: For purposes of this dictation, it is assumed that there are 5 lumbar type vertebral bodies. ALIGNMENT: There is normal alignment of the lumbar spine. BONES: Vertebral bodies are normal in height. No aggressive osseous lesions. DISCS: Prominent disc thinning with posterior osteophyte noted at L4-5 and L5-S1. Cholecystectomy cli ps. IMPRESSION: No acute lumbar spine abnormality. Mild lower lumbar spondylosis.
--- NOTE | 2024-08-15 18:13 | RAD REPORT ---
EXAMINATION: XR RIGHT HIP CLINICAL INDICATION: . SWELLING RIGHT TECHNIQUE: Multiple views of the right hip were obtained. COMPARISON: No prior exam. FINDINGS: Mild to moderate right hip osteoarthritis is present. No radiographic evidence of AVN. IMPRESSION: [id number] right hip osteoarthritis.
--- NOTE | 2024-08-15 18:36 | ER ---
Nurse's Notes [facility] Name: Delfino Benjamin Age: 54 yrs Sex: Male : 1970 Arrival Date: 08/15/2024 Time: 16:35 Bed 4 Private MD: Diagnosis: Strain of muscle, fascia and tendon of lower back Presentation: 08/15 16:49 Chief complaint: Patient states: he has right side lower back pain that started ap3 Friday08/14/24. patient currently rates his pain as a 8/10 on the pain scale. Coronavirus screen: At this time, the client does not indicate any symptoms associated with coronavirus-19. Ebola Screen: No symptoms or risks identified at this time. Initial Sepsis Screen: Does the patient meet any 2 criteria? No. Patient's initial sepsis screen is negative. Does the patient have a suspected source of infection? No. Patient's initial sepsis screen is negative. Risk Assessment: Do you want to hurt yourself or someone else? Patient reports no desire to harm self or others. Onset of symptoms was August 14, 2024. 16:49 Method Of Arrival: Ambulatory ap3 16:49 Acuity: MAKENZIE 2 ap3 Triage Assessment: 16:52 General: Appears uncomfortable, Behavior is calm, cooperative, appropriate for age. ap3 Pain: Complains of pain in low back area and right low back Pain currently is 8 out of 10 on a pain scale. Pain began 1 day ago. Neuro: Level of Consciousness is awake, alert, obeys commands, Oriented to person, place, time, situation. Cardiovascular: Patient's skin is warm and dry. Respiratory: Airway is patent Respiratory effort is even, unlabored, Respiratory pattern is regular, symmetrical. Historical: - Allergies: 16:51 No Known Allergies; ap3 - PMHx: 16:51 Back pain; Diabetes - NIDDM; High Cholesterol; Hypertension; ap3 - Immunization history:: Client reports having NOT received the Covid vaccine. Flu vaccine is not up to date. - Infectious Disease History:: Denies. - Social history:: Smoking status: Patient denies any tobacco usage or history of. Screenin:52 [facility] ED Fall Risk Assessment (Adult) History of falling in the last 3 months, ap3 including since admission No falls in past 3 months (0 pts) Confusion or Disorientation No (0 pts) Intoxicated or Sedated No (0 pts) Impaired Gait No (0 pts) Mobility Assist Device Used No (0 pt) Altered Elimination No (0 pt) Score/Fall Risk Level 0 - 2 = Low Risk Oriented to surroundings, Maintained a safe environment, Educated pt \T\ family on fall prevention, incl call for assistance when getting out of bed, Assessed \T\ reinforced patient's understanding of fall precautions, Provided non-skid footwear, Hourly rounding (assess needs \T\ fall precautionary measures) done, Used ambulatory aids as needed (educated on \T\ assisted with), Used gait belt as appropriate. Abuse screen: Denies threats or abuse. Nutritional screening: No deficits noted. Tuberculosis screening: No symptoms or risk factors identified. Assessment: 17:12 General: Appears in no apparent distress. uncomfortable, Behavior is calm, cooperative. tm6 Pain: Complains of pain in right hip and right low back and low back area Pain currently is 9 out of 10 on a pain scale. Pain began 1 day ago. Neuro: Level of Consciousness is awake, alert, obeys commands, Oriented to person, place, time, situation. Cardiovascular: Patient's skin is warm and dry. Respiratory: Airway is patent Respiratory effort is even, unlabored, Respiratory pattern is regular, symmetrical. GI: No signs and/or symptoms were reported involving the gastrointestinal system. Abdomen is flat, non-distended. : No signs and/or symptoms were reported regarding the genitourinary system. EENT: No signs and/or symptoms were reported regarding the EENT system. Derm: No signs and/or symptoms reported regarding the dermatologic system. Musculoskeletal: Reports pain in right hip and right low back and low back area since yesterday. Pain is 9 out of 10 on a pain scale. Vital Signs: 16:49 BP 213 / 100; Pulse 100; Resp 17; Temp 97.7; Pulse Ox 100% ; Weight 117.93 kg; Height 6 ap3 ft. 1 in. ; Pain 8/10; 16:52 BP 189 / 93; Pulse 99; Pulse Ox 100% on R/A; ap3 19:09 BP 181 / 96; Pulse 72; Resp 19; Temp 97.7; Pulse Ox 100% on R/A; MAP 120 mmHg; Pain tm6 7/10; 16:49 Body Mass Index 34.30 (117.93 kg, 185.42 cm) ap3 16:49 Pain Scale: Adult ap3 19:09 Pain Scale: Adult tm6 ED Course: 16:39 Patient arrived in ED. ra3 16:51 Triage completed. ap3 16:53 Arm band placed on right wrist. ap3 17:05 Layne Lopez, RN is Primary Nurse. tm6 17:12 Patient has correct armband on for positive identification. Bed in low position. Call tm6 light in reach. Side rails up X 1. Provided Education on: use of call gore. Client placed on continuous cardiac and pulse oximetry monitoring. NIBP monitoring applied. Pulse ox on. NIBP on. Door closed. Noise minimized. 17:15 Tyson Oconnell FNP-C is [facility]. dr5 17:15 Mike Grigsby MD is Attending Physician. dr5 18:04 Hip Right 2 View XRAY In Process Unspecified. EDMS 18:04 Lumbar Spine 3 Views In Process Unspecified. EDMS 19:10 Assist provider with bone marrow aspiration. Patient did not have IV access during this tm6 emergency room visit. Administered Medications: No medications were administered Medication: 17:12 VIS not applicable for this client. tm6 Outcome: 18:35 Discharge ordered by MD. dr5 19:10 Discharged to home ambulatory, tm6 19:10 Condition: stable 19:10 Discharge instructions given to patient, Instructed on discharge instructions, follow up and referral plans. medication usage, taking BP meds as prescribed. Patient stated he hasn't taken his BP meds in two days. Demonstrated understanding of instructions, follow-up care, medications, Prescriptions given X 2, 19:10 Patient left the ED. tm6 Signatures: Dispatcher [employer] EDMS Marissa Guerrero RN RN ap3 Layne Lopez, RN RN tm6 Kandis Palomo ra3 Tyson Oconnell FNP-C ANALYTICS SPECIALIST-Cdr5
--- NOTE | 2024-08-15 18:37 | EDPHYS ---
Physician Documentation [facility] Name: Delfino Benjamin Age: 54 yrs Sex: Male : 1970 Arrival Date: 08/15/2024 Time: 16:35 Bed 4 Private MD: ED Physician Mike Grigsby HPI: 08/15 18:08 This 54 yrs old Male presents to ER via Ambulatory with complaints of Low Back dr5 Pain, Hip Pain - right. 18:08 The patient presents with pain that is chronic, with no known mechanism of injury. The dr5 symptoms are located in the low back, Low Back Right / Right Hip Pain. Patient is a 54-year-old male presenting to ER for mid lower back pain and right hip pain. Patient has a past uncle history of uncontrolled hypertension. Patient has not taken high blood pressure medications in 2 days. Patient is on losartan and metoprolol 100 mg. Patient reports he has a previously diagnosed bulging disc. Patient denies trauma, fever, IV drug use, numbness tingling in the bilateral lower legs, perirectal numbness, urinary symptoms, urinary bowel incontinence. Patient has 2 bottles of hydrocodone's for previously diagnosed back problems/sciatic nerve pain. Patient is also on muscle relaxers cyclobenzaprine as needed for back pain. Patient reports he is currently seeing an oncologist to remove lipoma which he has scheduled on August 19 of this year.. Historical: - Allergies: 16:51 No Known Allergies; ap3 - PMHx: 16:51 Back pain; Diabetes - NIDDM; High Cholesterol; Hypertension; ap3 - Immunization history:: Client reports having NOT received the Covid vaccine. Flu vaccine is not up to date. - Infectious Disease History:: Denies. - Social history:: Smoking status: Patient denies any tobacco usage or history of. ROS: 18:11 Constitutional: as per hpi dr5 Exam: 18:11 Constitutional: This is a well developed, well nourished patient who is awake, alert, dr5 and in no acute distress. Head/Face: Normocephalic, atraumatic. 18:13 Neck: Trachea midline, no thyromegaly or masses palpated, and no cervical dr5 lymphadenopathy. Supple, full range of motion without nuchal rigidity, or vertebral point tenderness. No Meningismus. Chest/axilla: Normal chest wall appearance and motion. Nontender with no deformity. No lesions are appreciated. Cardiovascular: Regular rate and rhythm with a normal S1 and S2. Normal PMI, no JVD. No pulse deficits. Respiratory: Lungs have equal breath sounds bilaterally, clear to auscultation. No rales, rhonchi or wheezes noted. No increased work of breathing, no retractions or nasal flaring. Back: No spinal tenderness. No costovertebral tenderness. Full range of motion. Skin: Warm, dry with normal turgor. Normal color with no rashes, no lesions, and no evidence of cellulitis. 18:13 Constitutional: The patient appears in no acute distress, 18:13 Head/face: Exam is negative for acute changes, 18:13 Back: pain, that is very mild, ROM is normal, normal spinal alignment noted, CVA tenderness, is absent, vertebral tenderness, is not appreciated, muscle spasm, is not present, Straight leg raises: right lower extremity does not illicit pain, left lower extremity does not illicit pain, Vital Signs: 16:49 BP 213 / 100; Pulse 100; Resp 17; Temp 97.7; Pulse Ox 100% ; Weight 117.93 kg; Height 6 ap3 ft. 1 in. ; Pain 8/10; 16:52 BP 189 / 93; Pulse 99; Pulse Ox 100% on R/A; ap3 19:09 BP 181 / 96; Pulse 72; Resp 19; Temp 97.7; Pulse Ox 100% on R/A; MAP 120 mmHg; Pain tm6 7/10; 16:49 Body Mass Index 34.30 (117.93 kg, 185.42 cm) ap3 16:49 Pain Scale: Adult ap3 19:09 Pain Scale: Adult tm6 MDM: 17:15 Medical Screening Exam initiated dr5 19:13 Differential diagnosis: arthritis, strain, contusion. Data reviewed: vital signs, dr5 nurses notes. I considered the following discharge prescriptions or medication management in the emergency department Patient's blood pressure decreased after taking home medications.. Care significantly affected by the following chronic conditions: Diabetes, Hypertension, Hyperlipidemia. Care significantly affected by the following Social Determinants of Health: Poor access to healthcare and/or lack of insurance, Poor access to transportation. Counseling: I had a detailed discussion with the patient and/or guardian regarding the historical points, exam findings, and any diagnostic results supporting the discharge/admit diagnosis, the presence of at least one elevated blood pressure reading (>120/80) during this emergency department visit, radiology results, the need for outpatient follow up, for definitive care, a family practitioner, a orthopedic surgeon, to return to the emergency department if symptoms worsen or persist or if there are any questions or concerns that arise at home. ED course: Added Anaprox and gabapentin to medication regimen. Recommended patient keep appointment on 08/19/24. x-ray results printed and given to patient to take with him to primary care doctor. 08/15 17:32 Order name: Hip Right 2 View XRAY; Complete Time: 18:30 dr5 08/15 17:56 Order name: Lumbar Spine 3 Views; Complete Time: 18:30 EDMS Administered Medications: No medications were administered Disposition Summary: 08/15/24 18:35 Discharge Ordered Notes: Location: Home dr5 Condition: Stable dr5 Diagnosis - Strain of muscle, fascia and tendon of lower back dr5 Followup: dr5 - With: Emergency Department - When: As needed - Reason: Worsening of condition Followup: dr5 - With: Private Physician - When: 1 - 2 days - Reason: Recheck today's complaints, Continuance of care, Re-evaluation by your physician Discharge Instructions: - Discharge Summary Sheet dr5 Forms: - Medication Reconciliation Form dr5 - Patient Portal Instructions dr5 - Leadership Thank You Letter dr5 Prescriptions: - gabapentin 300 mg Oral capsule - take 3 capsule ORAL route daily As needed; 30 capsule; Refills: 0, Product dr5 Selection Permitted - Anaprox DS 550 mg Oral Tablet - take 1 tablet ORAL route every 12 hours As needed; 20 tablet; Refills: 0, dr5 Product Selection Permitted Signatures: Dispatcher [employer] [facility] Marissa Guerrero RN RN ap3 Tyson Oconnell, SWITCH FOREMAN-C SWITCH FOREMAN-Cdr5 Corrections: (The following items were deleted from the chart) 17:56 17:33 Lumbar Spine Single View+[id number].[id number] ordered. [facility] 18:12 18:08 Patient is a 54-year-old male presenting to ER for mid lower back pain and right dr5 hip pain. Patient has a past uncle history of uncontrolled hypertension. Patient has not taken high blood pressure medications in 2 days. Patient is on losartan and metoprolol 100 mg. Patient reports he has a previously diagnosed bulging disc.. dr5
[2024-08-16 01:40] VITALS: TEMP 97.7; O2SAT 100
[2024-08-16 01:43] VITALS: BP 181/96
== END 2024-08-15 19:10 | disposition home or self-care (01) ==
LOC: ER 16:35
DX: S39.012A Strain of muscle, fascia and tendon of lower back, initial encounter (principal); I10 Essential (primary) hypertension; E11.9 Type 2 diabetes mellitus without complications; E78.00 Pure hypercholesterolemia, unspecified
CPT/HCPCS: 72100; 99284

== ENCOUNTER 2024-10-11 21:00 | Emergency (ER) | payer OTHER ==
[2024-10-11] MEDS ORDERED: NA CHLORIDE 0.9% 1,000 ML ONE (22:03)
[2024-10-11] MEDS ORDERED: MORPHINE 4 MG/ML SYR ONE (22:03)
[2024-10-11] MEDS ORDERED: ONDANSETRON 4 MG/2 ML VIAL ONE (22:03)
[2024-10-11 22:06] LABS: Specific Gravity > 1.030 (1.005-1.030); Sqamous Epithelial None Seen /HPF (None Seen); Urine Bacteria None Seen /HPF (<20); Urine Bilirubin NEGATIVE (Negative); Urine Blood Trace (Negative); Urine Clarity Clear (Clear); Urine Color Colorless (Yellow); Urine Culture Reflex Order NOT NEEDED; Urine Glucose 4+ (Over) (Negative); Urine Ketones NEGATIVE (Negative); Urine Microscopic Reflex YN ORDER UMIC; Urine Nitrite NEGATIVE (Negative); Urine Protein 2+ (Negative); Urine RBC <5 /HPF (None Seen); Urine Urobilinogen Normal (Normal); Urine WBC <5 /HPF (<5); Urine pH 5.5 (5.0-7.0)
[2024-10-11 22:09] LABS: Absolute Basophils 0.1 K/uL (0-0.5); Absolute Eosinophils 0.2 K/uL (0-0.5); Absolute Lymphocytes (CBC) 1.6 K/uL (0.7-4.9); Absolute Monocytes 0.6 K/uL (0.1-1.3); Absolute Neutrophil 3.8 K/uL (1.8-8.0); Basophils % 0.8 % (0-1.3); Eosinophils % 3.8 % (0-4.4); Hematocrit 41.5 % (39.6-49.0); Hemoglobin 13.4 g/dL (13.6-17.9); Lymphocytes % 25.7 % (15.3-44.8); MCH 26.2 pg (27.0-35.0); MCHC 32.3 g/dL (32.0-36.0); MCV 81.1 fL (80-100); MPV 8.8 fL (7.6-11.3); Neutrophils % 60.7 % (41.7-73.7); Platelets 298 thou/uL (152-406); RBC Red Blood Cell Count 5.11 M/uL (4.33-5.43); Red Cell Distribution Width 14.3 % (12.1-15.2)
[2024-10-11 22:24] LABS: Albumin/Globulin Ratio 0.9 (1.1-1.8); Anion Gap 9.8 mEq/L (5.0-15.0); Bilirubin Total 0.3 mg/dL (0.2-1.0); Globulin 3.5 g/dL (2.3-3.5); Potassium 3.8 mEq/L (3.5-5.1); Protein, Total 6.5 g/dL (6.4-8.2)
--- NOTE | 2024-10-12 00:51 | EDPHYS ---
Physician Documentation [facility] Name: Delfino Benjamin Age: 54 yrs Sex: Male : 1970 Arrival Date: 10/11/2024 Time: 21:00 Bed 5 Private MD: ED Physician Jamal Brown HPI: 10/11 22:30 This 54 yrs old Male presents to ER via Ambulatory with complaints of rn Nausea/Vomiting/Diarrhea, Abdominal Pain, Low Back Pain. 22:30 The patient presents to the emergency department with nausea, vomiting, diarrhea, rn abdominal pain. Onset: The symptoms/episode began/occurred 2 day(s) ago. Possible causes: unknown. The symptoms are aggravated by nothing. The symptoms are alleviated by nothing. Severity of symptoms: At their worst the symptoms were moderate in the emergency department the symptoms are unchanged. The patient has experienced similar episodes in the past. The patient has not recently seen a physician. Patient reports 2 or 3 days of right sided abdominal pain associated with vomiting and diarrhea. No blood in emesis or stool. No fever or chills. Reports got over what he thinks was the flu last week.. Historical: - Allergies: 21:31 No Known Allergies; al5 - Home Meds: 21:31 [place] 10-325 mg Oral tab 1 tab TID prn [Active]; losartan oral [Active]; atorvastatin al5 oral [Active]; Metoprolol Tartrate Oral [Active]; - PMHx: 21:31 Back pain; Diabetes - NIDDM; High Cholesterol; Hypertension; al5 - PSHx: 21:31 Cholecystectomy; al5 - Immunization history:: Adult Immunizations up to date. - Infectious Disease History:: Denies. - Social history:: Smoking status: unknown. - Family history:: not pertinent. - Hospitalizations: : No recent hospitalization is reported. ROS: 22:30 Constitutional: Negative for fever, chills, and weight loss, Cardiovascular: Negative rn for chest pain, palpitations, and edema, Respiratory: Negative for shortness of breath, cough, wheezing, and pleuritic chest pain, Abdomen/GI: Positive for nausea/vomiting/diarrhea MS/Extremity: Negative for injury and deformity, Skin: Negative for injury, rash, and discoloration, Neuro: Negative for headache, weakness, numbness, tingling, and seizure, Exam: 22:30 Constitutional: This is a well developed, well nourished patient who is awake, alert, rn and in no acute distress. ENT: Dry mucous membranes Cardiovascular: Tachycardic, regular. Respiratory: No increased work of breathing, no retractions or nasal flaring. Abdomen/GI: Soft, mild right lower quadrant tenderness. No rebound or guarding Neuro: Awake and alert, GCS 15 10/12 00:34 ECG was reviewed by the Attending Physician. rn Vital Signs: 10/11 21:17 BP 211 / 129; Pulse 120; Resp 18; Pulse Ox 97% on R/A; al5 21:27 BP 186 / 118; Pulse 124; Resp 18; Temp 98.8; Pulse Ox 98% on R/A; Weight 120.2 kg; al5 Height 6 ft. 1 in. ; Pain 8/10; 21:30 BP 171 / 103; Pulse 109; Resp 17; Pulse Ox 97% on R/A; al5 21:45 BP 201 / 113; Pulse 101; Resp 16; Pulse Ox 97% on R/A; al5 22:00 BP 182 / 90; Pulse 94; Resp 17; Pulse Ox 98% on R/A; al5 22:30 BP 181 / 87; Pulse 79; Resp 15; Pulse Ox 98% on R/A; al5 23:00 BP 172 / 93; Pulse 77; Resp 15; Pulse Ox 97% on R/A; al5 23:30 BP 156 / 86; Pulse 75; Resp 17; Pulse Ox 98% on R/A; al5 10/12 00:00 BP 163 / 99; Pulse 72; Resp 16; Pulse Ox 98% on R/A; al5 00:30 BP 142 / 83; Pulse 67; Resp 16; Pulse Ox 97% on R/A; al5 01:00 BP 169 / 90; Pulse 69; Resp 17; Pulse Ox 97% on R/A; al5 10/11 21:27 Body Mass Index 34.96 (120.20 kg, 185.42 cm) al5 21:27 Pain Scale: Adult al5 MDM: 10/11 21:05 Medical Screening Exam initiated rn 10/12 00:49 Differential diagnosis: Nonspecific abd pain, gastritis, pancreatitis, appendicitis, rn diverticulitis, viral gastroenteritis, gastroenteritis. Data reviewed: vital signs, nurses notes, lab test result(s), radiologic studies, CT scan, and as a result, I will discharge patient. Counseling: I had a detailed discussion with the patient and/or guardian regarding the historical points, exam findings, and any diagnostic results supporting the discharge/admit diagnosis, lab results, radiology results, the need for outpatient follow up, to return to the emergency department if symptoms worsen or persist or if there are any questions or concerns that arise at home. Response to treatment: the patient's symptoms have mildly improved after treatment, and as a result, I will discharge patient. Special discussion: Based on the patient's Hx, exam, and Dx evaluation, there is no indication for emergent surgery or inpatient Tx. It is understood by the patient/guardian that if the Sx's persist or worsen they need to return immediately for re-evaluation. I discussed with the patient/guardian in detail that at this point there is no indication for admission to the hospital. It is understood, however, that if the symptoms persist or worsen the patient needs to return immediately for re-evaluation. ED course: No acute findings in CT abdomen pelvis. Specifically no appendicitis. No signs of colitis. Most likely viral syndrome. 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 10/11 21: Order name: CBC with Diff; Complete Time: 23:43 10/11 21: Order name: CMP; Complete Time: 23:43 rn 10/11 21:27 Order name: Lipase; Complete Time: 23:43 10/11 21:27 Order name: Urinalysis w/ reflexes; Complete Time: 23:43 10/11 21:27 Order name: CT Abd/Pelvis - IV Contrast Only 10/11 21:27 Order name: IV Saline Lock; Complete Time: :57 rn 10/11 21: Order name: Labs collected and sent; Complete Time: :57 10/11 21:48 Order name: EKG - Nurse/Tech; Complete Time: 22:06 rn EC:34 Rate is 99 beats/min. Rhythm is regular. QRS [place] is Normal. LA interval is normal. QRS rn interval is normal. QT interval is normal. No Q waves. T waves are Normal. No ST changes noted. Clinical impression: Normal ECG. Interpreted by me. Reviewed by me. Administered Medications: 10/11 22:08 Drug: NS 0.9% IV 1000 ml IV at 1 bolus Per protocol; to be given as a bolus over 60 jj7 minutes Route: IV; Rate: 1 bolus; Site: right antecubital; 10/12 01:27 Follow up: Response: No adverse reaction; IV Status: Completed infusion; IV Intake: al5 1000ml 10/11 22:08 Drug: morphine IVP or IV 4 mg IVP once over 4 mins Route: IVP; Infused Over: 4 mins; jj7 Site: right antecubital; 10/12 01:26 Follow up: Response: No adverse reaction; Pain is decreased al5 10/11 22:09 Drug: Ondansetron IVP 4 mg IVP once; over 2 minutes Route: IVP; Site: right antecubital;jj7 10/12 01:27 Follow up: Response: No adverse reaction; Nausea is decreased al5 Disposition Summary: 10/12/24 00:51 Discharge Ordered Notes: Location: Home rn Problem: new rn Symptoms: have improved rn Condition: Stable rn Diagnosis - Vomiting, unspecified rn - Diarrhea, unspecified rn - Abdominal pain, unspecified rn Followup: rn - With: Private Physician - When: As needed - Reason: Recheck today's complaints, Re-evaluation by your physician Discharge Instructions: - Discharge Summary Sheet rn - Abdominal Pain, Adult rn - Diarrhea, Adult rn - Nausea and Vomiting, Adult rn Forms: - Medication Reconciliation Form rn - Antibiotic administrative intern - Prescription Opioid Use rn - Patient Portal Instructions rn - Leadership Thank You Letter rn Prescriptions: - ondansetron 4 mg Oral Tablet,disintegrating - take 1 tablet ORAL route every 8 hours As needed; 12 tablet; Refills: 0, rn Product Selection Permitted Signatures: Dispatcher [employer] Jamal Gramajo MD MD rn Johnson, Juwairiyah, RN RN jj7 Marissa Foley RN RN al5
--- NOTE | 2024-10-12 00:51 | ER ---
Nurse's Notes [facility] Name: Delfino Benjamin Age: 54 yrs Sex: Male : 1970 Arrival Date: 10/11/2024 Time: 21:00 Bed 5 Private MD: Diagnosis: Vomiting, unspecified;Diarrhea, unspecified;Abdominal pain, unspecified Presentation: 10/11 21:27 Chief complaint: Patient states: he was sick 2 weeks ago with fls. yesterday started to al5 experience vomiting, diarrhea, RLQ abdominal pain, and R flank pain. Coronavirus screen: At this time, the client does not indicate any symptoms associated with coronavirus-19. Ebola Screen: No symptoms or risks identified at this time. Initial Sepsis Screen: Does the patient meet any 2 criteria? HR > 90 bpm. No. Patient's initial sepsis screen is negative. Does the patient have a suspected source of infection? No. Patient's initial sepsis screen is negative. Risk Assessment: Do you want to hurt yourself or someone else? Patient reports no desire to harm self or others. Onset of symptoms was October 10, 2024. 21:27 Method Of Arrival: Ambulatory al5 21:27 Acuity: MAKENZIE 3 al5 Triage Assessment: 21:31 General: Appears in no apparent distress. Behavior is calm, cooperative. Pain: al5 Complains of pain in right lower quadrant Pain radiates to right mid back and right low back. EENT: No signs and/or symptoms were reported regarding the EENT system. Neuro: Level of Consciousness is awake, alert, obeys commands, Oriented to person, place, time, situation. Cardiovascular: Capillary refill < 3 seconds Patient's skin is warm and dry. Respiratory: Airway is patent Respiratory effort is even, unlabored, Respiratory pattern is regular, symmetrical. GI: Abdomen is non-distended, obese, Reports lower abdominal pain, diarrhea, nausea, vomiting. GI: Abd is soft and non tender X 4 quads. : No signs and/or symptoms were reported regarding the genitourinary system. Derm: Skin is intact, is healthy with good turgor, Skin is pink, warm \T\ dry. normal. Musculoskeletal: No signs and/or symptoms reported regarding the musculoskeletal system. Historical: - Allergies: 21:31 No Known Allergies; al5 - Home Meds: 21:31 [place] 10-325 mg Oral tab 1 tab TID prn [Active]; losartan oral [Active]; atorvastatin al5 oral [Active]; Metoprolol Tartrate Oral [Active]; - PMHx: 21:31 Back pain; Diabetes - NIDDM; High Cholesterol; Hypertension; al5 - PSHx: 21:31 Cholecystectomy; al5 - Immunization history:: Adult Immunizations up to date. - Infectious Disease History:: Denies. - Social history:: Smoking status: unknown. - Family history:: not pertinent. - Hospitalizations: : No recent hospitalization is reported. Screenin:42 [facility] ED Fall Risk Assessment (Adult) History of falling in the last 3 months, al5 including since admission No falls in past 3 months (0 pts) Confusion or Disorientation No (0 pts) Intoxicated or Sedated No (0 pts) Impaired Gait No (0 pts) Mobility Assist Device Used No (0 pt) Altered Elimination No (0 pt) Score/Fall Risk Level 0 - 2 = Low Risk Oriented to surroundings, Maintained a safe environment, Hourly rounding (assess needs \T\ fall precautionary measures) done. Abuse screen: Denies threats or abuse. Denies injuries from another. Nutritional screening: No deficits noted. Tuberculosis screening: No symptoms or risk factors identified. Assessment: 21:42 Reassessment: see triage assessment. al5 23:00 Reassessment: Patient appears in no apparent distress at this time. Patient and/or al5 family updated on plan of care and expected duration. Pain level reassessed. Patient is alert, oriented x 3, equal unlabored respirations, skin warm/dry/pink. pain decreased. Vital Signs: 21:17 BP 211 / 129; Pulse 120; Resp 18; Pulse Ox 97% on R/A; al5 21:27 BP 186 / 118; Pulse 124; Resp 18; Temp 98.8; Pulse Ox 98% on R/A; Weight 120.2 kg; al5 Height 6 ft. 1 in. ; Pain 8/10; 21:30 BP 171 / 103; Pulse 109; Resp 17; Pulse Ox 97% on R/A; al5 21:45 BP 201 / 113; Pulse 101; Resp 16; Pulse Ox 97% on R/A; al5 22:00 BP 182 / 90; Pulse 94; Resp 17; Pulse Ox 98% on R/A; al5 22:30 BP 181 / 87; Pulse 79; Resp 15; Pulse Ox 98% on R/A; al5 23:00 BP 172 / 93; Pulse 77; Resp 15; Pulse Ox 97% on R/A; al5 23:30 BP 156 / 86; Pulse 75; Resp 17; Pulse Ox 98% on R/A; al5 10/12 00:00 BP 163 / 99; Pulse 72; Resp 16; Pulse Ox 98% on R/A; al5 00:30 BP 142 / 83; Pulse 67; Resp 16; Pulse Ox 97% on R/A; al5 01:00 BP 169 / 90; Pulse 69; Resp 17; Pulse Ox 97% on R/A; al5 10/11 21:27 Body Mass Index 34.96 (120.20 kg, 185.42 cm) al5 21:27 Pain Scale: Adult al5 ED Course: 10/11 21:04 Patient arrived in ED. im 21:05 Jamal Brown MD is Attending Physician. rn 21:08 Sakshi Stallworth, [place] is Primary Nurse. jj7 21:27 Primary Nurse role handed off by Sakshi Stallworth RN al5 21:27 Marissa Foley, [place] is Primary Nurse. al5 21:30 Triage completed. al5 21:40 Radiology exam delayed due to lab results not completed at this time. (BUN/Creatinine). nj 21:42 Arm band placed on right wrist. Patient placed in the treatment room, on a stretcher. al5 21:43 Patient has correct armband on for positive identification. Bed in low position. Call al5 light in reach. Side rails up X 1. Provided Education on: plan of care. 21:43 No provider procedures requiring assistance completed. al5 22:53 CT Abd/Pelvis - IV Contrast Only In Process Unspecified. EDMS 10/12 01:25 IV discontinued, intact, bleeding controlled, No redness/swelling at site. Pressure jj7 dressing applied. Administered Medications: 10/11 22:08 Drug: NS 0.9% IV 1000 ml IV at 1 bolus Per protocol; to be given as a bolus over 60 jj7 minutes Route: IV; Rate: 1 bolus; Site: right antecubital; 10/12 01:27 Follow up: Response: No adverse reaction; IV Status: Completed infusion; IV Intake: al5 1000ml 10/11 22:08 Drug: morphine IVP or IV 4 mg IVP once over 4 mins Route: IVP; Infused Over: 4 mins; jj7 Site: right antecubital; 10/12 01:26 Follow up: Response: No adverse reaction; Pain is decreased al5 10/11 22:09 Drug: Ondansetron IVP 4 mg IVP once; over 2 minutes Route: IVP; Site: right antecubital;jj7 10/12 01:27 Follow up: Response: No adverse reaction; Nausea is decreased al5 Medication: 10/11 21:42 VIS not applicable for this client. al5 Intake: 10/12 01:27 IV: 1000ml; Total: 1000ml. al5 Outcome: 00:51 Discharge ordered by . chico 01:24 Discharged to home ambulatory, manuelYolanda 01:24 Condition: improved 01:24 Discharge instructions given to patient, Instructed on discharge instructions, medication usage, Demonstrated understanding of instructions, medications, Prescriptions given X 1, 01:28 Patient left the ED. al5 Signatures: Dispatcher [employer] EDMS Jamal Brown MD MD rn Jordan, Sakshi Jung RN RN jjLela Llamas Amanda, RN RN al5
--- NOTE | 2024-10-12 01:33 | RAD REPORT ---
EXAM: CT Abdomen and Pelvis With Intravenous Contrast CLINICAL HISTORY: Vomiting/diarrhea/right flank and abd pain. TECHNIQUE: Axial computed tomography images of the abdomen and pelvis with intravenous contrast. Sagittal and coronal reformatted images were created and reviewed. This CT exam was performed using one or more of the following dose reduction techniques: automated exposure control, adjustment of the mA a nd/or kV according to patient size, and/or use of iterative reconstruction technique. COMPARISON: CT Abdomen Pelvis 11/06/2019. FINDINGS: Lung bases: Bilateral subsegmental atelectasis/pleural parenchymal scar. ABDOMEN: Liver: The liver is diffusely low in density compatible with steatosis. Gallbladder and bile ducts: There has been a cholecystectomy. No ductal dilation. Pancreas: Mild to moderate pancreatic parenchymal atrophy. No ductal dilation. Spleen: Unremarkable. No splenomegaly. Adrenals: Unremarkable. No mass. Kidneys and ureters: Normal renal cortical enhancement. No calculi. No hydronephrosis. Stable 1 c m left renal cortical hypodensity which is too small to characterize. Stomach and bowel: Lobulated soft tissue density structure located between the left hemidiaphragm a nd proximal stomach measuring approximately 8.9 x 5.9 x 2.8 cm (previously 7.1 x 4.1 x 2.5 cm). This abuts the stomach and the left hepatic lobe. Tiny duodenal diverticulum. No obstruction. N o mucosal thickening. PELVIS: Appendix: Normal caliber appendix. No findings to suggest acute appendicitis. Bladder: Unremarkable. No mass. Reproductive: Unremarkable as visualized. ABDOMEN and PELVIS: Intraperitoneal space: Unremarkable. No free air. No significant fluid collection. Bones/joints: Multilevel spondylosis. No acute fracture. No dislocation. Soft tissues: Small fat-containing supraumbilical and tiny fat-containing umbilical hernias. Smal l fat-containing right inguinal hernia. Vasculature: Mild atherosclerotic disease. No abdominal aortic aneurysm. Lymph nodes: Unremarkable. No enlarged lymph nodes. IMPRESSION: 1. No acute process identified within the abdomen and pelvis. 2. Lobulated soft tissue mass between the left hemidiaphragm and proximal stomach measuring approxi mately 8.9 x 5.9 x 2.8 cm (previously 7.1 x 4.1 x 2.5 cm). This abuts the stomach and the left hepatic lobe. This is of uncertain etiology. The possibility of a hepatic or gastric malignancy canno t be excluded on the basis of this examination. Recommend nonemergent MR with and without contrast or PET CT for further characterization. 3. Other findings as above. Electronically signed by: Reena Bedolla MD 10/12/2024 12:39 AM [facility] Due to temporary technical issues with the PACS/[employer] reporting system, reports are being sandy d by the in-house radiologist without review as a courtesy to ensure prompt reporting the interpreting radiologist is fully responsible for the content of the report. Transcribed Date/Time: 10/12/2024 1:33 AM
[2024-10-12 01:34] VITALS: TEMP 98.8
[2024-10-12 01:43] VITALS: O2SAT 97
[2024-10-12 01:45] VITALS: BP 169/90
--- NOTE | 2024-10-15 13:46 | EKG ---
Test Date: 2024-10-11 Test Time: 21:55:22 Band Splicer: FARZANEH MEASUREMENT RESULTS: Intervals: Rate: 99 ID: [id number] QRSD: 92 QT: 356 QTc: 456 [place]: P: 46 ID: [id number] QRS: 1 T: 53 INTERPRETIVE STATEMENTS: Normal sinus rhythm Normal ECG Compared to ECG 11/06/2019 21:34:21 Ventricular premature complex(es) no longer present Electronically Signed On 10-15-24 13:38:39 ASSOCIATE CREATIVE DIRECTOR by Randall Jackson
== END 2024-10-12 01:28 | disposition home or self-care (01) ==
LOC: ER 21:00
DX: R10.9 Unspecified abdominal pain (principal); R11.10 Vomiting, unspecified; R19.7 Diarrhea, unspecified; E11.9 Type 2 diabetes mellitus without complications; I10 Essential (primary) hypertension; E78.00 Pure hypercholesterolemia, unspecified; Z90.49 Acquired absence of other specified parts of digestive tract; Z79.899 Other long term (current) drug therapy
CPT/HCPCS: 96361; 93005; 85025; 81001; 36415; 83690; 80053; 74177; 96375; 96374; 99284; Q9967; J2405; J7030